=== PATIENT | female | born 1960 | race Caucasian/White ===

== ENCOUNTER → 2017-05-03 13:47 | Outpatient (CLI) | payer OTHER, SELFPAY ==
[2017-05-03 16:07] LABS: Absolute Lymphocyte Count 1.67 X10^3/ul (0.83-4.51); Absolute Neutrophil Count 2.8 X10^3/uL (2.0-7.7); Basophil# 0.03 X10^3/uL; Basophil% 0.5 % (0-1); Eosinophil# 0.18 X10^3/uL; Eosinophils% 3.2 % (0-5); Hematocrit 38.7 % (37-47); Hemoglobin 12.8 g/dl (12.0-15.0); Lymphocyte # 1.67 X10^3/ul (4.0); Lymphocyte % 29.8 % (19-41); Mean Corp Hgb Conc 33.1 g/gl (32-36); Mean Corpuscular Hgb 31.1 pg (27.0-32.0); Mean Corpuscular Volume 93.9 fL (81-99); Mean Platelet Vol. 10.5 fl (6.2-12.0); Monocyte# 0.88 X10^3/uL; Monocyte% 15.7 % (0-10); Neutrophil # 2.84 X10^3/uL (2.7-7.7); Neutrophil % 50.8 % (47-70); Platelet Count 285 K/mm3 (150-450); RBC Distribution Width CV 13.4 % (11.6-14.6); RBC Distribution Width SD 44.4 fl (35.1-43.9); Red Blood Count 4.12 M/mm3 (4.2-5.4); White Blood Count 5.6 K/mm3 (4.4-11.0)
[2017-05-03 16:11] LABS: POSITIVE COUNT NO; POSITIVE DIFFERENTIAL NO; POSITIVE MORPHOLOGY NO
[2017-05-03 17:57] LABS: ALB/GLOB Ratio 1.3 RATIO (0.9-2.4); AST(SGOT) 13 U/L (15-37); Alanine Aminotransfer ALT/SGPT 26 U/L (13-56); Alkaline Phosphatase 77 U/L (45-117); Anion Gap 7 (5-15); BUN 17 mg/dL (7-18); BUN/Creat Ratio 23.5 RATIO (10-20); Calcium,Total 8.7 mg/dL (8.5-10.1); Chloride 104 mmol/L (98-107); Creatinine, Serum 0.72 mg/dL (0.55-1.02); EST Glomerular Filtration Rate 88 mL/min (>60); Est Glom Filt Rate - Afr Amer 107 mL/min (>60); Globulin 3.1 g/dL (2.2-4.2); Glucose 74 mg/dL (74-106); Potassium 4.1 mmol/L (3.5-5.1); Protein, Total 7.1 g/dL (6.4-8.2); Sodium Level 141 mmol/L (136-145)
== END ==
PROVIDERS: Family Medicine; Family Provider Nurse Practitioner Family; PCP Nurse Practitioner Family; Visit Provider Internal Medicine Rheumatology
DX: M06.80 Other specified rheumatoid arthritis, unspecified site (principal); L40.9 Psoriasis, unspecified; M72.0 Palmar fascial fibromatosis [Dupuytren]; I27.0 Primary pulmonary hypertension; Z79.899 Other long term (current) drug therapy
CPT/HCPCS: 36415; 80053; 85025

== ENCOUNTER 2017-05-16 13:00 | Outpatient (RCR) | payer OTHER, SELFPAY ==
--- NOTE | 2017-04-29 13:37 | HP.PTEVAL_ITS ---
Patient's Visit Information AMY NG is a 57 year old F referred to Physical Therapy by Terence Padilla DR.JWUNNI with a diagnosis of S/P PLANTAR FASCIOTOMY W/RESECTION OF HEEL SPUR 03/22/17.. Date of Evaluation: 04/29/17 Physical Therapist: Dorcas Mancilla Cross - Visit Plan Frequency: 2-3x /Week Duration: 4-6 Weeks Plan: *PRECAUTION - PATIENT HAS RA AND PSORIATIC ARTHRITIS* PT 2X'S A WEEK X 4- 6 WEEKS FOR RIGHT LE ROM, STRETCHING AND STRENGTHENING PROGRESSING WEIGHT BEARING EX'S TOLERATED STARTING WITH SEATED EX ON THE BIKE, BAPS, ETC CLOSED CHAIN AND WORKING UP TO SINGLE LEG STANCE THER EX TOLERATED. FOCUS ON BALANCE AND PROPRIOCEPTION OF RIGHT FOOT AND ANKLE TO DECREASE STRESS ON BACK AND LLE FROM YEARS OF COMPENSATION. STRESS GOOD BACK MECHANICS WITH ALL EX'S. MONITOR WHAT PATIENT CALLS SCIATICA SYMPTOMS IN LLE AND REFER TO PCP IF NEEDED. 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 HEAVY LIFTING INVOLVED. RETIRING END OF THIS MONTH. CURRENTLY OFF WORK AND HAS BEEN SINCE MAR 23 2017 (DATE OF SURGERY). DOES NOT PLAN TO GO BACK. Disability: NO. Present symptoms: PAIN RIGHT MEDIAL HEEL. LEFT SCIATICA. NUMBNESS BOTTOM OF FOOT BELOW TOES. Present since: ABOUT A YEAR. Pain Scale: WORST 8/10 LEAST 0/10. Currently: 3/10. Commenced as a result of: NO APPARENT REASON OTHER THAN WORKING 30 YEARS ON CEMENT. Symptoms at onset: SAME. Worse: PROLONGED STANDING, BEARING WEIGHT ON HEEL, WALKING. Better: SITTING AND LYING DOWN. Disturbed sleep: YES. Previous history/Previous treatment: FOOT PAIN OFF ON SINCE HER 20'S. ORTHOTICS, BRACING, INJECTIONS. NO PRIOR SURGERIES UNTIL NOW. NO PT. Gait: JUST GOT OUT OF BOOT OVER THE WEEKEND. NO USING ANY ASSISTIVE DEVICES. Accidents: NO. Unexplained weight loss: NO. Imaging: RIGHT AFTER SURGERY WAS MOST RECENT. PMH: RA, PSORIATIC ARTHRITIS, COPD, HYPOTHYROIDISM, RAYNALDS DZ, PRIMARY PULMONARY HYPERTENSION. H/ O LEFT FOOT PAIN AND BONE SPUR TOO. Recent major surgery: 2015 RIGHT RCR AND TORN BICEP REPAIR. OTHER: PATIENT REPORTS SHE HAS LESS PAIN NOW THAN BEFORE SURGERY BUT SHE HAS NOT BEEN WORKING. PATIENT REPORTS THAT WALKING IN THE BOOT CAUSED HER TO GET SCIATICA AND SHE HAS NEVER HAD THAT BEFORE. - Objective THIS PATIENT AMBULATES INDEP'LY INTO PT WITHOUT ANY ASSISTIVE DEVICES LIMPING ON THE RIGHT LE AVOIDING WEIGHT BEARING ON HER HEEL. Motor deficit: VINH LE STRENGTH 5/5 WITH MMT EXCEPT RIGHT ANKLE PLANTAR FLEXION 4/5, EVERSION 4/5 AND INVERSION 4-/5 IN AVAILABLE ROM. Sensory deficit: DECREASED LIGHT TOUCH RIGHT PLANTAR METATARSAL REGION. ROM deficit: 45 DEG RIGHT ANKLE PLANTAR FLEXION, 12 DEG DORSIFLEX, 48 DEG INVERSION, 8 DEG EVERSION. Palpation: TENDERNESS WITH PALPATION OVER MEDIAL HEEL INCISION BUT INCISION IS HEALING WELL WITHOUT ANY SIGNS OF INFECTION AND SHE ONLY HAS VERY MILD EDEMA LOCALIZED TO THE INCISION REGION. - Goals Goal 1:: DECREASE C/O RIGHT HEEL PAIN Goal Time Frame: 4-6 Weeks Goal 2:: IMPROVE RIGHT FOOT AND ANKLE FUNCTIONAL ROM Goal Time Frame: 4-6 Weeks Goal 3:: IMPROVE RIGHT FOOT AND ANKLE FUNCTIONAL STRENGTH Goal Time Frame: 4-6 Weeks Goal 4:: IMPROVE STANDING, WALKING AND SLEEP FUNCTION Goal Time Frame: 4-6 Weeks Goal 5:: INDEP HEP Goal Time Frame: 4-6 Weeks - Rehabilitation Potential Rehabilitation Potential: Good - Anticipated Interventions Patient/Client Instruction: Educate patient on: Condition, Plan of Care, Risk Factors, Benefits of Fitness Program For the Purpose of:: To improve self management Therapeutic Exercise to Include: Strength training, Balance training, Agility training, Body mechanics, Flexibilty training, Gait and locomotor training, Passive ROM, Active ROM For the Purpose of:: To improve ability of physical actions for home/community/ work/leisure Thank you for the opportunity to evaluate your patient. For Medicare and Medicare HMO plans, please review the plan of care and approve it. It will need to be FAXED BACK to us at [phone] for Medicare purposes. Please let me know if there are questions or concerns regarding this plan of care. Physician Signature: Date:
--- NOTE | 2017-05-23 11:14 | HP.PTDCNRP_ITS ---
HP - Discharge Summary (1) - Patient Information AMY NG was seen in my office for initial evaluation on 04/29/17. The following Plan of Care was established for this patient: Initial Frequency: 2-3x /Week Initial Duration: 4-6 Weeks - Anticipated Interventions Patient/Client Instruction: Educate patient on: Condition, Plan of Care, Risk Factors, Benefits of Fitness Program For the Purpose of:: To improve self management Therapeutic Exercise to Include: Strength training, Balance training, Agility training, Body mechanics, Flexibilty training, Gait and locomotor training, Passive ROM, Active ROM For the Purpose of:: To improve ability of physical actions for home/community/ work/leisure This patient was last seen in our office . Pertinent comments regarding their Physical therapy will appear below: I RECEIVED A NOTE TODAY STATING PATIENT CALLED AND SAID SHE SAW HER DOCTOR AND SHE DOES NOT NEED TO DO ANYMORE THERAPY. SHE ASKED TO CANCEL THE REST OF HER APPOINTMENTS. I WILL D/C HER CHART AT THIS TIME. At this point I will be discontinuing this patient from physical therapy. I would be happy to see this patient again in the future if found appropriate by the physician. Thank you! Dorcas De La Cruz
== END 2017-05-16 19:00 | disposition home or self-care (01) ==
LOC: PT 13:00
PROVIDERS: Family Provider Nurse Practitioner Family; PCP Nurse Practitioner Family; Visit Provider Podiatrist
DX: Z98.890 Other specified postprocedural states (principal)
CPT/HCPCS: 97110; 97162

== ENCOUNTER → 2017-05-17 13:30 | Outpatient (CLI) | payer OTHER, SELFPAY ==
[2017-05-17 16:24] LABS: T4 Free Direct 1.48 ng/dL (0.76-1.46); Thyroid Stim Hormone (TSH) 0.46 uIU/mL (0.358-3.74)
== END ==
PROVIDERS: Family Provider Nurse Practitioner Family; PCP Nurse Practitioner Family; Visit Provider Nurse Practitioner Family
DX: E03.9 Hypothyroidism, unspecified (principal)
CPT/HCPCS: 36415; 84439; 84443

== ENCOUNTER → 2017-07-26 13:19 | Outpatient (CLI) | payer OTHER, SELFPAY ==
[2017-07-26 16:01] LABS: Absolute Lymphocyte Count 1.91 X10^3/ul (0.83-4.51); Absolute Neutrophil Count 3.3 X10^3/uL (2.0-7.7); Basophil# 0.02 X10^3/uL; Basophil% 0.3 % (0-1); Eosinophil# 0.07 X10^3/uL; Eosinophils% 1.2 % (0-5); Hematocrit 38.7 % (37-47); Hemoglobin 12.5 g/dl (12.0-15.0); Lymphocyte # 1.91 X10^3/ul (4.0); Lymphocyte % 32.3 % (19-41); Mean Corp Hgb Conc 32.3 g/gl (32-36); Mean Corpuscular Hgb 30.9 pg (27.0-32.0); Mean Corpuscular Volume 95.6 fL (81-99); Mean Platelet Vol. 10.1 fl (6.2-12.0); Monocyte# 0.66 X10^3/uL; Monocyte% 11.1 % (0-10); Neutrophil # 3.25 X10^3/uL (2.7-7.7); Neutrophil % 54.9 % (47-70); Platelet Count 316 K/mm3 (150-450); RBC Distribution Width CV 13.9 % (11.6-14.6); RBC Distribution Width SD 48.1 fl (35.1-43.9); Red Blood Count 4.05 M/mm3 (4.2-5.4); White Blood Count 5.9 K/mm3 (4.4-11.0)
[2017-07-26 16:03] LABS: POSITIVE COUNT NO; POSITIVE DIFFERENTIAL NO; POSITIVE MORPHOLOGY NO
[2017-07-26 16:21] LABS: ALB/GLOB Ratio 1.2 RATIO (0.9-2.4); AST(SGOT) 19 U/L (15-37); Alanine Aminotransfer ALT/SGPT 27 U/L (13-56); Albumin, Serum 3.9 g/dL (3.2-5.0); Alkaline Phosphatase 77 U/L (45-117); Anion Gap 9 (5-15); BUN 20 mg/dL (7-18); BUN/Creat Ratio 20.9 RATIO (10-20); Calcium,Total 8.8 mg/dL (8.5-10.1); Chloride 105 mmol/L (98-107); Creatinine, Serum 0.96 mg/dL (0.55-1.02); EST Glomerular Filtration Rate 64 mL/min (>60); Est Glom Filt Rate - Afr Amer 77 mL/min (>60); Globulin 3.3 g/dL (2.2-4.2); Glucose 70 mg/dL (74-106); Potassium 4.1 mmol/L (3.5-5.1); Protein, Total 7.2 g/dL (6.4-8.2); Sodium Level 144 mmol/L (136-145); Thyroid Stim Hormone (TSH) 0.16 uIU/mL (0.358-3.74)
== END ==
PROVIDERS: Family Provider Nurse Practitioner Family; PCP Nurse Practitioner Family; Visit Provider Internal Medicine Rheumatology
DX: E03.9 Hypothyroidism, unspecified (principal); M05.741 Rheumatoid arthritis with rheumatoid factor of right hand without organ or systems involvement; L40.9 Psoriasis, unspecified; M72.0 Palmar fascial fibromatosis [Dupuytren]; I27.0 Primary pulmonary hypertension; Z79.899 Other long term (current) drug therapy
CPT/HCPCS: 36415; 80053; 84443; 85025

== ENCOUNTER → 2017-09-17 12:42 | Outpatient (CLI) | payer OTHER, SELFPAY ==
[2017-09-17 14:23] LABS: Basophil# 0.02 X10^3/uL; Basophil% 0.3 % (0-1); Eosinophil# 0.18 X10^3/uL; Eosinophils% 2.7 % (0-5); Hematocrit 40.2 % (37-47); Hemoglobin 12.9 g/dl (12.0-15.0); Lymphocyte % 20.9 % (19-41); Mean Corp Hgb Conc 32.1 g/gl (32-36); Mean Corpuscular Hgb 30.5 pg (27.0-32.0); Mean Platelet Vol. 9.8 fl (6.2-12.0); Monocyte# 1.06 X10^3/uL; Monocyte% 15.8 % (0-10); Neutrophil # 4.04 X10^3/uL (2.7-7.7); Neutrophil % 60.2 % (47-70); Platelet Count 313 K/mm3 (150-450); RBC Distribution Width CV 13.8 % (11.6-14.6); RBC Distribution Width SD 47.8 fl (35.1-43.9); Red Blood Count 4.23 M/mm3 (4.2-5.4); White Blood Count 6.7 K/mm3 (4.4-11.0)
[2017-09-17 14:30] LABS: POSITIVE COUNT NO; POSITIVE DIFFERENTIAL NO; POSITIVE MORPHOLOGY NO
[2017-09-17 14:38] LABS: ALB/GLOB Ratio 1.1 RATIO (0.9-2.4); AST(SGOT) 17 U/L (15-37); Alanine Aminotransfer ALT/SGPT 24 U/L (13-56); Albumin, Serum 3.9 g/dL (3.2-5.0); Alkaline Phosphatase 69 U/L (45-117); Anion Gap 8 (5-15); BUN 15 mg/dL (7-18); BUN/Creat Ratio 19.8 RATIO (10-20); Calcium,Total 8.5 mg/dL (8.5-10.1); Chloride 105 mmol/L (98-107); Creatinine, Serum 0.76 mg/dL (0.55-1.02); EST Glomerular Filtration Rate 84 mL/min (>60); Est Glom Filt Rate - Afr Amer 101 mL/min (>60); Globulin 3.4 g/dL (2.2-4.2); Glucose 73 mg/dL (74-106); Potassium 3.9 mmol/L (3.5-5.1); Protein, Total 7.3 g/dL (6.4-8.2); Sodium Level 143 mmol/L (136-145)
== END ==
PROVIDERS: Family Provider Nurse Practitioner Family; PCP Nurse Practitioner Family; Visit Provider Internal Medicine Rheumatology
DX: M05.741 Rheumatoid arthritis with rheumatoid factor of right hand without organ or systems involvement (principal); L40.9 Psoriasis, unspecified; M72.0 Palmar fascial fibromatosis [Dupuytren]; I27.0 Primary pulmonary hypertension; Z79.899 Other long term (current) drug therapy
CPT/HCPCS: 36415; 80053; 85025

== ENCOUNTER → 2017-12-12 14:00 | Outpatient (CLI) | payer OTHER, SELFPAY ==
[2017-12-12 15:51] LABS: Absolute Lymphocyte Count 1.56 X10^3/ul (0.83-4.51); Absolute Neutrophil Count 3.9 X10^3/uL (2.0-7.7); Basophil# 0.03 X10^3/uL; Basophil% 0.5 % (0-1); Eosinophil# 0.08 X10^3/uL; Eosinophils% 1.3 % (0-5); Hemoglobin 12.8 g/dl (12.0-15.0); Lymphocyte # 1.56 X10^3/ul (4.0); Lymphocyte % 24.9 % (19-41); Mean Corp Hgb Conc 32.8 g/gl (32-36); Mean Corpuscular Hgb 32.1 pg (27.0-32.0); Mean Corpuscular Volume 97.7 fL (81-99); Mean Platelet Vol. 10.5 fl (6.2-12.0); Monocyte% 11.2 % (0-10); Neutrophil # 3.88 X10^3/uL (2.7-7.7); Neutrophil % 61.9 % (47-70); Platelet Count 275 K/mm3 (150-450); RBC Distribution Width CV 14.6 % (11.6-14.6); RBC Distribution Width SD 50.7 fl (35.1-43.9); Red Blood Count 3.99 M/mm3 (4.2-5.4); White Blood Count 6.3 K/mm3 (4.4-11.0)
[2017-12-12 15:52] LABS: POSITIVE COUNT NO; POSITIVE DIFFERENTIAL NO; POSITIVE MORPHOLOGY NO
[2017-12-12 16:12] LABS: ALB/GLOB Ratio 1.2 RATIO (0.9-2.4); AST(SGOT) 17 U/L (15-37); Alanine Aminotransfer ALT/SGPT 23 U/L (13-56); Alkaline Phosphatase 74 U/L (45-117); Anion Gap 6 (5-15); BUN 12 mg/dL (7-18); BUN/Creat Ratio 14.1 RATIO (10-20); Calcium,Total 8.7 mg/dL (8.5-10.1); Chloride 106 mmol/L (98-107); Cholesterol 190 mg/dL (200); Creatinine, Serum 0.85 mg/dL (0.55-1.02); EST Glomerular Filtration Rate 73 mL/min (>60); Est Glom Filt Rate - Afr Amer 88 mL/min (>60); Globulin 3.2 g/dL (2.2-4.2); Glucose 84 mg/dL (74-106); High Density Lipoprotein 77 mg/dL; Protein, Total 7.2 g/dL (6.4-8.2); Sodium Level 141 mmol/L (136-145); Thyroid Stim Hormone (TSH) 2.81 uIU/mL (0.358-3.74); Triglycerides 62 mg/dL; Very Low Density Lipoprotein 12 mg/dL (5-40)
== END ==
PROVIDERS: Family Provider Nurse Practitioner Family; PCP Nurse Practitioner Family; Referring Provider Nurse Practitioner Family; Visit Provider Nurse Practitioner Family
DX: Z00.00 Encounter for general adult medical examination without abnormal findings (principal); R53.83 Other fatigue; E03.9 Hypothyroidism, unspecified; M05.70 Rheumatoid arthritis with rheumatoid factor of unspecified site without organ or systems involvement; Z79.899 Other long term (current) drug therapy; L40.9 Psoriasis, unspecified; M72.0 Palmar fascial fibromatosis [Dupuytren]; I27.0 Primary pulmonary hypertension
CPT/HCPCS: 36415; 80053; 80061; 84443; 85025

== ENCOUNTER → 2018-03-28 15:36 | Outpatient (CLI) | payer OTHER, SELFPAY ==
--- NOTE | 2018-03-28 15:41 | RAD_ITS ---
STUDY: X-RAY CHEST REASON FOR EXAM: Female, 58 years old. Pulmonary hypertension, COPD TECHNIQUE: PA and lateral views of the chest. COMPARISON: None. FINDINGS: There is hyperinflation of the lungs consistent with chronic obstructive lung disease (COPD). There is no demonstrated pleural abnormality. Normal size heart. Normal mediastinum and mundo. There is prominence of the pulmonary hilar arteries without peripheral pulmonary vascular congestion, suggesting pulmonary hypertension. There is atherosclerosis of the aortic arch. Normal visualized thoracic spine. Normal visualized ribs, clavicles, and shoulders. There is no demonstrated abnormality of the visualized soft tissue structures of the upper abdomen. RAD/Chest PA and Lateral IMPRESSION: 1. No airspace consolidation or pleural effusion. 2. Chronic obstructive airway disease. 3. Prominent central pulmonary arteries compatible with history provided of pulmonary hypertension. Electronically Signed: Tal Lantigua MD at 18:21 EST , Service support ,
[2018-03-28 17:52] LABS: Absolute Lymphocyte Count 1.69 X10^3/ul (0.83-4.51); Absolute Neutrophil Count 4.5 X10^3/uL (2.0-7.7); Basophil# 0.03 X10^3/uL; Basophil% 0.4 % (0-1); Eosinophil# 0.08 X10^3/uL; Eosinophils% 1.1 % (0-5); Hematocrit 42.2 % (37-47); Hemoglobin 13.9 g/dl (12.0-15.0); Lymphocyte # 1.69 X10^3/ul (4.0); Lymphocyte % 23.8 % (19-41); Mean Corp Hgb Conc 32.9 g/gl (32-36); Mean Corpuscular Hgb 32.3 pg (27.0-32.0); Mean Corpuscular Volume 97.9 fL (81-99); Mean Platelet Vol. 10.3 fl (6.2-12.0); Monocyte# 0.77 X10^3/uL; Monocyte% 10.9 % (0-10); Neutrophil # 4.51 X10^3/uL (2.7-7.7); Neutrophil % 63.7 % (47-70); Platelet Count 316 K/mm3 (150-450); RBC Distribution Width CV 14.4 % (11.6-14.6); RBC Distribution Width SD 49.4 fl (35.1-43.9); Red Blood Count 4.31 M/mm3 (4.2-5.4); White Blood Count 7.1 K/mm3 (4.4-11.0)
[2018-03-28 18:17] LABS: ALB/GLOB Ratio 1.3 RATIO (0.9-2.4); AST(SGOT) 23 U/L (15-37); Alanine Aminotransfer ALT/SGPT 36 U/L (13-56); Albumin, Serum 4.4 g/dL (3.2-5.0); Alkaline Phosphatase 81 U/L (45-117); Anion Gap 9 (5-15); BUN 19 mg/dL (7-18); BUN/Creat Ratio 21.6 RATIO (10-20); Calcium,Total 9.4 mg/dL (8.5-10.1); Chloride 103 mmol/L (98-107); Creatinine, Serum 0.88 mg/dL (0.55-1.02); EST Glomerular Filtration Rate 70 mL/min (>60); Est Glom Filt Rate - Afr Amer 85 mL/min (>60); Globulin 3.5 g/dL (2.2-4.2); Glucose 120 mg/dL (74-106); Potassium 3.9 mmol/L (3.5-5.1); Protein, Total 7.9 g/dL (6.4-8.2); Sodium Level 142 mmol/L (136-145)
[2018-03-28 18:21] LABS: POSITIVE COUNT NO; POSITIVE DIFFERENTIAL NO; POSITIVE MORPHOLOGY NO
== END ==
PROVIDERS: Family Provider Nurse Practitioner Family; PCP Nurse Practitioner Family; Referring Provider Internal Medicine Rheumatology; Visit Provider Internal Medicine Rheumatology
DX: R06.02 Shortness of breath (principal); M05.761 Rheumatoid arthritis with rheumatoid factor of right knee without organ or systems involvement; L40.9 Psoriasis, unspecified; M72.0 Palmar fascial fibromatosis [Dupuytren]; I27.0 Primary pulmonary hypertension; Z79.899 Other long term (current) drug therapy
CPT/HCPCS: 36415; 71046; 80053; 85025

== ENCOUNTER → 2018-06-12 10:34 | Outpatient (CLI) | payer OTHER, SELFPAY ==
[2018-06-12 12:12] LABS: Absolute Lymphocyte Count 1.17 X10^3/ul (0.83-4.51); Absolute Neutrophil Count 3.3 X10^3/uL (2.0-7.7); Basophil# 0.02 X10^3/uL; Basophil% 0.4 % (0-1); Eosinophil# 0.07 X10^3/uL; Eosinophils% 1.4 % (0-5); Hematocrit 41.4 % (37-47); Hemoglobin 13.2 g/dl (12.0-15.0); Lymphocyte # 1.17 X10^3/ul (4.0); Lymphocyte % 23.4 % (19-41); Mean Corp Hgb Conc 31.9 g/gl (32-36); Mean Corpuscular Hgb 31.4 pg (27.0-32.0); Mean Corpuscular Volume 98.3 fL (81-99); Mean Platelet Vol. 10.6 fl (6.2-12.0); Monocyte# 0.48 X10^3/uL; Monocyte% 9.6 % (0-10); Neutrophil # 3.26 X10^3/uL (2.7-7.7); Platelet Count 274 K/mm3 (150-450); RBC Distribution Width SD 50.2 fl (35.1-43.9); Red Blood Count 4.21 M/mm3 (4.2-5.4)
[2018-06-12 12:17] LABS: POSITIVE COUNT NO; POSITIVE DIFFERENTIAL NO; POSITIVE MORPHOLOGY NO
[2018-06-12 12:47] LABS: BUN 24 mg/dL (7-18); Glucose 86 mg/dL (74-106)
[2018-06-12 12:48] LABS: ALB/GLOB Ratio 1.4 RATIO (0.9-2.4); AST(SGOT) 19 U/L (15-37); Alanine Aminotransfer ALT/SGPT 27 U/L (13-56); Albumin, Serum 4.2 g/dL (3.2-5.0); Alkaline Phosphatase 75 U/L (45-117); Anion Gap 3 (5-15); Calcium,Total 8.8 mg/dL (8.5-10.1); Chloride 107 mmol/L (98-107); EST Glomerular Filtration Rate 78 mL/min (>60); Est Glom Filt Rate - Afr Amer 95 mL/min (>60); Globulin 2.9 g/dL (2.2-4.2); Potassium 4.3 mmol/L (3.5-5.1); Protein, Total 7.1 g/dL (6.4-8.2); Sodium Level 139 mmol/L (136-145)
[2018-06-12 12:56] LABS: T4 Free Direct 1.41 ng/dL (0.76-1.46); Thyroid Stim Hormone (TSH) 2.17 uIU/mL (0.358-3.74)
== END ==
PROVIDERS: Family Provider Nurse Practitioner Family; PCP Nurse Practitioner Family; Referring Provider Internal Medicine Rheumatology; Visit Provider Internal Medicine Rheumatology
DX: E03.9 Hypothyroidism, unspecified (principal); M05.771 Rheumatoid arthritis with rheumatoid factor of right ankle and foot without organ or systems involvement; L40.9 Psoriasis, unspecified; M72.0 Palmar fascial fibromatosis [Dupuytren]; I27.0 Primary pulmonary hypertension; Z79.899 Other long term (current) drug therapy
CPT/HCPCS: 36415; 80053; 84439; 84443; 85025

== ENCOUNTER → 2018-09-17 09:24 | Outpatient (CLI) | payer OTHER, SELFPAY ==
[2018-09-17 12:44] LABS: Absolute Lymphocyte Count 1.24 X10^3/ul (0.83-4.51); Absolute Neutrophil Count 4.4 X10^3/uL (2.0-7.7); Basophil# 0.05 X10^3/uL; Basophil% 0.7 % (0-1); Eosinophil# 0.12 X10^3/uL; Eosinophils% 1.8 % (0-5); Hematocrit 40.6 % (37-47); Hemoglobin 13.3 g/dl (12.0-15.0); Lymphocyte # 1.24 X10^3/ul (4.0); Lymphocyte % 18.5 % (19-41); Mean Corp Hgb Conc 32.8 g/gl (32-36); Mean Corpuscular Hgb 31.2 pg (27.0-32.0); Mean Corpuscular Volume 95.3 fL (81-99); Mean Platelet Vol. 10.6 fl (6.2-12.0); Monocyte# 0.87 X10^3/uL; Neutrophil # 4.41 X10^3/uL (2.7-7.7); Neutrophil % 65.9 % (47-70); Platelet Count 263 K/mm3 (150-450); RBC Distribution Width CV 14.2 % (11.6-14.6); RBC Distribution Width SD 48.1 fl (35.1-43.9); Red Blood Count 4.26 M/mm3 (4.2-5.4); White Blood Count 6.7 K/mm3 (4.4-11.0)
[2018-09-17 12:52] LABS: ALB/GLOB Ratio 1.4 RATIO (0.9-2.4); AST(SGOT) 19 U/L (15-37); Alanine Aminotransfer ALT/SGPT 24 U/L (13-56); Alkaline Phosphatase 73 U/L (45-117); Anion Gap 5 (5-15); BUN 21 mg/dL (7-18); BUN/Creat Ratio 24.9 RATIO (10-20); Calcium,Total 8.6 mg/dL (8.5-10.1); Chloride 105 mmol/L (98-107); Creatinine, Serum 0.84 mg/dL (0.55-1.02); EST Glomerular Filtration Rate 74 mL/min (>60); Est Glom Filt Rate - Afr Amer 89 mL/min (>60); Globulin 2.9 g/dL (2.2-4.2); Glucose 83 mg/dL (74-106); Potassium 3.8 mmol/L (3.5-5.1); Protein, Total 6.9 g/dL (6.4-8.2); Sodium Level 139 mmol/L (136-145)
[2018-09-17 12:53] LABS: POSITIVE COUNT NO; POSITIVE DIFFERENTIAL NO; POSITIVE MORPHOLOGY NO
== END ==
PROVIDERS: Family Provider Nurse Practitioner Family; PCP Nurse Practitioner Family; Referring Provider Internal Medicine Rheumatology; Visit Provider Internal Medicine Rheumatology
DX: M05.771 Rheumatoid arthritis with rheumatoid factor of right ankle and foot without organ or systems involvement (principal); L40.9 Psoriasis, unspecified; M72.0 Palmar fascial fibromatosis [Dupuytren]; I27.0 Primary pulmonary hypertension; Z79.899 Other long term (current) drug therapy
CPT/HCPCS: 36415; 80053; 85025

== ENCOUNTER → 2018-12-17 | Outpatient (CLI) | payer OTHER, SELFPAY ==
[2018-12-17 12:22] LABS: Absolute Lymphocyte Count 1.69 X10^3/uL (0.83-4.51); Absolute Neutrophil Count 4.9 X10^3/uL (2.0-7.7); Basophil# 0.04 X10^3/uL; Basophil% 0.5 % (0-1); Eosinophil# 0.11 X10^3/uL; Eosinophils% 1.5 % (0-5); Hematocrit 39.7 % (37-47); Hemoglobin 12.7 g/dL (12.0-15.0); Lymphocyte # 1.69 X10^3/ul (4.0); Lymphocyte % 22.4 % (19-41); Mean Corpuscular Hgb 30.9 pg (27.0-32.0); Mean Corpuscular Volume 96.6 fL (81-99); Mean Platelet Vol. 10.5 fl (6.2-12.0); Monocyte# 0.78 X10^3/uL; Monocyte% 10.3 % (0-10); NRBC Flagged by Analyzer 0 % (0-5); Neutrophil # 4.91 X10^3/uL (2.7-7.7); Neutrophil % 64.9 % (47-70); Platelet Count 262 K/mm3 (150-450); RBC Distribution Width CV 13.6 % (11.6-14.6); RBC Distribution Width SD 48.3 fl (35.1-43.9); Red Blood Count 4.11 M/mm3 (4.2-5.4); White Blood Count 7.6 K/mm3 (4.4-11.0)
[2018-12-17 13:21] LABS: ALB/GLOB Ratio 1.4 RATIO (0.9-2.4); AST(SGOT) 17 U/L (15-37); Alanine Aminotransfer ALT/SGPT 23 U/L (13-56); Albumin, Serum 4.2 g/dL (3.2-5.0); Alkaline Phosphatase 69 U/L (45-117); Anion Gap 8 (5-15); BUN 20 mg/dL (7-18); BUN/Creat Ratio 21.7 RATIO (10-20); Calcium,Total 9.2 mg/dL (8.5-10.1); Chloride 105 mmol/L (98-107); Creatinine, Serum 0.92 mg/dL (0.55-1.02); EST Glomerular Filtration Rate 66 mL/min (>60); Est Glom Filt Rate - Afr Amer 80 mL/min (>60); Glucose 94 mg/dL (74-106); Potassium 4.3 mmol/L (3.5-5.1); Protein, Total 7.2 g/dL (6.4-8.2); Sodium Level 141 mmol/L (136-145)
== END | disposition home or self-care (01) ==
LOC: MTLAB 10:45
PROVIDERS: Family Provider Nurse Practitioner Family; PCP Nurse Practitioner Family; Referring Provider Internal Medicine Rheumatology; Visit Provider Internal Medicine Rheumatology
DX: M05.70 Rheumatoid arthritis with rheumatoid factor of unspecified site without organ or systems involvement (principal); L40.9 Psoriasis, unspecified; M72.0 Palmar fascial fibromatosis [Dupuytren]; I27.0 Primary pulmonary hypertension; Z79.899 Other long term (current) drug therapy
CPT/HCPCS: 36415; 80053; 85025

== ENCOUNTER → 2019-02-27 12:13 | Outpatient (CLI) | payer OTHER, SELFPAY ==
[2019-02-10 11:01] VITALS: BMI 25.0
[2019-02-27 14:02] VITALS: PULSE 100; PULSE 101; PULSE 102; PULSE 72; PULSE 73; PULSE 95; PULSE 99; O2SAT 88; O2SAT 90; O2SAT 92; O2SAT 97; O2SAT 98
--- NOTE | 2019-02-27 14:05 | CPS ---
Ear pulse ox probe used for testing. Patient sent home on DASCO O2.
--- NOTE | 2019-02-27 15:53 | PCM.PSN.6M ---
PSN 6 Minute Walk Test - 6 Minute Walk Test 6 Minute Walk Test: 6 Minute Walk Test PSN:6-Minute Walk Test Start: 02/27/19 14:02 Freq: Status: Active Protocol: [id number].[id number] Document 02/27/19 14:02 [facility] (Rec: 02/27/19 14:07 [facility] [id number]) 6 Minute Walk Test Date Performed 02/27/19 Time Performed 12:33 Height 5 ft 4 in Weight: 62.596 kg Weight in Pounds 138.[address]: Jaxon Givens Assistive device used: None Pre-test Oxygen Delivery Method Room Air Pulse Ox (%) 97 Pulse Rate (60-100 beats/min) 73 Dyspnea Joel Scale (0-10) 0 Exertion Joel Scale (6-20) 11 1st minute Oxygen Delivery Method Room Air Pulse Ox (%) 98 Pulse Rate (60-100 beats/min) 95 2nd minute Oxygen Delivery Method Room Air Pulse Ox (%) 92 Pulse Rate (60-100 beats/min) 95 3rd minute Oxygen Delivery Method Room Air Pulse Ox (%) 90 Pulse Rate (60-100 beats/min) 101 H 4th minute Oxygen Flow Rate (L/min) (L/min) 2 Oxygen Delivery Method Nasal Cannula Pulse Ox (%) 88 Pulse Rate (60-100 beats/min) 100 5th minute Oxygen Flow Rate (L/min) (L/min) 3 Oxygen Delivery Method Nasal Cannula Pulse Ox (%) 88 Pulse Rate (60-100 beats/min) 99 6th minute Oxygen Flow Rate (L/min) (L/min) 4 Oxygen Delivery Method Nasal Cannula Pulse Ox (%) 88 Pulse Rate (60-100 beats/min) 102 H Post-test Oxygen Flow Rate (L/min) (L/min) 4 Oxygen Delivery Method Nasal Cannula Pulse Ox (%) 97 Pulse Rate (60-100 beats/min) 72 Dyspnea Joel Scale (0-10) 0 Exertion Joel Scale (6-20) 12 Full Laps Walked 12 Partial Lap, Number of Tiles Walked 16 Total Distance Walked (ft) 724 02/27/19 14:05 [facility] by Giovanna Sandoval Ear pulse ox probe used for testing. Patient sent home on DASCO O2. Initialized on 02/27/19 14:05 - END OF NOTE - Interpretation Interpretation: The patient was noted to be 97% on room air at rest. However, in the fourth minute, patient desaturated to 88% requiring 2 L nasal cannula oxygen. In total, patient required 4 L nasal cannula oxygen to maintain appropriate saturations throughout the walk and traveled 724 feet. These findings are consistent with a respiratory limitation exercise tolerance. - Recommendations Recommendations: The patient requires no supplemental oxygen at rest, but should be using 4 L nasal cannula oxygen with any ambulation.
== END ==
PROVIDERS: Family Provider Nurse Practitioner Family; PCP Nurse Practitioner Family; Referring Provider Internal Medicine Critical Care Medicine; Visit Provider Internal Medicine Critical Care Medicine
DX: I27.20 Pulmonary hypertension, unspecified (principal); M05.79 Rheumatoid arthritis with rheumatoid factor of multiple sites without organ or systems involvement
CPT/HCPCS: 94618

== ENCOUNTER → 2019-03-02 13:15 | Outpatient (CLI) | payer OTHER, SELFPAY ==
[2019-02-10 11:01] VITALS: BMI 25.0
--- NOTE | 2019-03-02 13:17 | CT_ITS ---
STUDY: CT CHEST WITHOUT CONTRAST REASON FOR EXAM: Female, 58 years old. History of rheumatoid lung. Pulmonary hypertension. RADIATION DOSAGE (If Supplied By Facility): CTDIvol = ( 7.04 ) mGy, DLP = ( 254.81 ) mGycm TECHNIQUE: Transaxial imaging was performed without the administration of intravenous contrast material. Individualized dose optimization techniques were used for this CT. COMPARISON: Report of chest x-ray March 28, 2018. FINDINGS: Emphysematous changes. Lungs are hyperinflated. No focal airspace consolidation or pleural effusions. No rheumatoid nodules. No bronchiectasis or honeycombing. No pneumothorax. Scattered groundglass opacities. Biapical pleural thickening. The heart is not enlarged. Coronary artery calcifications. No pericardial effusion. Normal mediastinum. Normal hilar regions. Normal unenhanced pulmonary arteries. Main pulmonary artery is not dilated. Normal aorta arch and descending thoracic aorta. Normal osseous structures. There is no demonstrated abnormality of the visualized upper abdomen. CT/Chest without Contrast IMPRESSION: COPD. Scattered groundglass opacities compatible with mild edema or pneumonitis. Otherwise no significant findings of rheumatoid lung. Coronary artery calcifications. Electronically Signed: Varun Simpson MD at 5:37 EST , Service support ,
--- NOTE | 2019-03-02 13:30 | ECHOCS_ITS ---
Reason For Study: Pulm. HTN Procedure This was a 2D Doppler, Color Flow transthoracic echocardiogram. Myocardial strain analysis was performed in this exam to aid in the assessment of cardiac function. Exam performed in department. Left Ventricle Normal LV size. Left ventricular systolic function is normal. The estimated ejection fraction is 60 %. Normal diastology for age. No regional wall motion abnormalities noted. Right Ventricle Normal RV size. Normal systolic function. Atria Normal left atrium. Normal right atrium. Mitral Valve Normal mitral valve. Tricuspid Valve Normal tricuspid valve. Aortic Valve Normal aortic valve. Trisinus/trileaflet aortic valve. Pulmonic Valve Normal pulmonic valve. Great Vessels Normal aortic root. The pulmonary artery is normal size. Normal inferior vena cava. Pericardium/Pleural No pericardial effusion. MMode/2D Measurements & Calculations LVIDd: 3.7 cm IVSd: 0.67 cm Ao root diam: 3.2 cm LVIDs: 2.3 cm LVPWd: 0.85 cm RVDd: 3.4 cm FS: 37.6 % LAV(MOD-bp): 36.9 ml LA A4 area: 12.4 cm2 LA dimension(2D): 2.6 cm LAV(MOD-bp) Indexed: 22.1 ml/m2 LAV(MOD-sp2): 44.5 ml LAV(MOD-sp4): 27.9 ml RA A4 area: 13.1 cm2 Doppler Measurements & Calculations MV E max andre: 71.4 cm/sec Lat Peak E' Andre: 11.9 cm/sec Med Peak E' Andre: 10.6 cm/sec MV A max andre: 61.6 cm/sec E/E' lat: 6.0 E/E' med: 6.7 MV E/A: 1.2 Ao V2 max: 137.4 cm/sec LV V1 max: 104.5 cm/sec PA V2 max: 93.0 cm/sec Ao max P.6 mmHg LV V1 max P.4 mmHg TR max andre: 252.9 cm/sec TR max P.7 mmHg Interpretation Summary Normal LV size. Left ventricular systolic function is normal. The estimated ejection fraction is 60 %. Normal diastology for age. The global longitudinal strain is normal. The global longitudinal strain = -18.7 % (normal). Ordering Physician: Jaxon Givens Referring Physician: Ulysses Morton Performed By: Radha Partida RDCS
== END ==
PROVIDERS: Family Provider Nurse Practitioner Family; PCP Nurse Practitioner Family; Referring Provider Internal Medicine Critical Care Medicine; Visit Provider Internal Medicine Critical Care Medicine
DX: I27.20 Pulmonary hypertension, unspecified (principal); M05.79 Rheumatoid arthritis with rheumatoid factor of multiple sites without organ or systems involvement
CPT/HCPCS: 71250; 93306; C8929

== ENCOUNTER → 2019-03-10 13:16 | Outpatient (CLI) | payer OTHER, SELFPAY ==
[2019-02-10 11:01] VITALS: BMI 25.0
--- NOTE | 2019-03-16 09:31 | PFT ---
INTRODUCTION: The patient is a 59-year-old female that presents for pulmonary function studies secondary to a diagnosis of pulmonary hypertension. Respiratory therapy reports good patient effort. Bronchodilators were used during testing. INTERPRETATION: Forced expiration spirometry demonstrates the presence of a very severe large airways obstructive ventilatory defect. There was a significant response to aerosolized bronchodilators noted, based upon change in FVC. Spirograms are of fair quality and do not plateau indicating slow emptying of the lungs. Body plethysmography was performed and reveals an elevated RV to 165% of predicted, indicative of underlying air trapping. Diffusing capacity by single breath CO is reduced at 62% of predicted. IMPRESSION: Partially reversible very severe large airways obstructive ventilatory defect with associated air trapping and mild reduction in diffusing capacity.
== END ==
PROVIDERS: Family Provider Nurse Practitioner Family; PCP Nurse Practitioner Family; Referring Provider Internal Medicine Critical Care Medicine; Visit Provider Internal Medicine Critical Care Medicine
DX: I27.20 Pulmonary hypertension, unspecified (principal); M05.79 Rheumatoid arthritis with rheumatoid factor of multiple sites without organ or systems involvement
CPT/HCPCS: 94060; 94726; 94729

== ENCOUNTER → 2019-03-30 10:52 | Outpatient (CLI) | payer OTHER, SELFPAY ==
[2019-02-10 11:01] VITALS: BMI 25.0
[2019-03-30 13:08] LABS: Absolute Lymphocyte Count 1.31 X10^3/uL (0.83-4.51); Absolute Neutrophil Count 2.7 X10^3/uL (2.0-7.7); Basophil# 0.03 X10^3/uL; Basophil% 0.6 % (0-1); Eosinophil# 0.16 X10^3/uL; Eosinophils% 3.2 % (0-5); Hematocrit 39.9 % (37-47); Hemoglobin 12.9 g/dL (12.0-15.0); Lymphocyte # 1.31 X10^3/ul (4.0); Lymphocyte % 26.4 % (19-41); Mean Corp Hgb Conc 32.3 g/dL (32-36); Mean Corpuscular Volume 95.9 fL (81-99); Mean Platelet Vol. 10.3 fl (6.2-12.0); Monocyte% 16.1 % (0-10); NRBC Flagged by Analyzer 0 % (0-5); Neutrophil # 2.66 X10^3/uL (2.7-7.7); Neutrophil % 53.5 % (47-70); Platelet Count 260 K/mm3 (150-450); RBC Distribution Width CV 13.9 % (11.6-14.6); RBC Distribution Width SD 49.2 fl (35.1-43.9); Red Blood Count 4.16 M/mm3 (4.2-5.4)
[2019-03-30 13:52] LABS: ALB/GLOB Ratio 1.2 RATIO (0.9-2.4); AST(SGOT) 25 U/L (15-37); Alanine Aminotransfer ALT/SGPT 28 U/L (13-56); Albumin, Serum 3.9 g/dL (3.2-5.0); Alkaline Phosphatase 71 U/L (45-117); Anion Gap 3 (5-15); BUN 13 mg/dL (7-18); Calcium,Total 9.2 mg/dL (8.5-10.1); Chloride 108 mmol/L (98-107); Cholesterol 201 mg/dL (200); Creatinine, Serum 0.93 mg/dL (0.55-1.02); EST Glomerular Filtration Rate 66 mL/min (>60); Est Glom Filt Rate - Afr Amer 80 mL/min (>60); Globulin 3.2 g/dL (2.2-4.2); Glucose 90 mg/dL (74-106); High Density Lipoprotein 91 mg/dL; Potassium 4.3 mmol/L (3.5-5.1); Protein, Total 7.1 g/dL (6.4-8.2); Sodium Level 142 mmol/L (136-145); Triglycerides 55 mg/dL; Very Low Density Lipoprotein 11 mg/dL (5-40)
== END ==
PROVIDERS: Family Provider Nurse Practitioner Family; PCP Nurse Practitioner Family; Referring Provider Internal Medicine Rheumatology; Visit Provider Internal Medicine Rheumatology
DX: I10 Essential (primary) hypertension (principal); E78.2 Mixed hyperlipidemia; E03.9 Hypothyroidism, unspecified; M05.70 Rheumatoid arthritis with rheumatoid factor of unspecified site without organ or systems involvement; M65.341 Trigger finger, right ring finger; L40.9 Psoriasis, unspecified; M72.0 Palmar fascial fibromatosis [Dupuytren]; I27.0 Primary pulmonary hypertension; I83.813 Varicose veins of bilateral lower extremities with pain; Z79.899 Other long term (current) drug therapy
CPT/HCPCS: 36415; 80053; 80061; 84439; 84443; 85025

== ENCOUNTER → 2019-06-16 08:15 | Outpatient (CLI) | payer OTHER, SELFPAY ==
[2019-04-28 06:22] VITALS: BMI 24.0
[2019-06-16 10:02] LABS: Absolute Lymphocyte Count 1.39 X10^3/uL (0.83-4.51); Absolute Neutrophil Count 2.6 X10^3/uL (2.0-7.7); Basophil# 0.05 X10^3/uL; Eosinophil# 0.22 X10^3/uL; Eosinophils% 4.4 % (0-5); Hematocrit 39.6 % (37-47); Hemoglobin 12.8 g/dL (12.0-15.0); Lymphocyte # 1.39 X10^3/ul (4.0); Mean Corp Hgb Conc 32.3 g/dL (32-36); Mean Corpuscular Hgb 31.7 pg (27.0-32.0); Mean Platelet Vol. 10.2 fl (6.2-12.0); Monocyte# 0.67 X10^3/uL; Monocyte% 13.5 % (0-10); NRBC Flagged by Analyzer 0 % (0-5); Neutrophil # 2.62 X10^3/uL (2.7-7.7); Neutrophil % 52.9 % (47-70); Platelet Count 275 K/mm3 (150-450); RBC Distribution Width CV 14.5 % (11.6-14.6); RBC Distribution Width SD 52.2 fl (35.1-43.9); Red Blood Count 4.04 M/mm3 (4.2-5.4)
[2019-06-16 10:18] LABS: ALB/GLOB Ratio 1.2 RATIO (0.9-2.4); AST(SGOT) 22 U/L (15-37); Alanine Aminotransfer ALT/SGPT 30 U/L (13-56); Albumin, Serum 3.9 g/dL (3.2-5.0); Alkaline Phosphatase 65 U/L (45-117); Anion Gap 5 (5-15); BUN 15 mg/dL (7-18); BUN/Creat Ratio 16.9 RATIO (10-20); Calcium,Total 9.1 mg/dL (8.5-10.1); Chloride 104 mmol/L (98-107); Creatinine, Serum 0.89 mg/dL (0.55-1.02); EST Glomerular Filtration Rate 69 mL/min (>60); Est Glom Filt Rate - Afr Amer 84 mL/min (>60); Globulin 3.2 g/dL (2.2-4.2); Glucose 96 mg/dL (74-106); Potassium 4.1 mmol/L (3.5-5.1); Protein, Total 7.1 g/dL (6.4-8.2); Sodium Level 139 mmol/L (136-145)
== END ==
PROVIDERS: PCP Nurse Practitioner Family; Referring Provider Internal Medicine Rheumatology; Visit Provider Internal Medicine Rheumatology
DX: M05.70 Rheumatoid arthritis with rheumatoid factor of unspecified site without organ or systems involvement (principal); M65.341 Trigger finger, right ring finger; L40.9 Psoriasis, unspecified; M72.0 Palmar fascial fibromatosis [Dupuytren]; I27.0 Primary pulmonary hypertension; I83.813 Varicose veins of bilateral lower extremities with pain; Z79.899 Other long term (current) drug therapy
CPT/HCPCS: 36415; 80053; 85025

== ENCOUNTER → 2019-09-02 | Outpatient (CLI) | payer OTHER, SELFPAY ==
[2019-04-28 06:22] VITALS: BMI 24.0
[2019-09-02 15:47] LABS: Absolute Lymphocyte Count 1.67 X10^3/uL (0.83-4.51); Absolute Neutrophil Count 3.9 X10^3/uL (2.0-7.7); Basophil# 0.05 X10^3/uL; Basophil% 0.8 % (0-1); Eosinophil# 0.09 X10^3/uL; Eosinophils% 1.4 % (0-5); Hematocrit 41.3 % (37-47); Hemoglobin 13.1 g/dL (12.0-15.0); Lymphocyte # 1.67 X10^3/ul (4.0); Lymphocyte % 25.3 % (19-41); Mean Corp Hgb Conc 31.7 g/dL (32-36); Mean Corpuscular Hgb 32.3 pg (27.0-32.0); Mean Corpuscular Volume 101.7 fL (81-99); Mean Platelet Vol. 10.6 fl (6.2-12.0); Monocyte# 0.84 X10^3/uL; Monocyte% 12.7 % (0-10); NRBC Flagged by Analyzer 0 % (0-5); Neutrophil # 3.93 X10^3/uL (2.7-7.7); Neutrophil % 59.5 % (47-70); Platelet Count 326 K/mm3 (150-450); RBC Distribution Width CV 13.4 % (11.6-14.6); RBC Distribution Width SD 49.6 fl (35.1-43.9); Red Blood Count 4.06 M/mm3 (4.2-5.4); White Blood Count 6.6 K/mm3 (4.4-11.0)
[2019-09-02 16:11] LABS: ALB/GLOB Ratio 1.2 RATIO (0.9-2.4); AST(SGOT) 23 U/L (15-37); Alanine Aminotransfer ALT/SGPT 29 U/L (13-56); Albumin, Serum 4.1 g/dL (3.2-5.0); Alkaline Phosphatase 73 U/L (45-117); Anion Gap 6 (5-15); BUN 15 mg/dL (7-18); BUN/Creat Ratio 17.4 RATIO (10-20); Calcium,Total 9.3 mg/dL (8.5-10.1); Chloride 103 mmol/L (98-107); Creatinine, Serum 0.86 mg/dL (0.55-1.02); EST Glomerular Filtration Rate 72 mL/min (>60); Est Glom Filt Rate - Afr Amer 87 mL/min (>60); Globulin 3.3 g/dL (2.2-4.2); Glucose 85 mg/dL (74-106); Potassium 3.9 mmol/L (3.5-5.1); Protein, Total 7.4 g/dL (6.4-8.2); Sodium Level 139 mmol/L (136-145); T4 Free Direct 1.56 ng/dL (0.76-1.46); Thyroid Stim Hormone (TSH) 1.08 uIU/mL (0.358-3.74)
== END | disposition home or self-care (01) ==
LOC: MTLAB 12:38
PROVIDERS: PCP Nurse Practitioner Family; Referring Provider Internal Medicine Rheumatology; Visit Provider Internal Medicine Rheumatology
DX: M65.341 Trigger finger, right ring finger (principal); L40.9 Psoriasis, unspecified; M72.0 Palmar fascial fibromatosis [Dupuytren]; I27.0 Primary pulmonary hypertension; I83.813 Varicose veins of bilateral lower extremities with pain; I73.00 Raynaud's syndrome without gangrene; M05.70 Rheumatoid arthritis with rheumatoid factor of unspecified site without organ or systems involvement; E03.9 Hypothyroidism, unspecified; Z79.899 Other long term (current) drug therapy
CPT/HCPCS: 36415; 80053; 84439; 84443; 85025

== ENCOUNTER → 2019-10-20 | Outpatient (CLI) | payer OTHER, SELFPAY ==
[2019-04-28 06:22] VITALS: BMI 24.0
--- NOTE | 2019-10-20 15:04 | PFTCOMP_ITS ---
COMPLETE PULMONARY FUNCTION TEST INTERPRETATION Brief HPI: Patient is a 59 year old female, currently under the care of myself, who presents to [facility] for complete pulmonary function tests secondary to diagnosis of COPD. Respiratory therapist reports good effort and reproducible results. Interpretation: Forced expiration spirometry shows a severe large airways obstructive ventilatory defect with an FEV1 of 43% predicted. There is no significant bronchodilator response by strict ATS criteria. Spirograms are of good quality and plateau slowly, indicating slowly emptying areas of the lungs. The respiratory flow volume loop shows decreased expiratory flow rates at all lung volumes consistent with airway obstruction. Lung volumes by body plethysmography show an elevated total lung capacity at 5.61 L, 119% predicted. FRC and RV are elevated out of proportion. Lung volume measurements are consistent with hyperinflation and air-trapping. Diffusion capacity by carbon monoxide is at the lower limit of normal at 72% predicted. The airway resistance is elevated. Compared to previous pulmonary function tests from 03/10/2019, there is been a significant improvement in FVC, FEV1 and DLCO by 33%, 37% and 14% respectively. Impression: Irreversible severe large airways obstructive ventilatory defect resulting in air trapping and hyperinflation, but does have improvement compared to 2019.
== END | disposition home or self-care (01) ==
LOC: PSN 10:45
PROVIDERS: PCP Nurse Practitioner Family; Referring Provider Internal Medicine Critical Care Medicine; Visit Provider Internal Medicine Critical Care Medicine
DX: J44.9 Chronic obstructive pulmonary disease, unspecified (principal)
CPT/HCPCS: 94060; 94726; 94729

== ENCOUNTER → 2020-02-12 11:22 | Outpatient (CLI) | payer OTHER, SELFPAY ==
[2019-10-28 05:58] VITALS: BMI 24.0
[2020-02-12 14:54] LABS: Absolute Lymphocyte Count 2.04 X10^3/uL (0.83-4.51); Absolute Neutrophil Count 3.1 X10^3/uL (2.0-7.7); Basophil# 0.05 X10^3/uL; Basophil% 0.8 % (0-1); Eosinophil# 0.12 X10^3/uL; Eosinophils% 1.9 % (0-5); Lymphocyte # 2.04 X10^3/ul (4.0); Mean Corp Hgb Conc 31.7 g/dL (32-36); Mean Corpuscular Hgb 32.3 pg (27.0-32.0); Mean Corpuscular Volume 101.7 fL (81-99); Mean Platelet Vol. 10.5 fl (6.2-12.0); Monocyte# 0.82 X10^3/uL; Monocyte% 13.3 % (0-10); NRBC Flagged by Analyzer 0 % (0-5); Neutrophil # 3.13 X10^3/uL (2.7-7.7); Neutrophil % 50.7 % (47-70); Platelet Count 302 K/mm3 (150-450); RBC Distribution Width CV 14.1 % (11.6-14.6); RBC Distribution Width SD 52.6 fl (35.1-43.9); Red Blood Count 4.03 M/mm3 (4.2-5.4); White Blood Count 6.2 K/mm3 (4.4-11.0)
[2020-02-12 15:04] LABS: ALB/GLOB Ratio 1.2 RATIO (0.9-2.4); AST(SGOT) 20 U/L (15-37); Alanine Aminotransfer ALT/SGPT 26 U/L (13-56); Albumin, Serum 3.8 g/dL (3.2-5.0); Alkaline Phosphatase 75 U/L (45-117); Anion Gap 2 (5-15); BUN 21 mg/dL (7-18); BUN/Creat Ratio 20.4 RATIO (10-20); Calcium,Total 8.9 mg/dL (8.5-10.1); Chloride 106 mmol/L (98-107); Creatinine, Serum 1.03 mg/dL (0.55-1.02); EST Glomerular Filtration Rate 58 mL/min (>60); Est Glom Filt Rate - Afr Amer 70 mL/min (>60); Globulin 3.3 g/dL (2.2-4.2); Glucose 82 mg/dL (74-106); Potassium 3.7 mmol/L (3.5-5.1); Protein, Total 7.1 g/dL (6.4-8.2); Sodium Level 141 mmol/L (136-145)
== END ==
PROVIDERS: PCP Nurse Practitioner Family; Referring Provider Internal Medicine Rheumatology; Visit Provider Internal Medicine Rheumatology
DX: M05.70 Rheumatoid arthritis with rheumatoid factor of unspecified site without organ or systems involvement (principal); M65.341 Trigger finger, right ring finger; L40.9 Psoriasis, unspecified; M72.0 Palmar fascial fibromatosis [Dupuytren]; I27.0 Primary pulmonary hypertension; I83.813 Varicose veins of bilateral lower extremities with pain; Z79.899 Other long term (current) drug therapy
CPT/HCPCS: 36415; 80053; 85025

== ENCOUNTER → 2020-05-02 09:08 | Outpatient (CLI) | payer OTHER, SELFPAY ==
[2019-10-28 05:58] VITALS: BMI 24.0
[2020-04-25 10:41] VITALS: BMI 24.7
[2020-05-02 12:06] LABS: Absolute Lymphocyte Count 1.71 X10^3/uL (0.83-4.51); Absolute Neutrophil Count 4.4 X10^3/uL (2.0-7.7); Basophil# 0.06 X10^3/uL; Basophil% 0.8 % (0-1); Eosinophil# 0.13 X10^3/uL; Eosinophils% 1.8 % (0-5); Hematocrit 37.6 % (37-47); Hemoglobin 12.3 g/dL (12.0-15.0); Lymphocyte # 1.71 X10^3/ul (4.0); Mean Corp Hgb Conc 32.7 g/dL (32-36); Mean Corpuscular Hgb 32.6 pg (27.0-32.0); Mean Corpuscular Volume 99.7 fL (81-99); Mean Platelet Vol. 10.4 fl (6.2-12.0); Monocyte# 0.79 X10^3/uL; Monocyte% 11.1 % (0-10); NRBC Flagged by Analyzer 0 % (0-5); Neutrophil # 4.42 X10^3/uL (2.7-7.7); Platelet Count 299 K/mm3 (150-450); RBC Distribution Width CV 13.5 % (11.6-14.6); RBC Distribution Width SD 49.7 fl (35.1-43.9); Red Blood Count 3.77 M/mm3 (4.2-5.4); White Blood Count 7.1 K/mm3 (4.4-11.0)
[2020-05-02 12:53] LABS: ALB/GLOB Ratio 1.2 RATIO (0.9-2.4); AST(SGOT) 16 U/L (15-37); Alanine Aminotransfer ALT/SGPT 27 U/L (13-56); Albumin, Serum 3.8 g/dL (3.2-5.0); Alkaline Phosphatase 71 U/L (45-117); Anion Gap 7 (5-15); BUN 24 mg/dL (7-18); BUN/Creat Ratio 28.5 RATIO (10-20); Calcium,Total 8.9 mg/dL (8.5-10.1); Chloride 107 mmol/L (98-107); Creatinine, Serum 0.84 mg/dL (0.55-1.02); EST Glomerular Filtration Rate 73 mL/min (>60); Est Glom Filt Rate - Afr Amer 89 mL/min (>60); Globulin 3.2 g/dL (2.2-4.2); Glucose 86 mg/dL (74-106); Potassium 3.9 mmol/L (3.5-5.1); Sodium Level 141 mmol/L (136-145); T4 Free Direct 1.43 ng/dL (0.76-1.46); Thyroid Stim Hormone (TSH) 0.97 uIU/mL (0.358-3.74)
== END ==
PROVIDERS: PCP Nurse Practitioner Family; Referring Provider Internal Medicine Rheumatology; Visit Provider Internal Medicine Rheumatology
DX: E03.9 Hypothyroidism, unspecified (principal); J98.4 Other disorders of lung; I73.00 Raynaud's syndrome without gangrene; M05.70 Rheumatoid arthritis with rheumatoid factor of unspecified site without organ or systems involvement; M65.341 Trigger finger, right ring finger; L40.9 Psoriasis, unspecified; M72.0 Palmar fascial fibromatosis [Dupuytren]; I27.0 Primary pulmonary hypertension; I83.813 Varicose veins of bilateral lower extremities with pain; Z79.899 Other long term (current) drug therapy
CPT/HCPCS: 36415; 80053; 84439; 84443; 85025

== ENCOUNTER → 2020-05-10 13:09 | Outpatient (CLI) | payer OTHER, SELFPAY ==
[2020-04-25 10:41] VITALS: BMI 24.7
--- NOTE | 2020-05-10 13:11 | CT_ITS ---
STUDY: LOW DOSE CT LUNG CANCER SCREENING REASON FOR EXAM: Female, 60 years old. Smoker and gt; 40 pack years quit 2008. 2 PPD X 25 YEARS. COPD RADIATION DOSAGE (If Supplied By Facility): CTDIvol = ( 1.70 ) mGy, DLP = ( 59.55 ) mGycm TECHNIQUE: No contrast was administered. Low dose technique was utilized (average mAS-38 and kVp 120). 1.25 mm axial source images with a slice interval of 1.25-mm were reconstructed in lung windows. 2.5 mm axial source images with a slice interval of 2.5-mm were reconstructed in lung windows. 5.0 mm axial source images with a slice interval of 5.0-mm were reconstructed in soft tissue windows. Nodule measured using lung windows on PACS and/or independent workstation with automated measurement of minimum and maximum diameter. Nodule measurement reported as average diameter rounded to the nearest whole number. Growth is defined as an increase ins size of greater than 1.5 mm. COMPARISON: Comparison is made with prior study dated 03/02/2019. NODULES: Nodule #: Density: Lung location: lobe: cm from pleura Location in series: Series Number: Image: Size - D1 x D2 mm: mm: average diameter Margin: Shape: Calcification: Fat: Temporal comparison: Total lung nodules (excluding granulomas): Emphysema: Stable diffuse emphysematous changes with scarring at the lung apices. There is evidence of a central lobular emphysematous changes in both lungs worse in the upper lobes. Endobronchial lesion: None Aorta: Atherosclerotic plaque formation of the aortic arch. Coronary arteries: Coronary artery calcification. CT/Low Dose CT Lung Screening IMPRESSION: Lung-RADS category 2 - Continue annual screening with LDCT in 12 months. IMPORTANT NOTES FOR USE: ACR Lung-RADS Version 1.0 Assessment Categories Release Date: July 13, 2013 Category: Coded 0-4 bases on nodule(s) with highest degree of suspicion. Negative screen is defined as categories 1 and 2; a positive screen is defined as categories 3 and 4. Category 3 and 4A nodules that are unchanged on interval CT should be coded as category 2, and individuals returned to screening in 12 months. Category 4X: Category 3 or 4 nodules with additional imaging findings that increase the suspicion of lung cancer, such as spiculation, GGN that doubles in size in 1 year, enlarged lymph notes, etc. Category Modifiers: S (significant finding unrelated to lung cancer) and C (prior history of treated lung cancer) may be added to the 0-4 Lung-RADS Electronically Signed: Huy Padilla MD at 15:26 EST , Service support ,
== END ==
PROVIDERS: PCP Nurse Practitioner Family; Referring Provider Nurse Practitioner Acute Care; Visit Provider Nurse Practitioner Acute Care
DX: F17.210 Nicotine dependence, cigarettes, uncomplicated (principal); Z12.2 Encounter for screening for malignant neoplasm of respiratory organs
CPT/HCPCS: 71271

== ENCOUNTER 2020-06-02 14:54 | Outpatient (RCR) | payer OTHER, SELFPAY ==
[2020-04-25 10:41] VITALS: BMI 24.7
[2020-06-03] MEDS: COVID-19 VACC, MRNA(PFIZER)/PF 30 MCG/0.3 ML SYRINGE IM (14:05)
== END 2020-08-23 23:59 ==
LOC: IMMUN 14:54
PROVIDERS: PCP Nurse Practitioner Family; Referring Provider Family Medicine; Visit Provider Family Medicine
DX: Z23 Encounter for immunization (principal)
CPT/HCPCS: 0001A; 91300

== ENCOUNTER → 2020-07-25 14:13 | Outpatient (CLI) | payer OTHER, SELFPAY ==
[2020-04-25 10:41] VITALS: BMI 24.7
[2020-07-25 18:11] LABS: Absolute Lymphocyte Count 1.66 X10^3/uL (0.83-4.51); Absolute Neutrophil Count 5.2 X10^3/uL (2.0-7.7); Basophil# 0.03 X10^3/uL; Basophil% 0.4 % (0-1); Eosinophil# 0.03 X10^3/uL; Eosinophils% 0.4 % (0-5); Hematocrit 38.8 % (37-47); Hemoglobin 12.3 g/dL (12.0-15.0); Lymphocyte # 1.66 X10^3/ul (0.83-4.51); Lymphocyte % 21.6 % (19-41); Mean Corp Hgb Conc 31.7 g/dL (32-36); Mean Corpuscular Hgb 31.5 pg (27.0-32.0); Mean Corpuscular Volume 99.2 fL (81-99); Mean Platelet Vol. 10.5 fl (6.2-12.0); Monocyte# 0.75 X10^3/uL; Monocyte% 9.8 % (0-10); NRBC Flagged by Analyzer 0 % (0-5); Neutrophil # 5.19 X10^3/uL (2.7-7.7); Neutrophil % 67.5 % (47-70); Platelet Count 321 K/mm3 (150-450); RBC Distribution Width CV 13.8 % (11.6-14.6); RBC Distribution Width SD 50.3 fl (35.1-43.9); Red Blood Count 3.91 M/mm3 (4.2-5.4); White Blood Count 7.7 K/mm3 (4.4-11.0)
[2020-07-25 18:29] LABS: ALB/GLOB Ratio 1.1 RATIO (0.9-2.4); AST(SGOT) 19 U/L (15-37); Alanine Aminotransfer ALT/SGPT 29 U/L (13-56); Albumin, Serum 3.8 g/dL (3.2-5.0); Alkaline Phosphatase 68 U/L (45-117); Anion Gap 6 (5-15); BUN 20 mg/dL (7-18); BUN/Creat Ratio 24.3 RATIO (10-20); Calcium,Total 8.8 mg/dL (8.5-10.1); Chloride 107 mmol/L (98-107); Creatinine, Serum 0.82 mg/dL (0.55-1.02); EST Glomerular Filtration Rate 75 mL/min (>60); Est Glom Filt Rate - Afr Amer 91 mL/min (>60); Globulin 3.4 g/dL (2.2-4.2); Glucose 91 mg/dL (74-106); Potassium 4.2 mmol/L (3.5-5.1); Protein, Total 7.2 g/dL (6.4-8.2); Sodium Level 142 mmol/L (136-145)
== END ==
PROVIDERS: PCP Nurse Practitioner Family; Referring Provider Internal Medicine Rheumatology; Visit Provider Internal Medicine Rheumatology
DX: M05.70 Rheumatoid arthritis with rheumatoid factor of unspecified site without organ or systems involvement (principal); M65.341 Trigger finger, right ring finger; L40.9 Psoriasis, unspecified; M72.0 Palmar fascial fibromatosis [Dupuytren]; I27.0 Primary pulmonary hypertension; I83.813 Varicose veins of bilateral lower extremities with pain; Z79.899 Other long term (current) drug therapy
CPT/HCPCS: 36415; 80053; 85025

== ENCOUNTER 2020-10-05 09:10 | Outpatient (RCR) | payer OTHER, SELFPAY ==
[2020-09-02 08:03] VITALS: BMI 25.2
[2020-10-05 10:17] LABS: Absolute Lymphocyte Count 1.63 X10^3/uL (0.83-4.51); Absolute Neutrophil Count 4.5 X10^3/uL (2.0-7.7); Basophil# 0.05 X10^3/uL; Basophil% 0.7 % (0-1); Eosinophil# 0.14 X10^3/uL; Eosinophils% 1.9 % (0-5); Hematocrit 39.7 % (37-47); Lymphocyte # 1.63 X10^3/ul (0.83-4.51); Lymphocyte % 22.5 % (19-41); Mean Corp Hgb Conc 32.7 g/dL (32-36); Mean Corpuscular Hgb 32.7 pg (27.0-32.0); Mean Platelet Vol. 10.2 fl (6.2-12.0); Monocyte# 0.84 X10^3/uL; Monocyte% 11.6 % (0-10); NRBC Flagged by Analyzer 0 % (0-5); Neutrophil # 4.54 X10^3/uL (2.7-7.7); Neutrophil % 62.7 % (47-70); Platelet Count 299 K/mm3 (150-450); RBC Distribution Width CV 13.8 % (11.6-14.6); RBC Distribution Width SD 50.6 fl (35.1-43.9); Red Blood Count 3.97 M/mm3 (4.2-5.4); White Blood Count 7.2 K/mm3 (4.4-11.0)
[2020-10-05 11:00] LABS: ALB/GLOB Ratio 1.3 RATIO (0.9-2.4); AST(SGOT) 18 U/L (15-37); Alanine Aminotransfer ALT/SGPT 24 U/L (13-56); Albumin, Serum 3.9 g/dL (3.2-5.0); Alkaline Phosphatase 69 U/L (45-117); Anion Gap 4 (5-15); BUN 16 mg/dL (7-18); BUN/Creat Ratio 18.5 RATIO (10-20); Calcium,Total 8.6 mg/dL (8.5-10.1); Chloride 108 mmol/L (98-107); Creatinine, Serum 0.86 mg/dL (0.55-1.02); EST Glomerular Filtration Rate 71 mL/min (>60); Est Glom Filt Rate - Afr Amer 86 mL/min (>60); Globulin 3.1 g/dL (2.2-4.2); Glucose 82 mg/dL (74-106); Potassium 4.1 mmol/L (3.5-5.1); Sodium Level 140 mmol/L (136-145); T4 Free Direct 1.32 ng/dL (0.76-1.46); Thyroid Stim Hormone (TSH) 0.81 uIU/mL (0.358-3.74)
== END 2020-10-05 18:00 | disposition home or self-care (01) ==
LOC: MTLAB 09:10
PROVIDERS: PCP Nurse Practitioner Family; Referring Provider Internal Medicine Rheumatology; Visit Provider Internal Medicine Rheumatology
DX: M05.70 Rheumatoid arthritis with rheumatoid factor of unspecified site without organ or systems involvement (principal); M65.341 Trigger finger, right ring finger; L40.9 Psoriasis, unspecified; M72.0 Palmar fascial fibromatosis [Dupuytren]; I27.0 Primary pulmonary hypertension; I83.813 Varicose veins of bilateral lower extremities with pain; Z79.899 Other long term (current) drug therapy
CPT/HCPCS: 36415; 80053; 84439; 84443; 85025

== ENCOUNTER → 2020-12-20 11:00 | Outpatient (CLI) | payer OTHER, SELFPAY | PROVIDERS: PCP Nurse Practitioner Family; Referring Provider Physician Assistant Surgical; Visit Provider Physician Assistant Surgical | DX: Z11.52 Encounter for screening for COVID-19 (principal) | CPT/HCPCS: 87635; U0005; U0003 ==

== ENCOUNTER → 2021-01-02 09:51 | Outpatient (CLI) | payer OTHER, SELFPAY ==
[2021-01-02 12:18] LABS: Absolute Lymphocyte Count 2.02 X10^3/uL (0.83-4.51); Basophil# 0.07 X10^3/uL; Eosinophil# 0.15 X10^3/uL; Eosinophils% 2.1 % (0-5); Hematocrit 40.3 % (37-47); Hemoglobin 13.3 g/dL (12.0-15.0); Lymphocyte # 2.02 X10^3/ul (0.83-4.51); Lymphocyte % 28.9 % (19-41); Mean Corpuscular Hgb 32.8 pg (27.0-32.0); Mean Corpuscular Volume 99.5 fL (81-99); Mean Platelet Vol. 10.2 fl (6.2-12.0); Monocyte# 0.76 X10^3/uL; Monocyte% 10.9 % (0-10); NRBC Flagged by Analyzer 0 % (0-5); Neutrophil # 3.96 X10^3/uL (2.7-7.7); Neutrophil % 56.8 % (47-70); Platelet Count 311 K/mm3 (150-450); RBC Distribution Width CV 13.6 % (11.6-14.6); RBC Distribution Width SD 50.2 fl (35.1-43.9); Red Blood Count 4.05 M/mm3 (4.2-5.4)
[2021-01-02 12:58] LABS: ALB/GLOB Ratio 1.1 RATIO (0.9-2.4); AST(SGOT) 19 U/L (15-37); Alanine Aminotransfer ALT/SGPT 26 U/L (13-56); Albumin, Serum 3.9 g/dL (3.2-5.0); Alkaline Phosphatase 79 U/L (45-117); Anion Gap 11 (5-15); BUN 15 mg/dL (7-18); BUN/Creat Ratio 17.8 RATIO (10-20); Calcium,Total 9.1 mg/dL (8.5-10.1); Chloride 104 mmol/L (98-107); Creatinine, Serum 0.84 mg/dL (0.55-1.02); EST Glomerular Filtration Rate 73 mL/min (>60); Est Glom Filt Rate - Afr Amer 88 mL/min (>60); Globulin 3.6 g/dL (2.2-4.2); Glucose 94 mg/dL (74-106); Potassium 4.2 mmol/L (3.5-5.1); Protein, Total 7.5 g/dL (6.4-8.2); Sodium Level 140 mmol/L (136-145)
== END ==
PROVIDERS: PCP Nurse Practitioner Family; Referring Provider Internal Medicine Rheumatology; Visit Provider Internal Medicine Rheumatology
DX: M05.70 Rheumatoid arthritis with rheumatoid factor of unspecified site without organ or systems involvement (principal); M65.341 Trigger finger, right ring finger; L40.9 Psoriasis, unspecified; M72.0 Palmar fascial fibromatosis [Dupuytren]; I27.0 Primary pulmonary hypertension; I82.813 Embolism and thrombosis of superficial veins of lower extremities, bilateral; Z79.899 Other long term (current) drug therapy
CPT/HCPCS: 36415; 80053; 85025

== ENCOUNTER → 2021-01-04 11:41 | Outpatient (CLI) | payer OTHER, SELFPAY ==
[2021-01-11 19:07] LABS: QNTFERON TB Mitogen Value > 10.00 IU/mL (.); QNTFERON TB Nil Value 0.12 IU/mL (.); QNTFERON TB1+ Ag Value 0.12 IU/mL (.); QNTFERON TB2+ Ag Value 0.12 IU/mL (.)
[2021-01-11 21:11] LABS: QNTIFERON TB Positive Criteria Negative (Negative)
== END ==
PROVIDERS: PCP Nurse Practitioner Family; Referring Provider Internal Medicine Rheumatology; Visit Provider Internal Medicine Rheumatology
DX: M05.70 Rheumatoid arthritis with rheumatoid factor of unspecified site without organ or systems involvement (principal); M65.341 Trigger finger, right ring finger; L40.9 Psoriasis, unspecified; M72.0 Palmar fascial fibromatosis [Dupuytren]; I27.0 Primary pulmonary hypertension; I83.813 Varicose veins of bilateral lower extremities with pain; Z79.899 Other long term (current) drug therapy
CPT/HCPCS: 36415; 86480

== ENCOUNTER → 2021-03-14 11:44 | Outpatient (CLI) | payer OTHER, SELFPAY ==
[2021-03-14 14:59] LABS: Absolute Lymphocyte Count 2.34 X10^3/uL (0.83-4.51); Absolute Neutrophil Count 3.4 X10^3/uL (2.0-7.7); Basophil# 0.06 X10^3/uL; Basophil% 0.9 % (0-1); Eosinophil# 0.14 X10^3/uL; Eosinophils% 2.1 % (0-5); Hematocrit 38.8 % (37-47); Hemoglobin 12.9 g/dL (12.0-15.0); Lymphocyte # 2.34 X10^3/ul (0.83-4.51); Lymphocyte % 34.3 % (19-41); Mean Corp Hgb Conc 33.2 g/dL (32-36); Mean Corpuscular Hgb 33.2 pg (27.0-32.0); Mean Corpuscular Volume 99.7 fL (81-99); Mean Platelet Vol. 10.1 fl (6.2-12.0); Monocyte# 0.86 X10^3/uL; Monocyte% 12.6 % (0-10); NRBC Flagged by Analyzer 0 % (0-5); Neutrophil % 49.8 % (47-70); Platelet Count 317 K/mm3 (150-450); RBC Distribution Width CV 13.7 % (11.6-14.6); RBC Distribution Width SD 49.5 fl (35.1-43.9); Red Blood Count 3.89 M/mm3 (4.2-5.4); White Blood Count 6.8 K/mm3 (4.4-11.0)
[2021-03-14 15:31] LABS: ALB/GLOB Ratio 1.1 RATIO (0.9-2.4); AST(SGOT) 18 U/L (15-37); Alanine Aminotransfer ALT/SGPT 27 U/L (13-56); Albumin, Serum 3.8 g/dL (3.2-5.0); Alkaline Phosphatase 75 U/L (45-117); Anion Gap 7 (5-15); BUN 15 mg/dL (7-18); Calcium,Total 9.1 mg/dL (8.5-10.1); Chloride 103 mmol/L (98-107); Creatinine, Serum 0.79 mg/dL (0.55-1.02); EST Glomerular Filtration Rate 79 mL/min (>60); Est Glom Filt Rate - Afr Amer 95 mL/min (>60); Globulin 3.6 g/dL (2.2-4.2); Glucose 103 mg/dL (74-106); Potassium 4.1 mmol/L (3.5-5.1); Protein, Total 7.4 g/dL (6.4-8.2); Sodium Level 140 mmol/L (136-145)
== END ==
PROVIDERS: PCP Nurse Practitioner Family; Referring Provider Internal Medicine Rheumatology; Visit Provider Internal Medicine Rheumatology
DX: M05.70 Rheumatoid arthritis with rheumatoid factor of unspecified site without organ or systems involvement (principal); Z79.899 Other long term (current) drug therapy; M65.341 Trigger finger, right ring finger; L40.9 Psoriasis, unspecified; M72.0 Palmar fascial fibromatosis [Dupuytren]; I27.0 Primary pulmonary hypertension; I83.813 Varicose veins of bilateral lower extremities with pain
CPT/HCPCS: 36415; 80053; 85025

== ENCOUNTER 2021-04-18 13:24 | Outpatient (CLI) | payer OTHER, SELFPAY ==
--- NOTE | 2021-04-18 13:30 | CT_ITS ---
STUDY: LOW DOSE CT LUNG CANCER SCREENING REASON FOR EXAM: Female, 61 years old. Smoker and gt; 40 pack years RADIATION DOSAGE (If Supplied By Facility): CTDIvol = ( 2.01 ) mGy, DLP = ( 72.23 ) mGycm TECHNIQUE: No contrast was administered. Low dose technique was utilized (average mAS-38 and kVp 120). 1.25 mm axial source images with a slice interval of 1.25-mm were reconstructed in lung windows. 2.5 mm axial source images with a slice interval of 2.5-mm were reconstructed in lung windows. 5.0 mm axial source images with a slice interval of 5.0-mm were reconstructed in soft tissue windows. Nodule measured using lung windows on PACS and/or independent workstation with automated measurement of minimum and maximum diameter. Nodule measurement reported as average diameter rounded to the nearest whole number. Growth is defined as an increase ins size of greater than 1.5 mm. COMPARISON: Comparison is made with prior study dated 05/10/2020. NODULES: No suspicious nodules are seen. Emphysema: Hyperinflation. Stable appearance of the diffuse emphysematous changes and scarring at the lung apices. Stable linear scarring in the anterior aspect of the lingular segment of the left upper lobe. Endobronchial lesion: None Aorta: Atherosclerotic plaque formation of the aortic arch. Coronary arteries: Coronary artery calcification. Heart: Unremarkable Pulmonary artery: Mediastinal nodes: Small benign-appearing mediastinal lymph nodes. Other chest and abdominal findings: CT/Low Dose CT Lung Screening IMPRESSION: Lung-RADS category 2 - Continue annual screening with LDCT in 12 months. IMPORTANT NOTES FOR USE: ACR Lung-RADS Version 1.1 Assessment Categories Release Date: 2018 Category: Coded 0-4 bases on nodule(s) with highest degree of suspicion. Negative screen is defined as categories 1 and 2; a positive screen is defined as categories 3 and 4. Category 3 and 4A nodules that are unchanged on interval CT should be coded as category 2, and individuals returned to screening in 12 months. Category 4X: Category 3 or 4 nodules with additional imaging findings that increase the suspicion of lung cancer, such as spiculation, GGN that doubles in size in 1 year, enlarged lymph notes, etc. Category Modifiers: S (significant finding unrelated to lung cancer) Electronically Signed: Huy Padilla MD at 14:03 EST ,
== END 2021-04-18 23:59 | disposition short-term general hospital (02) ==
LOC: CT 13:25
PROVIDERS: PCP Nurse Practitioner Family; Referring Provider Nurse Practitioner Acute Care; Visit Provider Nurse Practitioner Acute Care
DX: F17.210 Nicotine dependence, cigarettes, uncomplicated (principal)
CPT/HCPCS: 71271

== ENCOUNTER 2021-05-02 13:54 | Outpatient (CLI) | payer OTHER, SELFPAY ==
[2021-05-02 15:14] LABS: Hematocrit 39.1 % (37-47); Hemoglobin 12.7 g/dL (12.0-15.0); Mean Corp Hgb Conc 32.5 g/dL (32-36); Mean Corpuscular Hgb 32.6 pg (27.0-32.0); Mean Corpuscular Volume 100.3 fL (81-99); Mean Platelet Vol. 9.9 fl (6.2-12.0); Platelet Count 285 K/mm3 (150-450); RBC Distribution Width CV 14.4 % (11.6-14.6); RBC Distribution Width SD 53.1 fl (35.1-43.9); White Blood Count 9.6 K/mm3 (4.4-11.0)
[2021-05-02 15:59] LABS: Vitamin B12 > 2000 pg/mL (211-911)
[2021-05-02 16:52] LABS: ALB/GLOB Ratio 1.1 RATIO (0.9-2.4); AST(SGOT) 18 U/L (15-37); Alanine Aminotransfer ALT/SGPT 26 U/L (13-56); Alkaline Phosphatase 74 U/L (45-117); Anion Gap 4 (5-15); BUN 12 mg/dL (7-18); BUN/Creat Ratio 14.4 RATIO (10-20); Calcium,Total 9.4 mg/dL (8.5-10.1); Chloride 106 mmol/L (98-107); Cholesterol 204 mg/dL (200); Creatinine, Serum 0.83 mg/dL (0.55-1.02); EST Glomerular Filtration Rate 74 mL/min (>60); Est Glom Filt Rate - Afr Amer 89 mL/min (>60); Folates, (Folic Acid) > 100.00 ng/mL (3.1-55.4); Globulin 3.5 g/dL (2.2-4.2); Glucose 87 mg/dL (74-106); High Density Lipoprotein 93 mg/dL; Potassium 3.8 mmol/L (3.5-5.1); Protein, Total 7.5 g/dL (6.4-8.2); Sodium Level 140 mmol/L (136-145); T4 Free Direct 1.26 ng/dL (0.76-1.46); Thyroid Stim Hormone (TSH) 1.35 uIU/mL (0.358-3.74); Triglycerides 63 mg/dL; Very Low Density Lipoprotein 13 mg/dL (5-40)
== END 2021-05-02 23:59 | disposition home or self-care (01) ==
LOC: MTLAB 13:56
PROVIDERS: PCP Nurse Practitioner Family; Referring Provider Nurse Practitioner Family; Visit Provider Nurse Practitioner Family
DX: M06.9 Rheumatoid arthritis, unspecified (principal); E53.8 Deficiency of other specified B group vitamins; E03.9 Hypothyroidism, unspecified; E55.9 Vitamin D deficiency, unspecified; I73.00 Raynaud's syndrome without gangrene
CPT/HCPCS: 36415; 80053; 80061; 82306; 82607; 82746; 84439; 84443; 85027

== ENCOUNTER 2021-06-01 10:50 | Outpatient (CLI) | payer OTHER, SELFPAY ==
[2021-06-01 12:20] LABS: Absolute Lymphocyte Count 1.61 X10^3/uL (0.83-4.51); Absolute Neutrophil Count 4.3 X10^3/uL (2.0-7.7); Basophil# 0.05 X10^3/uL; Basophil% 0.7 % (0-1); Eosinophil# 0.11 X10^3/uL; Eosinophils% 1.6 % (0-5); Hematocrit 39.4 % (37-47); Hemoglobin 12.8 g/dL (12.0-15.0); Lymphocyte # 1.61 X10^3/ul (0.83-4.51); Lymphocyte % 23.2 % (19-41); Mean Corp Hgb Conc 32.5 g/dL (32-36); Mean Corpuscular Hgb 32.7 pg (27.0-32.0); Mean Corpuscular Volume 100.8 fL (81-99); Monocyte# 0.84 X10^3/uL; Monocyte% 12.1 % (0-10); NRBC Flagged by Analyzer 0 % (0-5); Neutrophil # 4.26 X10^3/uL (2.7-7.7); Neutrophil % 61.5 % (47-70); Platelet Count 298 K/mm3 (150-450); RBC Distribution Width CV 14.1 % (11.6-14.6); RBC Distribution Width SD 51.7 fl (35.1-43.9); Red Blood Count 3.91 M/mm3 (4.2-5.4); White Blood Count 6.9 K/mm3 (4.4-11.0)
[2021-06-01 12:35] LABS: ALB/GLOB Ratio 1.3 RATIO (0.9-2.4); AST(SGOT) 23 U/L (15-37); Alanine Aminotransfer ALT/SGPT 32 U/L (13-56); Albumin, Serum 4.2 g/dL (3.2-5.0); Alkaline Phosphatase 71 U/L (45-117); Anion Gap 5 (5-15); BUN 18 mg/dL (7-18); BUN/Creat Ratio 21.3 RATIO (10-20); Calcium,Total 8.9 mg/dL (8.5-10.1); Chloride 104 mmol/L (98-107); Creatinine, Serum 0.85 mg/dL (0.55-1.02); EST Glomerular Filtration Rate 73 mL/min (>60); Est Glom Filt Rate - Afr Amer 88 mL/min (>60); Globulin 3.3 g/dL (2.2-4.2); Glucose 103 mg/dL (74-106); Potassium 4.4 mmol/L (3.5-5.1); Protein, Total 7.5 g/dL (6.4-8.2); Sodium Level 138 mmol/L (136-145)
== END 2021-06-01 23:59 | disposition home or self-care (01) ==
LOC: MTLAB 10:52
PROVIDERS: PCP Nurse Practitioner Family; Referring Provider Internal Medicine Rheumatology; Visit Provider Internal Medicine Rheumatology
DX: M05.70 Rheumatoid arthritis with rheumatoid factor of unspecified site without organ or systems involvement (principal); I27.0 Primary pulmonary hypertension; M65.341 Trigger finger, right ring finger; L40.9 Psoriasis, unspecified; M72.0 Palmar fascial fibromatosis [Dupuytren]; I83.813 Varicose veins of bilateral lower extremities with pain; Z79.899 Other long term (current) drug therapy
CPT/HCPCS: 36415; 80053; 85025

== ENCOUNTER → 2021-07-31 | Outpatient (CLI) | payer OTHER, SELFPAY ==
[2021-07-31 10:08] LABS: Absolute Lymphocyte Count 1.01 X10^3/uL (0.83-4.51); Absolute Neutrophil Count 3.2 X10^3/uL (2.0-7.7); Basophil# 0.03 X10^3/uL; Basophil% 0.6 % (0-1); Eosinophils% 1.9 % (0-5); Hematocrit 38.3 % (37-47); Hemoglobin 12.5 g/dL (12.0-15.0); Lymphocyte # 1.01 X10^3/ul (0.83-4.51); Lymphocyte % 19.3 % (19-41); Mean Corp Hgb Conc 32.6 g/dL (32-36); Mean Corpuscular Hgb 32.8 pg (27.0-32.0); Mean Corpuscular Volume 100.5 fL (81-99); Monocyte# 0.86 X10^3/uL; Monocyte% 16.4 % (0-10); NRBC Flagged by Analyzer 0 % (0-5); Neutrophil # 3.22 X10^3/uL (2.7-7.7); Neutrophil % 61.4 % (47-70); Platelet Count 293 K/mm3 (150-450); RBC Distribution Width CV 14.2 % (11.6-14.6); RBC Distribution Width SD 51.8 fl (35.1-43.9); Red Blood Count 3.81 M/mm3 (4.2-5.4); White Blood Count 5.2 K/mm3 (4.4-11.0)
[2021-07-31 11:18] LABS: ALB/GLOB Ratio 1.3 RATIO (0.9-2.4); AST(SGOT) 19 U/L (15-37); Alanine Aminotransfer ALT/SGPT 25 U/L (13-56); Albumin, Serum 3.9 g/dL (3.2-5.0); Alkaline Phosphatase 65 U/L (45-117); Anion Gap 7 (5-15); BUN 18 mg/dL (7-18); BUN/Creat Ratio 22.9 RATIO (10-20); Chloride 105 mmol/L (98-107); Creatinine, Serum 0.78 mg/dL (0.55-1.02); EST Glomerular Filtration Rate 79 mL/min (>60); Est Glom Filt Rate - Afr Amer 96 mL/min (>60); Glucose 99 mg/dL (74-106); Potassium 3.8 mmol/L (3.5-5.1); Protein, Total 6.9 g/dL (6.4-8.2); Sodium Level 139 mmol/L (136-145)
== END | disposition home or self-care (01) ==
LOC: MTLAB 09:04
PROVIDERS: PCP Nurse Practitioner Family; Referring Provider Internal Medicine Rheumatology; Visit Provider Internal Medicine Rheumatology
DX: M05.70 Rheumatoid arthritis with rheumatoid factor of unspecified site without organ or systems involvement (principal); I27.0 Primary pulmonary hypertension; M65.341 Trigger finger, right ring finger; L40.9 Psoriasis, unspecified; M72.0 Palmar fascial fibromatosis [Dupuytren]; I83.813 Varicose veins of bilateral lower extremities with pain; Z79.899 Other long term (current) drug therapy
CPT/HCPCS: 36415; 80053; 85025

== ENCOUNTER 2021-10-18 11:20 | Outpatient (CLI) | payer OTHER, SELFPAY ==
[2021-10-18 14:53] LABS: Absolute Lymphocyte Count 1.55 X10^3/uL (0.83-4.51); Absolute Neutrophil Count 4.5 X10^3/uL (2.0-7.7); Basophil# 0.04 X10^3/uL; Basophil% 0.6 % (0-1); Eosinophil# 0.08 X10^3/uL; Eosinophils% 1.1 % (0-5); Hematocrit 40.3 % (37-47); Hemoglobin 13.5 g/dL (12.0-15.0); Lymphocyte # 1.55 X10^3/ul (0.83-4.51); Lymphocyte % 22.1 % (19-41); Mean Corp Hgb Conc 33.5 g/dL (32-36); Mean Corpuscular Hgb 33.6 pg (27.0-32.0); Mean Corpuscular Volume 100.2 fL (81-99); Mean Platelet Vol. 10.4 fl (6.2-12.0); Monocyte# 0.83 X10^3/uL; Monocyte% 11.8 % (0-10); NRBC Flagged by Analyzer 0 % (0-5); Neutrophil # 4.49 X10^3/uL (2.7-7.7); Neutrophil % 64.1 % (47-70); Platelet Count 302 K/mm3 (150-450); RBC Distribution Width CV 13.9 % (11.6-14.6); RBC Distribution Width SD 51.5 fl (35.1-43.9); Red Blood Count 4.02 M/mm3 (4.2-5.4)
[2021-10-18 15:15] LABS: Vitamin D,25 Hydroxy 42.9 ng/mL
[2021-10-18 15:32] LABS: ALB/GLOB Ratio 1.2 RATIO (0.9-2.4); AST(SGOT) 20 U/L (15-37); Alanine Aminotransfer ALT/SGPT 25 U/L (13-56); Alkaline Phosphatase 71 U/L (45-117); Anion Gap 7 (5-15); BUN 14 mg/dL (7-18); BUN/Creat Ratio 15.4 RATIO (10-20); Calcium,Total 9.1 mg/dL (8.5-10.1); Chloride 104 mmol/L (98-107); Cholesterol 195 mg/dL (200); Creatinine, Serum 0.91 mg/dL (0.55-1.02); EST Glomerular Filtration Rate 67 mL/min (>60); Est Glom Filt Rate - Afr Amer 81 mL/min (>60); Globulin 3.4 g/dL (2.2-4.2); Glucose 97 mg/dL (74-106); High Density Lipoprotein 93 mg/dL; Potassium 3.9 mmol/L (3.5-5.1); Protein, Total 7.4 g/dL (6.4-8.2); Sodium Level 138 mmol/L (136-145); T4 Free Direct 1.43 ng/dL (0.76-1.46); Thyroid Stim Hormone (TSH) 0.35 uIU/mL (0.358-3.74); Triglycerides 76 mg/dL; Very Low Density Lipoprotein 15 mg/dL (5-40)
== END 2021-10-18 23:59 | disposition home or self-care (01) ==
LOC: MTLAB 11:22
PROVIDERS: PCP Nurse Practitioner Family; Referring Provider Internal Medicine Rheumatology; Visit Provider Internal Medicine Rheumatology
DX: M05.79 Rheumatoid arthritis with rheumatoid factor of multiple sites without organ or systems involvement (principal); I27.0 Primary pulmonary hypertension; D63.8 Anemia in other chronic diseases classified elsewhere; E78.2 Mixed hyperlipidemia; E03.9 Hypothyroidism, unspecified; E55.9 Vitamin D deficiency, unspecified; M65.341 Trigger finger, right ring finger; L40.9 Psoriasis, unspecified; M72.0 Palmar fascial fibromatosis [Dupuytren]; I83.813 Varicose veins of bilateral lower extremities with pain; Z79.899 Other long term (current) drug therapy
CPT/HCPCS: 36415; 80053; 80061; 82306; 84439; 84443; 85025

== ENCOUNTER → 2022-01-19 | Outpatient (CLI) | payer OTHER, SELFPAY ==
[2022-01-19 12:42] LABS: Absolute Lymphocyte Count 1.51 X10^3/uL (0.83-4.51); Absolute Neutrophil Count 3.8 X10^3/uL (2.0-7.7); Basophil# 0.06 X10^3/uL; Eosinophil# 0.17 X10^3/uL; Eosinophils% 2.7 % (0-5); Hematocrit 38.9 % (37-47); Hemoglobin 12.8 g/dL (12.0-15.0); Lymphocyte # 1.51 X10^3/ul (0.83-4.51); Lymphocyte % 24.1 % (19-41); Mean Corp Hgb Conc 32.9 g/dL (32-36); Mean Corpuscular Volume 103.5 fL (81-99); Mean Platelet Vol. 10.3 fl (6.2-12.0); Monocyte# 0.71 X10^3/uL; Monocyte% 11.3 % (0-10); NRBC Flagged by Analyzer 0 % (0-5); Neutrophil # 3.79 X10^3/uL (2.7-7.7); Neutrophil % 60.4 % (47-70); Platelet Count 289 K/mm3 (150-450); RBC Distribution Width CV 14.6 % (11.6-14.6); RBC Distribution Width SD 55.8 fl (35.1-43.9); Red Blood Count 3.76 M/mm3 (4.2-5.4); White Blood Count 6.3 K/mm3 (4.4-11.0)
[2022-01-19 13:01] LABS: ALB/GLOB Ratio 1.3 RATIO (0.9-2.4); AST(SGOT) 15 U/L (15-37); Alanine Aminotransfer ALT/SGPT 21 U/L (13-56); Albumin, Serum 3.8 g/dL (3.2-5.0); Alkaline Phosphatase 64 U/L (45-117); Anion Gap 5 (5-15); BUN 11 mg/dL (7-18); BUN/Creat Ratio 13.1 RATIO (10-20); Calcium,Total 8.9 mg/dL (8.5-10.1); Chloride 108 mmol/L (98-107); Creatinine, Serum 0.84 mg/dL (0.55-1.02); EST Glomerular Filtration Rate 73 mL/min (>60); Est Glom Filt Rate - Afr Amer 89 mL/min (>60); Glucose 91 mg/dL (74-106); Potassium 4.3 mmol/L (3.5-5.1); Protein, Total 6.8 g/dL (6.4-8.2); Sodium Level 142 mmol/L (136-145)
== END | disposition home or self-care (01) ==
LOC: MTLAB 09:59
PROVIDERS: PCP Nurse Practitioner Family; Referring Provider Internal Medicine Rheumatology; Visit Provider Internal Medicine Rheumatology
DX: M05.79 Rheumatoid arthritis with rheumatoid factor of multiple sites without organ or systems involvement (principal); I27.0 Primary pulmonary hypertension; M65.341 Trigger finger, right ring finger; L40.9 Psoriasis, unspecified; M72.0 Palmar fascial fibromatosis [Dupuytren]; I83.813 Varicose veins of bilateral lower extremities with pain; Z79.899 Other long term (current) drug therapy
CPT/HCPCS: 36415; 80053; 85025

== ENCOUNTER → 2022-04-20 | Outpatient (CLI) | payer BC, SELFPAY ==
[2022-04-20 12:12] LABS: Absolute Lymphocyte Count 2.05 X10^3/uL (0.83-4.51); Absolute Neutrophil Count 4.2 X10^3/uL (2.0-7.7); Basophil# 0.06 X10^3/uL; Basophil% 0.8 % (0-1); Eosinophil# 0.12 X10^3/uL; Eosinophils% 1.6 % (0-5); Hematocrit 42.4 % (37-47); Hemoglobin 13.5 g/dL (12.0-15.0); Lymphocyte # 2.05 X10^3/ul (0.83-4.51); Lymphocyte % 28.2 % (19-41); Mean Corp Hgb Conc 31.8 g/dL (32-36); Mean Corpuscular Hgb 31.8 pg (27.0-32.0); Mean Corpuscular Volume 99.8 fL (81-99); Mean Platelet Vol. 10.4 fl (6.2-12.0); Monocyte# 0.82 X10^3/uL; Monocyte% 11.3 % (0-10); NRBC Flagged by Analyzer 0 % (0-5); Neutrophil % 57.7 % (47-70); Platelet Count 346 K/mm3 (150-450); RBC Distribution Width CV 13.1 % (11.6-14.6); RBC Distribution Width SD 48.1 fl (35.1-43.9); Red Blood Count 4.25 M/mm3 (4.2-5.4); White Blood Count 7.3 K/mm3 (4.4-11.0)
[2022-04-20 12:26] LABS: Vitamin B12 1462 pg/mL (211-911); Vitamin D,25 Hydroxy 44.2 ng/mL
[2022-04-20 12:35] LABS: ALB/GLOB Ratio 1.1 RATIO (0.9-2.4); AST(SGOT) 17 U/L (15-37); Alanine Aminotransfer ALT/SGPT 23 U/L (13-56); Albumin, Serum 3.9 g/dL (3.2-5.0); Alkaline Phosphatase 69 U/L (45-117); Anion Gap 6 (5-15); BUN 15 mg/dL (7-18); BUN/Creat Ratio 15.3 RATIO (10-20); Calcium,Total 8.8 mg/dL (8.5-10.1); Chloride 105 mmol/L (98-107); Creatinine, Serum 0.98 mg/dL (0.55-1.02); EST Glomerular Filtration Rate 61 mL/min (>60); Est Glom Filt Rate - Afr Amer 74 mL/min (>60); Globulin 3.7 g/dL (2.2-4.2); Glucose 98 mg/dL (74-106); Potassium 3.9 mmol/L (3.5-5.1); Protein, Total 7.6 g/dL (6.4-8.2); Sodium Level 140 mmol/L (136-145); T4 Free Direct 1.33 ng/dL (0.76-1.46); Thyroid Stim Hormone (TSH) 0.77 uIU/mL (0.358-3.74)
[2022-04-21 13:25] LABS: Cholesterol 197 mg/dL (200); High Density Lipoprotein 91 mg/dL; Triglycerides 68 mg/dL; Very Low Density Lipoprotein 14 mg/dL (5-40)
== END | disposition home or self-care (01) ==
LOC: MTLAB 09:48
PROVIDERS: PCP Nurse Practitioner Family; Referring Provider Nurse Practitioner Family; Visit Provider Nurse Practitioner Family
DX: M05.79 Rheumatoid arthritis with rheumatoid factor of multiple sites without organ or systems involvement (principal); J44.9 Chronic obstructive pulmonary disease, unspecified; I27.0 Primary pulmonary hypertension; M65.341 Trigger finger, right ring finger; M72.0 Palmar fascial fibromatosis [Dupuytren]; L40.9 Psoriasis, unspecified; I83.813 Varicose veins of bilateral lower extremities with pain; D63.8 Anemia in other chronic diseases classified elsewhere; E78.2 Mixed hyperlipidemia; I10 Essential (primary) hypertension; E03.9 Hypothyroidism, unspecified; Z79.899 Other long term (current) drug therapy
CPT/HCPCS: 36415; 80053; 80061; 82306; 82607; 84439; 84443; 85025

== ENCOUNTER → 2022-04-23 | Outpatient (CLI) | payer BC, SELFPAY ==
[2022-04-26 16:10] LABS: Red Blood Cell Count Test/G6PD 4.23 x10E6/uL (3.77-5.28)
[2022-04-26 16:31] LABS: G6PD Quant Test 320 (127-427)
== END | disposition home or self-care (01) ==
LOC: MTLAB 11:35
PROVIDERS: PCP Nurse Practitioner Family; Referring Provider Internal Medicine Rheumatology; Visit Provider Internal Medicine Rheumatology
DX: M05.79 Rheumatoid arthritis with rheumatoid factor of multiple sites without organ or systems involvement (principal); I27.0 Primary pulmonary hypertension; M65.341 Trigger finger, right ring finger; L40.9 Psoriasis, unspecified; M72.0 Palmar fascial fibromatosis [Dupuytren]; I83.813 Varicose veins of bilateral lower extremities with pain; Z79.899 Other long term (current) drug therapy
CPT/HCPCS: 36415; 82955

== ENCOUNTER → 2022-04-26 | Outpatient (CLI) | payer BC, SELFPAY ==
[2022-04-29 20:07] LABS: QNTFERON TB Mitogen Value > 10.00 IU/mL (.); QNTFERON TB Nil Value 0.13 IU/mL (.); QNTFERON TB1+ Ag Value 0.12 IU/mL (.); QNTFERON TB2+ Ag Value 0.11 IU/mL (.); Red Blood Cell Count Test/G6PD 4.14 x10E6/uL (3.77-5.28)
[2022-04-30 20:22] LABS: G6PD Quant Test 339 (127-427); QNTIFERON TB Positive Criteria Negative (Negative)
== END | disposition home or self-care (01) ==
LOC: MTLAB 11:44
PROVIDERS: PCP Nurse Practitioner Family; Referring Provider Internal Medicine Rheumatology; Visit Provider Internal Medicine Rheumatology
DX: M05.70 Rheumatoid arthritis with rheumatoid factor of unspecified site without organ or systems involvement (principal); Z79.899 Other long term (current) drug therapy
CPT/HCPCS: 36415; 82955; 86480

== ENCOUNTER → 2022-06-21 | Outpatient (CLI) | payer BC, SELFPAY ==
[2022-06-21 12:26] LABS: Absolute Lymphocyte Count 1.82 X10^3/uL (0.83-4.51); Absolute Neutrophil Count 4.2 X10^3/uL (2.0-7.7); Basophil# 0.07 X10^3/uL; Eosinophil# 0.14 X10^3/uL; Eosinophils% 1.9 % (0-5); Hematocrit 42.3 % (37-47); Hemoglobin 13.6 g/dL (12.0-15.0); Lymphocyte # 1.82 X10^3/ul (0.83-4.51); Lymphocyte % 25.3 % (19-41); Mean Corp Hgb Conc 32.2 g/dL (32-36); Mean Corpuscular Hgb 31.6 pg (27.0-32.0); Mean Corpuscular Volume 98.1 fL (81-99); Mean Platelet Vol. 10.5 fl (6.2-12.0); Monocyte# 0.89 X10^3/uL; Monocyte% 12.4 % (0-10); NRBC Flagged by Analyzer 0 % (0-5); Neutrophil # 4.23 X10^3/uL (2.7-7.7); Platelet Count 273 K/mm3 (150-450); RBC Distribution Width CV 13.3 % (11.6-14.6); RBC Distribution Width SD 48.7 fl (35.1-43.9); Red Blood Count 4.31 M/mm3 (4.2-5.4); White Blood Count 7.2 K/mm3 (4.4-11.0)
[2022-06-21 13:00] LABS: ALB/GLOB Ratio 1.2 RATIO (0.9-2.4); AST(SGOT) 18 U/L (15-37); Alanine Aminotransfer ALT/SGPT 23 U/L (13-56); Albumin, Serum 3.9 g/dL (3.2-5.0); Alkaline Phosphatase 75 U/L (45-117); Anion Gap 6 (5-15); BUN 14 mg/dL (7-18); BUN/Creat Ratio 16.2 RATIO (10-20); Calcium,Total 9.3 mg/dL (8.5-10.1); Chloride 103 mmol/L (98-107); Creatinine, Serum 0.86 mg/dL (0.55-1.02); EST Glomerular Filtration Rate 71 mL/min (>60); Est Glom Filt Rate - Afr Amer 85 mL/min (>60); Globulin 3.3 g/dL (2.2-4.2); Glucose 91 mg/dL (74-106); Protein, Total 7.2 g/dL (6.4-8.2); Sodium Level 138 mmol/L (136-145)
== END | disposition home or self-care (01) ==
LOC: MTLAB 09:39
PROVIDERS: PCP Nurse Practitioner Family; Referring Provider Internal Medicine Rheumatology; Visit Provider Internal Medicine Rheumatology
DX: M05.79 Rheumatoid arthritis with rheumatoid factor of multiple sites without organ or systems involvement (principal); Z79.899 Other long term (current) drug therapy
CPT/HCPCS: 36415; 80053; 85025

== ENCOUNTER → 2022-09-19 | Outpatient (CLI) | payer BC, SELFPAY ==
[2022-09-19 09:47] LABS: Absolute Lymphocyte Count 1.76 X10^3/uL (0.83-4.51); Absolute Neutrophil Count 4.4 X10^3/uL (2.0-7.7); Basophil# 0.07 X10^3/uL; Basophil% 0.9 % (0-1); Eosinophil# 0.14 X10^3/uL; Eosinophils% 1.9 % (0-5); Hematocrit 40.6 % (37-47); Lymphocyte # 1.76 X10^3/ul (0.83-4.51); Lymphocyte % 23.9 % (19-41); Mean Corpuscular Hgb 31.5 pg (27.0-32.0); Mean Corpuscular Volume 98.3 fL (81-99); Mean Platelet Vol. 10.1 fl (6.2-12.0); Monocyte% 13.6 % (0-10); NRBC Flagged by Analyzer 0 % (0-5); Neutrophil # 4.37 X10^3/uL (2.7-7.7); Neutrophil % 59.3 % (47-70); Platelet Count 280 K/mm3 (150-450); RBC Distribution Width CV 13.3 % (11.6-14.6); RBC Distribution Width SD 48.3 fl (35.1-43.9); Red Blood Count 4.13 M/mm3 (4.2-5.4); White Blood Count 7.4 K/mm3 (4.4-11.0)
[2022-09-19 10:15] LABS: ALB/GLOB Ratio 1.1 RATIO (0.9-2.4); AST(SGOT) 16 U/L (15-37); Alanine Aminotransfer ALT/SGPT 20 U/L (13-56); Albumin, Serum 3.7 g/dL (3.2-5.0); Alkaline Phosphatase 73 U/L (45-117); Anion Gap 3 (5-15); BUN 19 mg/dL (7-18); BUN/Creat Ratio 20.7 RATIO (10-20); Calcium,Total 8.7 mg/dL (8.5-10.1); Chloride 108 mmol/L (98-107); Creatinine, Serum 0.92 mg/dL (0.55-1.02); EST Glomerular Filtration Rate 66 mL/min (>60); Est Glom Filt Rate - Afr Amer 80 mL/min (>60); Globulin 3.4 g/dL (2.2-4.2); Glucose 93 mg/dL (74-106); Potassium 4.1 mmol/L (3.5-5.1); Protein, Total 7.1 g/dL (6.4-8.2); Sodium Level 139 mmol/L (136-145)
== END | disposition home or self-care (01) ==
LOC: MTLAB 09:08
PROVIDERS: PCP Nurse Practitioner Family; Referring Provider Internal Medicine Rheumatology; Visit Provider Internal Medicine Rheumatology
DX: M05.70 Rheumatoid arthritis with rheumatoid factor of unspecified site without organ or systems involvement (principal); Z79.899 Other long term (current) drug therapy
CPT/HCPCS: 36415; 80053; 85025

== ENCOUNTER → 2022-11-21 | Outpatient (CLI) | payer BC, SELFPAY ==
[2022-11-21 12:21] LABS: Absolute Lymphocyte Count 1.65 X10^3/uL (0.83-4.51); Absolute Neutrophil Count 4.6 X10^3/uL (2.0-7.7); Basophil# 0.07 X10^3/uL; Eosinophil# 0.13 X10^3/uL; Eosinophils% 1.8 % (0-5); Hematocrit 39.8 % (37-47); Hemoglobin 13.1 g/dL (12.0-15.0); Lymphocyte # 1.65 X10^3/ul (0.83-4.51); Lymphocyte % 22.8 % (19-41); Mean Corp Hgb Conc 32.9 g/dL (32-36); Mean Corpuscular Hgb 33.1 pg (27.0-32.0); Mean Corpuscular Volume 100.5 fL (81-99); Mean Platelet Vol. 10.2 fl (6.2-12.0); Monocyte# 0.73 X10^3/uL; Monocyte% 10.1 % (0-10); NRBC Flagged by Analyzer 0 % (0-5); Neutrophil # 4.64 X10^3/uL (2.7-7.7); Neutrophil % 64.2 % (47-70); Platelet Count 271 K/mm3 (150-450); RBC Distribution Width SD 55.2 fl (35.1-43.9); Red Blood Count 3.96 M/mm3 (4.2-5.4); White Blood Count 7.2 K/mm3 (4.4-11.0)
[2022-11-21 12:46] LABS: Vitamin D,25 Hydroxy 43.1 ng/mL
[2022-11-21 12:53] LABS: ALB/GLOB Ratio 1.2 RATIO (0.9-2.4); AST(SGOT) 21 U/L (15-37); Alanine Aminotransfer ALT/SGPT 22 U/L (13-56); Albumin, Serum 3.7 g/dL (3.2-5.0); Alkaline Phosphatase 77 U/L (45-117); Anion Gap 4 (5-15); BUN 14 mg/dL (7-18); BUN/Creat Ratio 17.1 RATIO (10-20); Calcium,Total 8.8 mg/dL (8.5-10.1); Chloride 106 mmol/L (98-107); Cholesterol 180 mg/dL (200); Creatinine, Serum 0.82 mg/dL (0.55-1.02); EST Glomerular Filtration Rate 75 mL/min (>60); Est Glom Filt Rate - Afr Amer 91 mL/min (>60); Globulin 3.2 g/dL (2.2-4.2); Glucose 89 mg/dL (74-106); High Density Lipoprotein 96 mg/dL; Potassium 4.2 mmol/L (3.5-5.1); Protein, Total 6.9 g/dL (6.4-8.2); Sodium Level 138 mmol/L (136-145); T4 Free Direct 1.27 ng/dL (0.76-1.46); Thyroid Stim Hormone (TSH) 0.85 uIU/mL (0.358-3.74); Triglycerides 41 mg/dL; Very Low Density Lipoprotein 8 mg/dL (5-40)
== END | disposition home or self-care (01) ==
LOC: MTLAB 09:57
PROVIDERS: PCP Nurse Practitioner Family; Referring Provider Internal Medicine Rheumatology; Visit Provider Internal Medicine Rheumatology
DX: M05.79 Rheumatoid arthritis with rheumatoid factor of multiple sites without organ or systems involvement (principal); Z79.899 Other long term (current) drug therapy; D63.8 Anemia in other chronic diseases classified elsewhere; E78.2 Mixed hyperlipidemia; E03.9 Hypothyroidism, unspecified; E55.9 Vitamin D deficiency, unspecified
CPT/HCPCS: 36415; 80053; 80061; 82306; 84439; 84443; 85025

== ENCOUNTER → 2023-02-18 | Outpatient (CLI) | payer BC, SELFPAY ==
[2023-02-18 11:00] LABS: Absolute Lymphocyte Count 1.74 X10^3/uL (0.83-4.51); Absolute Neutrophil Count 4.7 X10^3/uL (2.0-7.7); Basophil# 0.08 X10^3/uL; Eosinophil# 0.14 X10^3/uL; Eosinophils% 1.8 % (0-5); Hematocrit 40.1 % (37-47); Hemoglobin 12.9 g/dL (12.0-15.0); Lymphocyte # 1.74 X10^3/ul (0.83-4.51); Lymphocyte % 22.6 % (19-41); Mean Corp Hgb Conc 32.2 g/dL (32-36); Mean Corpuscular Hgb 33.2 pg (27.0-32.0); Mean Corpuscular Volume 103.1 fL (81-99); Mean Platelet Vol. 10.7 fl (6.2-12.0); Monocyte# 1.05 X10^3/uL; Monocyte% 13.6 % (0-10); NRBC Flagged by Analyzer 0 % (0-5); Neutrophil # 4.67 X10^3/uL (2.7-7.7); Neutrophil % 60.6 % (47-70); Platelet Count 283 K/mm3 (150-450); RBC Distribution Width SD 53.3 fl (35.1-43.9); Red Blood Count 3.89 M/mm3 (4.2-5.4); White Blood Count 7.7 K/mm3 (4.4-11.0)
[2023-02-18 12:09] LABS: ALB/GLOB Ratio 1.2 RATIO (0.9-2.4); AST(SGOT) 19 U/L (15-37); Alanine Aminotransfer ALT/SGPT 24 U/L (13-56); Albumin, Serum 3.9 g/dL (3.2-5.0); Alkaline Phosphatase 76 U/L (45-117); Anion Gap 7 (5-15); BUN 13 mg/dL (7-18); BUN/Creat Ratio 14.5 RATIO (10-20); Calcium,Total 8.7 mg/dL (8.5-10.1); Chloride 104 mmol/L (98-107); EST Glomerular Filtration Rate 68 mL/min (>60); Est Glom Filt Rate - Afr Amer 82 mL/min (>60); Globulin 3.3 g/dL (2.2-4.2); Glucose 98 mg/dL (74-106); Protein, Total 7.2 g/dL (6.4-8.2); Sodium Level 139 mmol/L (136-145)
== END | disposition home or self-care (01) ==
PROVIDERS: PCP Nurse Practitioner Family; Referring Provider Internal Medicine Rheumatology; Visit Provider Internal Medicine Rheumatology
DX: M05.79 Rheumatoid arthritis with rheumatoid factor of multiple sites without organ or systems involvement (principal); M50.30 Other cervical disc degeneration, unspecified cervical region; M65.341 Trigger finger, right ring finger; Z79.899 Other long term (current) drug therapy
CPT/HCPCS: 36415; 80053; 85025

== ENCOUNTER → 2023-05-15 | Outpatient (CLI) | payer BC, SELFPAY ==
[2023-05-15 15:35] LABS: Absolute Lymphocyte Count 1.63 X10^3/uL (0.83-4.51); Absolute Neutrophil Count 3.1 X10^3/uL (2.0-7.7); Basophil# 0.04 X10^3/uL; Basophil% 0.7 % (0-1); Eosinophil# 0.08 X10^3/uL; Eosinophils% 1.3 % (0-5); Hematocrit 39.2 % (37-47); Lymphocyte # 1.63 X10^3/ul (0.83-4.51); Lymphocyte % 26.9 % (19-41); Mean Corp Hgb Conc 33.2 g/dL (32-36); Mean Corpuscular Hgb 33.6 pg (27.0-32.0); Mean Corpuscular Volume 101.3 fL (81-99); Mean Platelet Vol. 10.6 fl (6.2-12.0); Monocyte# 1.16 X10^3/uL; Monocyte% 19.1 % (0-10); NRBC Flagged by Analyzer 0 % (0-5); Neutrophil # 3.14 X10^3/uL (2.7-7.7); Neutrophil % 51.8 % (47-70); Platelet Count 286 K/mm3 (150-450); RBC Distribution Width CV 13.9 % (11.6-14.6); RBC Distribution Width SD 51.5 fl (35.1-43.9); Red Blood Count 3.87 M/mm3 (4.2-5.4); White Blood Count 6.1 K/mm3 (4.4-11.0)
[2023-05-15 16:16] LABS: Vitamin D,25 Hydroxy 33.7 ng/mL
[2023-05-15 16:21] LABS: Microalbumin,Random Urine 7.8 mg/L (NO RANGE EST.); Microalbumin:Creatinine Ratio 14.5 mg/g CRE (<30 mg/g CRE)
[2023-05-15 16:23] LABS: ALB/GLOB Ratio 1.2 RATIO (0.9-2.4); AST(SGOT) 22 U/L (15-37); Alanine Aminotransfer ALT/SGPT 25 U/L (13-56); Alkaline Phosphatase 74 U/L (45-117); Anion Gap 6 (5-15); BUN 15 mg/dL (7-18); BUN/Creat Ratio 17.7 RATIO (10-20); Calcium,Total 9.3 mg/dL (8.5-10.1); Chloride 106 mmol/L (98-107); Cholesterol 197 mg/dL (200); Creatinine, Serum 0.85 mg/dL (0.55-1.02); EST Glomerular Filtration Rate 72 mL/min (>60); Est Glom Filt Rate - Afr Amer 87 mL/min (>60); Globulin 3.4 g/dL (2.2-4.2); Glucose 86 mg/dL (74-106); High Density Lipoprotein 97 mg/dL; Magnesium 2.2 mg/dL (1.6-2.6); Potassium 4.1 mmol/L (3.5-5.1); Protein, Total 7.4 g/dL (6.4-8.2); Sodium Level 139 mmol/L (136-145); T4 Free Direct 1.57 ng/dL (0.76-1.46); Thyroid Stim Hormone (TSH) 0.26 uIU/mL (0.358-3.74); Triglycerides 55 mg/dL; Very Low Density Lipoprotein 11 mg/dL (5-40)
== END | disposition home or self-care (01) ==
PROVIDERS: PCP Nurse Practitioner Family; Referring Provider Internal Medicine Rheumatology; Visit Provider Internal Medicine Rheumatology
DX: M05.70 Rheumatoid arthritis with rheumatoid factor of unspecified site without organ or systems involvement (principal); M50.30 Other cervical disc degeneration, unspecified cervical region; M65.341 Trigger finger, right ring finger; L40.9 Psoriasis, unspecified; M72.0 Palmar fascial fibromatosis [Dupuytren]; I83.813 Varicose veins of bilateral lower extremities with pain; Z79.899 Other long term (current) drug therapy; I10 Essential (primary) hypertension; E78.2 Mixed hyperlipidemia; E55.9 Vitamin D deficiency, unspecified; D63.8 Anemia in other chronic diseases classified elsewhere; E03.9 Hypothyroidism, unspecified
CPT/HCPCS: 36415; 80053; 80061; 82043; 82306; 82570; 83735; 84439; 84443; 85025

== ENCOUNTER → 2023-08-19 | Outpatient (CLI) | payer BC, SELFPAY ==
[2023-08-19 10:32] LABS: Absolute Lymphocyte Count 1.88 X10^3/uL (0.83-4.51); Absolute Neutrophil Count 2.8 X10^3/uL (2.0-7.7); Basophil# 0.06 X10^3/uL; Basophil% 1.1 % (0-1); Eosinophils% 1.8 % (0-5); Hemoglobin 12.9 g/dL (12.0-15.0); Lymphocyte # 1.88 X10^3/ul (0.83-4.51); Lymphocyte % 33.5 % (19-41); Mean Corp Hgb Conc 32.3 g/dL (32-36); Mean Corpuscular Hgb 33.1 pg (27.0-32.0); Mean Corpuscular Volume 102.6 fL (81-99); Mean Platelet Vol. 10.3 fl (6.2-12.0); Monocyte# 0.74 X10^3/uL; Monocyte% 13.2 % (0-10); NRBC Flagged by Analyzer 0 % (0-5); Neutrophil # 2.82 X10^3/uL (2.7-7.7); Neutrophil % 50.2 % (47-70); Platelet Count 269 K/mm3 (150-450); RBC Distribution Width CV 13.9 % (11.6-14.6); RBC Distribution Width SD 52.6 fl (35.1-43.9); White Blood Count 5.6 K/mm3 (4.4-11.0)
[2023-08-19 12:49] LABS: ALB/GLOB Ratio 1.2 RATIO (0.9-2.4); AST(SGOT) 29 U/L (15-37); Alanine Aminotransfer ALT/SGPT 29 U/L (13-56); Albumin, Serum 3.8 g/dL (3.2-5.0); Alkaline Phosphatase 67 U/L (45-117); Anion Gap 4 (5-15); BUN 15 mg/dL (7-18); BUN/Creat Ratio 17.9 RATIO (10-20); Calcium,Total 8.9 mg/dL (8.5-10.1); Chloride 107 mmol/L (98-107); Creatinine, Serum 0.84 mg/dL (0.55-1.02); EST Glomerular Filtration Rate 73 mL/min (>60); Est Glom Filt Rate - Afr Amer 88 mL/min (>60); Globulin 3.2 g/dL (2.2-4.2); Glucose 84 mg/dL (74-106); Potassium 4.1 mmol/L (3.5-5.1); Sodium Level 139 mmol/L (136-145)
== END | disposition home or self-care (01) ==
PROVIDERS: PCP Nurse Practitioner Family; Referring Provider Internal Medicine Rheumatology; Visit Provider Internal Medicine Rheumatology
DX: M05.70 Rheumatoid arthritis with rheumatoid factor of unspecified site without organ or systems involvement (principal); Z79.899 Other long term (current) drug therapy
CPT/HCPCS: 36415; 80053; 85025

== ENCOUNTER → 2023-11-07 | Outpatient (CLI) | payer BC, SELFPAY ==
[2023-11-07 15:08] LABS: Absolute Lymphocyte Count 2.42 X10^3/uL (0.83-4.51); Absolute Neutrophil Count 4.9 X10^3/uL (2.0-7.7); Basophil# 0.06 X10^3/uL; Basophil% 0.7 % (0-1); Eosinophil# 0.11 X10^3/uL; Eosinophils% 1.3 % (0-5); Hematocrit 38.9 % (37-47); Hemoglobin 12.6 g/dL (12.0-15.0); Lymphocyte # 2.42 X10^3/ul (0.83-4.51); Lymphocyte % 29.3 % (19-41); Mean Corp Hgb Conc 32.4 g/dL (32-36); Mean Corpuscular Hgb 33.4 pg (27.0-32.0); Mean Corpuscular Volume 103.2 fL (81-99); Mean Platelet Vol. 10.4 fl (6.2-12.0); Monocyte# 0.77 X10^3/uL; Monocyte% 9.3 % (0-10); NRBC Flagged by Analyzer 0 % (0-5); Neutrophil # 4.88 X10^3/uL (2.7-7.7); Platelet Count 318 K/mm3 (150-450); RBC Distribution Width CV 14.5 % (11.6-14.6); RBC Distribution Width SD 54.8 fl (35.1-43.9); Red Blood Count 3.77 M/mm3 (4.2-5.4); White Blood Count 8.3 K/mm3 (4.4-11.0)
[2023-11-07 15:23] LABS: Vitamin D,25 Hydroxy 37.9 ng/mL
[2023-11-07 15:35] LABS: ALB/GLOB Ratio 1.2 RATIO (0.9-2.4); AST(SGOT) 21 U/L (15-37); Alanine Aminotransfer ALT/SGPT 25 U/L (13-56); Albumin, Serum 4.1 g/dL (3.2-5.0); Alkaline Phosphatase 75 U/L (45-117); Anion Gap 6 (5-15); BUN 10 mg/dL (7-18); BUN/Creat Ratio 12.8 RATIO (10-20); Calcium,Total 9.4 mg/dL (8.5-10.1); Chloride 106 mmol/L (98-107); Cholesterol 169 mg/dL (200); Creatinine, Serum 0.78 mg/dL (0.55-1.02); EST Glomerular Filtration Rate 79 mL/min (>60); Est Glom Filt Rate - Afr Amer 95 mL/min (>60); Globulin 3.3 g/dL (2.2-4.2); Glucose 88 mg/dL (74-106); High Density Lipoprotein 87 mg/dL; Protein, Total 7.4 g/dL (6.4-8.2); Sodium Level 140 mmol/L (136-145); Triglycerides 60 mg/dL; Very Low Density Lipoprotein 12 mg/dL (5-40)
== END | disposition home or self-care (01) ==
PROVIDERS: PCP Nurse Practitioner Family; Referring Provider Internal Medicine Rheumatology; Visit Provider Internal Medicine Rheumatology
DX: M05.70 Rheumatoid arthritis with rheumatoid factor of unspecified site without organ or systems involvement (principal); M65.341 Trigger finger, right ring finger; Z79.899 Other long term (current) drug therapy; I10 Essential (primary) hypertension; E78.2 Mixed hyperlipidemia; E55.9 Vitamin D deficiency, unspecified; E03.9 Hypothyroidism, unspecified; D63.8 Anemia in other chronic diseases classified elsewhere
CPT/HCPCS: 36415; 80053; 80061; 82306; 84439; 84443; 85025

== ENCOUNTER → 2023-12-13 | Outpatient (CLI) | payer BC, SELFPAY ==
--- NOTE | 2023-12-13 12:54 | VDLE_ITS ---
Reason For Study: RLE PAIN RIGHT CFV is compressible, spontaneous, phasic, competent and demonstrates normal augmentation. FV is compressible, spontaneous, phasic, competent and demonstrates normal augmentation. POP V is compressible, spontaneous, phasic, competent and demonstrates normal augmentation. T/P Trunk is compressible. PTV is compressible. RT PerV is compressible. SFJ is competent and measures 0.45 cm. GSV proximal thigh measures 0.40 X 0.37 cm. GSV is competent throughout. SSV proximal calf is competent and measures 0.24 x 0.28 cm. ASV @ SFJ measures 0.24 x 0.28 is competent thruoughout. Procedure This is a venous duplex using B-mode, color flow and spectral Doppler. Exam performed in department. Images # 33, 34, 35 & 36 are GSV. VL/Venous Duplex US, Unilateral Interpretation Summary Deep veins of the right lower extremity are patent and compressible segmentally . There is no evidence of right lower extremity deep vein thrombosis. The right great sapheno us vein appears patent and compressible segmentally. Negative for reflux Ordering Physician: Ulysses Morton Referring Physician: Ulysses Morton Performed By: Diya Wilson, WILNER, RVT
== END | disposition home or self-care (01) ==
LOC: CVS 12:52
PROVIDERS: PCP Nurse Practitioner Family; Referring Provider Nurse Practitioner Family; Visit Provider Nurse Practitioner Family
DX: M79.661 Pain in right lower leg (principal)
CPT/HCPCS: 93971

== ENCOUNTER → 2024-02-03 | Outpatient (CLI) | payer BC, SELFPAY ==
[2024-02-03 15:27] LABS: Absolute Lymphocyte Count 1.97 X10^3/uL (0.83-4.51); Absolute Neutrophil Count 5.2 X10^3/uL (2.0-7.7); Basophil# 0.05 X10^3/uL; Basophil% 0.6 % (0-1); Eosinophil# 0.08 X10^3/uL; Hematocrit 40.8 % (37-47); Hemoglobin 13.1 g/dL (12.0-15.0); Lymphocyte # 1.97 X10^3/ul (0.83-4.51); Lymphocyte % 24.1 % (19-41); Mean Corp Hgb Conc 32.1 g/dL (32-36); Mean Corpuscular Hgb 32.4 pg (27.0-32.0); Mean Platelet Vol. 11.3 fl (6.2-12.0); Monocyte# 0.87 X10^3/uL; Monocyte% 10.6 % (0-10); NRBC Flagged by Analyzer 0 % (0-5); Neutrophil # 5.19 X10^3/uL (2.7-7.7); Neutrophil % 63.5 % (47-70); Platelet Count 248 K/mm3 (150-450); RBC Distribution Width CV 13.3 % (11.6-14.6); RBC Distribution Width SD 49.5 fl (35.1-43.9); Red Blood Count 4.04 M/mm3 (4.2-5.4); White Blood Count 8.2 K/mm3 (4.4-11.0)
[2024-02-03 16:11] LABS: ALB/GLOB Ratio 1.4 RATIO (0.9-2.4); AST(SGOT) 18 U/L (15-37); Alanine Aminotransfer ALT/SGPT 18 U/L (13-56); Albumin, Serum 4.2 g/dL (3.2-5.0); Alkaline Phosphatase 69 U/L (45-117); Anion Gap 7 (5-15); BUN 13 mg/dL (7-18); BUN/Creat Ratio 14.8 RATIO (10-20); Calcium,Total 9.6 mg/dL (8.5-10.1); Chloride 104 mmol/L (98-107); Creatinine, Serum 0.88 mg/dL (0.55-1.02); EST Glomerular Filtration Rate 69 mL/min (>60); Est Glom Filt Rate - Afr Amer 83 mL/min (>60); Globulin 3.1 g/dL (2.2-4.2); Glucose 89 mg/dL (74-106); Potassium 3.6 mmol/L (3.5-5.1); Protein, Total 7.3 g/dL (6.4-8.2); Sodium Level 139 mmol/L (136-145)
== END | disposition home or self-care (01) ==
PROVIDERS: PCP Nurse Practitioner Family; Referring Provider Internal Medicine Rheumatology; Visit Provider Internal Medicine Rheumatology
DX: M05.70 Rheumatoid arthritis with rheumatoid factor of unspecified site without organ or systems involvement (principal); Z79.899 Other long term (current) drug therapy
CPT/HCPCS: 36415; 80053; 85025

== ENCOUNTER → 2024-04-28 | Outpatient (CLI) | payer BC, SELFPAY ==
[2024-04-28 12:29] LABS: Vitamin D,25 Hydroxy 32.8 ng/mL
[2024-04-28 12:36] LABS: Absolute Lymphocyte Count 1.69 X10^3/uL (0.83-4.51); Absolute Neutrophil Count 5.1 X10^3/uL (2.0-7.7); Basophil# 0.04 X10^3/uL; Basophil% 0.5 % (0-1); Eosinophil# 0.08 X10^3/uL; Eosinophils% 1.1 % (0-5); Hematocrit 41.8 % (37-47); Hemoglobin 13.5 g/dL (12.0-15.0); Lymphocyte # 1.69 X10^3/ul (0.83-4.51); Lymphocyte % 22.2 % (19-41); Mean Corp Hgb Conc 32.3 g/dL (32-36); Mean Corpuscular Hgb 32.6 pg (27.0-32.0); Mean Platelet Vol. 10.3 fl (6.2-12.0); Monocyte# 0.72 X10^3/uL; Monocyte% 9.5 % (0-10); NRBC Flagged by Analyzer 0 % (0-5); Neutrophil # 5.06 X10^3/uL (2.7-7.7); Neutrophil % 66.4 % (47-70); Platelet Count 294 K/mm3 (150-450); RBC Distribution Width CV 14.5 % (11.6-14.6); Red Blood Count 4.14 M/mm3 (4.2-5.4); White Blood Count 7.6 K/mm3 (4.4-11.0)
[2024-04-28 13:13] LABS: ALB/GLOB Ratio 1.2 RATIO (0.9-2.4); AST(SGOT) 22 U/L (15-37); Alanine Aminotransfer ALT/SGPT 25 U/L (13-56); Albumin, Serum 4.1 g/dL (3.2-5.0); Alkaline Phosphatase 64 U/L (45-117); Anion Gap 8 (5-15); BUN 14 mg/dL (7-18); BUN/Creat Ratio 14.3 RATIO (10-20); Calcium,Total 9.7 mg/dL (8.5-10.1); Chloride 103 mmol/L (98-107); Cholesterol 209 mg/dL (200); Creatinine, Serum 0.98 mg/dL (0.55-1.02); EST Glomerular Filtration Rate 61 mL/min (>60); Est Glom Filt Rate - Afr Amer 74 mL/min (>60); Globulin 3.3 g/dL (2.2-4.2); Glucose 100 mg/dL (74-106); High Density Lipoprotein 106 mg/dL; Protein, Total 7.4 g/dL (6.4-8.2); Sodium Level 139 mmol/L (136-145); T4 Free Direct 1.27 ng/dL (0.76-1.46); Triglycerides 60 mg/dL; Very Low Density Lipoprotein 12 mg/dL (5-40)
[2024-04-28 15:23] LABS: Microalbumin,Random Urine < 5.0 mg/L (NO RANGE EST.)
== END | disposition home or self-care (01) ==
LOC: MTLAB 10:10
PROVIDERS: PCP Nurse Practitioner Family; Referring Provider Nurse Practitioner Family; Visit Provider Nurse Practitioner Family
DX: M05.70 Rheumatoid arthritis with rheumatoid factor of unspecified site without organ or systems involvement (principal); Z79.899 Other long term (current) drug therapy; E78.2 Mixed hyperlipidemia; I10 Essential (primary) hypertension; D63.8 Anemia in other chronic diseases classified elsewhere; E03.9 Hypothyroidism, unspecified; E55.9 Vitamin D deficiency, unspecified
CPT/HCPCS: 36415; 80053; 80061; 82043; 82306; 82570; 84439; 84443; 85025

== ENCOUNTER → 2024-07-20 | Outpatient (CLI) | payer BC, SELFPAY ==
[2024-07-20 16:11] LABS: Absolute Lymphocyte Count 1.82 X10^3/uL (0.83-4.51); Absolute Neutrophil Count 4.5 X10^3/uL (2.0-7.7); Basophil# 0.06 X10^3/uL; Basophil% 0.8 % (0-1); Eosinophil# 0.08 X10^3/uL; Eosinophils% 1.1 % (0-5); Hematocrit 38.7 % (37-47); Hemoglobin 12.9 g/dL (12.0-15.0); Lymphocyte # 1.82 X10^3/ul (0.83-4.51); Lymphocyte % 25.4 % (19-41); Mean Corp Hgb Conc 33.3 g/dL (32-36); Mean Corpuscular Hgb 33.4 pg (27.0-32.0); Mean Corpuscular Volume 100.3 fL (81-99); Mean Platelet Vol. 10.7 fl (6.2-12.0); Monocyte# 0.73 X10^3/uL; Monocyte% 10.2 % (0-10); NRBC Flagged by Analyzer 0 % (0-5); Neutrophil # 4.46 X10^3/uL (2.7-7.7); Neutrophil % 62.4 % (47-70); Platelet Count 275 K/mm3 (150-450); RBC Distribution Width CV 13.7 % (11.6-14.6); RBC Distribution Width SD 49.8 fl (35.1-43.9); Red Blood Count 3.86 M/mm3 (4.2-5.4); White Blood Count 7.2 K/mm3 (4.4-11.0)
[2024-07-20 16:34] LABS: ALB/GLOB Ratio 1.6 RATIO (0.9-2.4); AST(SGOT) 21 U/L (<=31); Alanine Aminotransfer ALT/SGPT 17 U/L (<=34); Albumin, Serum 4.2 g/dL (3.4-4.8); Alkaline Phosphatase 64 U/L (35-104); Anion Gap 11 (5-15); BUN 15 mg/dL (4-19); Calcium,Total 9.3 mg/dL (7.6-11.0); Carbon Dioxide 26.3 mmol/L (21.0-32.0); Chloride 103 mmol/L (98-108); Creatinine, Serum 0.83 mg/dL (0.70-1.20); EST Glomerular Filtration Rate 79 (>60); Globulin 2.6 g/dL (2.2-4.2); Glucose 95 mg/dL (70-99); Potassium 4.2 mmol/L (3.3-5.1); Protein, Total 6.8 g/dL (5.9-8.4); Sodium Level 140 mmol/L (133-145); Total Bilirubin 0.57 mg/dL (0.00-1.30)
== END | disposition home or self-care (01) ==
LOC: MTLAB 11:04
PROVIDERS: PCP Nurse Practitioner Family; Referring Provider Internal Medicine Rheumatology; Visit Provider Internal Medicine Rheumatology
DX: M05.70 Rheumatoid arthritis with rheumatoid factor of unspecified site without organ or systems involvement (principal); Z79.899 Other long term (current) drug therapy
CPT/HCPCS: 36415; 80053; 85025

== ENCOUNTER → 2024-10-19 | Outpatient (CLI) | payer BC, SELFPAY ==
[2024-10-19 13:21] LABS: Hematocrit 39.6 % (37-47); Hemoglobin 13.2 g/dL (12.0-15.0); Immature Granulocytes Count 0.020 X10^3/uL (0.0-0.0); Mean Corp Hgb Conc 33.3 g/dL (32-36); Mean Corpuscular Volume 99.5 fL (81-99); Mean Platelet Vol. 10.5 fl (6.2-12.0); NRBC Flagged by Analyzer 0 % (0-5); Platelet Count 275 K/mm3 (150-450); RBC Distribution Width CV 13.4 % (11.6-14.6); RBC Distribution Width SD 49.6 fl (35.1-43.9); Red Blood Count 3.98 M/mm3 (4.2-5.4); White Blood Count 7.2 K/mm3 (4.4-11.0)
[2024-10-19 13:30] LABS: Creatinine, Urine (random) 48.50 mg/dL (28.00-217.00); Microalbumin,Random Urine < 12.0 mg/L (<20 mg/L)
[2024-10-19 13:52] LABS: AST(SGOT) 22 U/L (<=31); Alanine Aminotransfer ALT/SGPT 18 U/L (<=34); Albumin, Serum 4.4 g/dL (3.4-4.8); Alkaline Phosphatase 75 U/L (35-104); Anion Gap 13 (5-15); BUN 16 mg/dL (4-19); BUN/Creat Ratio 18.1 RATIO (10-20); Calcium,Total 9.6 mg/dL (7.6-11.0); Carbon Dioxide 25.7 mmol/L (21.0-32.0); Chloride 102 mmol/L (98-108); Cholesterol 197 mg/dL (<=200); Free T3 3.3 pg/mL (2.18-3.98); Globulin 2.7 g/dL (2.2-4.2); Glucose 107 mg/dL (70-99); Low Density Lipoprotein Calc. 93 mg/dL; Potassium 3.8 mmol/L (3.3-5.1); Triglycerides 58 mg/dL; Very Low Density Lipoprotein 12 mg/dL (5-40); Vitamin B12 801 pg/mL (180-914); Vitamin D,25 Hydroxy 49.8 ng/mL (30-100); cholesterol:hdl ratio screen 2.13
[2024-10-19 14:01] LABS: FOLATES,SERUM (FOLIC ACID) > 40.00 ng/mL (4.60-34.80)
[2024-10-19 14:11] LABS: Iron 124 ug/dL (50-170); Iron Binding Capacity,Total 344 ug/dL (250-450); Iron Binding Capacity,Unsat 220 ug/dL (228-428)
--- OUTSIDE RECORDS SUMMARY | 2024-10-19 21:23 | XMS RPT_ITS | CCD ---
Author Organization [facility] Care Team Providers Care Sheet Metal Welder Name Role Phone Lamine Mortno Primary Care Provider [address] [address] [facility] PILOT - LAMINE CASTRO Primary Care Phys ician Selene CAR AUDIO INSTALLER, CAR AUDIO INSTALLER-C Lamine Sofia Primary Care Pr ovider Selene CAR AUDIO INSTALLER, CAR AUDIO INSTALLER-C Lamine Sofia Referring Provi mulugeta Cristhian WADE, CAR AUDIO INSTALLER-C Chiara Attending Provider Dr. Jaxon Givens Attending Provider Selene CAR AUDIO INSTALLER, CAR AUDIO INSTALLER-C Lamine Sofia Primary Care Pr ovider Selene CAR AUDIO INSTALLER, CAR AUDIO INSTALLER-C Lamine Sofia Referring Provi mulugeta Selene CAR AUDIO INSTALLER, CAR AUDIO INSTALLER-C Lamine Sofia Primary Care Pr ovider Selene CAR AUDIO INSTALLER, CAR AUDIO INSTALLER-C Lamine Sofia Referring Provi mulugeta Cristhian WADE, CAR AUDIO INSTALLER-C Chiara Attending Provider Lamine Morton CNP Primary Care Provider Selene CAR AUDIO INSTALLER, CAR AUDIO INSTALLER-C Lamine Sofia Primary Care Pr ovider Selene CAR AUDIO INSTALLER, CAR AUDIO INSTALLER-C Lamine Sofia Referring Provi mulugeta Dr. Jaxon Givens Attending Provider Selene CAR AUDIO INSTALLER, CAR AUDIO INSTALLER-C Lamine Sofia Primary Care Pr ovider Selene CAR AUDIO INSTALLER, CAR AUDIO INSTALLER-C Lamine Sofia Referring Provi mulugeta Dr. Jaxon Givens Attending Provider [phone] Cristhian CAR AUDIO INSTALLER, CAR AUDIO INSTALLER-C Chiara Attending Provider [phone] Selene CAR AUDIO INSTALLER, CAR AUDIO INSTALLER-C Lamine Sofia Primary Care Pr ovider Selene CAR AUDIO INSTALLER, CAR AUDIO INSTALLER-C Lamine Sofia Referring Provi mulugeta Selene CAR AUDIO INSTALLER, CAR AUDIO INSTALLER-C Lamine Sofia Primary Care Pr ovider Selene CAR AUDIO INSTALLER, CAR AUDIO INSTALLER-C Lamine Sofia Referring Provi mulugeta Dr. Jaxon Givens Attending Provider Selene CAR AUDIO INSTALLER, CAR AUDIO INSTALLER-C Lamine Sofia Primary Care Pr ovider Selene CAR AUDIO INSTALLER, CAR AUDIO INSTALLER-C Lamine Sofia Referring Provi mulugeta Cristhian CAR AUDIO INSTALLER, CAR AUDIO INSTALLER-C Chiara Attending Provider Lamine Morton CNP Primary Care Provider STEPHANIE CHÁVEZ, LUIS ENRIQUE Attending Unavailab le [address] [facility] PILOT - CIGAR WRAPPER TENDER AUTOMATIC, LAMINE Moya Primary Care U navailable [address] [facility] PILOT - CIGAR WRAPPER TENDER AUTOMATIC, LAMINE Moya Attending U navailable [address] PATROL PILOT - CIGAR WRAPPER TENDER AUTOMATIC, LAMINE Moya Primary Care U urbano BROWN MD, LUIS ENRIQUE Attending Unavailab le [address] PATROL PILOT - CIGAR WRAPPER TENDER AUTOMATIC, LAMINE Moya Primary Care U navailsilva BROWN MD, LUIS ENRIQUE Attending Unavailab le [address] [facility] PILOT - MATTHEW, LAMINE Moya Primary Care U navailable SELENELAMINE MONTEMAYOR Primary Care Unavailable SELENE, LAMINE Myoa Primary Care Unavailable SELENELAMINE NOBLES Primary Care Unavailable CHRISTA AVILA Referring Unavailable REGINA PARADA Attending Unavailable SELENELAMINE MONTEMAYOR Primary Care Unavailable BEATRICE HUIZAR Attending Unavailable REGINA PARADA Referring Unavailable SELENE, LAMINE Moya Primary Care Unavailable [address] PATROL PILOT - CIGAR WRAPPER TENDER AUTOMATIC, LAMINE Moya Primary Care U urbano BROWN MD, LUIS ENRIQUE Attending Unavailab le Selene CAR AUDIO INSTALLER-C, Lamine Sofia Primary Care Provi mulugeta Selene CAR AUDIO INSTALLER-C, Lamine Sofia Attending Provider Selene CAR AUDIO INSTALLER-C, Lamine Sofia Referring Provider Dee CHÁVEZ, Dr. Moss Other Provider Cristhian CAR AUDIO INSTALLER-C, Chiara Attending Provider Dee CHÁVEZ, Dr. Moss Attending Provider Dee CHÁVEZ, Dr. Moss Referring Provider Selene CAR AUDIO INSTALLER, Lamine Sofia Attending Unav ailable Selene CAR AUDIO INSTALLER, Lamine Sofia Referring Unav ailable Selene CAR AUDIO INSTALLER, Lamine Sofia Primary Care Unav ailable Morrow CAR AUDIO INSTALLER, Chiara Attending Unavailable Chilton CAR AUDIO INSTALLER, Lamine Sofia Referring Unav ailable Chilton CAR AUDIO INSTALLER, Lamine Sofia Primary Care Unav ailable Morrow CAR AUDIO INSTALLER, Chiara Attending Unavailable Chilton CAR AUDIO INSTALLER, Lamine Sofia Referring Unav ailable Chilton CAR AUDIO INSTALLER, Lamine Sofia Primary Care Unav ailable Chilton CAR AUDIO INSTALLER, Lamine Sofia Referring Unav ailable Chilton CAR AUDIO INSTALLER, Lamine Sofia Primary Care Unav ailable Nito Cochran Attending Unavailable Selene CAR AUDIO INSTALLER, Lamine Sofia Primary Care Unav ailable Vellanki, Isa Attending Unavailable Vellanki, Isa Referring Unavailable Vellanki, Isa Consulting Unavailable Selene CAR AUDIO INSTALLER, Lamine Sofia Attending Unav ailable Chilton CAR AUDIO INSTALLER, Lamine Sofia Referring Unav ailable Chilton CAR AUDIO INSTALLER, Lamine Sofia Primary Care Unav ailable Vellanki, Isa Attending Unavailable Chilton CAR AUDIO INSTALLER, Lamine Sofia Primary Care Unav ailable Vellanki, Isa Referring Unavailable Vellanki, Isa Referring Unavailable Selene CAR AUDIO INSTALLER, Lamine Sofia Primary Care Unav ailable Vellanki, Isa Attending Unavailable Selene CAR AUDIO INSTALLER, Lamine Sofia Primary Care Unav ailable Selene CAR AUDIO INSTALLER, Lamine Sofia Consulting Unav ailable Vellanki, Isa Attending Unavailable Vellanki, Isa Referring Unavailable Medications Current Medications Medication Drug Class(es) Dates Sig (Normalized) Sig (Original) 0.4 ml adalimumab 100 mg/ml prefilled syringe (14 sources) Tumor Necrosis Factor Mik Start: 04-14-2019 Humira Pen 40 mg/0.4 mL subcutaneous kit every other week, 0 Refill(s) Start Date: 04/14/19 Status: Ordered Start: 04-14-2019 Humira Pen 40 mg/0.4 mL subcutaneous kit 0 Refill(s) Start Date: 04/14/19 Status: Ordered Start: 03-14-2017 End: 12-08-2021 Adalimumab 40 MG/0.8 ML syri nge kit Discontinued 40 mg SQ Q14D March 14, 2017 1:00am December 08, 2021 9:44am [id number] 200 actuat albuterol 0.09 mg/actuat metered dose inhaler (20 sources) beta2-Adrenergic Agonist Start: 06-04-2023 take 2 puff(s) by inhalation four times daily as needed for wheezing ProAir HFA MDI (90 mcg/inh) inhalation aerosol 2 puff(s), Inhalation, QID, PRN as needed for wheezing, # 3 EA, 1 Refill(s), Pharmacy: [facility], 160.5, cm, 06/04/23 10:36:00 EDT, Height, kg, 06/04/23 10:36:00 EDT, Dosing Weight Start Date: 06/04/23 Status: Ordered Start: 11-09-2021 take 2 puff(s) by in halation four times daily as needed for wheezing ProAir HFA MDI (90 mcg/inh) inhalation aerosol 2 puff(s), Inhalation, QID, PRN as needed for wheezing, # 3 EA, 3 Refill(s), Pharmacy: [facility]), 160, cm, 11/09/21 10:54:00 EDT, Height, kg, 11/09/21 10:54:00 EDT, Dosing Weight Start Date: 11/09/21 Status: Ordered Start: 03-01-2021 take 1 puff(s) by in halation every four hours Albuterol Sulfate Active 2 PUFF INHALATION Q4H 8.5 March 01, 2021 12:41pm Start: 09-08-2019 take 2 puff(s) by in halation four times daily as needed for wheezing ProAir HFA MDI (90 mcg/inh) inhalation aerosol 2 puff(s), Inhalation, QID, PRN as needed for wheezing, # 3 EA, 3 Refill(s), Pharmacy: [facility], 158.5, cm, 09/08/19 11:26:00 EDT, Height, kg, 09/08/19 11:26:00 EDT, Dosing Weight Start Date: 09/08/19 Status: Ordered Start: 09-08-2019 take 2 puff(s) by in halation four times daily as needed for wheezing ProAir HFA MDI (90 mcg/inh) inhalation aerosol 2 puff(s), Inhalation, QID, PRN as needed for wheezing, # 3 EA, 3 Refill(s), Pharmacy: [facility], 158.5, cm, 09/08/19 11:26:00 EDT, Height, kg, 09/08/19 11:26:00 EDT, Dosing Weight Start Date: 09/08/19 Status: Ordered Start: 02-10-2019 End: 03-01-2021 Albuterol Sulfate 90 mcg/act uation HFA aerosol inhaler Active 2 NMA INHALATION Q4H as needed for shortness of breath or wheezing 8.5 March 01, 2021 12:41pm Start: 02-10-2019 End: 03-01-2021 take 1 puff(s) by inhalation every four hours Albuterol Sulfate Active 2 PUFF INHALATION Q4H 8.5 March 01, 2021 11:41am take 2 puff(s) by in halation every four hours as needed for wheezing albuterol HFA 90 mcg/actuation HFA Inhale 2 Puffs as instructed every 4 hours as needed (shortness of breath or wheezing). Active amLODIPine 10 mg oral tablet (16 sources) Dihydropyridine Calcium Channel Mik Start: 05-11-2024 take 7.5 mg by mouth once daily Amlodipine 10 mg tablet Active 7.5 mg PO DAILY May 11, 2024 2:49pm Start: 04-17-2023 End: 05-11-2024 take 1 tablet by mouth once daily Amlodipine 10 mg tablet Discontinued 10 mg PO DAILY April 17, 2023 1:00am May 11, 2024 2:54pm Start: 04-14-2019 amLODIPine 2.5 mg oral tablet Dose : 5 mg = 2 tab(s), Oral, qDay, # 90 tab(s), 0 Refill(s) Start Date: 04/14/19 Status: Ordered Anoro Ellipta 62.5 mcg-25 mcg/inh inhalation powder (6 sources) Start: 11-08-2020 Anoro Ellipta 62.5 mcg-25 mcg/inh inhalation powder 0 Refill(s) Start Date: 11/08/20 Status: Ordered calcium carbonate 1500 mg oral tablet (18 sources) Start: 03-14-2017 take 2 tablets by mouth once daily Calcium Carbonate 600 MG tablet Active 1200 mg PO DAILY March 14, 2017 1:00am Start: 03-14-2017 take 1200 mg by mouth once kenneth ly Calcium Carbonate Active 1200 MG PO DAILY March 14, 2017 12:00am take 1 tablet by jose carlos th once daily calcium carbonate (SUPER CALCIUM) 600 mg calcium (1,500 mg) tab Take 600 mg by mouth once daily. Active certolizumab pegol 200 mg injection (18 sources) Start: 05-31-2022 Cimzia 200 mg subcutaneous kit mg =, Subcutaneous, 0 Refill(s) Start Date: 05/31/22 Status: Ordered Start: 05-31-2022 Cimzia 200 mg subcutaneous kit mg =, Subcutaneous, 0 Refill(s) Start Date: 05/31/22 Status: Ordered Start: 12-08-2021 Certolizumab P egol (Cimzia) 400 mg/2 mL (200 mg/mL x 2) syringe kit Active 200 mg SC every 2 weeks December 08, 2021 12:00am inject 400 mg by sub cutaneous injection every other week certolizumab pegol (CIMZIA) 400 mg/2 mL (200 mg/mL x 2) sub-q syringe kit Inject 400 mg subcutaneously every 2 weeks. Active 12 hr fexofenadine hydrochloride 60 mg / pseudoephedrine hydrochloride 120 mg extended release oral tablet (2 sources) alpha-Adrenergic Agonist, Histamine-1 Receptor Antagonist Start: 05-31-2022 take 1 tablet by mouth every twelve hours Annmarie-D 12 Hour Allergy and Congestion 60 mg-120 mg oral tablet, extended release Dose = 1 tab(s), Oral, q12h, # 60 tab(s), 1 Refill(s), Pharmacy: [facility], Seasonal allergies, 160, cm, 05/31/22 10:52:00 EDT, Height Start Date: 05/31/22 Status: Ordered FLUoxetine 20 mg oral capsule (1 source) Serotonin Reuptake Inhibitor Start: 09-15-2021 End: 12-14-2021 PROzac 20 mg oral capsule Dose : 20 mg = 1 cap(s), Oral, qDay, # 30 cap(s), 2 Refill(s), Pharmacy: [facility], Seasonal allergies, 160.5, cm, 05/11/21 11:37:00 EST, Height, kg, 05/11/21 11:37:00 EST, Dosing Weight Start Date: 09/15/21 Stop Date: 12/14/21 Status: Ordered Fluticasone-Umeclidin -Vilanter (2 sources) Start: 05-27-2024 Fluticasone-Ume clidin-Vilanter (Trelegy Ellipta) 200-62.5-25 mcg blister with device Active 1 NMA INHALATION DAILY 60 May 27, 2024 1:57pm Start: 11-07-2023 End: 05-27-2024 Fdeicnfyacb-Mobohyknk-Exixgr er (Trelegy Ellipta) 200-62.5-25 mcg blister with device Discontinued 1 NMA INHALATION DAILY 60 November 07, 2023 12:00am May 27, 2024 1:57pm fluticasone/umeclidin/vilant er (TRELEGY ELLIPTA INHALATION) (6 sources) fluticasone/umec lidin/vilanter (TRELEGY ELLIPTA INHALATION) Inhale as instructed. Active Folic Acid (20 sources) Start: 023 folic acid qDay, 0 Refill(s) Start Date: 12/04/22 Status: Ordered Start: 03-14-2017 take 2 mg by mouth once daily Folic Acid Active 2 MG PO DAILY@799March 14, 2017 12:00am Start: 10-12-2013 take 2 tablets by mo [facility] once daily Folic Acid 1 MG tablet Active 2 mg PO DAILY@799March 14, 2017 1:00am furosemide 20 mg oral tablet (1 source) Loop Diuretic Start: 05-11-2024 take 1 tablet by mouth once daily as needed Furosemide 20 mg tablet Active 20 mg PO daily as needed May 11, 2024 1:00am leucovorin 15 mg oral tablet (12 sources) Folate Analog Start: 05-11-2024 take 1 tablet by mouth every week Leucovorin Calcium 15 mg tablet Active 15 mg PO EVERY WEEK May 11, 2024 1:00am Start: 12-04-2022 End: 12-06-2022 leucovorin 5 mg oral tablet Dose : 15 mg = 3 tab(s), Oral, q6h, # 120 tab(s), 0 Refill(s) Start Date: 12/04/22 Stop Date: 12/06/22 Status: Ordered Start: 04-14-2019 leucovorin 15 mg oral tablet Dose : 15 mg = 1 tab(s), Oral, qWeek, # 24 tab(s), 0 Refill(s) Start Date: 04/14/19 Status: Ordered levothyroxine sodium 0.088 mg oral tablet (20 sources) l-Thyroxine Start: 05-11-2024 take 1 tablet by mouth once daily Levothyroxine 88 mcg tablet Active 88 ug PO daily May 11, 2024 1:00am Start: 06-04-2023 End: 12-01-2023 Synthroid 88 mcg (0.088 mg) oral tablet Dose : 88 mcg = 1 tab(s), Oral, qDay, # 90 tab(s), 1 Refill(s), Pharmacy: [facility], Hypothyroidism, 160.5, cm, 06/04/23 10:36:00 EDT, Height, kg, 06/04/23 10:36:00 EDT, Dosing Weight Start Date: 06/04/23 Stop Date: 12/01/23 Status: Ordered Start: 05-31-2022 End: 11-27-2022 Synthroid 100 mcg (0.1 mg) o ral tablet Dose : 100 mcg = 1 tab(s), Oral, qDay, # 90 tab(s), 1 Refill(s), Pharmacy: [facility], Hypothyroidism, 160, cm, 05/31/22 10:52:00 EDT, Height, kg, 05/31/22 10:52:00 EDT, Dosing Weight Start Date: 05/31/22 Stop Date: 11/27/22 Status: Ordered Start: 11-08-2020 End: 02-26-2022 Synthroid 100 mcg (0.1 mg) o ral tablet Dose : 100 mcg = 1 tab(s), Oral, qDay, # 90 tab(s), 2 Refill(s), [facility], Hypothyroidism, 160.5, cm, 05/11/21 11:37:00 EST, Height, kg, 05/11/21 11:37:00 EST, Dosing Weight Start Date: 06/01/21 Stop Date: 02/26/22 Status: Ordered Start: 03-14-2017 End: 05-11-2024 take 1 tablet by mouth once daily Levothyroxine 112 MCG tablet Discontinued 112 ug PO DAILY March 14, 2017 1:00am May 11, 2024 2:50pm take 1 tablet by jose carlos th once daily levothyroxine (SYNTHROID) 75 mcg ORAL tablet Take 75 mcg by mouth once daily. 0 Active Comment on above: Take 75 mcg by mouth once daily. Magnesium (18 sources) Start: 03-14-2017 take 250 mg by mouth once daily Magnesium Active 250 MG PO DAILY March 14, 2017 10:49am Start: 03-14-2017 take 1 tablet by jose carlos th once daily Magnesium 250 MG tablet Active 250 mg PO DAILY March 14, 2017 1:00am Start: 03-14-2017 take 250 mg by mouth once anne y Magnesium Active 250 MG PO DAILY March 14, 2017 1:00am Start: 03-14-2017 take 250 mg by mouth once anne y Magnesium Active 250 MG PO DAILY March 14, 2017 12:00am take 1 tablet by jose carlos th once daily Magnesium 250 mg tab Take 250 mg by mouth once daily. Active take 1 tablet by jose carlos th once daily Magnesium 250 mg tab Take 250 mg by mouth once daily. 0 Active methotrexate 2.5 mg oral tablet (20 sources) Folate Analog Metabolic Inhibitor Start: 05-11-2024 Methotrexate Sodium 2.5 mg tablet Active 15 mg PO EVERY WEEK May 11, 2024 1:00am Start: 06-04-2023 methotrexate 2 .5 mg oral tablet Dose : 15 mg = 6 tab(s), Oral, qWeek, # 72 tab(s), 0 Refill(s) Start Date: 06/04/23 Status: Ordered Start: 03-14-2017 End: 06-20-2022 Methotrexate Sodium 2.5 MG t ablet Discontinued 15 mg PO Q7D March 14, 2017 1:00am June 20, 2022 10:18am Start: 03-14-2017 End: 06-20-2022 take 15 mg by mouth every week Methotrexate Sodium Dis continued 15 MG PO Q7D March 14, 2017 12:00am June 20, 2022 9:18am Start: 10-12-2013 End: 10-22-2013 methotrexate 2.5 mg oral tab let Dose : 15 mg = 6 tab(s), Oral, Saturday, # 20 tab(s), 0 Refill(s) Start Date: 10/12/13 Stop Date: 10/22/13 Status: Ordered take 6 tablets by mo [facility] every week Methotrexate Sodium 2.5 mg tablet Indications: Serous otitis media Take 7.5 mg by mouth once each week. Patient states she takes 6 tablets once a week. Active Comment on above: Take 7.5 mg by mouth once each week. Patient states she takes 6 tablets once a week. Misc Medication (6 sources) Start: 12-17-2019 Mis Medication Nyquil or Dayquil, PRN Control symptoms, 0 Refill(s), 63 Start Date: 12/17/19 Status: Ordered Start: 12-17-2019 Mis Medicatio n Nyquil or Dayquil, 0 Refill(s), 63 Start Date: 12/17/19 Status: Ordered naproxen sodium 220 mg oral tablet (18 sources) Nonsteroidal Anti-inflammatory Drug Start: 03-14-2017 take 1 tablet by mouth every twelve hours as needed for pain Naproxen Sodium 220 MG tablet Active 220 mg PO EVERY 12 HOURS NEEDED as needed for Pain March 14, 2017 1:00am take 1 capsule by [facility] every twelve hours as needed naproxen sodium 220 mg cap Take 220 mg b y mouth two times a day as needed (pain). Active [id number]/sod sulf,bicarb,Cl/KCl (GOLYTELY ORAL) (2 sources) [id number]/sod sulf,bicarb,Cl/KCl (GOLYTELY ORAL) Take by mouth. Active perflutren lipid microspheres 1.3 mL in NaCl (PF) 0.9% 10 mL injection (DEFINITY) (1 source) Start: 021 End: 023 perflutren lipid microspheres 1.3 mL in NaCl (PF) 0.9% 10 mL injection (DEFINITY) polyethylene glycol 3350 458774 mg / potassium chloride 2970 mg / sodium bicarbonate 6740 mg / sodium chloride 5860 mg / sodium sulfate 41411 mg powder for oral solution (1 source) Osmotic Laxative Start: End: peg 3350-Electrolytes (GOLYTELY) 236-22.74-6.74 -5.86 gram suspension Indications: History of colonic polyps Take 4,000 mL by mouth one time only for 1 dose. Refer to printed prep instructions from your provider. 4000 mL 0 09/24/2023 09/24/2023 Active predniSONE 10 mg oral tablet (7 sources) Start: take 1 tablet by mouth once daily as needed Prednisone 10 mg tablet Active 10 mg PO daily as needed May 11, 2024 1:00am take one tablet by mouth every day as needed - take for 3-5 days with a flare up Start: 04-14-2019 End: 04-24-2019 predniSONE 10 mg oral tablet Dose : 10 mg = 1 tab(s), Oral, qDay, PRN Control symptoms, # 10 tab(s), 0 Refill(s) Start Date: 04/14/19 Stop Date: 04/24/19 Status: Ordered PreserVision AREDS 2 oral capsule (4 sources) Start: 01-24-2021 take 2 capsules by mouth once daily PreserVision AREDS 2 oral capsule Oral, qDay, 0 Refill(s) Start Date: 01/24/21 Status: Ordered QUEtiapine 25 mg oral tablet (1 source) Atypical Antipsychotic Start: 06-04-2023 End: 08-03-2023 QUEtiapine 25 mg oral tablet Dose : 25 mg = 1 tab(s), Oral, qHS, # 30 tab(s), 1 Refill(s), Pharmacy: [facility], Insomnia secondary to chronic pain, 160.5, cm, 06/04/23 10:36:00 EDT, Height, kg, 06/04/23 10:36:00 EDT, Dosing Weight Start Date: 06/04/23 Stop Date: 08/03/23 Status: Ordered rosuvastatin calcium 5 mg oral tablet (1 source) HMG-CoA Reductase Inhibitor Start: 05-11-2021 End: 02-05-2022 rosuvastatin 5 mg oral tablet Dose : 5 mg = 1 tab(s), Oral, qDay, # 90 tab(s), 2 Refill(s), Pharmacy: [facility], Hyperlipidemia, 160.5, cm, 05/11/21 11:37:00 EST, Height, kg, 05/11/21 11:37:00 EST, Dosing Weight Start Date: 05/11/21 Stop Date: 02/05/22 Status: Ordered 125 ml sodium chloride 9 mg/ml prefilled syringe (1 source) Start: 12-30-2020 End: 03-31-2022 sodium chloride 0.9 % (flush) 10 mL (BD POSIFLUSH) vitamin b12 2.5 mg sublingual tablet (3 sources) Vitamin B12 Start: 12-17-2019 Vitamin B12 2500 mcg sublingual tablet Dose : 2,500 mcg = 1 tab(s), Sublingual, Daily, 0 Refill(s) Start Date: 12/17/19 Status: Ordered Vitamin B12 2500 mcg sublingual tablet (3 sources) Start: 12-17-2019 Vitamin B12 2500 mcg sublingual tablet Dose : 2,500 mcg = 1 tab(s), Sublingual, Daily, 0 Refill(s) Start Date: 12/17/19 Status: Ordered Completed/Discontinued Medications Medication Drug Class(es) Dates Sig (Normalized) Sig (Original) acetaminophen 300 mg / HYDROcodone bitartrate 5 mg oral tablet (11 sources) Opioid Agonist Start: 03-22-2017 End: 04-17-2023 Hydrocodone-Acetami nophen 1 EACH tablet Discontinued 1 {tbl} PO EVERY 6 HOURS NEEDED as needed for Pain March 22, 2017 1:00am April 17, 2023 11:48am Start: 03-22-2017 End: 04-17-2023 take 1 tablet by mouth every six hours as needed Hydrocodone-Acetaminophen Discontinued 1 TABLET PO EVERY 6 HOURS NEEDED March 22, 2017 12:00am April 17, 2023 10:48am azelastine hydrochloride 0.137 mg/actuat metered dose nasal spray (9 sources) Histamine-1 Receptor Antagonist Start: 11-01-2011 End: 09-24-2023 take 2 spray(s) nasal route twice daily azelastine (ASTELIN) 0.1% nasal spray Indications: Serous otitis media Use 2 Sprays in each nostril twice daily. 1 Bottle 6 11/01/2011 09/24/2023 Discontinued (Course of therapy completed) Comment on above: Use 2 Sprays in each nostril twice daily. cetirizine hydrochloride 10 mg oral tablet (4 sources) Histamine-1 Receptor Antagonist Start: 11-08-2020 End: 08-05-2021 cetirizine 10 mg oral tablet Dose : 10 mg = 1 tab(s), Oral, qDay, # 90 tab(s), 2 Refill(s), Pharmacy: [facility], Seasonal allergies, 158.5, cm, 11/08/20 10:27:00 EDT, Height, kg, 11/08/20 10:27:00 EDT, Dosing Weight Start Date: 11/08/20 Stop Date: 08/05/21 Status: Ordered DULoxetine 20 mg delayed release oral capsule (14 sources) Serotonin and Norepinephrine Reuptake Inhibitor Start: 03-01-2021 End: 04-17-2023 Duloxetine 20 mg capsule,delayed release(DR/EC) Discontinued NMA PO March 01, 2021 1:00am April 17, 2023 11:48am Start: 03-01-2021 End: 04-17-2023 Duloxetine Discontinued EACH PO March 01, 2021 12:00am April 17, 2023 10:48am Start: 02-16-2021 Cymbalta 20 mg oral delayed release capsule Dose : 20 mg = 1 cap(s), Oral, qDay, do not crush or chew, # 180 cap(s), 0 Refill(s) Start Date: 02/16/21 Status: Ordered Start: 01-24-2021 Cymbalta 30 mg oral delayed release capsule Dose : 30 mg = 1 cap(s), Oral, qDay, 0 Refill(s) Start Date: 01/24/21 Status: Ordered montelukast 10 mg oral tablet (9 sources) Leukotriene Receptor Antagonist Start: 11-01-2011 End: 09-24-2023 take 1 tablet by mouth once daily at bedtime montelukast (SINGULAIR) 10 mg tablet Indications: Serous otitis media Take 1 tablet by mouth daily at bedtime. Take one(1) tablet daily 30 tablet 5 11/01/2011 09/24/2023 Discontinued (Course of therapy completed) Comment on above: Take 1 tablet by jose carlos th daily at bedtime. Take one(1) tablet daily Tiotropium-Olodate rol (11 sources) Anticholinergic, beta2-Adrenergic Agonist Start: 05-06-2020 End: 09-02-2020 Tiotropium-Olodate rol (Stiolto Respimat) 2.5-2.5 mcg/actuation mist Discontinued 2 INH INHALATION DAILY May 06, 2020 4:23pm September 02, 2020 10:53am Start: 05-06-2020 End: 09-02-2020 Tiotropium-Olodaterol (Stiol to Respimat) 2.5-2.5 mcg/actuation mist Discontinued 2 NMA INHALATION DAILY May 06, 2020 1:00am September 02, 2020 10:53am Start: 05-06-2020 End: 09-02-2020 Tiotropium-Olodaterol (Stiol to Respimat) 2.5-2.5 mcg/actuation mist Discontinued 2 INH INHALATION DAILY May 06, 2020 1:00am September 02, 2020 10:53am Start: 05-06-2020 End: 09-02-2020 Tiotropium-Olodaterol (Stiol to Respimat) 2.5-2.5 mcg/actuation mist Discontinued 2 INH INHALATION DAILY May 06, 2020 12:00am September 02, 2020 9:53am 12 hr ranolazine 500 mg extended release oral tablet (9 sources) Anti-anginal End: 09-24-2023 take 1 tablet by mouth twice daily, then take 1 tablet by mouth every twelve hours ranolazine ER (RANEXA) 500 mg ORAL 12 hr tablet Take 500 mg by mouth twice daily. 0 09/24/2023 Discontinued (Course of therapy completed) Comment on above: Take 500 mg by mouth twice daily. Umeclidinium-Cheikh nterol (20 sources) Anticholinergic, beta2-Adrenergic Agonist Start: 04-17-2023 End: 11-07-2023 Umeclidinium-Vilant vicki (Anoro Ellipta) 62.5-25 mcg/actuation blister with device Discontinued 1 NMA INHALATION Q24H 60 April 17, 2023 12:17pm November 07, 2023 2:42pm Start: 04-17-2023 Umeclidinium-V ilanterol (Anoro Ellipta) 62.5-25 mcg/actuation blister with device Active 1 INH INHALATION Q24H 60 April 17, 2023 11:17am Start: 10-05-2020 End: 04-17-2023 Umeclidinium-Vilanterol (Ano ro Ellipta) 62.5-25 mcg/actuation blister with device Discontinued 1 NMA INHALATION Q24H 3 October 10, 2022 9:42am April 17, 2023 12:17pm Start: 10-05-2020 End: 04-17-2023 Umeclidinium-Vilanterol (Ano ro Ellipta) 62.5-25 mcg/actuation blister with device Discontinued 1 INH INHALATION Q24H 3 December 20, 2021 12:21pm October 10, 2022 8:43am Start: 09-02-2020 End: 10-05-2020 Umeclidinium-Vilanterol (Ano ro Ellipta) 62.5-25 mcg/actuation blister with device Discontinued 1 NMA INHALATION Q24H 60 September 02, 2020 10:56am October 05, 2020 10:46am Start: 09-02-2020 End: 10-05-2020 Umeclidinium-Vilanterol (Ano ro Ellipta) 62.5-25 mcg/actuation blister with device Discontinued 1 INH INHALATION Q24H 60 September 02, 2020 9:56am October 05, 2020 9:46am Start: 09-02-2020 End: 10-05-2020 Umeclidinium-Vilanterol (Ano ro Ellipta) 62.5-25 mcg/actuation blister with device Discontinued 1 INH INHALATION Q24H 60 September 02, 2020 10:56am October 05, 2020 10:46am Start: 09-02-2020 End: 09-02-2020 Umeclidinium-Vilanterol (Ano ro Ellipta) 62.5-25 mcg/actuation blister with device Discontinued 1 NMA INHALATION Q24H September 02, 2020 12:00am September 02, 2020 10:57am Start: 09-02-2020 End: 09-02-2020 Umeclidinium-Vilanterol (Ano ro Ellipta) 62.5-25 mcg/actuation blister with device Discontinued 1 INH INHALATION Q24H September 01, 2020 11:00pm September 02, 2020 9:57am Start: 03-17-2020 End: 05-06-2020 Umeclidinium-Vilanterol (Ano ro Ellipta) 62.5-25 mcg/actuation blister with device Discontinued 1 NMA INHALATION Q24H 60 March 17, 2020 1:35pm May 06, 2020 4:23pm Start: 03-17-2020 End: 05-06-2020 Umeclidinium-Vilanterol (Ano ro Ellipta) 62.5-25 mcg/actuation blister with device Discontinued 1 INH INHALATION Q24H 60 March 17, 2020 12:35pm May 06, 2020 3:23pm Start: 04-28-2019 End: 03-17-2020 Umeclidinium-Vilanterol (Ano ro Ellipta) 62.5-25 mcg/actuation blister with device Discontinued 1 INH INHALATION Q24H 60 April 28, 2019 2:58pm March 17, 2020 1:35pm Start: 04-28-2019 End: 03-17-2020 Umeclidinium-Vilanterol (Ano ro Ellipta) 62.5-25 mcg/actuation blister with device Discontinued 1 NMA INHALATION Q24H 60 April 28, 2019 1:00am March 17, 2020 1:35pm Start: 04-28-2019 End: 03-17-2020 Umeclidinium-Vilanterol (Ano ro Ellipta) 62.5-25 mcg/actuation blister with device Discontinued 1 INH INHALATION Q24H 60 April 28, 2019 1:00am March 17, 2020 1:35pm Start: 04-28-2019 End: 03-17-2020 Umeclidinium-Vilanterol (Ano ro Ellipta) 62.5-25 mcg/actuation blister with device Discontinued 1 INH INHALATION Q24H 60 April 28, 2019 12:00am March 17, 2020 12:35pm End: 12-09-2023 take 1 puff(s) by inhalation once daily umeclidinium-vilanterol (ANORO ELLIPTA) 62.5-25 mcg/actuation inhaler Inhale 1 Puff as instructed once daily. 12/09/2023 Discontinued zolpidem tartrate 10 mg oral tablet (9 sources) gamma-Aminobutyric Acid-ergic Agonist End: 09-24-2023 take 1 tablet by mouth every twenty-four hours as needed zolpidem (AMBIEN) 10 mg ORAL Tab Take 10 mg by mouth at bedtime as needed. 0 09/24/2023 Discontinued (Course of therapy completed) Comment on above: Take 10 mg by mouth at bedtime as needed . Problems Active Problems Problem Classification Problem Date Documented Da te Episodic/Chronic Chronic obstructive pulmonary disease and bronchiectasis (20 sources) Chronic obstructive lung disease; Translations: [Chronic obstructive pulmonary disease, unspecified] Onset: 04-17-2023 09-08-2019 Chronic Coronary atherosclerosis and other heart disease (11 sources) Disorder of cardiovascular system; Translations: [Atherosclerotic heart disease of [place] coronary artery without angina pectoris] 02-09-2019 Chronic Deficiency and other anemia (10 sources) Anemia of chronic disease; Translations: [Anemia in other chronic diseases classified elsewhere] Onset: 12-09-2023 05-11-2021 Chronic Disorders of lipid metabolism (13 sources) Mixed hyperlipidemia; Translations: [Mixed hyperlipidemia] Onset: 12-09-2023 01-23-2021 Chronic Comment on above: Stable. LDL goal is less than 100. Essential hypertension (20 sources) Essential hypertension; Translations: [Hypertensive disorder] Onset: 12-09-2023 01-23-2021 Chronic Comment on above: Stable. Blood pressu re goal is less than 130/80. Patient states her blood pressure runs much lower at home and at her other doctor's appointments. She is not currently on any medication. Heart valve disorders (20 sources) Aortic valve disorder; Translations: [Nonrheumatic aortic valve disorder, unspecified] Onset: 12-09-2023 Chronic Comment on above: Echocardiogram 03/06 18 showed trivial MR. Symptoms are well controlled. 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 In the p ast she was on Nitropaste that she applied to her bilateral forearms, but she has not needed that in a while. She states she just make sure to wear gloves at all times. Other circulatory disease (20 sources) Raynaud's disease; Translations: [Raynaud's syndrome without gangrene] Onset: 12-09-2023 10-12-2013 Chronic Other circulatory disease (1 source) Cardiac finding; Translations: [Other specified symptoms and signs involving the circulatory and respiratory systems] Episodic Other gastrointestinal disorders (17 sources) Chronic constipation; Translations: [Other constipation] Onset: 12-09-2023 02-09-2019 Episodic Other gastrointestinal disorders (2 sources) Dysphagia; Translations: [Dysphagia, unspecified] 09-24-2023 Episodic Other gastrointestinal disorders (1 source) Dysphagia, unspecified; Translations: [Dysphagia, unspecified type] Onset: 12-25-2023 Episodic Other inflammatory condition of skin (18 sources) Psoriasis; Translations: [Psoriasis, unspecified] Onset: 12-09-2023 02-09-2019 Chronic Other lower respiratory disease (20 sources) Dyspnea; Translations: [Shortness of breath] Onset: 12-09-2023 01-23-2021 Episodic Comment on above: Worsened. She is now on oxygen. Follows with Dr. Givens. She recently had a bunch of pulmonary tests completed and she is awaiting those results. Echocardiogram February 2018 showed a normal EF, stress test March 2018 showed no ischemia and a normal EF. 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 Other lower respiratory disease (6 sources) Nodule of lung; Translations: [Solitary pulmonary nodule] 06-20-2022 Episodic Comment on above: 8 mm right hemidiaph ragm Other lower respiratory disease (2 sources) Solitary pulmonary nodule; Translations: [Solitary pulmonary nodule] 06-20-2022 Episodic Other screening for suspected conditions (not mental disorders or infectious disease) (20 sources) Pulmonary function studies abnormal; Translations: [Abnormal results of pulmonary function studies] Onset: 02-06-2023 02-10-2019 Episodic Other upper respiratory disease (17 sources) Seasonal allergy; Translations: [Other seasonal allergic rhinitis] 11-08-2020 Chronic Pulmonary heart disease (20 sources) Primary pulmonary hypertension; Translations: [Pulmonary hypertension] Onset: 12-09-2023 10-12-2013 Chronic Comment on above: Likely type II and t ype III Residual codes; unclassified (6 sources) Persistent insomnia 05-10-2020 Chronic Residual codes; unclassified (1 source) Insomnia co-occurrent and due to medical condition 06-04-2023 Chronic Residual codes; unclassified (11 sources) History of nasal sinus surgery; Translations: [Other specified postprocedural states] 02-09-2019 Episodic Residual codes; unclassified (1 source) Increased body mass index 12-04-2022 Episodic Residual codes; unclassified (6 sources) Persistent insomnia; Translations: [Insomnia, unspecified] Onset: 12-09-2023 12-09-2023 Episodic Respiratory failure; insufficiency; arrest (adult) (20 sources) Chronic hypoxemic respiratory failure; Translations: [Chronic respiratory failure with hypoxia] Onset: 12-09-2023 Chronic Rheumatoid arthritis and related disease (20 sources) Rheumatoid arthritis; Translations: [Rheumatoid arthritis, unspecified] Onset: 02-22-2023 10-12-2013 Chronic Comment on above: No significant inter stitial findings on CT chest Substance-related disorders (18 sources) Cigarette smoker ; Translations: [Nicotine dependence, cigarettes, uncomplicated] Chronic Thyroid disorders (20 sources) Hypothyroidism; Translations: [Hypothyroidism, unspecified] Onset: 12-09-2023 10-12-2013 Chronic Unclassified (6 sources) Patient encounter status 11-08-2020 Unclassified (1 source) Non-smoker 12-04-2022 Unclassified (1 source) History of colonic polyps; Translations: [History of colonic polyps] Onset: 12-25-2023 Varicose veins of lower extremity (7 sources) Varicose veins of lower extremity; Translations: [Varicose veins of bilateral lower extremities with pain] Onset: 12-09-2023 12-09-2023 Episodic Viral infection (6 sources) Herpes simplex 04-14-2019 Episodic Past or Other Problems Problem Classification Problem Date Documented Da te Episodic/Chronic Other connective tissue disease (1 source) Pain in right lower leg; Translations: [Pain in right lower leg] Onset: 01-10-2024 Episodic Results Test Name Value Interpretation Reference Range Facility Absolute lymphocyte countOrd ered By: Isa Price on 07-20-2024 Lymphocytes Auto (Unsp spec) [#/Vol] 1.82 10*3/uL 0.83-4.51 [facility] Absolute neutrophil countOrd ered By: [facility] Dee on 07-20-2024 Neutrophils (Bld) [#/Vol] 4.5 10*3/uL 2.0-7.7 [facility] Anion gap in Serum or Plasma Ordered By: Isaaleyda Price on 07-20-2024 Anion gap [Moles/Vol] 11 mmol/L 5- [facility] Automated lymphocyte count a s percentage of total leukocytesOrdered By: [facility] Dee on 07-20-2024 Lymphocytes/100 WBC Auto (Unsp spec) 25.4 % -41 [facility] BUN/creatinine ratioOrdered By: [facility] on 07-20-2024 Urea nitrogen/Creatinine [Mass ratio] 18.0 mg/mg 10-20 [facility] Basophil percentageOrdered B y: [facility] Dee on 07-20-2024 Basophils/100 WBC (Bld) 0.8 % 0-1 [facility] Bilirubin, totalOrdered By: [facility] Dee on 07-20-2024 Bilirubin [Mass/Vol] 0.57 mg/dL 0.00-1.30 [facility] CBC W/Diff, Automatedon Absolute Lymph 1.82 X10 3/uL Normal 0.83-4.51 [facility] Comment on above: Performed By: #### L 100.0100, L500.4050 ####[facility] [address] [place], [address] Absolute Neut 4.5 X10 3/uL Normal 2.0-7.7 [facility] Comment on above: Performed By: #### L 100.0100, L500.4050 ####[facility] [address] [place], [address] Basophils/100 WBC (Bld) 0.8 % Normal 0-1 [facility] Comment on above: Performed By: #### L 100.0100, L500.4050 ####[facility] [address] [place], [address] Eosinophils/100 WBC (Bld) 1.1 % Normal 0-5 [facility] Comment on above: Performed By: #### L 100.0100, L500.4050 ####[facility] [address] [place], [address] Erythrocyte distribution width (RBC) [Ratio] 13.7 % Normal 11.6-14.6 [facility] Comment on above: Performed By: #### L 100.0100, L500.4050 ####[facility] [address] [place], [address] Hematocrit (Bld) [Volume fraction] 38.7 % Normal 37-47 [facility] Comment on above: Performed By: #### L 100.0100, L500.4050 ####[facility] [address] [place], [address] Hemoglobin (Bld) [Mass/Vol] 12.9 g/dL Normal 12.0-15.0 [facility] Comment on above: Performed By: #### L 100.0100, L500.4050 ####[facility] [address] [place], [address] IG% 0.100 Normal 0.0-0.9 [facility] Comment on above: Result Comment: IG% - Immature Granulocytes (promyelocytes, myelocytes and metamyelocytes) > 1% indicates that a LEFT SHIFT is Present. Performed By: #### L 100.0100, L500.4050 ####[facility] [address] [place], [address] Lymphocytes/100 WBC (Bld) 25.4 % Normal 19-41 [facility] Comment on above: Performed By: #### L 100.0100, L500.4050 ####[facility] [address] [place], [address] MCH (RBC) [Entitic mass] 33.4 pg High 27.0-32.0 [facility] Comment on above: Performed By: #### L 100.0100, [id number] ####[facility] [address] [place], [address] MCHC (RBC) [Mass/Vol] 33.3 g/dL Normal 32-36 [facility] Comment on above: Performed By: #### L 100.0100, L500.4050 ####[facility] [address] [place], [address] MCV (RBC) [Entitic vol] 100.3 fL High 81-99 [facility] Comment on above: Performed By: #### L 100.0100, L500.4050 ####[facility] [address] [place], [address] Monocytes/100 WBC (Bld) 10.2 % High 0-10 [facility] Comment on above: Performed By: #### L 100.0100, [id number] ####[facility] [address] [place], [address] Neutrophils/100 WBC (Bld) 62.4 % Normal 47-70 [facility] Comment on above: Performed By: #### L 100.0100, [id number] ####[facility] [address] [place], [address] Nucleated RBC (Bld) [#/Vol] 0 10*3/uL Normal 0-5 [facility] Comment on above: Performed By: #### L 100.0100, L500.4050 ####[facility] [address] [place], [address] Platelet mean volume (Bld) [Entitic vol] 10.7 fL Normal 6.2-12.0 [facility] Comment on above: Performed By: #### L 100.0100, L500.4050 ####[facility] [address] [place], [address] Platelets (Bld) [#/Vol] 275 10*3/uL Normal 150-450 [facility] Comment on above: Performed By: #### L 100.0100, [id number] ####[facility] [address] [place], [address] RBC (Bld) [#/Vol] 3.86 10*6/uL Low 4.2-5.4 [facility] Comment on above: Performed By: #### L 100.0100, [id number] ####[facility] [address] [place], [address] RDW SD 49.8 fl High 35.1-43.9 [facility] Comment on above: Performed By: #### L 100.0100, [id number] ####[facility] [address] [place], [address] WBC (Bld) [#/Vol] 7.2 10*3/uL Normal 4.4-11.0 [facility] Comment on above: Performed By: #### L 100.0100, [id number] ####[facility] [address] [place], [address] Carbon dioxide, total [Moles /volume] in Central venous bloodOrdered By: Isa Price on 07-20-2024 CO2 [Moles/Vol] 26.3 mmol/L 21.0-32.0 [facility] Chloride assayOrdered By: Drew Price on 07-20-2024 Chloride [Moles/Vol] 103 mmol/L 98-108 [facility] Comprehensive Metabolic Prof ilon 07-20-2024 Albumin [Mass/Vol] 4.2 g/dL Normal 3.4-4.8 [facility] Comment on above: Performed By: #### L 100.0100, L500.4050 ####[facility] [address] [place], [address] Albumin/Globulin [Mass ratio] 1.6 {ratio} Normal 0.9-2.4 [facility] Comment on above: Performed By: #### L 100.0100, [id number] ####[facility] [address] [place], [address] ALK PHOS 64 U/L Normal 35-104 [facility] Comment on above: Performed By: #### L 100.0100, [id number] ####[facility] [address] [place], [address] ALT [Catalytic activity/Vol] 17 U/L Normal <=34 [facility] Comment on above: Performed By: #### L 100.0100, [id number] ####[facility] [address] [place], [address] AST [Catalytic activity/Vol] 21 U/L Normal <=31 [facility] Comment on above: Performed By: #### L 100.0100, [id number] ####[facility] [address] [place], [address] Bilirubin [Mass/Vol] 0.57 mg/dL Normal 0.00-1.30 [facility] Comment on above: Performed By: #### L 100.0100, [id number] ####[facility] [address], [address] BUN/CRE 18.0 RATIO Normal 10-20 [facility] Comment on above: Performed By: #### L 100.0100, [id number] ####[facility] [address] [place], [address] Calcium [Mass/Vol] 9.3 mg/dL Normal 7.6-11.0 [facility] Comment on above: Performed By: #### L 100.0100, [id number] ####[facility] [address] [place], [address] Chloride [Moles/Vol] 103 mmol/L Normal 98-108 [facility] Comment on above: Performed By: #### L 100.0100, [id number] ####[facility] [address] [place], [address] CO2 [Moles/Vol] 26.3 mmol/L Normal 21.0-32.0 [facility] Comment on above: Performed By: #### L 100.0100, [id number] ####[facility] [address] [place], [address] Creatinine [Mass/Vol] 0.83 mg/dL Normal 0.70-1.20 [facility] Comment on above: Performed By: #### L 100.0100, L500.4050 ####[facility] [address] [place], [address] GAP 11 Normal 5-15 [facility] Comment on above: Performed By: #### L 100.0100, [id number] ####[facility] [address], [address] GFR/1.73 sq M.predicted among non-blacks MDRD (S/P/Bld) [Vol rate/Area] 79 mL/min/{1.73_m2} Normal >60 [facility] Comment on above: Result Comment: mL/m in/1.73m2 CKD-EPI Creatinine Equation (2020) Performed By: #### L 100.0100, [id number] ####[facility] [address] [place], [address] Globulin (S) [Mass/Vol] 2.6 g/dL Normal 2.2-4.2 [facility] Comment on above: Performed By: #### L 100.0100, [id number] ####[facility] [address] [place], [address] Glucose [Mass/Vol] 95 mg/dL Normal 70-99 [facility] Comment on above: Performed By: #### L 100.0100, [id number] ####[facility] [address] [place], [address] Potassium [Moles/Vol] 4.2 mmol/L Normal 3.3-5.1 [facility] Comment on above: Performed By: #### L 100.0100, [id number] ####[facility] [address] [place], [address] Sodium [Moles/Vol] 140 mmol/L Normal 133-145 [facility] Comment on above: Performed By: #### L 100.0100, L500.4050 ####[facility] [address] [place], [address] T PROT 6.8 g/dL Normal 5.9-8.4 [facility] Comment on above: Performed By: #### L 100.0100, [id number] ####[facility] [address] [place], [address] Urea nitrogen [Mass/Vol] 15 mg/dL Normal 4-19 [facility] Comment on above: Performed By: #### L 100.0100, L500.4050 ####[facility] [address] [place], [address] Eosinophil percentageOrdered By: Isa Price on 07-20-2024 Eosinophils/100 WBC (Bld) 1.1 % 0-5 [facility] Erythrocyte distribution wid th ratioOrdered By: Isa Price on 07-20-2024 Erythrocyte distribution width (RBC) [Ratio] 13.7 % 11.6-14.6 [facility] Erythrocyte distribution wid th standard deviationOrdered By: Isa Price on 07-20-2024 Erythrocyte distribution width (RBC) [Ratio] 49.8 fl High 35.1-43.9 [facility] Glomerular filtration rate ( GFR) estimation/1.73 sq m using serum, plasma, or whole bOrdered By: Isa Price on 07-20-2024 GFR/1.73 sq M.predicted among non-blacks MDRD (S/P/Bld) [Vol rate/Area] 79 mL/min/{1.73_m2} >60 [facility] Comment on above: mL/min/1.73m2 CKD-EP I Creatinine Equation (2020) Hematocrit Auto (Bld) [Volum e fraction]Ordered By: Isa Price on 07-20-2024 Hematocrit (Bld) [Volume fraction] 38.7 % 37-47 [facility] Hemoglobin measurementOrdere d By: Isa Price on 07-20-2024 Hemoglobin (Bld) [Mass/Vol] 12.9 g/dL 12.0-15.0 [facility] Immature granulocytes/100 WB C Auto (Bld)Ordered By: Isa Price on 07-20-2024 Immature granulocytes/100 WBC (Bld) 0.100 % 0.0-0.9 [facility] Comment on above: IG% - Immature Granu locytes (promyelocytes, myelocytes and metamyelocytes) > 1% indicates that a LEFT SHIFT is Present. Laboratory - Chemistry and C hemistry - challengeOrdered By: Isa Price on 07-20-2024 AST [Catalytic activity/Vol] 21 U/L <32 [facility] MCV (mean corpuscular volume ) determinationOrdered By: Isa Prcie on 07-20-2024 MCV (RBC) [Entitic vol] 100.3 fL High 81-99 [facility] Mean corpuscular hemoglobin (MCH) determinationOrdered By: Isa Price on 07-20-2024 MCH (RBC) [Entitic mass] 33.4 pg High 27.0-32.0 [facility] Mean corpuscular hemoglobin concentration (MCHC) determinationOrdered By: Isa Price on 07-20-2024 MCHC (RBC) [Mass/Vol] 33.3 g/dL 32-36 [facility] Mean platelet volume determi nationOrdered By: Isa Price on 07-20-2024 Platelet mean volume (Bld) [Entitic vol] 10.7 fL 6.2-12.0 [facility] Monocyte percentageOrdered B y: Isa Price on 07-20-2024 Monocytes/100 WBC (Bld) 10.2 % High 0-10 [facility] Neutrophil percentageOrdered By: Isa Price on 07-20-2024 Neutrophils/100 WBC (Bld) 62.4 % 47-70 [facility] Nucleated red blood cell per centageOrdered By: Isa Price on 07-20-2024 Nucleated RBC/100 WBC (Bld) [Ratio] 0 % 0-5 [facility] Platelet countOrdered By: Drwe Price on 07-20-2024 Platelets (Bld) [#/Vol] 275 10*3/uL 150-450 [facility] Potassium measurement (mass/ volume)Ordered By: Isa Price on 07-20-2024 Potassium (Unsp spec) [Mass/Vol] 4.2 mmol/L 3.3-5.1 [facility] RBC Auto (Bld) [#/Vol]Ordere d By: Isa Price on 07-20-2024 RBC (Bld) [#/Vol] 3.86 10*6/uL Low 4.2-5.4 [facility] Serum creatinine measurement (mass/volume)Ordered By: Isa Price on 07-20-2024 Creatinine [Mass/Vol] 0.83 mg/dL 0.70-1.20 [facility] Serum globulin measurementOr dered By: Isa Price on 07-20-2024 Globulin (S) [Mass/Vol] 2.6 g/dL 2.2-4.2 [facility] Serum glucose measurement (m ass/volume)Ordered By: Isa Price on 07-20-2024 Glucose [Mass/Vol] 95 mg/dL 70-99 [facility] Serum or plasma alanine ramírez otransferase (ALT) measurementOrdered By: Isa Price on 07-20-2024 ALT [Catalytic activity/Vol] 17 U/L <35 [facility] Serum or plasma albumin ananya urement (mass/volume)Ordered By: Isa Price on 07-20-2024 Albumin [Mass/Vol] 4.2 g/dL 3.4-4.8 [facility] Serum or plasma albumin/glob ulin mass ratioOrdered By: Isa Price on 07-20-2024 Albumin/Globulin [Mass ratio] 1.6 {ratio} 0.9-2.4 [facility] Serum or plasma alkaline tay sphatase measurementOrdered By: Isa Price on 07-20-2024 ALP [Catalytic activity/Vol] 64 U/L 35-104 [facility] Serum or plasma calcium ananya urement (mass/volume)Ordered By: Isa Price on 07-20-2024 Calcium [Mass/Vol] 9.3 mg/dL 7.6-11.0 [facility] Serum or plasma urea nitroge n measurement (mass/volume)Ordered By: Isa Price on 07-20-2024 Urea nitrogen [Mass/Vol] 15 mg/dL 4-19 [facility] Sodium levelOrdered By: Stephanie Price on 07-20-2024 Sodium [Moles/Vol] 140 mmol/L 133-145 [facility] Total proteinOrdered By: Timur Price on 07-20-2024 Protein [Mass/Vol] 6.8 g/dL 5.9-8.4 [facility] White blood cell (WBC) count Ordered By: Isa Price on 07-20-2024 WBC (Bld) [#/Vol] 7.2 10*3/uL 4.4-11.0 [facility] [employer] Cytology Reporton 2024 [employer] Cytology Report . Pathology Reports Accession: Collected Date/Time: Received Date/Time: Pathologist: [id number] 06/30/2024 09:10 EDT 06/30/2024 18:00 EDT [employer] Cytology Report SPECIMEN: Specimen Description: Liquid Prep Reflex ASCUS Specimen: Cervical/Endocervical Screening or Diagnostic: Screening RELEVANT HISTORY: LMP: 09/15/2013 Post Menopausal: Yes Other clinical information: Hst of Abn Pap; Hst of HPV SPECIMEN ADEQUACY: SATISFACTORY FOR EVALUATION Endocervical/Transformat ional zone component present INTERPRETATION/RESULTS: NEGATIVE FOR INTRAEPITHELIAL LESION OR MALIGNANCY OTHER NON-NEOPLASTIC FINDINGS: Atrophy COMMENT: This Pap Test was successfully processed and evaluated with the assistance of the [employer] ThinPrep Test Imaging System. Verified by Pathology report verified by [facility] Screened by: FREEMAN Electronically signed by Sierra Brandt Sign-Out Date: 07/07/2024 13:18 Performing Lab: [facility], [address] [place] [address] Pathology Dept Disclaimer The Pap test is a screening test for cervical cancer. As evidenced by published data, it is subject to both inherent false negative and false positive results. Your patient's results should be interpreted in context with pertinent clinical history including gynecological examination. Normal [facility] Pulmonary Visit Reporton Pulmonary Visit Report [facility] Pulmonary Medicine of [address] [place] [address] OFFICE VISIT Date of Service: 05/11/24 MR#: [id number] Acct: [id number] Name: AMY NOVOA Rep #: [id number] : 1960 Provider: LEE Morrow Age/Sex: 64/F [place] [facility] [place] [facility] [place] Status: Signed Assessment and Plan Assessment and Plan (1) Stage 4 very severe COPD by GOLD classification: Status: Chronic Plan: Stable, she does not appear to be an exacerbation of COPD today. No need for prednisone or antibiotic. Continue current maintenance medication class but swithcing her to Breztri so that she can use a spacer. She was provided with a sample and a spacer in the office today. No additional testing at this time. Contact the office for any new or worsening symptoms. An acute visit and typically be arranged within 1-2 days. Follow-up in 6 months. (2) Chronic hypoxemic respiratory failure: Status: Chronic Plan: The patient is using and benefiting from oxygen. Continue to utilize to maintain a saturation of 89-92%. Follow-up in 6 months. (3) Methotrexate, mcc, current use: Status: Chronic Plan: Complicates exam, plan, care and prognosis. Plan Details Follow Up: 6 Months ([facility]) HPI 6 M FU Chief Complaint: Response to Trelegy HPI Comments Details: This patient presents to the office today for follow-up of her stage IV COPD complicated by chronic hypoxic respiratory failure, rheumatoid arthritis and long-term use of methotrexate. She is ambulatory. She has not recently been seen in the ED or urgent care for any respiratory illness. She has not required any antibiotics or prednisone for any breathing problems. She is compliant with the use of Trelegy 1 puff daily. She reports rinsing her mouth out after each use. She denies any medication side effect such as sore throat or thrush, but she is hoarse. She is utilizing albuterol at least daily. She continues to experience shortness of breath on exertion. She denies any cough, sputum production or hemoptysis. She has occasional wheezing but denies any chest tightness, chest pain or palpitations. She has not had any fever, chills or body aches. She has not needed supplemental oxygen. She checks her pulse ox regularly. She is walking at [employer] three times a week with a ilda. She maintains complete smoking cessation for more than 30 years. Intake Vital Signs 11/07/23 09:44 05/11/24 08:11 Height 5 ft 3 in 5 ft 3 in Weight: 145 lb BMI 25.7 BP 128/83 H Blood Pressure Location Rt brachial Position Sitting Respiration 18 Pulse 82 Pulse Source Monitor Temp 97.6 F L Temperature Source Temporal Artery Pulse Oximetry (%) 98 Oxygen Delivery Method room air Intake Visit Reasons: 6 M FU Chief Complaint: 6mo f/u Pearl Hand Required: No DME Vendor: [employer] Accompanied by: Self Allergies No Known Allergies Allergy (Verified 05/11/24 13:49) Medications ???Medication ???Instructions ???Recorded ???Confirmed ???Type calcium carbonate 1,200 mg PO DAILY 03/14/17 5 History folic acid 1 mg tablet 2 mg PO DAILY@0800 03/14/17 History magnesium 250 mg tablet 250 mg PO DAILY 03/14/17 05/11/24 History naproxen sodium 220 mg tablet 220 mg PO Q12H PRN PRN Pain 05/11/24 History albuterol sulfate 90 mcg/actuation 2 puff inhalation Q4H PRN 05/11/24 Rx aerosol inhaler shortness of breath or wheezing #8.5 grams certolizumab pegol 400 mg/2 mL 200 mg subcut Q2W 12/08/21 5 History (200 mg/mL x2) subcutaneous syringe kit (Cimzia) fluticasone fur. 200 mcg-umeclid 1 inh inhalation DAILY #60 ea 10/1705/11/24 Rx 62.5 mcg-vilant 25 mcg inhalat.powder (Trelegy Ellipta) amlodipine 10 mg tablet 7.5 mg PO DAILY 05/11/24 05/11/24 History furosemide 20 mg tablet 20 mg PO QDAY PRN 05/11/24 5 History leucovorin calcium 15 mg tablet 15 mg PO QWEEK 05/11/24 05/11/24 H istory levothyroxine 88 mcg tablet 88 mcg PO QDAY 05/11/24 05/11/24 H istory methotrexate sodium 2.5 mg tablet 15 mg PO QWEEK 05/11/24 05/11/24 History prednisone 10 mg tablet 10 mg PO QDAY PRN 05/11/24 5 History PFSH Medical History Skin cancer COPD (chronic obstructive pulmonary disease) Abnormal PFT Shortness of breath Mitral valve regurgitation Chronic constipation Chronic fatigue Psoriasis Cardiovascular disease Raynauds syndrome Hypertension Pulmonary hypertension Seasonal allergies Rheumatoid arthritis Hypothyroidism Surgical History History of tubal ligation History of sinus surgery History of repair of rotator cuff Family His (more content not included)... Normal [facility] Absolute lymphocyte countOrd ered By: Lamine Selene on 04-28-2024 Lymphocytes Auto (Unsp spec) [#/Vol] 1.69 10*3/uL 0.83-4.51 [facility] Absolute neutrophil countOrd ered By: Lamine Selene on 04-28-2024 Neutrophils (Bld) [#/Vol] 5.1 10*3/uL 2.0-7.7 [facility] Albumin to globulin ratioOrd ered By: Lamine Selene on 04-28-2024 Albumin/Globulin [Mass ratio] 1.2 {ratio} 0.9-2.4 [facility] Automated lymphocyte count a s percentage of total leukocytesOrdered By: Lamine Morton on 04-28-2024 Lymphocytes/100 WBC Auto (Unsp spec) 22.2 % 19-41 [facility] Basophil percentageOrdered B y: Lamine Morton on 04-28-2024 Basophils/100 WBC (Bld) 0.5 % 0-1 [facility] Bilirubin, totalOrdered By: Lamine Morton on 04-28-2024 Bilirubin [Mass/Vol] 0.80 mg/dL 0.20-1.00 [facility] Comment on above: For patients on eltr ombopag therapy, use of Dimension [place] TBIL is not recommended. Blood urea nitrogen (BUN)/cr eatinine ratioOrdered By: Lamine Morton on 04-28-2024 Urea nitrogen/Creatinine [Mass ratio] 14.3 mg/mg 10-20 [facility] CBC W/Diff, Automatedon 04-18 Absolute Lymph 1.69 X10 3/uL Normal 0.83-4.51 [facility] Comment on above: Performed By: #### L 500.4050, L506.1000, L502.0250, L501.9520, L500.4100, L100.0100, L506.0400 #### [facility] Laboratory [facility] [address] [place], [place], [id number] Absolute Neut 5.1 X10 3/uL Normal 2.0-7.7 [facility] Comment on above: Performed By: #### L 500.4050, L506.1000, L502.0250, L501.9520, L500.4100, L100.0100, L506.0400 #### [facility] Laboratory [address] [place], [address] Basophils/100 WBC (Bld) 0.5 % Normal 0-1 [facility] Comment on above: Performed By: #### L 500.4050, L506.1000, L502.0250, L501.9520, L500.4100, L100.0100, L506.0400 #### [facility] Laboratory [address] [place], [address] Eosinophils/100 WBC (Bld) 1.1 % Normal 0-5 [facility] Comment on above: Performed By: #### L 500.4050, L506.1000, L502.0250, L501.9520, L500.4100, L100.0100, L506.0400 #### [facility] Laboratory [address] [place], [address] Erythrocyte distribution width (RBC) [Ratio] 14.5 % Normal 11.6-14.6 [facility] Comment on above: Performed By: #### L 500.4050, L506.1000, L502.0250, L501.9520, L500.4100, L100.0100, L506.0400 #### [facility] Laboratory [address] [place], [address] Hematocrit (Bld) [Volume fraction] 41.8 % Normal 37-47 [facility] Comment on above: Performed By: #### L 500.4050, L506.1000, L502.0250, L501.9520, L500.4100, L100.0100, L506.0400 #### [facility] Laboratory [address] [place], [address] Hemoglobin (Bld) [Mass/Vol] 13.5 g/dL Normal 12.0-15.0 [facility] Comment on above: Performed By: #### L 500.4050, L506.1000, L502.0250, L501.9520, L500.4100, L100.0100, L506.0400 #### [facility] Laboratory [address] [place], [address] IG% 0.300 Normal 0.0-0.9 [facility] Comment on above: Result Comment: IG% - Immature Granulocytes (promyelocytes, myelocytes and metamyelocytes) > 1% indicates that a LEFT SHIFT is Present. Performed By: #### L 500.4050, L506.1000, L502.0250, L501.9520, L500.4100, L100.0100, L506.0400 #### [facility] Laboratory [address] [facility] [place], [address] Lymphocytes/100 WBC (Bld) 22.2 % Normal 19-41 [facility] Comment on above: Performed By: #### L 500.4050, L506.1000, L502.0250, L501.9520, L500.4100, L100.0100, L506.0400 #### [facility] Laboratory [address] [facility] [place], [address] MCH (RBC) [Entitic mass] 32.6 pg High 27.0-32.0 [facility] Comment on above: Performed By: #### L 500.4050, L506.1000, L502.0250, L501.9520, L500.4100, L100.0100, L506.0400 #### [facility] Laboratory [address] [place], [address] MCHC (RBC) [Mass/Vol] 32.3 g/dL Normal 32-36 [facility] Comment on above: Performed By: #### L 500.4050, L506.1000, L502.0250, L501.9520, L500.4100, L100.0100, L506.0400 #### [facility] Laboratory [address] [place], [address] MCV (RBC) [Entitic vol] 101.0 fL High 81-99 [facility] Comment on above: Performed By: #### L 500.4050, L506.1000, L502.0250, L501.9520, L500.4100, L100.0100, L506.0400 #### [facility] Laboratory [address] [place], [address] Monocytes/100 WBC (Bld) 9.5 % Normal 0-10 [facility] Comment on above: Performed By: #### L 500.4050, L506.1000, L502.0250, L501.9520, L500.4100, L100.0100, L506.0400 #### [facility] Laboratory [address] [place], [address] Neutrophils/100 WBC (Bld) 66.4 % Normal 47-70 [facility] Comment on above: Performed By: #### L 500.4050, L506.1000, L502.0250, L501.9520, L500.4100, L100.0100, L506.0400 #### [facility] Laboratory [address] [place], [address] Nucleated RBC (Bld) [#/Vol] 0 10*3/uL Normal 0-5 [facility] Comment on above: Performed By: #### L 500.4050, L506.1000, L502.0250, L501.9520, L500.4100, L100.0100, L506.0400 #### [facility] Laboratory [address] [place], [address] Platelet mean volume (Bld) [Entitic vol] 10.3 fL Normal 6.2-12.0 [facility] Comment on above: Performed By: #### L 500.4050, L506.1000, L502.0250, L501.9520, L500.4100, L100.0100, L506.0400 #### [facility] Laboratory [address] [place], [address] Platelets (Bld) [#/Vol] 294 10*3/uL Normal 150-450 [facility] Comment on above: Performed By: #### L 500.4050, L506.1000, L502.0250, L501.9520, L500.4100, L100.0100, L506.0400 #### [facility] Laboratory [address] [place], [address] RBC (Bld) [#/Vol] 4.14 10*6/uL Low 4.2-5.4 [facility] Comment on above: Performed By: #### L 500.4050, L506.1000, L502.0250, L501.9520, L500.4100, L100.0100, L506.0400 #### [facility] Laboratory [address] [place], [address] RDW SD 54.0 fl High 35.1-43.9 [facility] Comment on above: Performed By: #### L 500.4050, L506.1000, L502.0250, L501.9520, L500.4100, L100.0100, L506.0400 #### [facility] Laboratory [address] [place], [address] WBC (Bld) [#/Vol] 7.6 10*3/uL Normal 4.4-11.0 [facility] Comment on above: Performed By: #### L 500.4050, L506.1000, L502.0250, L501.9520, L500.4100, L100.0100, L506.0400 #### [facility] Laboratory [address] [place], [address] Carbon dioxide measurementOr dered By: Lamine Morton on 04-28-2024 CO2 [Moles/Vol] 28.0 mmol/L 21.0-32.0 [facility] Chloride measurementOrdered By: Lamine Morton on 04-28-2024 Chloride [Moles/Vol] 103 mmol/L 98-107 [facility] Comprehensive Metabolic Prof ilon 04-28-2024 Albumin [Mass/Vol] 4.1 g/dL Normal 3.2-5.0 [facility] Comment on above: Order Comment: DR.VE ULLOA ORDERED CBCD,CMP MATTHEW MORTON ORDERED CBC,CMP,LIPID,TSH,VIT.D,T4F,MICROALB Performed By: #### L 500.4050, L506.1000, L502.0250, L501.9520, L500.4100, L100.0100, L506.0400 #### [facility] Laboratory [address] [place], [place], [id number] Albumin/Globulin [Mass ratio] 1.2 {ratio} Normal 0.9-2.4 [facility] Comment on above: Order Comment: DR.VE ULLOA ORDERED CBCD,CMP MATTHEW ROLONKINS ORDERED CBC,CMP,LIPID,TSH,VIT.D,T4F,MICROALB Performed By: #### L 500.4050, L506.1000, L502.0250, L501.9520, L500.4100, L100.0100, L506.0400 #### [facility] Laboratory [address] [place], [place], [phone] 64 U/L Normal 45-117 [facility] Comment on above: Order Comment: DR.VE ULLOA ORDERED CBCD,CMP MATTHEW ROLONKINS ORDERED CBC,CMP,LIPID,TSH,VIT.D,T4F,MICROALB Performed By: #### L 500.4050, L506.1000, L502.0250, L501.9520, L500.4100, L100.0100, L506.0400 #### [facility] Laboratory [address] [place], [place], [phone] ALT [Catalytic activity/Vol] 25 U/L Normal 13-56 [facility] Comment on above: Order Comment: DR.VE ULLOA ORDERED CBCD,CMP [employer] [facility] ORDERED CBC,CMP,LIPID,TSH,VIT.D,T4F,MICROALB Performed By: #### L 500.4050, L506.1000, L502.0250, L501.9520, L500.4100, L100.0100, L506.0400 #### [facility] Laboratory [address] [place], [place], [phone] AST [Catalytic activity/Vol] 22 U/L Normal 15-37 [facility] Comment on above: Order Comment: DR.VE ULLOA ORDERED CBCD,CMP [facility] ORDERED CBC,CMP,LIPID,TSH,VIT.D,T4F,MICROALB Performed By: #### L 500.4050, L506.1000, L502.0250, L501.9520, L500.4100, L100.0100, L506.0400 #### [facility] Laboratory [address] [place], [address] Bilirubin [Mass/Vol] 0.80 mg/dL Normal 0.20-1.00 [facility] Comment on above: Order Comment: DR.VE ULLOA ORDERED CBCD,CMP MATTHEW [facility] ORDERED CBC,CMP,LIPID,TSH,VIT.D,T4F,MICROALB Result Comment: For patients on eltrombopag therapy, use of Dimension [place] TBIL is not recommended. Performed By: #### L 500.4050, L506.1000, L502.0250, L501.9520, L500.4100, L100.0100, L506.0400 #### [facility] Laboratory [address] [place], [place], [phone] BUN/CRE 14.3 RATIO Normal 10-20 [facility] Comment on above: Order Comment: DR.VE ULLOA ORDERED CBCD,CMP [facility] ORDERED CBC,CMP,LIPID,TSH,VIT.D,T4F,MICROALB Performed By: #### L 500.4050, L506.1000, L502.0250, L501.9520, L500.4100, L100.0100, L506.0400 #### [facility] Laboratory [address] [place], [address] CA,Total 9.7 mg/dL Normal 8.5-10.1 [facility] Comment on above: Order Comment: DR.VE ULLOA ORDERED CBCD,CMP [employer] SELENE ORDERED CBC,CMP,LIPID,TSH,VIT.D,T4F,MICROALB Performed By: #### L 500.4050, L506.1000, L502.0250, L501.9520, L500.4100, L100.0100, L506.0400 #### [facility] Laboratory [address] [place], [address] Chloride [Moles/Vol] 103 mmol/L Normal 98-107 [facility] Comment on above: Order Comment: DR.VE ULLOA ORDERED CBCD,CMP [facility] ORDERED CBC,CMP,LIPID,TSH,VIT.D,T4F,MICROALB Performed By: #### L 500.4050, L506.1000, L502.0250, L501.9520, L500.4100, L100.0100, L506.0400 #### [facility] Laboratory [address] [place], [address] CO2 [Moles/Vol] 28.0 mmol/L Normal 21.0-32.0 [facility] Comment on above: Order Comment: DR.VE ULLOA ORDERED CBCD,CMP [facility] ORDERED CBC,CMP,LIPID,TSH,VIT.D,T4F,MICROALB Performed By: #### L 500.4050, L506.1000, L502.0250, L501.9520, L500.4100, L100.0100, L506.0400 #### [facility] Laboratory [address] [place], [address] Creatinine [Mass/Vol] 0.98 mg/dL Normal 0.55-1.02 [facility] Comment on above: Order Comment: DR.VE ULLOA ORDERED CBCD,CMP MATTHEW MORTON ORDERED CBC,CMP,LIPID,TSH,VIT.D,T4F,MICROALB Result Comment: The validity of the calculated GFR GFRAA in patients over 70 years has not been determined. Clinical correlation is essential. Performed By: #### L 500.4050, L506.1000, L502.0250, L501.9520, L500.4100, L100.0100, L506.0400 #### [facility] Laboratory [address] [place], [address] EST GFR - AA 74 mL/min Normal >60 [facility] Comment on above: Order Comment: DR.VE ULLOA ORDERED CBCD,CMP MATTHEW MORTON ORDERED CBC,CMP,LIPID,TSH,VIT.D,T4F,MICROALB Result Comment: Afri can Hungarian GFR Calc Performed By: #### L 500.4050, L506.1000, L502.0250, L501.9520, L500.4100, L100.0100, L506.0400 #### [facility] Laboratory [address] [place], [address] GAP 8 Normal 5-15 [facility] Comment on above: Order Comment: DR.VE ULLOA ORDERED CBCD,CMP MATTHEW MORTON ORDERED CBC,CMP,LIPID,TSH,VIT.D,T4F,MICROALB Performed By: #### L 500.4050, L506.1000, L502.0250, L501.9520, L500.4100, L100.0100, L506.0400 #### [facility] Laboratory [address] [place], [address] GFR/1.73 sq M.predicted among non-blacks MDRD (S/P/Bld) [Vol rate/Area] 61 mL/min/{1.73_m2} Normal >60 [facility] Comment on above: Order Comment: DR.VE ULLOA ORDERED CBCD,CMP MATTHEW SELENE ORDERED CBC,CMP,LIPID,TSH,VIT.D,T4F,MICROALB Result Comment: Non- GFR Calc Performed By: #### L 500.4050, L506.1000, L502.0250, L501.9520, L500.4100, L100.0100, L506.0400 #### [facility] Laboratory [address] [place], [address] Globulin (S) [Mass/Vol] 3.3 g/dL Normal 2.2-4.2 [facility] Comment on above: Order Comment: DR.VE ULLOA ORDERED CBCD,CMP MATTHEW ROLONKINS ORDERED CBC,CMP,LIPID,TSH,VIT.D,T4F,MICROALB Performed By: #### L 500.4050, L506.1000, L502.0250, L501.9520, L500.4100, L100.0100, L506.0400 #### [facility] Laboratory [address] [place], [address] Glucose [Mass/Vol] 100 mg/dL Normal 74-106 [facility] Comment on above: Order Comment: DR.VE ULLOA ORDERED CBCD,CMP MATTHEW [facility] ORDERED CBC,CMP,LIPID,TSH,VIT.D,T4F,MICROALB Result Comment: Fast ing Glucose result from 100 to 125 mg/dL suggests IMPAIRED HOMEOSTASIS per A.D.A. criteria. Performed By: #### L 500.4050, L506.1000, L502.0250, L501.9520, L500.4100, L100.0100, L506.0400 #### [facility] [address] [place], [address] Potassium [Moles/Vol] 4.0 mmol/L Normal 3.5-5.1 [facility] Comment on above: Order Comment: DR.VE ULLOA ORDERED CBCD,CMP MATTHEW [facility] ORDERED CBC,CMP,LIPID,TSH,VIT.D,T4F,MICROALB Performed By: #### L 500.4050, L506.1000, L502.0250, L501.9520, L500.4100, L100.0100, L506.0400 #### [facility] [address] [place], [address] Sodium [Moles/Vol] 139 mmol/L Normal 136-145 [facility] Comment on above: Order Comment: DR.VE ULLOA ORDERED CBCD,CMP [facility] ORDERED CBC,CMP,LIPID,TSH,VIT.D,T4F,MICROALB Performed By: #### L 500.4050, L506.1000, L502.0250, L501.9520, L500.4100, L100.0100, L506.0400 #### [facility] [address] [place], [address] T PROT 7.4 g/dL Normal 6.4-8.2 [facility] Comment on above: Order Comment: DR.VE ULLOA ORDERED CBCD,CMP [employer] [facility] ORDERED CBC,CMP,LIPID,TSH,VIT.D,T4F,MICROALB Performed By: #### L 500.4050, L506.1000, L502.0250, L501.9520, L500.4100, L100.0100, L506.0400 #### [facility] [address] [place], [address] Urea nitrogen [Mass/Vol] 14 mg/dL Normal 7-18 [facility] Comment on above: Order Comment: DR.VE ULLOA ORDERED CBCD,CMP [facility] ORDERED CBC,CMP,LIPID,TSH,VIT.D,T4F,MICROALB Performed By: #### L 500.4050, L506.1000, L502.0250, L501.9520, L500.4100, L100.0100, L506.0400 #### [facility] [address] [place], [address] Direct serum free thyroxine (FT4) measurementOrdered By: Lamine Morton on 04-28-2024 Free T4 [Mass/Vol] 1.27 ng/dL 0.76-1.46 [facility] Eosinophil percentageOrdered By: Lamine Morton on 04-28-2024 Eosinophils/100 WBC (Bld) 1.1 % 0-5 [facility] Erythrocyte distribution wid th ratioOrdered By: Lamine Morton on 04-28-2024 Erythrocyte distribution width (RBC) [Ratio] 14.5 % 11.6-14.6 [facility] Erythrocyte distribution wid th standard deviationOrdered By: Lamine Morton on 04-28-2024 Erythrocyte distribution width (RBC) [Ratio] 54.0 fl High 35.1-43.9 [facility] Glomerular filtration rate ( GFR) estimationOrdered By: Lamine Morton on 04-28-2024 GFR/1.73 sq M.predicted among non-blacks MDRD (S/P/Bld) [Vol rate/Area] 61 mL/min/{1.73_m2} >60 [facility] Comment on above: Non- GFR Calc Glucose measurementOrdered B y: Lamine Morton on 04-28-2024 Glucose [Mass/Vol] 100 mg/dL 74-106 [facility] Comment on above: Fasting Glucose resu lt from 100 to 125 mg/dL suggests IMPAIRED HOMEOSTASIS per A.D.A. criteria. Hematocrit Auto (Bld) [Volum e fraction]Ordered By: Lamine Morton on 04-28-2024 Hematocrit (Bld) [Volume fraction] 41.8 % 37-47 [facility] Hemoglobin measurementOrdere d By: Lamine Morton on 04-28-2024 Hemoglobin (Bld) [Mass/Vol] 13.5 g/dL 12.0-15.0 [facility] High density lipoprotein (HD L) measurementOrdered By: Lamine Morton on 04-28-2024 Cholesterol in HDL [Mass/Vol] 106 mg/dL >40 [facility] Comment on above: The drugs N-Acetylcy steine and Metamizole may falsely depress this assay. Reference Range HDL <40 mg/dL Low HDL Cholesterol HDL >or= 60 mg/dL High HDL Cholesterol Immature granulocytes/100 WB C Auto (Bld)Ordered By: Lamine Morton on 04-28-2024 Immature granulocytes/100 WBC (Bld) 0.300 % 0.0-0.9 [facility] Comment on above: IG% - Immature Granu locytes (promyelocytes, myelocytes and metamyelocytes) > 1% indicates that a LEFT SHIFT is Present. Laboratory - Chemistry and C hemistry - challengeOrdered By: Lamine Morton on 04-28-2024 AST [Catalytic activity/Vol] 22 U/L 15-37 [facility] Lipid Profileon 04-28-2024 Cholesterol [Mass/Vol] 209 mg/dL High 200 [facility] Comment on above: Order Comment: DR.VE ULLOA ORDERED CBCD,CMP MATTHEW MORTON ORDERED CBC,CMP,LIPID,TSH,VIT.D,T4F,MICROALB Result Comment: <200 mg/dL Desirable 200-240 mg/dL Borderline >240 mg/dL High Risk Performed By: #### L 500.4050, L506.1000, L502.0250, L501.9520, L500.4100, L100.0100, L506.0400 #### [facility] Laboratory [address] [place], [address] Cholesterol in HDL [Mass/Vol] 106 mg/dL Normal [facility] Comment on above: Order Comment: DR.VE ULLOA ORDERED CBCD,CMP [employer] [facility] ORDERED CBC,CMP,LIPID,TSH,VIT.D,T4F,MICROALB Result Comment: The drugs N-Acetylcysteine and Metamizole may falsely depress this assay. Reference Range HDL <40 mg/dL Low HDL Cholesterol HDL >or= 60 mg/dL High HDL Cholesterol Performed By: #### L 500.4050, L506.1000, L502.0250, L501.9520, L500.4100, L100.0100, L506.0400 #### [facility] [address] [place], [address] Cholesterol in LDL [Mass/Vol] 91 mg/dL Normal 0-130 [facility] Comment on above: Order Comment: DR.VE ULLOA ORDERED CBCD,CMP [employer] SELENE ORDERED CBC,CMP,LIPID,TSH,VIT.D,T4F,MICROALB Performed By: #### L 500.4050, L506.1000, L502.0250, L501.9520, L500.4100, L100.0100, L506.0400 #### [facility] Laboratory [address] [place], [address] Cholesterol in VLDL [Mass/Vol] 12 mg/dL Normal 5-40 [facility] Comment on above: Order Comment: DR.VE ULLOA ORDERED CBCD,CMP MATTHEW ROLONKINS ORDERED CBC,CMP,LIPID,TSH,VIT.D,T4F,MICROALB Performed By: #### L 500.4050, L506.1000, L502.0250, L501.9520, L500.4100, L100.0100, L506.0400 #### [facility] Laboratory [address] [place], [address] (541) Triglyceride [Mass/Vol] 60 mg/dL Normal [facility] Comment on above: Order Comment: DR.VE ULLOA ORDERED CBCD,CMP MATTHEW MORTON ORDERED CBC,CMP,LIPID,TSH,VIT.D,T4F,MICROALB Result Comment: The drugs N-Acetylcysteine and Metamizole may falsely depress this assay. Serum Triglycerides Reference Interval Normal <150 mg/dL Borderline high 150 - 199 mg/dL High 200 - 499 mg/dL Very High > or = 500 mg/dL Performed By: #### L 500.4050, L506.1000, L502.0250, L501.9520, L500.4100, L100.0100, L506.0400 #### [facility] Laboratory [address] [place], [address] Low density lipoprotein (LDL ) cholesterol measurementOrdered By: Lamine Morton on 04-28-2024 Cholesterol in LDL [Mass/Vol] 91 mg/dL 0-130 [facility] MCV (mean corpuscular volume ) determinationOrdered By: Lamine Morton on 04-28-2024 MCV (RBC) [Entitic vol] 101.0 fL High 81-99 [facility] Mean corpuscular hemoglobin (MCH) determinationOrdered By: Lamine Morton on 04-28-2024 MCH (RBC) [Entitic mass] 32.6 pg High 27.0-32.0 [facility] Mean corpuscular hemoglobin concentration (MCHC) determinationOrdered By: Lamine Morton on 04-28-2024 MCHC (RBC) [Mass/Vol] 32.3 g/dL 32-36 [facility] Mean platelet volume determi nationOrdered By: Lamine Morton on 04-28-2024 Platelet mean volume (Bld) [Entitic vol] 10.3 fL 6.2-12.0 [facility] Microalb:Creat Ratio,Random URon 04-28-2024 Creatinine [Mass/Vol] 62.30 mg/dL Normal NO RAN GE EST. [facility] Comment on above: Performed By: #### L 500.4050, L506.1000, L502.0250, L501.9520, L500.4100, L100.0100, L506.0400 ####[facility] [address] [place], [address] MALB:CRE TNP Normal <30 mg/g CRE [facility] Comment on above: Performed By: #### L 500.4050, L506.1000, L502.0250, L501.9520, L500.4100, L100.0100, L506.0400 ####[facility] [address] [place], [place], [id number] MICROALBUMIN,UR < 5.0 Normal NO RANGE EST. [facility] Comment on above: Performed By: #### L 500.4050, L506.1000, L502.0250, L501.9520, L500.4100, L100.0100, L506.0400 ####[facility] [address] [place], [place], [id number] Monocyte percentageOrdered B y: Lamine Morton on 04-28-2024 Monocytes/100 WBC (Bld) 9.5 % 0-10 [facility] Neutrophil percentageOrdered By: Lamine Morton on 04-28-2024 Neutrophils/100 WBC (Bld) 66.4 % 47-70 [facility] Nucleated red blood cell per centageOrdered By: Lamine Morton on 04-28-2024 Nucleated RBC/100 WBC (Bld) [Ratio] 0 % 0-5 [facility] Platelet countOrdered By: La Nena Morton on 04-28-2024 Platelets (Bld) [#/Vol] 294 10*3/uL 150-450 [facility] Potassium measurementOrdered By: Lamine Morton on 04-28-2024 Potassium [Moles/Vol] 4.0 mmol/L 3.5-5.1 [facility] RBC Auto (Bld) [#/Vol]Ordere d By: Lamine Morton on 04-28-2024 RBC (Bld) [#/Vol] 4.14 10*6/uL Low 4.2-5.4 [facility] Serum anion gap measurementO rdered By: Lamine Morton on 04-28-2024 Anion gap [Moles/Vol] 8 mmol/L 5-15 [facility] Serum globulin measurementOr dered By: Lamine Morton on 04-28-2024 Globulin (S) [Mass/Vol] 3.3 g/dL 2.2-4.2 [facility] Serum or plasma alanine ramírez otransferase (ALT) measurementOrdered By: Lamine Morton on 04-28-2024 ALT [Catalytic activity/Vol] 25 U/L 13-56 [facility] Serum or plasma albumin ananya urement (mass/volume)Ordered By: Lamine Morton on 04-28-2024 Albumin [Mass/Vol] 4.1 g/dL 3.2-5.0 [facility] Serum or plasma alkaline tay sphatase measurementOrdered By: Lamine Morton on 04-28-2024 ALP [Catalytic activity/Vol] 64 U/L 45-117 [facility] Serum or plasma calcium ananya urement (mass/volume)Ordered By: Lamine Morton on 02-11-2025 Calcium [Mass/Vol] 9.7 mg/dL 8.5-10.1 [facility] Serum or plasma cholesterol measurement (mass/volume)Ordered By: Lamine Morton on 04-28-2024 Cholesterol [Mass/Vol] 209 mg/dL High <200 [facility] Comment on above: <200 mg/dL Desirable 200-240 mg/dL Borderline >240 mg/dL High Risk Serum or plasma creatinine m easurement (mass/volume)Ordered By: Lamine Morton on 04-28-2024 Creatinine [Mass/Vol] 0.98 mg/dL 0.55-1.02 [facility] Comment on above: The validity of the calculated GFR & GFRAA in patients over 70 years has not been determined. Clinical correlation is essential. Serum or plasma thyroid stim ulating hormone (TSH) measurement (units/volume)Ordered By: Lamine Morton on 04-28-2024 TSH Qn 4.210 uIU/mL High 0.358-3.740 [facility] Serum or plasma urea nitroge n measurement (mass/volume)Ordered By: Lamine Morton on 04-28-2024 Urea nitrogen [Mass/Vol] 14 mg/dL 7-18 [facility] Sodium levelOrdered By: Brian Morton on 04-28-2024 Sodium [Moles/Vol] 139 mmol/L 136-145 [facility] T4 Free Directon 04-28-2024 T4 FREE DIRECT 1.27 ng/dL Normal 0.76-1.46 [facility] Comment on above: Order Comment: DR.VE ULLOA ORDERED CBCD,CMPCNP [facility] ORDERED CBC,CMP,LIPID,TSH,VIT.D,T4F,MICROALB Performed By: #### L 500.4050, L506.1000, L502.0250, L501.9520, L500.4100, L100.0100, L506.0400 ####[facility] [address] [place], [address] Thyroid Stim Hormone (TSH)on 04-28-2024 TSH 4.210 uIU/mL High 0.358-3.740 [facility] Comment on above: Order Comment: DR.VE ULLOA ORDERED CBCD,CMP [employer] SELENE ORDERED CBC,CMP,LIPID,TSH,VIT.D,T4F,MICROALB Performed By: #### L 500.4050, L506.1000, L502.0250, L501.9520, L500.4100, L100.0100, L506.0400 #### [facility] Laboratory [address] [place], [address] Total proteinOrdered By: Jus Morton on 04-28-2024 Protein [Mass/Vol] 7.4 g/dL 6.4-8.2 [facility] Triglycerides measurementOrd ered By: Lamine Morton on 04-28-2024 Triglyceride [Mass/Vol] 60 mg/dL <199 [facility] Comment on above: The drugs N-Acetylcy steine and Metamizole may falsely depress this assay.Serum Triglycerides Reference Interval Normal <150 mg/dL Borderline high 150 - 199 mg/dL High 200 - 499 mg/dL Very High > or = 500 mg/dL Urine creatinine measurement (mass/volume)Ordered By: Lamine Morton on 04-28-2024 Creatinine (U) [Mass/Vol] 62.30 mg/dL NO RANGE EST. [facility] Very low density lipoprotein (VLDL) cholesterol measurementOrdered By: Lamine Morton on 04-28-2024 Very low density lipoprotein (VLDL) cholesterol measurement 12 mg/dL 5-40 [facility] Vitamin D,25 Hydroxyon 04-28 Vitamin D 25-OH 32.8 ng/mL Normal [facility] Comment on above: Result Comment: Elaina min D 25(OH) Status Range Deficiency <20 ng/mL (50nmol/L) Insufficiency 20 - 30 ng/mL (50 - 75 nmol/L) Sufficiency 30 - 100 ng/mL (75 - 250 nmol/L) Toxicity >100 ng/mL (>250 nmol/L) Performed By: #### L 500.4050, L506.1000, L502.0250, L501.9520, L500.4100, L100.0100, L506.0400 #### [facility] Laboratory [address] [place], [address] White blood cell (WBC) count Ordered By: Lamine Morton on 04-28-2024 WBC (Bld) [#/Vol] 7.6 10*3/uL 4.4-11.0 [facility] CBC W/Diff, Automatedon 01-16 Absolute Lymph 1.97 X10 3/uL Normal 0.83-4.51 [facility] Comment on above: Performed By: #### L 100.0100, L500.4050 #### [facility] Laboratory [address] [place], [address] Absolute Neut 5.2 X10 3/uL Normal 2.0-7.7 [facility] Comment on above: Performed By: #### L 100.0100, L500.4050 #### [facility] Laboratory [address] [place], [address] Basophils/100 WBC (Bld) 0.6 % Normal 0-1 [facility] Comment on above: Performed By: #### L 100.0100, L500.4050 #### [facility] [address] [place], [address] Eosinophils/100 WBC (Bld) 1.0 % Normal 0-5 [facility] Comment on above: Performed By: #### L 100.0100, L500.4050 #### [facility] [address] [place], [address] Erythrocyte distribution width (RBC) [Ratio] 13.3 % Normal 11.6-14.6 [facility] Comment on above: Performed By: #### L 100.0100, L500.4050 #### [facility] [address] [place], [address] Hematocrit (Bld) [Volume fraction] 40.8 % Normal 37-47 [facility] Comment on above: Performed By: #### L 100.0100, L500.4050 #### [facility] [address] [place], [address] Hemoglobin (Bld) [Mass/Vol] 13.1 g/dL Normal 12.0-15.0 [facility] Comment on above: Performed By: #### L 100.0100, L500.4050 #### [facility] [address] [place], [address] IG% 0.200 Normal 0.0-0.9 [facility] Comment on above: Result Comment: IG% - Immature Granulocytes (promyelocytes, myelocytes and metamyelocytes) > 1% indicates that a LEFT SHIFT is Present. Performed By: #### L 100.0100, L500.4050 #### [facility] [address] [place], [address] Lymphocytes/100 WBC (Bld) 24.1 % Normal 19-41 [facility] Comment on above: Performed By: #### L 100.0100, L500.4050 #### [facility] [address] [place], [address] MCH (RBC) [Entitic mass] 32.4 pg High 27.0-32.0 [facility] Comment on above: Performed By: #### L 100.0100, L500.4050 #### [facility] [address] [place], [address] MCHC (RBC) [Mass/Vol] 32.1 g/dL Normal 32-36 [facility] Comment on above: Performed By: #### L 100.0100, L500.4050 #### [facility] [address] [place], [address] MCV (RBC) [Entitic vol] 101.0 fL High 81-99 [facility] Comment on above: Performed By: #### L 100.0100, L500.4050 #### [facility] [address] [place], [address] Monocytes/100 WBC (Bld) 10.6 % High 0-10 [facility] Comment on above: Performed By: #### L 100.0100, L500.4050 #### [facility] [address] [place], [address] Neutrophils/100 WBC (Bld) 63.5 % Normal 47-70 [facility] Comment on above: Performed By: #### L 100.0100, L500.4050 #### [facility] [address] [place], [address] Nucleated RBC (Bld) [#/Vol] 0 10*3/uL Normal 0-5 [facility] Comment on above: Performed By: #### L 100.0100, L500.4050 #### [facility] [address] [place], [address] Platelet mean volume (Bld) [Entitic vol] 11.3 fL Normal 6.2-12.0 [facility] Comment on above: Performed By: #### L 100.0100, L500.4050 #### [facility] [address] [place], [address] Platelets (Bld) [#/Vol] 248 10*3/uL Normal 150-450 [facility] Comment on above: Performed By: #### L 100.0100, L500.4050 #### [facility] [address] [place], [address] RBC (Bld) [#/Vol] 4.04 10*6/uL Low 4.2-5.4 [facility] Comment on above: Performed By: #### L 100.0100, L500.4050 #### [facility] [address] [place], [address] RDW SD 49.5 fl High 35.1-43.9 [facility] Comment on above: Performed By: #### L 100.0100, L500.4050 #### [facility] [address] [place], [address] WBC (Bld) [#/Vol] 8.2 10*3/uL Normal 4.4-11.0 [facility] Comment on above: Performed By: #### L 100.0100, L500.4050 #### [facility] [address] [place], [address] Comprehensive Metabolic Prof scon 02-03-2024 Albumin [Mass/Vol] 4.2 g/dL Normal 3.2-5.0 [facility] Comment on above: Performed By: #### L 100.0100, L500.4050 #### [facility] [address] [place], [address] Albumin/Globulin [Mass ratio] 1.4 {ratio} Normal 0.9-2.4 [facility] Comment on above: Performed By: #### L 100.0100, L500.4050 #### [facility] [address] [place], [address] ALK P 69 U/L Normal 45-117 [facility] Comment on above: Performed By: #### L 100.0100, L500.4050 #### [facility] [address] [place], [address] ALT [Catalytic activity/Vol] 18 U/L Normal 13-56 [facility] Comment on above: Performed By: #### L 100.0100, L500.4050 #### [facility] [address] [place], [address] AST [Catalytic activity/Vol] 18 U/L Normal 15-37 [facility] Comment on above: Performed By: #### L 100.0100, L500.4050 #### [facility] [address] [place], [address] Bilirubin [Mass/Vol] 0.80 mg/dL Normal 0.20-1.00 [facility] Comment on above: Result Comment: For patients on eltrombopag therapy, use of Dimension [place] TBIL is not recommended. Performed By: #### L 100.0100, L500.4050 #### [facility] [address] [place], [address] BUN/CRE 14.8 RATIO Normal 10-20 [facility] Comment on above: Performed By: #### L 100.0100, L500.4050 #### [facility] [address] [place], [address] CA,Total 9.6 mg/dL Normal 8.5-10.1 [facility] Comment on above: Performed By: #### L 100.0100, L500.4050 #### [facility] [address], [address] Chloride [Moles/Vol] 104 mmol/L Normal 98-107 [facility] Comment on above: Performed By: #### L 100.0100, L500.4050 #### [facility] [address] [place], [address] CO2 [Moles/Vol] 28.0 mmol/L Normal 21.0-32.0 [facility] Comment on above: Performed By: #### L 100.0100, L500.4050 #### [facility] [address] [place], [address] Creatinine [Mass/Vol] 0.88 mg/dL Normal 0.55-1.02 [facility] Comment on above: Result Comment: The validity of the calculated GFR GFRAA in patients over 70 years has not been determined. Clinical correlation is essential. Performed By: #### L 100.0100, L500.4050 #### [facility] [address] [place], [address] EST GFR - AA 83 mL/min Normal >60 [facility] Comment on above: Result Comment: Afri can Hungarian GFR Calc Performed By: #### L 100.0100, L500.4050 #### [facility] [address] [place], [address] GAP 7 Normal 5-15 [facility] Comment on above: Performed By: #### L 100.0100, L500.4050 #### [facility] [address] [place], [address] GFR/1.73 sq M.predicted among non-blacks MDRD (S/P/Bld) [Vol rate/Area] 69 mL/min/{1.73_m2} Normal >60 [facility] Comment on above: Result Comment: Non- GFR Calc Performed By: #### L 100.0100, L500.4050 #### [facility] [address] [place], [address] Globulin (S) [Mass/Vol] 3.1 g/dL Normal 2.2-4.2 [facility] Comment on above: Performed By: #### L 100.0100, L500.4050 #### [facility] [address] [place], [address] Glucose [Mass/Vol] 89 mg/dL Normal 74-106 [facility] Comment on above: Performed By: #### L 100.0100, L500.4050 #### [facility] [address] [place], [address] Potassium [Moles/Vol] 3.6 mmol/L Normal 3.5-5.1 [facility] Comment on above: Performed By: #### L 100.0100, L500.4050 #### [facility] [address] [place], [address] Sodium [Moles/Vol] 139 mmol/L Normal 136-145 [facility] Comment on above: Performed By: #### L 100.0100, L500.4050 #### [facility] [address] [place], [address] T PROT 7.3 g/dL Normal 6.4-8.2 [facility] Comment on above: Performed By: #### L 100.0100, L500.4050 #### [facility] [address] [place], [address] Urea nitrogen [Mass/Vol] 13 mg/dL Normal 7-18 [facility] Comment on above: Performed By: #### L 100.0100, L500.4050 #### [facility] [address] [place], [address] ANES POSTPROC EVALon 024 ANES POSTPROC EVAL HNO ID: [id number] Author: TYLER SILVER MD Service: Anesthesiology Author Type: Anesthesiologist Type: Anesthesia Postprocedure Evaluation Filed: 12/25/2023 12:34 Note Text: POST ANESTHESIA EVALUATION NOTE : 1960 Procedure Summary Date: 12/25/23 Room / Location: [facility] Endoscopy Anesthesia Start: 1155 Anesthesia Stop: Procedures: EGD DIAGNOSTIC COLONOSCOPY SCREENING Diagnosis: Dysphagia, unspecified type History of colonic polyps Encounter for screening colonoscopy (Dysphagia) (Screening for colorectal malignant neoplasm) Scheduled Providers: Christa Avila MD; Tyler Silver MD; Beatrice Huizar APRN.ART APPRAISER Responsible Provider: Tyler Silver MD Anesthesia Type: MAC ASA Status: 3 Anesthesia Type: MAC Last Vitals Vitals Value Taken Time BP 110/68 12/25/23 1234 Temp 36.6 12/25/23 1234 Pulse 84 12/25/23 1233 Resp 16 12/25/23 1233 SpO2 100 % 12/25/23 1233 Vitals shown include unfiled device data. Post Anesthesia Patient Status Patient Evaluation: bedside. Anticipated Disposition: phase 2 then home. Neurological Status: aware and responsive. Pulmonary Status: breathing comfortably on room air Airway Control: returned to baseline unsupported. Cardiovascular Status: stable. Pain Management: clinically adequate Postoperative Hydration: acceptable. Intraoperative Events: no significant anesthesia events Post Operative Nausea/Vomiting Status: no significant post operative nausea or vomiting Recommendation: continue current plan of care. Anesthesia Observations No Documentation SIGNATURE: Tyler Silver MD PATIENT NAME: Amy Novoa DATE: December 25, 2023 TIME: 12:34 PM CSN: [id number] Normal [facility] ANES PRE-OPon 12-25-2023 ANES PRE-OP HNO ID: [id number] Author: TYLER SILVER MD Service: Anesthesiology Author Type: Anesthesiologist Type: Anesthesia Preprocedure Evaluation Filed: 12/25/2023 11:53 Note Text: ANESTHESIOLOGY DAY OF SURGERY NOTE : 1960 Procedure Information Date/Time: 12/25/23 1315 Scheduled providers: Christa Avila MD; Tyler Silver MD; Beatrice Huizar APRN.ART APPRAISER Procedures: EGD DIAGNOSTIC COLONOSCOPY SCREENING Location: [facility] Endoscopy Estimated body mass index is 25.33 kg/m? as calculated from the following: Height as of 12/10/23: 160 cm (5' 3). Weight as of 12/10/23: 64.9 kg (143 lb). Most recent hematocrit and potassium results: No results found for this basename: HCT,HEMATOCRIT,K,POTASSI UM Relevant Problems CARDIO (+) Hypertension (+) Mitral valve insufficiency (+) Pulmonary hypertension (HCC) (+) Raynaud's disease (+) Varicose veins of bilateral lower extremities with pain ENDO (+) Hypothyroidism PULMONARY (+) Severe chronic obstructive pulmonary disease (HCC) (+) Shortness of breath Other (+) Rheumatoid arthritis (HCC) I - PHYSICAL EVALUATION AIRWAY Patient intubated: No. Tracheostomy tube not present Mallampati: II. TM distance: >3 FB. Neck ROM: full ROM without neurological symptoms. Mouth opening: adequate. Short neck: no. Thick neck: no Garza present: no Microretrognathia/Micron agthia/Recessed Chin: No DENTAL Dental findings: teeth intact and missing tooth/teeth. Additional exam findings: yes. CARDIOVASCULAR Rhythm: regular Rate: normal PULMONARY Breath sounds clear to auscultation. II - ANESTHESIA PLAN ASA Score: 3 Anesthetic Plan: MAC The patient is not a current smoker. NPO Status: adequate Beta Mik Administration of chronic beta mik medication not planned. Monitoring Plan Monitoring plan: standard ASA. Post Procedure Analgesic Plan Informed Consent Anesthetic risks, benefits, alternatives, personnel and consent discussed: yes. Patient / Responsible Republican agrees to proceed: yes Patient / Surrogate agrees to blood products: blood products not planned DNR status not reviewed with patient and/or family prior to surgery. Significant changes in the patient condition since the History and Physical, not otherwise documented in primary service progress note: no. Potential Anesthesia issues that may suggest increased risk of complications or contraindication to planned procedure: none. Vitals Value Taken Time BP 142/84 12/25/23 1143 Pulse Resp 16 12/25/23 1143 Temp 36.8 ?C (98.2 ?F) 12/25/23 1143 SpO2 99 % 12/25/23 1143 Outpatient Medications as of 12/25/2023 Medication Sig fluticasone/umeclidin/vi lanter (TRELEGY ELLIPTA INHALATION) Inhale as instructed. leucovorin (LEUCOVORIN) 5 mg tablet Take 5 mg by mouth once daily. calcium carbonate (SUPER CALCIUM) 600 mg calcium (1,500 mg) tab Take 600 mg by mouth once daily. folic acid 1 mg tablet Take 2 mg by mouth once daily. Magnesium 250 mg tab Take 250 mg by mouth once daily. certolizumab pegol (CIMZIA) 400 mg/2 mL (200 mg/mL x 2) sub-q syringe kit Inject 400 mg subcutaneously every 2 weeks. amLODIPine (NORVASC) 10 mg tablet Take 10 mg by mouth once daily. Methotrexate Sodium 2.5 mg tablet Take 7.5 mg by mouth once each week. Patient states she takes 6 tablets once a week. levothyroxine (SYNTHROID) 112 mcg tablet Take 112 mcg by mouth once daily. naproxen sodium 220 mg cap Take 220 mg by mouth two times a day as needed (pain). albuterol HFA 90 mcg/actuation HFA Inhale 2 Puffs as instructed every 4 hours as needed (shortness of breath or wheezing). Facility-Administered Medications as of 12/25/2023 Medication Dose Route Frequency lidocaine (PF) 10 mg/mL (1 %) 1-2 mg injection (XYLOCAINE) 0.1-0.2 mL INTRADERMAL PRN lactated ringers iv infusion 30 mL/hr INTRAVENOUS CONTINUOUS I have interviewed and examined the patient. I have reviewed the medical record and/or the pre-anesthesia evaluation, pertinent labs, and test results. This contains updated information obtained within 48 hours of Surgery/Procedure. SIGNATURE: Tyler Silver MD PATIENT NAME: Amy Novoa DATE: December 25, 2023 TIME: 11:52 AM CSN: [id number] Normal [facility] Colonoscopyon 12-25-2023 Colonoscopy [facility] Gastrointestinal Endoscopy Patient Name: Amy Novoa Procedure Date: 12/25/2023 12:09 PM Date of : 1960 Admit Type: Outpatient Age: 63 Room: [facility] Gender: Female Note Status: Finalized Attending MD: Christa Avila MD, [id number] Procedure: Colonoscopy Indications: Screening for colorectal malignant neoplasm Providers: Christa Avila MD Patient Profile: Refer to note in patient chart for documentation of history and physical. Refer to note in patient chart for documentation of history and physical. Last Colonoscopy: more than 10 years ago. Referring Physician: Regina Parada (Referring MD) Medicines: See the Anesthesia note for documentation of the administered medications Complications: No immediate complications. Requesting Provider: Procedure: Pre-Anesthesia Assessment: - Monitored anesthesia care under the supervision of a ART APPRAISER was determined to be medically necessary for this procedure based on review of the patient's medical history, medications, and prior anesthesia history. After I obtained informed consent, the scope was passed under direct vision. Throughout the procedure, the patient's blood pressure, pulse, and oxygen saturations were monitored continuously. The Colonoscope was introduced through the anus and advanced to the cecum, identified by the appendiceal orifice, IC valve and transillumination. The colonoscopy was performed without difficulty. The patient tolerated the procedure well. The quality of the bowel preparation was suboptimal. There was still retained fecal material which required lavage and aspiration to visualize the hammer adequately. This was done, but took some time, however, the hammer were visualized adequately. The appendiceal orifice and the rectum were photographed. The quality of the bowel preparation was adequate to identify polyps greater than 5 mm in size. Scope Withdrawal Time: 0 hours 8 minutes 57 seconds Moderate Sedation: MAC anesthesia was administered by the anesthesia team. Total Procedure Duration: 0 hours 11 minutes 5 seconds Findings: Non-bleeding internal hemorrhoids were found. The perianal and digital rectal examinations were normal. Impression: - Non-bleeding internal hemorrhoids. - No specimens collected. Recommendation: - Discharge patient to home (ambulatory). - Resume previous diet. - Continue present medications. - Repeat colonoscopy in 10 years for screening purposes. - Patient has a contact number available for emergencies. The signs and symptoms of potential delayed complications were discussed with the patient. Return to normal activities tomorrow. Written discharge instructions were provided to the patient. Procedure Code(s): --- Professional --- G0121, Colorectal cancer screening; colonoscopy on individual not meeting criteria for high risk Diagnosis Code(s): --- Professional --- K64.8, Other hemorrhoids Z12.11, Encounter for screening for malignant neoplasm of colon CPT copyright 2020 [employer]. All rights reserved. The codes documented in this report are preliminary and upon desk lieutenant review may be revised to meet current compliance requirements. Attending Participation: I personally performed the entire procedure. Scope In: 12:14:50 PM Scope Out: 12:25:55 PM MD Christa Choudhary MD 12/25/2023 12:28:59 PM This report has been signed electronically by Christa Avila MD Number of Addenda: 0 Note Initiated On: 12/25/2023 12:09 PM Estimated Blood Loss: Estimated blood loss: none. Normal [facility] Colonoscopy Study observatio non 12-25-2023 [facility] Gastrointestinal Endoscopy Patient Name: Amy Novoa Procedure Date: 12/25/2023 12:09 PM Date of : 1960 Admit Type: Outpatient Age: 63 Room: [facility] Gender: Female Note Status: Finalized Attending MD: Christa Avila MD, [id number] Procedure: Colonoscopy Indications: Screening for colorectal malignant neoplasm Providers: Christa Avila MD Patient Profile: Refer to note in patient chart for documentation of history and physical. Refer to note in patient chart for documentation of history and physical. Last Colonoscopy: more than 10 years ago. Referring Physician: Regina Parada (Referring MD) Medicines: See the Anesthesia note for documentation of the administered medications Complications: No immediate complications. Requesting Provider: Procedure: Pre-Anesthesia Assessment: - Monitored anesthesia care under the supervision of a ART APPRAISER was determined to be medically necessary for this procedure based on review of the patient's medical history, medications, and prior anesthesia history. After I obtained informed consent, the scope was passed under direct vision. Throughout the procedure, the patient's blood pressure, pulse, and oxygen saturations were monitored continuously. The Colonoscope was introduced through the anus and advanced to the cecum, identified by the appendiceal orifice, IC valve and transillumination. The colonoscopy was performed without difficulty. The patient tolerated the procedure well. The quality of the bowel preparation was suboptimal. There was still retained fecal material which required lavage and aspiration to visualize the hammer adequately. This was done, but took some time, however, the hammer were visualized adequately. The appendiceal orifice and the rectum were photographed. The quality of the bowel preparation was adequate to identify polyps greater than 5 mm in size. Scope Withdrawal Time: 0 hours 8 minutes 57 seconds Moderate Sedation: MAC anesthesia was administered by the anesthesia team. Total Procedure Duration: 0 hours 11 minutes 5 seconds Findings: Non-bleeding internal hemorrhoids were found. The perianal and digital rectal examinations were normal. Impression: - Non-bleeding internal hemorrhoids. - No specimens collected. Recommendation: - Discharge patient to home (ambulatory). - Resume previous diet. - Continue present medications. - Repeat colonoscopy in 10 years for screening purposes. - Patient has a contact number available for emergencies. The signs and symptoms of potential delayed complications were discussed with the patient. Return to normal activities tomorrow. Written discharge instructions were provided to the patient. Procedure Code(s): --- Professional --- G0121, Colorectal cancer screening; colonoscopy on individual not meeting criteria for high risk Diagnosis Code(s): --- Professional --- K64.8, Other hemorrhoids Z12.11, Encounter for screening for malignant neoplasm of colon CPT copyright 2020 [employer]. All rights reserved. The codes documented in this report are preliminary and upon desk lieutenant review may be revised to meet current compliance requirements. Attending Participation: I personally performed the entire procedure. Scope In: 12:14:50 PM Scope Out: 12:25:55 PM MD Christa Choudhary MD 12/25/2023 12:28:59 PM This report has been signed electronically by Christa Avila MD Number of Addenda: 0 Note Initiated On: 12/25/2023 12:09 PM Estimated Blood Loss: Estimated blood loss: none. PROVATION [facility] Radiology Study observation (narrative) [facility] EGD Study observation Narrat cata 12-25-2023 [facility] Gastrointestinal Endoscopy Patient Name: Amy Novoa Procedure Date: 12/25/2023 11:30 AM Date of : 1960 Admit Type: Outpatient Age: 63 Room: [facility] Gender: Female Note Status: Finalized Attending MD: Christa Avila MD, [id number] Procedure: Upper GI endoscopy Indications: Dysphagia Providers: Christa Avila MD Patient Profile: Refer to note in patient chart for documentation of history and physical. Referring Physician: Regina Parada (Referring MD) Medicines: See the Anesthesia note for documentation of the administered medications Complications: No immediate complications. Requesting Provider: Procedure: Pre-Anesthesia Assessment: - Monitored anesthesia care under the supervision of a ART APPRAISER was determined to be medically necessary for this procedure based on review of the patient's medical history, medications, and prior anesthesia history. After obtaining informed consent, the endoscope was passed under direct vision. Throughout the procedure, the patient's blood pressure, pulse, and oxygen saturations were monitored continuously. The Colonoscope was introduced through the mouth, and advanced to the second part of duodenum. The upper GI endoscopy was accomplished without difficulty. The patient tolerated the procedure well. Moderate Sedation: MAC anesthesia was administered by the anesthesia team. Total Procedure Duration: 0 hours 8 minutes 24 seconds Findings: The first portion of the duodenum, second portion of the duodenum and third portion of the duodenum were normal. Localized mildly erythematous mucosa without bleeding was found in the gastric antrum. Biopsies were taken with a cold forceps for histology/H pylori. Estimated blood loss was minimal. Retained bile noted in stomach, active enterogastric reflux noted of bile A small hiatal hernia was present. Biopsies were taken with a cold forceps for histology of GE junction and mid esophagus. Verification of patient identification for the specimen was done by the nurse. Estimated blood loss was minimal. Impression: - Normal first portion of the duodenum, second portion of the duodenum and third portion of the duodenum. - Erythematous mucosa in the antrum. Biopsied. - Small hiatal hernia. Biopsied at GEJ and mid esophagus. Recommendation: - Discharge patient to home (ambulatory). - Resume previous diet. - Continue present medications. - Await pathology results. - - Follow up with Veronika Parada NP, may be via televisit for discussion of pathology results Procedure Code(s): --- Professional --- 46998, Esophagogastroduodenosco py, flexible, transoral; with biopsy, single or multiple Diagnosis Code(s): --- Professional --- R13.10, Dysphagia, unspecified K44.9, Diaphragmatic hernia without obstruction or gangrene K31.89, Other diseases of stomach and duodenum CPT copyright 2020 [employer]. All rights reserved. The codes documented in this report are preliminary and upon desk lieutenant review may be revised to meet current compliance requirements. Attending Participation: I personally performed the entire procedure. Scope In: 12:01:10 PM Scope Out: 12:09:34 PM MD Christa Choudhary MD 12/25/2023 12:13:49 PM This report has been signed electronically by Christa Avila MD Number of Addenda: 0 Note Initiated On: 12/25/2023 11:30 AM Estimated Blood Loss: Estimated blood loss was minimal. PROVATION [facility] Radiology Study observation (narrative) [facility] SURGICAL PATHOLOGYon 024 ADDENDUM 1: Normal [facility] Comment on above: Order Comment: Speci men Type: TISSUE SPECIMEN Ordering Facility: [facility] Address: [address] [place] [address] Result Comment: H. p ylori immunostain performed on the stomach biopsy (part A) to evaluate the chronic gastritis is negative for organisms. Laboratory Developed Test (LDT) Disclaimer: Performance characteristics of immunohistochemical, immunofluorescent and chromogenic in-situ hybridization tests have been determined by the performing laboratory within [facility]???s [facility] Pathology and Laboratory Medicine Department ([facility], [facility], [facility], [facility], [facility], [facility], or [facility]) in a manner consistent with CLIA requirements. One or more of these tests have not been cleared or approved by the FDA. [facility] is regulated under CLIA as qualified to perform high-complexity testing. These tests are used for clinical purposes. They should not be regarded as investigational or for research. Positive and negative controls stain appropriately. Addendum electronically signed by Matty Caraballo MD on 12/30/2023 at 10:57 AM Performed By: #### S #### [facility] CLIA [id number] [address] [place] [address] STATES OF [place] [facility] CLIA [id number] [address] [place] [address] STATES [place] CASE REPORT Normal [facility] Comment on above: Order Comment: Speci men Type: TISSUE SPECIMEN Ordering Facility: [facility] Address: [address] [place] [address] Result Comment: Surg [facility] Pathology Report Case: [id number] Authorizing Provider: Christa Avila MD Collected: 12/25/2023 12:04 PM Ordering Location: [facility]oscopy Received: 12/25/2023 02:47 PM Pathologist: Matty Caraballo MD Specimens: A) - Stomach, Biopsy B) - Esophagogastric Junction, Biopsy C) - Esophagus, Mid, Biopsy Performed By: #### S #### [facility] IA [id number] [address] [place] [address] STATES OF [place] [facility] CLIA [id number] [address] [place] [address] [place] DIAGNOSIS COMMENT H. pylori immunostai n is pending. Normal [facility] Comment on above: Order Comment: Speci men Type: TISSUE SPECIMEN Ordering Facility: [facility] Address: [address] [place] [address] Performed By: #### S #### [facility] CLIA [id number] [address] [place] [address] STATES OF [place] [facility] CLIA [id number] [address] [place] [address] STATES OF [place] FINAL DIAGNOSIS Normal [facility] Comment on above: Order Comment: Speci men Type: TISSUE SPECIMEN Ordering Facility: [facility] Address: [address] [place] [address] Result Comment: A. S tomach, biopsy: - Antral mucosa with chronic inactive gastritis. - See comment. B. Esophagogastric junction, biopsy: - Squamous mucosa with no significant pathologic changes. C. Mid esophagus, biopsy: - Squamous mucosa with no significant pathologic changes. Performed By: #### S #### [facility] CLIA [id number] [address] [place] [address] LAB CLIA [id number] [address] [place] [address] OF [place] FINAL PERFORMING LAB Normal [facility] Comment on above: Order Comment: Speci men Type: TISSUE SPECIMEN Ordering Facility: [facility] Address: [address] [place] [address] Result Comment: Diag nostic interpretation performed at [facility], [address] [place] [address] CLIA# [id number] Capacitor Tester: Mariya Cooper M.D. Performed By: #### S #### [facility] CLIA [id number] [address] [place] [address] LAB CLIA [id number] [address] [place] [address] OF [facility] GROSS DESCRIPTION Normal [facility] Comment on above: Order Comment: Speci men Type: TISSUE SPECIMEN Ordering Facility: [facility] Address: [address] [place] [address] Result Comment: A. S tomach, Biopsy Received in formalin are two pieces of abbasi, soft tissue aggregating to 0.5 x 0.3 x 0.1 cm. Totally submitted in one cassette. B. Esophagogastric Junction, Biopsy Received in formalin is one piece of abbasi to abbasi-white, soft tissue measuring 0.4 x 0.3 x 0.1 cm. Totally submitted in one cassette. C. Esophagus, Mid, Biopsy Received in formalin are two pieces of abbasi-white, soft tissue aggregating to 0.4 x 0.3 x 0.1 cm. Totally submitted in one cassette. JCDM December 25, 2023 6:16 PM Gross examination performed at [facility], [address] [place] [address] Performed By: #### S #### [facility] CLIA [id number] OF [facility] CLIA [id number] [address] [place] [address] OF [facility] Upper GI endoscopyon 024 Upper GI endoscopy [facility] Gastrointestinal Endoscopy Patient Name: Amy Novoa Procedure Date: 12/25/2023 11:30 AM Date of : 1960 Admit Type: Outpatient Age: 63 Room: [facility] Gender: Female Note Status: Finalized Attending MD: Christa Avila MD, [id number] Procedure: Upper GI endoscopy Indications: Dysphagia Providers: Christa Avila MD Patient Profile: Refer to note in patient chart for documentation of history and physical. Referring Physician: Regina Parada (Referring MD) Medicines: See the Anesthesia note for documentation of the administered medications Complications: No immediate complications. Requesting Provider: Procedure: Pre-Anesthesia Assessment: - Monitored anesthesia care under the supervision of a ART APPRAISER was determined to be medically necessary for this procedure based on review of the patient's medical history, medications, and prior anesthesia history. After obtaining informed consent, the endoscope was passed under direct vision. Throughout the procedure, the patient's blood pressure, pulse, and oxygen saturations were monitored continuously. The Colonoscope was introduced through the mouth, and advanced to the second part of duodenum. The upper GI endoscopy was accomplished without difficulty. The patient tolerated the procedure well. Moderate Sedation: MAC anesthesia was administered by the anesthesia team. Total Procedure Duration: 0 hours 8 minutes 24 seconds Findings: The first portion of the duodenum, second portion of the duodenum and third portion of the duodenum were normal. Localized mildly erythematous mucosa without bleeding was found in the gastric antrum. Biopsies were taken with a cold forceps for histology/H pylori. Estimated blood loss was minimal. Retained bile noted in stomach, active enterogastric reflux noted of bile A small hiatal hernia was present. Biopsies were taken with a cold forceps for histology of GE junction and mid esophagus. Verification of patient identification for the specimen was done by the nurse. Estimated blood loss was minimal. Impression: - Normal first portion of the duodenum, second portion of the duodenum and third portion of the duodenum. - Erythematous mucosa in the antrum. Biopsied. - Small hiatal hernia. Biopsied at GEJ and mid esophagus. Recommendation: - Discharge patient to home (ambulatory). - Resume previous diet. - Continue present medications. - Await pathology results. - - Follow up with Veronika Parada NP, may be via televisit for discussion of pathology results Procedure Code(s): --- Professional --- 13223, Esophagogastroduodenosco py, flexible, transoral; with biopsy, single or multiple Diagnosis Code(s): --- Professional --- R13.10, Dysphagia, unspecified K44.9, Diaphragmatic hernia without obstruction or gangrene K31.89, Other diseases of stomach and duodenum CPT copyright 2020 [employer]. All rights reserved. The codes documented in this report are preliminary and upon desk lieutenant review may be revised to meet current compliance requirements. Attending Participation: I personally performed the entire procedure. Scope In: 12:01:10 PM Scope Out: 12:09:34 PM MD Christa Choudhary MD 12/25/2023 12:13:49 PM This report has been signed electronically by Christa Avila MD Number of Addenda: 0 Note Initiated On: 12/25/2023 11:30 AM Estimated Blood Loss: Estimated blood loss was minimal. Normal [facility] Venous Duplex US, Unilateral on 12-13-2023 Venous Duplex US, Unilateral [facility] [address] [place] [address] Venous Duplex US, Unilateral 12/13/23 1315 MR#: [id number] Acct: [id number] Name: AMY NOVOA Rep #: [id number] : 1960 63 From: Nito Cochran MD Attending Dr: LEE Willoughby Stat us: REG CLI Ordering Dr: Lamine Morton NP, NP-C Date: Location: [facility] Sex: F C Admitted: Reason For Study: RLE PAIN RIGHT CFV is compressible, spontaneous, phasic, competent and demonstrates normal augmentation. FV is compressible, spontaneous, phasic, competent and demonstrates normal augmentation. POP V is compressible, spontaneous, phasic, competent and demonstrates normal augmentation. T/P Trunk is compressible. PTV is compressible. RT PerV is compressible. SFJ is competent and measures 0.45 cm. GSV proximal thigh measures 0.40 X 0.37 cm. GSV is competent throughout. SSV proximal calf is competent and measures 0.24 x 0.28 cm. ASV @ SFJ measures 0.24 x 0.28 is competent thruoughout. Procedure This is a venous duplex using B-mode, color flow and spectral Doppler. Exam performed in department. Images # 33, 34, 35 36 are GSV. VL/Venous Duplex US, Unilateral Interpretation Summary Deep veins of the right lower extremity are patent and compressible segmentally. There is no evidence of right lower extremity deep vein thrombosis. The right great saphenous vein appears patent and compressible segmentally. Negative for reflux Ordering Physician: Lamine Morton Referring Physician: Lamine Morton Performed By: Diya Wilson, WILNER, RVT 12/18/23 1055 Date Nito Cochran MD CC: CAR AUDIO INSTALLER-C Lamine Morton Date Dictated: 12/13/23 1315 Date Transcribed: 12/18/23 1055 Grain Unloader: Signed Normal [facility] No Panel Informationon 12-09 Formerly [facility] [address] [place] [address] Test Date: 2023-12-10 Pat Name: AMY NOVOA Department: Room: Gender: Female Ems Manager: : 1960 Requested By: Order Number: [id number] Reading MD: Patti Gutierrez MD Interpretive Statements Medications and Allergies were reviewed for possible drug interactions per policy. No contraindications or sensitivities were noted. Meds taken: Trelegy 4 hours before testing. 4 puffs Albuterol (360 mcg) delivered by MDI via holding chamber. HR pre = 83 /min, HR post = 83 /min. Current ATS/ERS acceptability and repeatability standards for spirometry met. Start of test and EOFE criteria met. Current ATS/ERS acceptability and repeatability standards for DLCO met with 2 acceptable maneuvers. IMPRESSION: Spirometry indicates severe obstruction. Negative bronchodilator response. The diffusing capacity (uncorrected for hemoglobin) is reduced. Electronically Signed On 12-10-2023 15:05:25 EDT by Patti Gutierrez MD ID: [id number] Name: AMY NOVOA Race: White Ht: 63.00 in Wt: 143.00 lbs Age: 63 Gender: Female : 1960 Dx: COPD_ Smoking Hx: Non-smoker Doctor: Test Date: 12/10/2023 Site: Tech: Andreia Frias PRE-BRONCH POST-BRONCH Pre LLN Pred ULN %Pred Post %Pred %Chg SPIROMETRY FVC (L) 2.55 2.00 2.78 3.58 91 2.64 95 3 FEV1 (L) 0.83 1.57 2.20 2.80 37 0.90 41 3 FEV1/FVC 0.33 0.67 0.80 0.90 40 0.34 42 4 PEF L/s (L/sec) 2.56 4.26 5.92 7.58 43 2.62 44 2 FEF50 (L/sec) 0.23 1.56 3.17 4.78 7 0.29 9 21 FIF50 (L/sec) 1.80 2.70 49 FEF50/FIF50 0.13 90-100 0.11 -18 FIVC (L) 2.45 2.42 -1 VRR96-28 (L/sec) 0.21 1.02 2.07 3.50 10 0.25 11 17 Time (sec) 15.30 15.45 1 FET PEF (sec) 0.06 0.09 54 ELVIA (L) 0.03 0.07 162 Vol Extrap % (%) 1 3 152 LUNG DIFFUSION DLCOunc (ml/min/mmHg) 14.05 14.63 20.80 26.97 67 VA (L) 4.17 3.80 4.90 6.00 85 DLunc/VA (ml/min/mmHg/L) 3.37 3.11 4.43 5.75 76 BHT (sec) 12.16 IVC (L) 2.42 Comments: Medications and Allergies were reviewed for possible drug interactions per policy. No contraindications or sensitivities were noted. Meds taken: Trelegy 4 hours before testing. 4 puffs Albuterol (360 mcg) delivered by MDI via holding chamber. HR pre = 83 /min, HR post = 83 /min. Current ATS/ERS acceptability and repeatability standards for spirometry met. Start of test and EOFE criteria met. Current ATS/ERS acceptability and repeatability standards for DLCO met with 2 acceptable maneuvers. PULMONARY FUNCTION LAB [facility] SPIROMETRY - BASELINE AND PO [facility] 12-10-2023 DLCO (ml/min/mmHg) 14.05 ml/min/mmHg [facility] DLCO LLN (ml/min/mmHg) 14.63 ml/min/mmHg [facility] DLCO PREDICTED (ml/min/mmHg) 20.80 ml/min/mmHg [facility] DLCO ULN (ml/min/mmHg) 26.97 ml/min/mmHg [facility] DLCO/VA (ml/min/mmHg/L) 3.37 ml/min/mmHg /L [facility] DLCO/VA PREDICTED (ml/min/mmHg/L) 4.43 ml/min/mmHg /L [facility] DLCOcor PREDICTED (ml/min/mmHg) 20.80 ml/min/mmHg [facility] ERV PREDICTED (L) 0.93 L/S [facility] FEF25% POST (L/S) 0.68 L/S [facility] FEF25% PRE (L/S) 0.62 L[facility] JJP50-31% LLN (L/S) 1.02 L/S [facility] MFI55-02% POST (L/S) 0.25 L/S [place] MBK44-82% PRE (L/S) 0.21 L/S [facility] YEH17-62% PREDICTED (L/S) 2.07 L/S [facility] FEF75% LLN (L/S) 0.21 L/S [facility] FEF75% POST (L/S) 0.13 L/S [facility] FEF75% PRE (L/S0 0.12 L/S [facility] FEF75% PREDICTED (L/S) 0.55 L/S [facility] FEF75% ULN (L/S) 1.34 L/S [facility] FET POST (S) 15.45 S [facility] FET PRE (S) 15.30 S [facility] FEV1 LLN (L) 1.57 L [facility] FEV1 PRE (L) 0.83 L [facility] FEV1 PREDICTED (L) 2.20 L [facility] FEV1 ULN (L) 2.80 L [facility] FEV1/FVC LLN (%) 67 % [facility] FEV1/FVC POST (%) 34 % [facility] FEV1/FVC PRE (%) 33 % [facility] FEV1/FVC PREDICTED (%) 80 % [facility] FEV1_POST (L) 0.90 L [facility] FVC LLN (L) 2.00 L [facility] FVC POST (L) 2.64 L [facility] FVC PRE (L) 2.55 L [facility] FVC PREDICTED (L) 2.78 L [facility] FVC ULN (L) 3.58 L [facility] IC PREDICTED (L) 1.85 L/S [facility] PEF LLN (L/S) 4.26 L/S [facility] PEF POST (L/S) 2.62 L/S [facility] PEF PRE (L/S) 2.56 L/S [facility] PEF ULN (L/S) 7.58 L/S [facility] SVC LLN (L) 2.00 L/S [facility] SVC PREDICTED (L) 2.78 L/S [facility] SVC ULN (L) 3.58 L/S [facility] VA (L) 4.17 L [facility] VA PREDICTED (L) 4.90 [facility] HISTORY PHYSICALon HISTORY PHYSICAL HNO ID: [id number] Author: BLANCA SAMS APRN.CNP Service: ? Author Type: Nurse Practitioner Type: H&P Filed: 12/09/2023 12:11 Note Text: [facility] HISTORY AND PHYSICAL EXAMINATION SERVICE DATE: 12/09/2023 SERVICE TIME: 12:09 PM PRIMARY CARE PHYSICIAN: RIVERA Tirado, MATTHEW Assessment Patient has the following medical conditions which may affect yanni-operative course: Hypertension Assessment: controlled on rx Last 14 BP Last 14 Encounter BP Readings: Date: BP: 12/09/2023 122/82 09/24/2023 124/76 06/25/2011 131/73 Mitral valve insufficiency Assessment: Echocardiogram February 2018 showed a normal EF, stress test March 2018 showed no ischemia and a normal EF. 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 Mixed hyperlipidemia Assessment: diet controlled Pulmonary hypertension (HCC) Assessment: following pulmonary, no documentation supporting this found Raynaud's disease Assessment: controlled on rx Severe chronic obstructive pulmonary disease (HCC) Assessment: new PFT's pending for tomorrow, most recent OV requested, pt has oxygen 4L as needed, rarely uses per pt 04/17/2023 Chiara Morrow CNP, [place] [facility] Hypothyroidism Assessment: stable on rx Anemia of chronic disease Assessment: hx, most recent labs requested from PCP Rheumatoid arthritis (HCC) Assessment: MTX, Leucovorin, Cimzia, following Dr. Price in [place] Psoriasis Assessment: controlled on rx Seasonal affective disorder (HCC) Assessment: hx, no current tx Varicose veins of bilateral lower extremities with pain Assessment: PCP currently working up, no surgical intervention Amador Activity Status Index: METS: Climb a flight of stairs or walk up a hill (5.50 METs) DASI Score: 5.5 Patient denies any chest pain or undue shortness of breath with the above physical activity. Clinical Frailty Scale: 3. Well, with treated comorbid disease STOP-Bang Score: Patient over 50 years old Denies snoring loudly Denies feeling tired, fatigued, or sleepy during the daytime Has not been observed to stop breathing or choking/gasping during sleep Denies having high blood pressure BMI less than or equal to 35 kg/m2 Does not have a large neck Non-male patient STOP-Bang Score: 1 [id number] Score: Age: <65 Sex: female CHF history: No Hypertension history: Yes Stroke/TIA/thromboemboli sm history: No Vascular disease history: Yes Diabetes history: No [id number] Score: 3 ARISCAT Score: Age: 51-80 Preoperative SpO2: >=96% Respiratory infection in the last month: No Preoperative anemia: No Surgical incision: peripheral Duration of surgery: <2 hrs Emergency procedure: No ARISCAT Score: 3 ANESTHESIA FINDINGS: Intubation History: No history of difficult intubation Significant Anesthesia Considerations: none Airway History: No history of difficult airway I - PHYSICAL EVALUATION AIRWAY Patient intubated: No. Tracheostomy tube not present Mallampati: I. TM distance: >3 FB. Neck ROM: full ROM without neurological symptoms. Mouth opening: adequate. Short neck: no. Thick neck: no Garza present: no Lip Bite Test: I Microretrognathia/Micron agthia/Recessed Chin: No DENTAL Dental findings: teeth intact. Additional comments: +crowns/back. II - ANESTHESIA PLAN Anesthetic Plan: other Beta Mik Monitoring Plan Post Procedure Analgesic Plan Prepared for Surgery: optimally prepared for surgery, pending [see comment]. PFTs CONSULTS: Patient does not require consults for optimization at this time Planned Anesthetic: other anesthesia choice The Following Tests/Procedures Have Been Initiated: Orders Placed This Encounter fluticasone/umeclidin/vi lanter (TRELEGY ELLIPTA INHALATION) Sig: Inhale as instructed. leucovorin (LEUCOVORIN) 5 mg tablet Sig: Take 5 mg by mouth once daily. REASON FOR VISIT: Amy Novoa is a 63 year old female who is scheduled for * No surgery found * at the request of Dr. Christa Avila for consultation. My final recommendation will be communicated back to the requesting physician by way of shared medical record or letter. Subjective The patient has the following: COVID-19 Immunization Status Covid-19 Vaccine () Next due on 01/28/2024 12/03/2023 Imm Admin: COVID-19 vaccine, age 12+ yr (PFIZER-BIONTECH) 02/12/2023 Imm Admin: COVID-19 vaccine, 2022- season (NOVAVAX) 12/07/2021 Imm Admin: COVID-19 vaccine, age 12+ yr, bivalent (PFIZER-BIONTECH) Only the first 3 history entries have been loaded, but more history exists. CHIEF COMPLAINT: Pre-op exam HPI: Amy Novoa is a 63 year old seen for PAC due to scheduled above surgery because h/o colon polyps/dysphagia. 09/24/2023, Veronika Parada, CIGAR WRAPPER TENDER AUTOMATIC HPI: Amy is a 63 year old female referred for endoscopy. Amy notes due for screening (more content not included)... Normal [facility] CBC W/Diff, Automatedon 08- Absolute Lymph 2.42 X10 3/uL Normal 0.83-4.51 [facility] Comment on above: Order Comment: DR.VE ULLOA ORDERED CBCD,KERRY ORDEREDCMP,LIPID, VITD,TSH,FT4,CBC Performed By: #### L 500.4100, L100.0100, L500.4050, L501.9520, L506.0400, L506.1000 ####[facility] [address] [place], [address] Absolute Neut 4.9 X10 3/uL Normal 2.0-7.7 [facility] Comment on above: Order Comment: DR.VE ULLOA ORDERED CBCD,CMP ORDEREDCMP,LIPID, VITD,TSH,FT4,CBC Performed By: #### L 500.4100, L100.0100, L500.4050, [id number], L506.0400, L506.1000 ####[facility] [address] [place], [address] Basophils/100 WBC (Bld) 0.7 % Normal 0-1 [facility] Comment on above: Order Comment: DR.VE ULLOA ORDERED CBCD,CMP ORDEREDCMP,LIPID, VITD,TSH,FT4,CBC Performed By: #### L 500.4100, L100.0100, L500.4050, [id number], L506.0400, L506.1000 ####[facility] [address] [place], [address] Eosinophils/100 WBC (Bld) 1.3 % Normal 0-5 [facility] Comment on above: Order Comment: DR.VE ULLOA ORDERED CBCD,CMPDR.SELENE ORDEREDCMP,LIPID, VITD,TSH,FT4,CBC Performed By: #### L 500.4100, L100.0100, L500.4050, L501.9520, L506.0400, L506.1000 ####[facility] [address] [place], [address] Erythrocyte distribution width (RBC) [Ratio] 14.5 % Normal 11.6-14.6 [facility] Comment on above: Order Comment: DR.VE ULLOA ORDERED CBCD,CMP ORDEREDCMP,LIPID, VITD,TSH,FT4,CBC Performed By: #### L 500.4100, L100.0100, L500.4050, L501.9520, L506.0400, L506.1000 ####[facility] [address] [place], [address] Hematocrit (Bld) [Volume fraction] 38.9 % Normal 37-47 [facility] Comment on above: Order Comment: DR.VE ULLOA ORDERED CBCD,CMP ORDEREDCMP,LIPID, VITD,TSH,FT4,CBC Performed By: #### L 500.4100, L100.0100, L500.4050, L501.9520, L506.0400, L506.1000 ####[facility] [address] [place], [address] Hemoglobin (Bld) [Mass/Vol] 12.6 g/dL Normal 12.0-15.0 [facility] Comment on above: Order Comment: DR.VE ULLOA ORDERED CBCD,KERRY ORDEREDCMP,LIPID, VITD,TSH,FT4,CBC Performed By: #### L 500.4100, L100.0100, L500.4050, L501.9520, L506.0400, L506.1000 ####[facility] [address] [place], [address] IG% 0.400 Normal 0.0-0.9 [facility] Comment on above: Order Comment: DR.VE ULLOA ORDERED CBCD,CMP ORDEREDCMP,LIPID, VITD,TSH,FT4,CBC Result Comment: IG% - Immature Granulocytes (promyelocytes, myelocytes and metamyelocytes) > 1% indicates that a LEFT SHIFT is Present. Performed By: #### L 500.4100, L100.0100, L500.4050, L501.9520, L506.0400, L506.1000 ####[facility] [address] [place], [address] Lymphocytes/100 WBC (Bld) 29.3 % Normal 19-41 [facility] Comment on above: Order Comment: DR.VE ULLOA ORDERED CBCD,KERRY ORDEREDCMP,LIPID, VITD,TSH,FT4,CBC Performed By: #### L 500.4100, L100.0100, L500.4050, [id number], L506.0400, L506.1000 ####[facility] [address] [place], [address] MCH (RBC) [Entitic mass] 33.4 pg High 27.0-32.0 [facility] Comment on above: Order Comment: DR.VE ULLOA ORDERED CBCD,KERRY ORDEREDCMP,LIPID, VITD,TSH,FT4,CBC Performed By: #### L 500.4100, L100.0100, L500.4050, [id number], L506.0400, L506.1000 ####[facility] [address] [place], [address] MCHC (RBC) [Mass/Vol] 32.4 g/dL Normal 32-36 [facility] Comment on above: Order Comment: DR.VE ULLOA ORDERED CBCD,KERRY ORDEREDCMP,LIPID, VITD,TSH,FT4,CBC Performed By: #### L 500.4100, L100.0100, L500.4050, L501.9520, L506.0400, L506.1000 ####[facility] [address] [place], [address] MCV (RBC) [Entitic vol] 103.2 fL High 81-99 [facility] Comment on above: Order Comment: DR.VE ULLOA ORDERED CBCD,CMP ORDEREDCMP,LIPID, VITD,TSH,FT4,CBC Performed By: #### L 500.4100, L100.0100, L500.4050, L501.9520, L506.0400, L506.1000 ####[facility] [address] [place], [address] Monocytes/100 WBC (Bld) 9.3 % Normal 0-10 [facility] Comment on above: Order Comment: DR.VE ULLOA ORDERED CBCD,KERRY ORDEREDCMP,LIPID, VITD,TSH,FT4,CBC Performed By: #### L 500.4100, L100.0100, L500.4050, L501.9520, L506.0400, L506.1000 ####[facility] [address] [place], [address] Neutrophils/100 WBC (Bld) 59.0 % Normal 47-70 [facility] Comment on above: Order Comment: DR.VE ULLOA ORDERED CBCD,CMP ORDEREDCMP,LIPID, VITD,TSH,FT4,CBC Performed By: #### L 500.4100, L100.0100, L500.4050, L501.9520, L506.0400, L506.1000 ####[facility] [address] [place], [address] Nucleated RBC (Bld) [#/Vol] 0 10*3/uL Normal 0-5 [facility] Comment on above: Order Comment: DR.VE ULLOA ORDERED CBCD,KERRY ORDEREDCMP,LIPID, VITD,TSH,FT4,CBC Performed By: #### L 500.4100, L100.0100, L500.4050, L501.9520, L506.0400, L506.1000 ####[facility] [address] [place], [address] Platelet mean volume (Bld) [Entitic vol] 10.4 fL Normal 6.2-12.0 [facility] Comment on above: Order Comment: DR.VE ULLOA ORDERED CBCD,KERRY ORDEREDCMP,LIPID, VITD,TSH,FT4,CBC Performed By: #### L 500.4100, L100.0100, L500.4050, L501.9520, L506.0400, L506.1000 ####[facility] [address] [place], [address] Platelets (Bld) [#/Vol] 318 10*3/uL Normal 150-450 [facility] Comment on above: Order Comment: DR.VE ULLOA ORDERED CBCD,KERRY ORDEREDCMP,LIPID, VITD,TSH,FT4,CBC Performed By: #### L 500.4100, L100.0100, L500.4050, L501.9520, L506.0400, L506.1000 ####[facility] [address] [place], [address] RBC (Bld) [#/Vol] 3.77 10*6/uL Low 4.2-5.4 [facility] Comment on above: Order Comment: DR.VE ULLOA ORDERED CBCD,CMP ORDEREDCMP,LIPID, VITD,TSH,FT4,CBC Performed By: #### L 500.4100, L100.0100, L500.4050, L501.9520, L506.0400, L506.1000 ####[facility] [address] [place], [address] RDW SD 54.8 fl High 35.1-43.9 [facility] Comment on above: Order Comment: DR.VE ULLOA ORDERED CBCD,CMP ORDEREDCMP,LIPID, VITD,TSH,FT4,CBC Performed By: #### L 500.4100, L100.0100, L500.4050, L501.9520, L506.0400, L506.1000 ####[facility] [address] [place], [address] WBC (Bld) [#/Vol] 8.3 10*3/uL Normal 4.4-11.0 [facility] Comment on above: Order Comment: DR.VE ULLOA ORDERED CBCD,KERRY ORDEREDCMP,LIPID, VITD,TSH,FT4,CBC Performed By: #### L 500.4100, L100.0100, L500.4050, L501.9520, L506.0400, L506.1000 ####[facility] [address] [place], [address] Comprehensive Metabolic Prof scon 11-07-2023 Albumin [Mass/Vol] 4.1 g/dL Normal 3.2-5.0 [facility] Comment on above: Order Comment: DR.VE ULLOA ORDERED CBCD,CMP ORDEREDCMP,LIPID, VITD,TSH,FT4,CBC Performed By: #### L 500.4100, L100.0100, L500.4050, L501.9520, L506.0400, L506.1000 ####[facility] [address], [address] Albumin/Globulin [Mass ratio] 1.2 {ratio} Normal 0.9-2.4 [facility] Comment on above: Order Comment: DR.VE ULLOA ORDERED CBCD,CMPDR.SELENE ORDEREDCMP,LIPID, VITD,TSH,FT4,CBC Performed By: #### L 500.4100, L100.0100, L500.4050, L501.9520, L506.0400, L506.1000 ####[facility] [address] [place], [address] ALK P 75 U/L Normal 45-117 [facility] Comment on above: Order Comment: DR.VE ULLOA ORDERED CBCD,CMPDR.SELENE ORDEREDCMP,LIPID, VITD,TSH,FT4,CBC Performed By: #### L 500.4100, L100.0100, L500.4050, L501.9520, L506.0400, L506.1000 ####[facility] [address], [address] ALT [Catalytic activity/Vol] 25 U/L Normal 13-56 [facility] Comment on above: Order Comment: DR.VE ULLOA ORDERED CBCD,CMPDR.SELENE ORDEREDCMP,LIPID, VITD,TSH,FT4,CBC Performed By: #### L 500.4100, L100.0100, L500.4050, L501.9520, L506.0400, L506.1000 ####[facility] [address] [place], [address] AST [Catalytic activity/Vol] 21 U/L Normal 15-37 [facility] Comment on above: Order Comment: DR.VE ULLOA ORDERED CBCD,CMPDR.SELENE ORDEREDCMP,LIPID, VITD,TSH,FT4,CBC Performed By: #### L 500.4100, L100.0100, L500.4050, L501.9520, L506.0400, L506.1000 ####[facility] [address] [place], [address] Bilirubin [Mass/Vol] 0.80 mg/dL Normal 0.20-1.00 [facility] Comment on above: Order Comment: DR.VE ULLOA ORDERED CBCD,KERRY ORDEREDCMP,LIPID, VITD,TSH,FT4,CBC Result Comment: For patients on eltrombopag therapy, use of Dimension [place] TBIL is not recommended. Performed By: #### L 500.4100, L100.0100, L500.4050, L501.9520, L506.0400, L506.1000 ####[facility] [address] [place], [address] BUN/CRE 12.8 RATIO Normal 10-20 [facility] Comment on above: Order Comment: DR.VE ULLOA ORDERED CBCD,KERRY ORDEREDCMP,LIPID, VITD,TSH,FT4,CBC Performed By: #### L 500.4100, L100.0100, L500.4050, L501.9520, L506.0400, L506.1000 ####[facility] [address] [place], [address] CA,Total 9.4 mg/dL Normal 8.5-10.1 [facility] Comment on above: Order Comment: DR.VE ULLOA ORDERED CBCD,KERRY ORDEREDCMP,LIPID, VITD,TSH,FT4,CBC Performed By: #### L 500.4100, L100.0100, L500.4050, L501.9520, L506.0400, L506.1000 ####[facility] [address] [place], [address] Chloride [Moles/Vol] 106 mmol/L Normal 98-107 [facility] Comment on above: Order Comment: DR.VE ULLOA ORDERED CBCD,CMPDR.SELENE ORDEREDCMP,LIPID, VITD,TSH,FT4,CBC Performed By: #### L 500.4100, L100.0100, L500.4050, L501.9520, L506.0400, L506.1000 ####[facility] [address] [place], [address] CO2 [Moles/Vol] 28.0 mmol/L Normal 21.0-32.0 [facility] Comment on above: Order Comment: DR.VE ULLOA ORDERED CBCD,CMPDRVALDO ORDEREDCMP,LIPID, VITD,TSH,FT4,CBC Performed By: #### L 500.4100, L100.0100, L500.4050, L501.9520, L506.0400, L506.1000 ####[facility] [address] [place], [address] Creatinine [Mass/Vol] 0.78 mg/dL Normal 0.55-1.02 [facility] Comment on above: Order Comment: DR.VE ULLOA ORDERED CBCD,KERRY ORDEREDCMP,LIPID, VITD,TSH,FT4,CBC Result Comment: The validity of the calculated GFR GFRAA in patients over 70 years has not been determined. Clinical correlation is essential. Performed By: #### L 500.4100, L100.0100, L500.4050, L501.9520, L506.0400, L506.1000 ####[facility] [address] [place], [address] EST GFR - AA 95 mL/min Normal >60 [facility] Comment on above: Order Comment: DR.VE ULLOA ORDERED CBCD,CMPDRVALDO ORDEREDCMP,LIPID, VITD,TSH,FT4,CBC Result Comment: Afri can [place] GFR Calc Performed By: #### L 500.4100, L100.0100, L500.4050, L501.9520, L506.0400, L506.1000 ####[facility] [address] [place], [address] GAP 6 Normal 5-15 [facility] Comment on above: Order Comment: DR.VE ULLOA ORDERED CBCD,CMPDRVALDO ORDEREDCMP,LIPID, VITD,TSH,FT4,CBC Performed By: #### L 500.4100, L100.0100, L500.4050, L501.9520, L506.0400, L506.1000 ####[facility] [address] [place], [address] GFR/1.73 sq M.predicted among non-blacks MDRD (S/P/Bld) [Vol rate/Area] 79 mL/min/{1.73_m2} Normal >60 [facility] Comment on above: Order Comment: DR.VE ULLOA ORDERED CBCD,KERRY ORDEREDCMP,LIPID, VITD,TSH,FT4,CBC Result Comment: Non- GFR Calc Performed By: #### L 500.4100, L100.0100, L500.4050, L501.9520, L506.0400, L506.1000 ####[facility] [address] [place], [address] Globulin (S) [Mass/Vol] 3.3 g/dL Normal 2.2-4.2 [facility] Comment on above: Order Comment: DR.VE ULLOA ORDERED CBCD,CMPDRVALDO ORDEREDCMP,LIPID, VITD,TSH,FT4,CBC Performed By: #### L 500.4100, L100.0100, L500.4050, L501.9520, L506.0400, L506.1000 ####[facility] [address] [place], [address] Glucose [Mass/Vol] 88 mg/dL Normal 74-106 [facility] Comment on above: Order Comment: DR.VE ULLOA ORDERED CBCD,CMP ORDEREDCMP,LIPID, VITD,TSH,FT4,CBC Performed By: #### L 500.4100, L100.0100, L500.4050, L501.9520, L506.0400, L506.1000 ####[facility] [address] [place], [address] Potassium [Moles/Vol] 4.0 mmol/L Normal 3.5-5.1 [facility] Comment on above: Order Comment: DR.VE ULLOA ORDERED CBCD,CMPDR.SELENE ORDEREDCMP,LIPID, VITD,TSH,FT4,CBC Performed By: #### L 500.4100, L100.0100, L500.4050, L501.9520, L506.0400, L506.1000 ####[facility] [address] [place], [address] Sodium [Moles/Vol] 140 mmol/L Normal 136-145 [facility] Comment on above: Order Comment: DR.VE ULLOA ORDERED CBCD,CMPDR.SELENE ORDEREDCMP,LIPID, VITD,TSH,FT4,CBC Performed By: #### L 500.4100, L100.0100, L500.4050, L501.9520, L506.0400, L506.1000 ####[facility] [address] [place], [address] T PROT 7.4 g/dL Normal 6.4-8.2 [facility] Comment on above: Order Comment: DR.VE ULLOA ORDERED CBCD,CMPDR.SELENE ORDEREDCMP,LIPID, VITD,TSH,FT4,CBC Performed By: #### L 500.4100, L100.0100, L500.4050, L501.9520, L506.0400, L506.1000 ####[facility] [address] [place], [address] Urea nitrogen [Mass/Vol] 10 mg/dL Normal 7-18 [facility] Comment on above: Order Comment: DR.VE ULLOA ORDERED CBCD,CMPDRVALDO ORDEREDCMP,LIPID, VITD,TSH,FT4,CBC Performed By: #### L 500.4100, L100.0100, L500.4050, L501.9520, L506.0400, L506.1000 ####[facility] [address] [place], [address] Lipid Profileon 11-07-2023 Cholesterol [Mass/Vol] 169 mg/dL Normal 200 [facility] Comment on above: Order Comment: DR.VE ULLOA ORDERED CBCD,CMPDRVALDO ORDEREDCMP,LIPID, VITD,TSH,FT4,CBC Result Comment: <200 mg/dL Desirable 200-240 mg/dL Borderline >240 mg/dL High Risk Performed By: #### L 500.4100, L100.0100, L500.4050, L501.9520, L506.0400, L506.1000 ####[facility] [address] [place], [address] Cholesterol in HDL [Mass/Vol] 87 mg/dL Normal [facility] Comment on above: Order Comment: DR.VE ULLOA ORDERED CBCD,KERRY ORDEREDCMP,LIPID, VITD,TSH,FT4,CBC Result Comment: The drugs N-Acetylcysteine and Metamizole may falsely depress this assay. Reference Range HDL <40 mg/dL Low HDL Cholesterol HDL >or= 60 mg/dL High HDL Cholesterol Performed By: #### L 500.4100, L100.0100, L500.4050, L501.9520, L506.0400, L506.1000 ####[facility] [address] [place], [address] Cholesterol in LDL [Mass/Vol] 70 mg/dL Normal 0-130 [facility] Comment on above: Order Comment: DR.VE ULLOA ORDERED CBCD,KERRY ORDEREDCMP,LIPID, VITD,TSH,FT4,CBC Performed By: #### L 500.4100, L100.0100, L500.4050, L501.9520, L506.0400, L506.1000 ####[facility] [address] [place], [place], [phone] Cholesterol in VLDL [Mass/Vol] 12 mg/dL Normal 5-40 [facility] Comment on above: Order Comment: DR.VE ULLOA ORDERED CBCD,CMPDR.SELENE ORDEREDCMP,LIPID, VITD,TSH,FT4,CBC Performed By: #### L 500.4100, L100.0100, L500.4050, L501.9520, L506.0400, L506.1000 ####[facility] [address] [place], [place], [phone] Triglyceride [Mass/Vol] 60 mg/dL Normal [facility] Comment on above: Order Comment: DR.VE ULLOA ORDERED CBCD,CMPDR.SELENE ORDEREDCMP,LIPID, VITD,TSH,FT4,CBC Result Comment: The drugs N-Acetylcysteine and Metamizole may falsely depress this assay. Serum Triglycerides Reference Interval Normal <150 mg/dL Borderline high 150 - 199 mg/dL High 200 - 499 mg/dL Very High > or = 500 mg/dL Performed By: #### L 500.4100, L100.0100, L500.4050, L501.9520, L506.0400, L506.1000 ####[facility] [address] [facility] [address] [place], [place], [address] Pulmonary Visit Reporton Pulmonary Visit Report [facility] [place] [address] [place], [place] [address] OFFICE VISIT Date of Service: 11/07/23 MR#: [id number] Acct: [id number] Name: AMY NOVOA Rep #: [id number] : 1960 Provider: LEE Morrwo Age/Sex: 63/F [place] [facility] [place] Status: Signed Assessment and Plan Assessment and Plan (1) Stage 4 very severe COPD by GOLD classification: Status: Chronic Plan: Deteriorated. I do not believe she is in an exacerbation of COPD today. No need for prednisone or antibiotic, however escalating therapy. Stop Anoro, start Trelegy. She was provided with 2-week sample of Trelegy. She was instructed to rinse her mouth out after each use. Contact the office for any new or worsening symptoms. An acute visit and typically be arranged within 1-2 days. Follow-up in 6 months. She has been encouraged to contact the office with any difficulties with the new inhaler. She conveys understanding and is agreeable with this plan. (2) Chronic hypoxemic respiratory failure: Status: Chronic Plan: The patient is using and benefiting from oxygen. Continue to utilize to maintain a saturation of 89-92%. Follow-up in 6 months. (3) Methotrexate, superintendent container terminal, current use: Status: Chronic Plan: Complicates exam, plan, care and prognosis. Medications: New mfswgbqexaj-sspfqqloz-pm lanter 200-62.5-25 mcg (Trelegy Ellipta) 1 inh inhalation DAILY 60 ea 6RF Discontinued umeclidinium-vilanterol 62.5-25 mcg/actuation (Anoro Ellipta) Discontinued Reason: Order Changed 1 inh inhalation Q24H 60 ea 11RF J44.9 - Chronic obstructive pulmonary disease, unspecified Plan Details Follow Up: 6 Months ([facility]) HPI 3 M FU Chief Complaint: routine follow up HPI Comments Details: This patient presents to the office today for follow-up of her stage IV COPD complicated by chronic hypoxic respiratory failure, rheumatoid arthritis and long-term use of methotrexate. She is ambulatory. She has not recently been seen in the ED or urgent care for any respiratory illness. She has not required any antibiotics or prednisone for any breathing problems. She continues to experience shortness of breath on exertion, however it has improved. She reports that she joined [employer] and is walking 5 miles per day. She goes to the gym 3 times per week to walk on the treadmill. She denies any cough, sputum production or hemoptysis. She has occasional wheezing but denies any chest tightness, chest pain or palpitations. She has not had any fever, chills or body aches. She does utilize supplemental oxygen. At times she does require up to 4 L/min. She is compliant with the use of Anoro 1 puff daily. She is utilizing albuterol at least daily. She does find it to be helpful in reducing shortness of breath. She maintains complete smoking cessation. If you recall, she quit smoking 30 years ago. Intake Vital Signs 04/17/23 08:51 11/07/23 09:44 Height 5 ft 3 in 5 ft 3 in Weight: 141 lb BMI 25.0 BP 128/81 H Blood Pressure Location Lt brachial Position Sitting Respiration 18 Pulse 86 Pulse Source Monitor Temp 97.4 F L Temperature Source Temporal Artery Pulse Oximetry (%) 99 Oxygen Delivery Method room air Intake Visit Reasons: 3 M FU Chief Complaint: 6mo f/u Pearl Hand Required: No DME Vendor: [employer] Accompanied by: Self Is patient in pain?: No Allergies No Known Allergies Allergy (Verified 11/07/23 14:11) Medications ???Medication ???Instructions ???Recorded ???Confirmed ???Type calcium carbonate 1,200 mg PO DAILY 03/14/17 11/07/23 History folic acid 1 mg tablet 2 mg PO DAILY@0800 03/14/17 11/07/23 History levothyroxine 112 mcg tablet 112 mcg PO DAILY 03/14/17 11/07/23 History magnesium 250 mg tablet 250 mg PO DAILY 03/14/17 11/07/23 History naproxen sodium 220 mg tablet 220 mg PO Q12H PRN PRN Pain 03/14/17 11/07/23 History albuterol sulfate 90 mcg/actuation 2 puff inhalation Q4H PRN 03/01/21 11/07/23 Rx aerosol inhaler shortness of breath or wheezing #8.5 grams certolizumab pegol 400 mg/2 mL 200 mg subcut Q2W 12/08/21 11/07/23 History (200 mg/mL x2) subcutaneous syringe kit (Cimzia) amlodipine 10 mg tablet 10 mg PO DAILY 04/17/23 11/07/23 History fluticasone fur. 200 mcg-umeclid 1 inh inhalation DAILY #60 ea 11/07/23 11/07/23 Rx 62.5 mcg-vilant 25 mcg inhalat.powder (Trelegy Ellipta) Have you fallen in the past year?: No PFSH Medical History Skin cancer COPD (chronic obstructive pulmonary disease) Abnormal PFT Shortness of breath Mitral valve regurgitation Chronic constipation Chronic fatigue Psoriasis Cardiovascular disease Raynauds syndrome Hypertension Pulmonary hypertension Seas (more content not included)... Normal [facility] T4 Free Directon 11-07-2023 T4 FREE DIRECT 1.40 ng/dL Normal 0.76-1.46 [facility] Comment on above: Order Comment: DR.VE ULLOA ORDERED CBCD,CMP ORDEREDCMP,LIPID, VITD,TSH,FT4,CBC Performed By: #### L 500.4100, L100.0100, L500.4050, L501.9520, L506.0400, L506.1000 ####[facility] [address] [place], [address] Thyroid Stim Hormone (TSH)on 11-07-2023 TSH 1.730 uIU/mL Normal 0.358-3.740 [facility] Comment on above: Order Comment: DR.VE ULLOA ORDERED CBCD,CMP ORDEREDCMP,LIPID, VITD,TSH,FT4,CBC Performed By: #### L 500.4100, L100.0100, L500.4050, L501.9520, L506.0400, L506.1000 ####[facility] [address] [place], [address] Vitamin D,25 Hydroxyon 11-06 Vitamin D 25-OH 37.9 ng/mL Normal [facility] Comment on above: Order Comment: DR.VE ULLOA ORDERED CBCD,CMP ORDEREDCMP,LIPID, VITD,TSH,FT4,CBC Result Comment: Elaina min D 25(OH) Status Range Deficiency <20 ng/mL (50nmol/L) Insufficiency 20 - 30 ng/mL (50 - 75 nmol/L) Sufficiency 30 - 100 ng/mL (75 - 250 nmol/L) Toxicity >100 ng/mL (>250 nmol/L) Performed By: #### L 500.4100, L100.0100, L500.4050, L501.9520, L506.0400, L506.1000 ####[facility] [address] [place], [place], [address] MA MAMMOGRAM SCREENING BILAT ERAL W/TOMOon 11-05-2023 MA MAMMOGRAM SCREENING BILATERAL W/LILA ORIGINAL FROM: [facility] [address] [place], [place] [address] PROCEDURE FOR: AMY NOVOA [address] [place] [address] Home: PID#: [id number] Exam#: [id number] : 1960 Age: 63 TO: LUIS ENRIQUE BROWN MD [place] [id number] [address] EXAMINATION: SCREENING DIGITAL BILATERAL MAMMOGRAM WITH TOMOSYNTHESIS, 11/05/2023 1:06 pm TECHNIQUE: Screening mammography of the bilateral breasts was performed with tomosynthesis. 2D standard and 3D tomosynthesis combination imaging performed through both breasts in the MLO and CC projection. Computer aided detection was utilized in the interpretation of this exam. COMPARISON: 10/01/2022, 09/15/2021 HISTORY: Breast cancer screening. FINDINGS: BREAST DENSITY: There are scattered areas of fibroglandular density. There are no significant masses or calcifications. IMPRESSION: No mammographic evidence of malignancy. Continued screening with annual mammograms is recommended. Carlita Stauffer risk calculations, generated with the history provided, report this patient's 10 year risk and lifetime risk for developing breast cancer at 2.2% and 4.9%, respectively. Based on this assessment tool, if the patient's calculated lifetime risk is below 20%, then the patient is considered at average risk for developing breast cancer. If the patient's calculated lifetime risk is at or above 20%, then the patient is considered high risk for developing breast cancer and may be a candidate for supplemental breast MRI screening in addition to annual mammographic screening per the [employer]. BIRADS: BI-RADS: 1: Negative RECALL: 1 year screening RECALL TYPE: mammo LETTER SENT: Normal BI-RADS 1 and 2 Interpreted by: Matt Robles MD Preliminary Report By: Matt Robles MD Electronically signed By Matt Robles MD Dictated Date: 11/05/2023 8:56:12 PM Prelim Date: 11/05/2023 9:00:43 PM Sign Date: 11/05/2023 9:00:43 PM Ordering Provider: LUIS ENRIQUE BROWN copy to: LAMINE MORTON APRN, CNP, ph: [phone], fax: NO FAX Physician'S Aide: ADIN MELARA (R)(M) letter sent: Normal BI-RADS 1 and 2 Mammogram BI-RADS: 1 Negative Normal [facility] ([place]) CNOVon 09-24-2023 CNOV Office Visit (GENSWS ) -------- AMY NOVOA ([id number]) 1960 F Date Time Provider Department 09/24/23 1:00 PM REGINA PARADA During your visit today, we recorded the following information about you: Temperature Pulse Blood pressure Weight 97 degrees 99/minute 124/76 65.1 kg Height 1.6 m Regina Parada APRN.CNP 09/24/2023 1:50 PM Signed HISTORY AND PHYSICAL Amy Gurwinder Novoa : 1960 REFERRING PHYSICIAN: No referring provider defined for this encounter. CHIEF COMPLAINT: Patient presents with: Consult: Colonoscopy consult. HPI: Amy is a 63 year old female referred for endoscopy. Amy notes due for screening colonoscopy. Patient denies any change in bowel habits, weight changes, blood in stools, black tarry stools or abdominal pain. Denies family history of colon issues. Amy notes dysphagia with water. She refers this has been an on going problem her whole life. Open to the idea of upper scope Amy has a history of Stage 4 COPD, she wears 4L home 02 as needed. Amy states she rarely uses her oxygen and when she does it is after activity like walking up stairs. She follows with [facility]- last appt was 03/2023. Pulse ox on RA today was 98%. Denies recent hospitalizations, current SOB, cough, fever Amy has undergone prior endoscopy. Refers it was with Dr. Celaya over 10 years ago at [facility]. She refers he took polyps, unsure of which kind and how many. Current Outpatient Medications Medication Sig calcium carbonate (SUPER CALCIUM) 600 mg calcium (1,500 mg) tab Take 600 mg by mouth once daily. folic acid 1 mg tablet Take 2 mg by mouth once daily. Magnesium 250 mg tab Take 250 mg by mouth once daily. naproxen sodium 220 mg cap Take 220 mg by mouth two times a day as needed (pain). albuterol HFA 90 mcg/actuation HFA Inhale 2 Puffs as instructed every 4 hours as needed (shortness of breath or wheezing). certolizumab pegol (CIMZIA) 400 mg/2 mL (200 mg/mL x 2) sub-q syringe kit Inject 400 mg subcutaneously every 2 weeks. amLODIPine (NORVASC) 10 mg tablet Take 10 mg by mouth once daily. umeclidinium-vilanterol (ANORO ELLIPTA) 62.5-25 mcg/actuation inhaler Inhale 1 Puff as instructed once daily. Methotrexate Sodium 2.5 mg tablet Take 7.5 mg by mouth once each week. Patient states she takes 6 tablets once a week. levothyroxine (SYNTHROID) 112 mcg tablet Take 112 mcg by mouth once daily. montelukast (SINGULAIR) 10 mg tablet Take 1 tablet by mouth daily at bedtime. Take one(1) tablet daily azelastine (ASTELIN) 0.1% nasal spray Use 2 Sprays in each nostril twice daily. zolpidem (AMBIEN) 10 mg ORAL Tab Take 10 mg by mouth at bedtime as needed. ranolazine ER (RANEXA) 500 mg ORAL 12 hr tablet Take 500 mg by mouth twice daily. No current facility-administered medications for this visit. ALLERGIES: Patient has no known allergies. PAST MEDICAL HISTORY Diagnosis Date Abnormal PFT Cardiovascular disease Chronic constipation Chronic fatigue COPD (chronic obstructive pulmonary disease) (HCC) Hypertension Hypothyroidism Mitral valve regurgitation Psoriasis Pulmonary hypertension (HCC) Raynaud disease 03/18/1977 Rheumatoid arthritis, adult ([facility]) 03/18/1998 Seasonal allergies Shortness of breath Skin cancer PAST SURGICAL HISTORY Procedure Laterality Date COLONOSCOPY as of 2023-greater than 10 years, [address] Celaya at [facility] LIGATE FALLOPIAN TUBE ROTATOR CUFF REPAIR SINUS SURGERY PROCEDURE FAMILY HISTORY Problem Relation Age of Onset Thyroid Mother COPD Father Diabetes Father Heart disease Father Hypertension Father Thyroid Sister Social History Tobacco Use Smoking status: Former Packs/day: 1.50 Years: 30.00 Additional pack years: 0.00 Total pack years: 45.00 Types: Cigarettes Quit date: 05/25/2007 Years since quittin.3 Smokeless tobacco: Never Substance Use Topics Alcohol use: Yes Alcohol/week: 3.0 standard drinks of alcohol Types: 3 Glasses of Wine (5oz) per week Comment: Social drinker Drug use: No REVIEW OF SYMPTOMS: The review of systems data was entered by the nurse and reviewed by sc Nursing Notes: Love Goodman RN 09/24/2023 1:16 PM Signed REVIEW OF SYSTEMS: General: The patient denies fatigue, denies weight loss, denies weight gain, denies feeling hot, and denies feelings of cold. Eyes: The patient denies glaucoma, denies eye injury/surgery, wears glasses or contacts. Ear/Nose/Throat: The patient denies allergies, NOTES hayfever, denies ear infections, and denies bloody noses. Cardiovascular: The patient denies chest pain, NOTES heart disease, NOTES high blood pressure,denies cardiac stent, denies prior heart attack, denies irregular heart beat, denies high cholesterol, denies poor circulation, denies heart failure, other c (more content not included)... Normal [facility] CBC W/Diff, Automatedon 06-0 Absolute Lymph 1.88 X10 3/uL Normal 0.83-4.51 [facility] Comment on above: Performed By: #### L 500.4050, L100.0100 ####[facility] [address] [place], [address] Absolute Neut 2.8 X10 3/uL Normal 2.0-7.7 [facility] Comment on above: Performed By: #### L 500.4050, L100.0100 ####[facility] [address] [place], [address] Basophils/100 WBC (Bld) 1.1 % High 0-1 [facility] Comment on above: Performed By: #### L 500.4050, L100.0100 ####[facility] [address] [place], [address] Eosinophils/100 WBC (Bld) 1.8 % Normal 0-5 [facility] Comment on above: Performed By: #### L 500.4050, L100.0100 ####[facility] [address] [place], [address] Erythrocyte distribution width (RBC) [Ratio] 13.9 % Normal 11.6-14.6 [facility] Comment on above: Performed By: #### L 500.4050, L100.0100 ####[facility] [address] [place], [address] Hematocrit (Bld) [Volume fraction] 40.0 % Normal 37-47 [facility] Comment on above: Performed By: #### L 500.4050, L100.0100 ####[facility] [address] [place], [address] Hemoglobin (Bld) [Mass/Vol] 12.9 g/dL Normal 12.0-15.0 [facility] Comment on above: Performed By: #### L 500.4050, L100.0100 ####[facility] [address] [place], [address] IG% 0.200 Normal 0.0-0.9 [facility] Comment on above: Result Comment: IG% - Immature Granulocytes (promyelocytes, myelocytes and metamyelocytes) > 1% indicates that a LEFT SHIFT is Present. Performed By: #### L 500.4050, L100.0100 ####[facility] [address] [place], [address] Lymphocytes/100 WBC (Bld) 33.5 % Normal 19-41 [facility] Comment on above: Performed By: #### L 500.4050, L100.0100 ####[facility] [address] [place], [address] MCH (RBC) [Entitic mass] 33.1 pg High 27.0-32.0 [facility] Comment on above: Performed By: #### L 500.4050, L100.0100 ####[facility] [address] [place], [address] MCHC (RBC) [Mass/Vol] 32.3 g/dL Normal 32-36 [facility] Comment on above: Performed By: #### L 500.4050, L100.0100 ####[facility] [address] [place], [address] MCV (RBC) [Entitic vol] 102.6 fL High 81-99 [facility] Comment on above: Performed By: #### L 500.4050, L100.0100 ####[facility] [address] [place], [address] Monocytes/100 WBC (Bld) 13.2 % High 0-10 [facility] Comment on above: Performed By: #### L 500.4050, L100.0100 ####[facility] [address] [place], [address] Neutrophils/100 WBC (Bld) 50.2 % Normal 47-70 [facility] Comment on above: Performed By: #### L 500.4050, L100.0100 ####[facility] [address] [place], [address] Nucleated RBC (Bld) [#/Vol] 0 10*3/uL Normal 0-5 [facility] Comment on above: Performed By: #### L 500.4050, L100.0100 ####[facility] [address] [place], [address] Platelet mean volume (Bld) [Entitic vol] 10.3 fL Normal 6.2-12.0 [facility] Comment on above: Performed By: #### L 500.4050, L100.0100 ####[facility] [address] [place], [address] Platelets (Bld) [#/Vol] 269 10*3/uL Normal 150-450 [facility] Comment on above: Performed By: #### L 500.4050, L100.0100 ####[facility] [address] [place], [address] RBC (Bld) [#/Vol] 3.90 10*6/uL Low 4.2-5.4 [facility] Comment on above: Performed By: #### L 500.4050, L100.0100 ####[facility] [address] [place], [address] RDW SD 52.6 fl High 35.1-43.9 [facility] Comment on above: Performed By: #### L 500.4050, L100.0100 ####[facility] [address] [place], [address] WBC (Bld) [#/Vol] 5.6 10*3/uL Normal 4.4-11.0 [facility] Comment on above: Performed By: #### L 500.4050, L100.0100 ####[facility] [address] [place], [address] Comprehensive Metabolic Prof ilon 08-19-2023 Albumin [Mass/Vol] 3.8 g/dL Normal 3.2-5.0 [facility] Comment on above: Performed By: #### L [id number], L100.0100 ####[facility] [address] [place], [address] Albumin/Globulin [Mass ratio] 1.2 {ratio} Normal 0.9-2.4 [facility] Comment on above: Performed By: #### L [id number], L100.0100 ####[facility] [address] [place], [address] ALK P 67 U/L Normal 45-117 [facility] Comment on above: Performed By: #### L [id number], L100.0100 ####[facility] [address] [place], [address] ALT [Catalytic activity/Vol] 29 U/L Normal 13-56 [facility] Comment on above: Performed By: #### L [id number], L100.0100 ####[facility] [address] [place], [address] AST [Catalytic activity/Vol] 29 U/L Normal 15-37 [facility] Comment on above: Performed By: #### L [id number], L100.0100 ####[facility] [address] [place], [address] Bilirubin [Mass/Vol] 0.50 mg/dL Normal 0.20-1.00 [facility] Comment on above: Result Comment: For patients on eltrombopag therapy, use of Dimension [place] TBIL is not recommended. Performed By: #### L [id number], L100.0100 ####[facility] [address] [place], [address] BUN/CRE 17.9 RATIO Normal 10-20 [facility] Comment on above: Performed By: #### L [id number], L100.0100 ####[facility] [address] [place], [address] CA,Total 8.9 mg/dL Normal 8.5-10.1 [facility] Comment on above: Performed By: #### L [id number], L100.0100 ####[facility] [address] [place], [address] Chloride [Moles/Vol] 107 mmol/L Normal 98-107 [facility] Comment on above: Performed By: #### L [id number], L100.0100 ####[facility] [address] [place], [address] CO2 [Moles/Vol] 28.0 mmol/L Normal 21.0-32.0 [facility] Comment on above: Performed By: #### L [id number], L100.0100 ####[facility] [address] [place], [address] Creatinine [Mass/Vol] 0.84 mg/dL Normal 0.55-1.02 [facility] Comment on above: Result Comment: The validity of the calculated GFR GFRAA in patients over 70 years has not been determined. Clinical correlation is essential. Performed By: #### L [id number], L100.0100 ####[facility] [address] [place], [address] EST GFR - AA 88 mL/min Normal >60 [facility] Comment on above: Result Comment: Afri can Hungarian GFR Calc Performed By: #### L [id number], L100.0100 ####[facility] [address] [place], [address] GAP 4 Low 5-15 [facility] Comment on above: Performed By: #### L [id number], L100.0100 ####[facility] [address] [place], [address] GFR/1.73 sq M.predicted among non-blacks MDRD (S/P/Bld) [Vol rate/Area] 73 mL/min/{1.73_m2} Normal >60 [facility] Comment on above: Result Comment: Non- GFR Calc Performed By: #### L [id number], L100.0100 ####[facility] [address] [place], [address] Globulin (S) [Mass/Vol] 3.2 g/dL Normal 2.2-4.2 [facility] Comment on above: Performed By: #### L [id number], L100.0100 ####[facility] [address] [place], [address] Glucose [Mass/Vol] 84 mg/dL Normal 74-106 [facility] Comment on above: Performed By: #### L [id number], L100.0100 ####[facility] [address] [place], [address] Potassium [Moles/Vol] 4.1 mmol/L Normal 3.5-5.1 [facility] Comment on above: Performed By: #### L [id number], L100.0100 ####[facility] [address] [place], [address] Sodium [Moles/Vol] 139 mmol/L Normal 136-145 [facility] Comment on above: Performed By: #### L [id number], L100.0100 ####[facility] [address] [place], [address] T PROT 7.0 g/dL Normal 6.4-8.2 [facility] Comment on above: Performed By: #### L [id number], L100.0100 ####[facility] [address] [place], [address] Urea nitrogen [Mass/Vol] 15 mg/dL Normal 7-18 [facility] Comment on above: Performed By: #### L [id number], L100.0100 ####[facility] [address] [place], [address] Absolute lymphocyte countOrd ered By: Isa Price on 05-15-2023 Lymphocytes Auto (Unsp spec) [#/Vol] 1.63 10*3/uL 0.83-4.51 [facility] Automated lymphocyte count a s percentage of total leukocytesOrdered By: Isa Price on 05-15-2023 Lymphocytes/100 WBC Auto (Unsp spec) 26.9 % 19-41 [facility] Basophil percentageOrdered B y: Isa Price on 05-15-2023 Basophils/100 WBC (Bld) 0.7 % 0-1 [facility] Bilirubin [Mass/Vol] 0.70 mg/dL 0.20-1.00 [facility] Comment on above: For patients on eltr ombopag therapy, use of Dimension [place] TBIL is not recommended. Chloride [Moles/Vol] 106 mmol/L 98-107 [facility] Cholesterol [Mass/Vol] 197 mg/dL <200 [facility] Comment on above: <200 mg/dL Desirable 200-240 mg/dL Borderline >240 mg/dL High Risk Eosinophils/100 WBC (Bld) 1.3 % 0-5 [facility] Glucose [Mass/Vol] 86 mg/dL 74-106 [facility] Hemoglobin (Bld) [Mass/Vol] 13.0 g/dL 12.0-15.0 [facility] Monocytes/100 WBC (Bld) 19.1 % 0-10 [facility] Neutrophils (Bld) [#/Vol] 3.1 10*3/uL 2.0-7.7 [facility] Neutrophils/100 WBC (Bld) 51.8 % 47-70 [facility] Potassium [Moles/Vol] 4.1 mmol/L 3.5-5.1 [facility] Protein [Mass/Vol] 7.4 g/dL 6.4-8.2 [facility] Sodium [Moles/Vol] 139 mmol/L 136-145 [facility] Triglyceride [Mass/Vol] 55 mg/dL <199 [facility] Comment on above: The drugs N-Acetylcy steine and Metamizole may falsely depress this assay.Serum Triglycerides Reference Interval Normal <150 mg/dL Borderline high 150 - 199 mg/dL High 200 - 499 mg/dL Very High > or = 500 mg/dL WBC (Bld) [#/Vol] 6.1 10*3/uL 4.4-11.0 [facility] Determination of erythrocyte mean corpuscular volume (MCV)Ordered By: Isa Price on 05-15-2023 MCV (RBC) [Entitic vol] 101.3 fL 81-99 [facility] Erythrocyte distribution wid th ratioOrdered By: [facility] Dee on 05-15-2023 Erythrocyte distribution width (RBC) [Ratio] 13.9 % 11.6-14.6 [facility] Erythrocyte distribution wid th standard deviationOrdered By: [facility]ose[facility] on 05-15-2023 Erythrocyte distribution width (RBC) [Entitic vol] 51.5 fL 35.1-43.9 [facility] Hematocrit Auto (Bld) [Volum e fraction]Ordered By: Isaaleyda Price on 05-15-2023 Hematocrit (Bld) [Volume fraction] 39.2 % 37-47 [facility] Immature granulocytes/100 WB C Auto (Bld)Ordered By: Isaaleyda Price on 05-15-2023 Immature granulocytes/100 WBC (Bld) 0.200 % 0.0-0.9 [facility] Comment on above: IG% - Immature Granu locytes (promyelocytes, myelocytes and metamyelocytes) > 1% indicates that a LEFT SHIFT is Present. Laboratory - Chemistry and C hemistry - challengeOrdered By: [facility] Dee on 05-15-2023 Albumin/Globulin [Mass ratio] 1.2 {ratio} 0.9-2.4 [facility] ALP [Catalytic activity/Vol] 74 U/L 45-117 [facility] ALT [Catalytic activity/Vol] 25 U/L 13-56 [facility] Cholesterol in HDL [Mass/Vol] 97 mg/dL >40 [facility] Comment on above: The drugs N-Acetylcy steine and Metamizole may falsely depress this assay. Reference Range HDL <40 mg/dL Low HDL Cholesterol HDL >or= 60 mg/dL High HDL Cholesterol Cholesterol in LDL [Mass/Vol] 89 mg/dL 0-130 [facility] CO2 [Moles/Vol] 27.0 mmol/L 21.0-32.0 [facility] Globulin (S) [Mass/Vol] 3.4 g/dL 2.2-4.2 [facility] Magnesium [Mass/Vol] 2.2 mg/dL 1.6-2.6 [facility] Urea nitrogen/Creatinine [Mass ratio] 17.7 mg/mg 10-20 [facility] Laboratory - Hematology and Cell countsOrdered By: Isa Price on 05-15-2023 MCH (RBC) [Entitic mass] 33.6 pg 27.0-32.0 [facility] MCHC (RBC) [Mass/Vol] 33.2 g/dL 32-36 [facility] Nucleated RBC/100 WBC (Bld) [Ratio] 0 % 0-5 [facility] Platelet mean volume (Bld) [Entitic vol] 10.6 fL 6.2-12.0 [facility] Platelets (Bld) [#/Vol] 286 10*3/uL 150-450 [facility] No Panel InformationOrdered By: Isa Price on 05-15-2023 Estimated GFR (MDRD) Amer 87 mL/min >60 [facility] Comment on above: GFR Calc Estimated GFR (MDRD) Non-Af Amer 72 mL/min >60 [facility] Comment on above: Non- GFR Calc Urine Microalbumin/Creatinin e Ratio 14.5 mg/g CRE <30 [facility] Vitamin D 25-Hydroxy 33.7 ng/mL [facility] Comment on above: Vitamin D 25(OH) Sta tus Range Deficiency <20 ng/mL (50nmol/L) Insufficiency 20 - 30 ng/mL (50 - 75 nmol/L) Sufficiency 30 - 100 ng/mL (75 - 250 nmol/L) Toxicity >100 ng/mL (>250 nmol/L) VLDL Cholesterol 11 mg/dL 5-40 [facility] RBC Auto (Bld) [#/Vol]Ordere d By: Isa Price on 05-15-2023 RBC (Bld) [#/Vol] 3.87 10*6/uL 4.2-5.4 [facility] [place] Serum or plasma calcium ananya urement (mass/volume)Ordered By: Isa Price on 05-15-2023 Calcium [Mass/Vol] 9.3 mg/dL 8.5-10.1 [facility] Serum or plasma creatinine m easurement (mass/volume)Ordered By: Isa Price on 05-15-2023 Creatinine [Mass/Vol] 0.85 mg/dL 0.55-1.02 [facility] Comment on above: The validity of the calculated GFR & GFRAA in patients over 70 years has not been determined. Clinical correlation is essential. Serum or plasma thyroid stim ulating hormone (TSH) measurement (units/volume)Ordered By: Isa Price on 05-15-2023 TSH Qn 0.26 uIU/mL 0.358-3.74 [facility] Serum or plasma urea nitroge n measurement (mass/volume)Ordered By: Isa Price on 05-15-2023 Urea nitrogen [Mass/Vol] 15 mg/dL 7-18 [facility] Thin prep Papanicolaou smear with manual screeningOrdered By: Isa Price on 05-15-2023 Thin prep Papanicolaou smear with manual screening 4.0 g/dL 3.2-5.0 [facility] Thin prep Papanicolaou smear with manual screening 22 U/L 15-37 [facility] Thin prep Papanicolaou smear with manual screening 6 5-15 [facility] Thin prep Papanicolaou smear with manual screening 7.8 mg/L NO RANGE EST. [facility] Thin prep Papanicolaou smear with manual screening 1.57 ng/dL 0.76-1.46 [facility] Urine creatinine measurement (mass/volume)Ordered By: Isa Price on 05-15-2023 Creatinine (U) [Mass/Vol] 54.00 mg/dL NO RANGE EST. [facility] Absolute lymphocyte countOrd ered By: Isa Price on 02-18-2023 Lymphocytes Auto (Unsp spec) [#/Vol] 1.74 10*3/uL 0.83-4.51 [facility] Basophil percentageOrdered B y: Isa Price on 02-18-2023 Basophils/100 WBC (Bld) 1.0 % 0-1 [facility] Bilirubin [Mass/Vol] 0.80 mg/dL 0.20-1.00 [facility] Comment on above: For patients on eltr ombopag therapy, use of Dimension [place] TBIL is not recommended. Chloride [Moles/Vol] 104 mmol/L 98-107 [facility] Eosinophils/100 WBC (Bld) 1.8 % 0-5 [facility] Glucose [Mass/Vol] 98 mg/dL 74-106 [facility] Neutrophils (Bld) [#/Vol] 4.7 10*3/uL 2.0-7.7 [facility] Neutrophils/100 WBC (Bld) 60.6 % 47-70 [facility] Potassium [Moles/Vol] 4.0 mmol/L 3.5-5.1 [facility] Protein [Mass/Vol] 7.2 g/dL 6.4-8.2 [facility] Sodium [Moles/Vol] 139 mmol/L 136-145 [facility] WBC (Bld) [#/Vol] 7.7 10*3/uL 4.4-11.0 [facility] Blood erythrocytes count (nu mber/volume)Ordered By: Isa Price on 02-18-2023 RBC (Bld) [#/Vol] 3.89 10*6/uL 4.2-5.4 [facility] [place] Blood hemoglobin measurement (mass/volume)Ordered By: Isa Price on 02-18-2023 Hemoglobin (Bld) [Mass/Vol] 12.9 g/dL 12.0-15.0 [facility] Blood lymphocytes/100 leukoc ytesOrdered By: Isa Price on 02-18-2023 Lymphocytes/100 WBC (Bld) 22.6 % 19-41 [facility] Blood monocytes/100 leukocyt esOrdered By: Isa Price on 02-18-2023 Monocytes/100 WBC (Bld) 13.6 % 0-10 [facility] Blood platelet mean volumeOr dered By: Isa Price on 02-18-2023 Platelet mean volume (Bld) [Entitic vol] 10.7 fL 6.2-12.0 [facility] Determination of erythrocyte mean corpuscular volume (MCV)Ordered By: Isa Price on 02-18-2023 MCV (RBC) [Entitic vol] 103.1 fL 81-99 [facility] Hematocrit Auto (Bld) [Volum e fraction]Ordered By: Isa Price on 02-18-2023 Hematocrit (Bld) [Volume fraction] 40.1 % 37-47 [facility] Laboratory - Chemistry and C hemistry - challengeOrdered By: Isaaleyda Price on 02-18-2023 ALP [Catalytic activity/Vol] 76 U/L 45-117 [facility] ALT [Catalytic activity/Vol] 24 U/L 13-56 [facility] CO2 [Moles/Vol] 28.0 mmol/L 21.0-32.0 [facility] Globulin (S) [Mass/Vol] 3.3 g/dL 2.2-4.2 [facility] Urea nitrogen/Creatinine [Mass ratio] 14.5 mg/mg 10-20 [facility] Laboratory - Hematology and Cell countsOrdered By: Isa Price on 02-18-2023 Erythrocyte distribution width (RBC) [Entitic vol] 53.3 fL 35.1-43.9 [facility] Erythrocyte distribution width (RBC) [Ratio] 14.0 % 11.6-14.6 [facility] Immature granulocytes/100 WBC (Bld) 0.400 % 0.0-0.9 [facility] Comment on above: IG% - Immature Granu locytes (promyelocytes, myelocytes and metamyelocytes) > 1% indicates that a LEFT SHIFT is Present. MCH (RBC) [Entitic mass] 33.2 pg 27.0-32.0 [facility] Nucleated RBC/100 WBC (Bld) [Ratio] 0 % 0-5 [facility] MCHC Auto (RBC) [Mass/Vol]Or dered By: Isa Price on 02-18-2023 MCHC (RBC) [Mass/Vol] 32.2 g/dL 32-36 [facility] No Panel InformationOrdered By: Isa Price on 02-18-2023 Estimated GFR (MDRD) Amer 82 mL/min >60 [facility] Comment on above: GFR Calc Estimated GFR (MDRD) Non-Af Amer 68 mL/min >60 [facility] Comment on above: Non- GFR Calc Platelets bldOrdered By: Timur Price on 02-18-2023 Platelets (Bld) [#/Vol] 283 10*3/uL 150-450 [facility] Serum or plasma albumin ananya urement (mass/volume)Ordered By: Isa Price on 02-18-2023 Albumin [Mass/Vol] 3.9 g/dL 3.2-5.0 [facility] Serum or plasma albumin/glob ulin mass ratioOrdered By: Isa Price on 02-18-2023 Albumin/Globulin [Mass ratio] 1.2 {ratio} 0.9-2.4 [facility] Serum or plasma calcium ananya urement (mass/volume)Ordered By: Isa Price on 02-18-2023 Calcium [Mass/Vol] 8.7 mg/dL 8.5-10.1 [facility] Serum or plasma creatinine m easurement (mass/volume)Ordered By: Isa Price on 02-18-2023 Creatinine [Mass/Vol] 0.90 mg/dL 0.55-1.02 [facility] Comment on above: The validity of the calculated GFR & GFRAA in patients over 70 years has not been determined. Clinical correlation is essential. Serum or plasma urea nitroge n measurement (mass/volume)Ordered By: Isa Price on 02-18-2023 Urea nitrogen [Mass/Vol] 13 mg/dL 7-18 [facility] Thin prep Papanicolaou smear with manual screeningOrdered By: Isa Price on 02-18-2023 Thin prep Papanicolaou smear with manual screening 19 U/L 15-37 [facility] Thin prep Papanicolaou smear with manual screening 7 5-15 [facility] [employer] Cyt[facility] Reporton 2022 [employer] Cytology Report . Pathology Reports Accession: Collected Date/Time: Received Date/Time: Pathologist: [id number] 02/06/2023 10:53 EST 02/06/2023 18:00 EST [employer] [facility] Report SPECIMEN: Specimen Description: Liquid Prep Reflex ASCUS Specimen: Cervical/Endocervical Screening or Diagnostic: Screening RELEVANT HISTORY: LMP: 09/15/13 - menopause SPECIMEN ADEQUACY: SATISFACTORY FOR EVALUATION Endocervical/Transformat ional zone component present INTERPRETATION/RESULTS: NEGATIVE FOR INTRAEPITHELIAL LESION OR MALIGNANCY COMMENT: This Pap Test was successfully processed and evaluated with the assistance of the [employer] ThinPrep Test Imaging System. Electronically Signed by Pathology report verified by [facility] Screened by: KK Electronically signed by Lala MEDRANO (ASCP) Sign-Out Date: 02/14/2023 11:19 Performing Lab: [facility], [address] [place] [address] Pathology Dept Disclaimer The Pap test is a screening test for cervical cancer. As evidenced by published data, it is subject to both inherent false negative and false positive results. Your patient's results should be interpreted in context with pertinent clinical history including gynecological examination. Normal [facility] ([place]) Absolute lymphocyte countOrd ered By: Isa Price on 11-21-2022 Lymphocytes Auto (Unsp spec) [#/Vol] 1.65 10*3/uL 0.83-4.51 [facility] Basophil percentageOrdered B y: Isa Price on 11-21-2022 Basophils/100 WBC (Bld) 1.0 % 0-1 [facility] Bilirubin [Mass/Vol] 0.60 mg/dL 0.20-1.00 [facility] Comment on above: For patients on eltr ombopag therapy, use of Dimension [place] TBIL is not recommended. Chloride [Moles/Vol] 106 mmol/L 98-107 [facility] Cholesterol [Mass/Vol] 180 mg/dL <200 [facility] Comment on above: <200 mg/dL Desirable 200-240 mg/dL Borderline >240 mg/dL High Risk Eosinophils/100 WBC (Bld) 1.8 % 0-5 [facility] Glucose [Mass/Vol] 89 mg/dL 74-106 [facility] Neutrophils (Bld) [#/Vol] 4.6 10*3/uL 2.0-7.7 [facility] Neutrophils/100 WBC (Bld) 64.2 % 47-70 [facility] Potassium [Moles/Vol] 4.2 mmol/L 3.5-5.1 [facility] Protein [Mass/Vol] 6.9 g/dL 6.4-8.2 [facility] Sodium [Moles/Vol] 138 mmol/L 136-145 [facility] Triglyceride [Mass/Vol] 41 mg/dL <199 [facility] Comment on above: The drugs N-Acetylcy steine and Metamizole may falsely depress this assay.Serum Triglycerides Reference Interval Normal <150 mg/dL Borderline high 150 - 199 mg/dL High 200 - 499 mg/dL Very High > or = 500 mg/dL WBC (Bld) [#/Vol] 7.2 10*3/uL 4.4-11.0 [facility] Blood erythrocytes count (nu mber/volume)Ordered By: Isa Price on 11-21-2022 RBC (Bld) [#/Vol] 3.96 10*6/uL 4.2-5.4 [facility] [place] Blood hemoglobin measurement (mass/volume)Ordered By: Isa Price on 11-21-2022 Hemoglobin (Bld) [Mass/Vol] 13.1 g/dL 12.0-15.0 [facility] Blood lymphocytes/100 leukoc ytesOrdered By: Isa Price on 11-21-2022 Lymphocytes/100 WBC (Bld) 22.8 % 19-41 [facility] Blood monocytes/100 leukocyt esOrdered By: Isa Price on 11-21-2022 Monocytes/100 WBC (Bld) 10.1 % 0-10 [facility] Blood platelet mean volumeOr dered By: Isa Price on 11-21-2022 Platelet mean volume (Bld) [Entitic vol] 10.2 fL 6.2-12.0 [facility] Determination of erythrocyte mean corpuscular volume (MCV)Ordered By: Isa Price on 11-21-2022 MCV (RBC) [Entitic vol] 100.5 fL 81-99 [facility] Hematocrit Auto (Bld) [Volum e fraction]Ordered By: Isa Price on 11-21-2022 Hematocrit (Bld) [Volume fraction] 39.8 % 37-47 [facility] Laboratory - Chemistry and C hemistry - challengeOrdered By: Isa Price on 11-21-2022 ALP [Catalytic activity/Vol] 77 U/L 45-117 [facility] ALT [Catalytic activity/Vol] 22 U/L 13-56 [facility] CO2 [Moles/Vol] 28.0 mmol/L 21.0-32.0 [facility] Free T4 [Mass/Vol] 1.27 ng/dL 0.76-1.46 [facility] Globulin (S) [Mass/Vol] 3.2 g/dL 2.2-4.2 [facility] Urea nitrogen/Creatinine [Mass ratio] 17.1 mg/mg 10-20 [facility] Laboratory - Hematology and Cell countsOrdered By: Isa Price on 11-21-2022 Erythrocyte distribution width (RBC) [Entitic vol] 55.2 fL 35.1-43.9 [facility] Erythrocyte distribution width (RBC) [Ratio] 15.0 % 11.6-14.6 [facility] Immature granulocytes/100 WBC (Bld) 0.100 % 0.0-0.9 [facility] Comment on above: IG% - Immature Granu locytes (promyelocytes, myelocytes and metamyelocytes) > 1% indicates that a LEFT SHIFT is Present. MCH (RBC) [Entitic mass] 33.1 pg 27.0-32.0 [facility] Nucleated RBC/100 WBC (Bld) [Ratio] 0 % 0-5 [facility] MCHC Auto (RBC) [Mass/Vol]Or dered By: Isa Price on 11-21-2022 MCHC (RBC) [Mass/Vol] 32.9 g/dL 32-36 [facility] No Panel InformationOrdered By: Isa Price on 11-21-2022 Estimated GFR (MDRD) Amer 91 mL/min >60 [facility] Comment on above: GFR Calc Estimated GFR (MDRD) Non-Af Amer 75 mL/min >60 [facility] Comment on above: Non- GFR Calc Thyroid Stimulating Hormone (TSH) 0.85 uIU/mL 0.358-3.74 [facility] Vitamin D 25-Hydroxy 43.1 ng/mL [facility] Comment on above: Vitamin D 25(OH) Sta tus Range Deficiency <20 ng/mL (50nmol/L) Insufficiency 20 - 30 ng/mL (50 - 75 nmol/L) Sufficiency 30 - 100 ng/mL (75 - 250 nmol/L) Toxicity >100 ng/mL (>250 nmol/L) Platelets bldOrdered By: Timur Price on 11-21-2022 Platelets (Bld) [#/Vol] 271 10*3/uL 150-450 [facility] Serum or plasma albumin ananya urement (mass/volume)Ordered By: Isa Price on 11-21-2022 Albumin [Mass/Vol] 3.7 g/dL 3.2-5.0 [facility] Serum or plasma albumin/glob ulin mass ratioOrdered By: Isa Price on 11-21-2022 Albumin/Globulin [Mass ratio] 1.2 {ratio} 0.9-2.4 [facility] Serum or plasma calcium ananya urement (mass/volume)Ordered By: Isa Price on 11-21-2022 Calcium [Mass/Vol] 8.8 mg/dL 8.5-10.1 [facility] Serum or plasma cholesterol in HDL measurement (mass/volume)Ordered By: Isa Price on 11-21-2022 Cholesterol in HDL [Mass/Vol] 96 mg/dL >40 [facility] Comment on above: The drugs N-Acetylcy steine and Metamizole may falsely depress this assay. Reference Range HDL <40 mg/dL Low HDL Cholesterol HDL >or= 60 mg/dL High HDL Cholesterol Serum or plasma cholesterol in VLDL measurement (mass/volume)Ordered By: Isa Price on 11-21-2022 Cholesterol in VLDL [Mass/Vol] 8 mg/dL 5-40 [facility] Serum or plasma creatinine m easurement (mass/volume)Ordered By: Isa Price on 11-21-2022 Creatinine [Mass/Vol] 0.82 mg/dL 0.55-1.02 [facility] Comment on above: The validity of the calculated GFR & GFRAA in patients over 70 years has not been determined. Clinical correlation is essential. Serum or plasma low density lipoprotein (LDL) cholesterol measurement (mass/volume)Ordered By: Isa Price on 11-21-2022 Cholesterol in LDL [Mass/Vol] 76 mg/dL 0-130 [facility] Serum or plasma urea nitroge n measurement (mass/volume)Ordered By: Isa Price on 11-21-2022 Urea nitrogen [Mass/Vol] 14 mg/dL 7-18 [facility] Thin prep Papanicolaou smear with manual screeningOrdered By: Isa Price on 11-21-2022 Thin prep Papanicolaou smear with manual screening 21 U/L 15-37 [facility] Thin prep Papanicolaou smear with manual screening 4 5-15 [facility] Absolute lymphocyte countOrd ered By: Isa Price on 09-19-2022 Lymphocytes Auto (Unsp spec) [#/Vol] 1.76 10*3/uL 0.83-4.51 [facility] Basophil percentageOrdered B y: Isa Price on 09-19-2022 Basophils/100 WBC (Bld) 0.9 % 0-1 [facility] Bilirubin [Mass/Vol] 0.30 mg/dL 0.20-1.00 [facility] Comment on above: For patients on eltr ombopag therapy, use of Dimension [place] TBIL is not recommended. Chloride [Moles/Vol] 108 mmol/L 98-107 [facility] Eosinophils/100 WBC (Bld) 1.9 % 0-5 [facility] Glucose [Mass/Vol] 93 mg/dL 74-106 [facility] Neutrophils (Bld) [#/Vol] 4.4 10*3/uL 2.0-7.7 [facility] Neutrophils/100 WBC (Bld) 59.3 % 47-70 [facility] Potassium [Moles/Vol] 4.1 mmol/L 3.5-5.1 [facility] Protein [Mass/Vol] 7.1 g/dL 6.4-8.2 [facility] Sodium [Moles/Vol] 139 mmol/L 136-145 [facility] WBC (Bld) [#/Vol] 7.4 10*3/uL 4.4-11.0 [facility] Blood erythrocytes count (nu mber/volume)Ordered By: Isa Price on 09-19-2022 RBC (Bld) [#/Vol] 4.13 10*6/uL 4.2-5.4 [facility] [place] Blood hemoglobin measurement (mass/volume)Ordered By: Isa Price on 09-19-2022 Hemoglobin (Bld) [Mass/Vol] 13.0 g/dL 12.0-15.0 [facility] Blood lymphocytes/100 leukoc ytesOrdered By: [facility] on 09-19-2022 Lymphocytes/100 WBC (Bld) 23.9 % 19-41 [facility] Blood monocytes/100 leukocyt esOrdered By: [facility] Dee on 09-19-2022 Monocytes/100 WBC (Bld) 13.6 % 0-10 [facility] Blood platelet mean volumeOr dered By: [facility] Dee on 09-19-2022 Platelet mean volume (Bld) [Entitic vol] 10.1 fL 6.2-12.0 [facility] Determination of erythrocyte mean corpuscular volume (MCV)Ordered By: [facility] Dee on 09-19-2022 MCV (RBC) [Entitic vol] 98.3 fL 81-99 [facility] Hematocrit Auto (Bld) [Volum e fraction]Ordered By: Isa Price on 09-19-2022 Hematocrit (Bld) [Volume fraction] 40.6 % 37-47 [facility] Laboratory - Chemistry and C hemistry - challengeOrdered By: Isa Price on 09-19-2022 ALP [Catalytic activity/Vol] 73 U/L 45-117 [facility] ALT [Catalytic activity/Vol] 20 U/L 13-56 [facility] CO2 [Moles/Vol] 28.0 mmol/L 21.0-32.0 [facility] Globulin (S) [Mass/Vol] 3.4 g/dL 2.2-4.2 [facility] Urea nitrogen/Creatinine [Mass ratio] 20.7 mg/mg 10-20 [facility] Laboratory - Hematology and Cell countsOrdered By: Isaaleyda Price on 09-19-2022 Erythrocyte distribution width (RBC) [Entitic vol] 48.3 fL 35.1-43.9 [facility] Erythrocyte distribution width (RBC) [Ratio] 13.3 % 11.6-14.6 [facility] Immature granulocytes/100 WBC (Bld) 0.400 % 0.0-0.9 [facility] Comment on above: IG% - Immature Granu locytes (promyelocytes, myelocytes and metamyelocytes) > 1% indicates that a LEFT SHIFT is Present. MCH (RBC) [Entitic mass] 31.5 pg 27.0-32.0 [facility] Nucleated RBC/100 WBC (Bld) [Ratio] 0 % 0-5 [facility] MCHC Auto (RBC) [Mass/Vol]Or dered By: Isa Price on 09-19-2022 MCHC (RBC) [Mass/Vol] 32.0 g/dL 32-36 [facility] No Panel InformationOrdered By: Isa Price on 09-19-2022 Estimated GFR (MDRD) Amer 80 mL/min >60 [facility] Comment on above: GFR Calc Estimated GFR (MDRD) Non-Af Amer 66 mL/min >60 [facility] Comment on above: Non- GFR Calc Platelets bldOrdered By: Timur Price on 09-19-2022 Platelets (Bld) [#/Vol] 280 10*3/uL 150-450 [facility] Serum or plasma albumin ananya urement (mass/volume)Ordered By: Isa Price on 09-19-2022 Albumin [Mass/Vol] 3.7 g/dL 3.2-5.0 [facility] Serum or plasma albumin/glob ulin mass ratioOrdered By: Isa Price on 09-19-2022 Albumin/Globulin [Mass ratio] 1.1 {ratio} 0.9-2.4 [facility] Serum or plasma calcium ananya urement (mass/volume)Ordered By: Isa Price on 09-19-2022 Calcium [Mass/Vol] 8.7 mg/dL 8.5-10.1 [facility] Serum or plasma creatinine m easurement (mass/volume)Ordered By: Isa Price on 09-19-2022 Creatinine [Mass/Vol] 0.92 mg/dL 0.55-1.02 [facility] Comment on above: The validity of the calculated GFR & GFRAA in patients over 70 years has not been determined. Clinical correlation is essential. Serum or plasma urea nitroge n measurement (mass/volume)Ordered By: Isa Price on 09-19-2022 Urea nitrogen [Mass/Vol] 19 mg/dL 7-18 [facility] Thin prep Papanicolaou smear with manual screeningOrdered By: Isa Price on 09-19-2022 Thin prep Papanicolaou smear with manual screening 16 U/L 15-37 [facility] Thin prep Papanicolaou smear with manual screening 3 5-15 [facility] Absolute lymphocyte countOrd ered By: Dr. Price on 06-21-2022 Lymphocytes Auto (Unsp spec) [#/Vol] 1.82 10*3/uL 0.83-4.51 [facility] Basophil percentageOrdered B y: Dr. Price on 06-21-2022 Basophils/100 WBC (Bld) 1.0 % 0-1 [facility] Bilirubin [Mass/Vol] 0.60 mg/dL 0.20-1.00 [facility] Comment on above: For patients on eltr ombopag therapy, use of Dimension [place] TBIL is not recommended. Chloride [Moles/Vol] 103 mmol/L 98-107 [facility] Eosinophils/100 WBC (Bld) 1.9 % 0-5 [facility] Glucose [Mass/Vol] 91 mg/dL 74-106 [facility] Neutrophils (Bld) [#/Vol] 4.2 10*3/uL 2.0-7.7 [facility] Neutrophils/100 WBC (Bld) 59.0 % 47-70 [facility] Potassium [Moles/Vol] 4.0 mmol/L 3.5-5.1 [facility] Protein [Mass/Vol] 7.2 g/dL 6.4-8.2 [facility] Sodium [Moles/Vol] 138 mmol/L 136-145 [facility] WBC (Bld) [#/Vol] 7.2 10*3/uL 4.4-11.0 [facility] Blood erythrocytes count (nu mber/volume)Ordered By: Dr. Price on 06-21-2022 RBC (Bld) [#/Vol] 4.31 10*6/uL 4.2-5.4 [facility] [place] Blood hemoglobin measurement (mass/volume)Ordered By: Dr. Price on 06-21-2022 Hemoglobin (Bld) [Mass/Vol] 13.6 g/dL 12.0-15.0 [facility] Blood lymphocytes/100 leukoc ytesOrdered By: Dr. Price on 06-21-2022 Lymphocytes/100 WBC (Bld) 25.3 % 19-41 [facility] Blood monocytes/100 leukocyt esOrdered By: Dr. Price on 06-21-2022 Monocytes/100 WBC (Bld) 12.4 % 0-10 [facility] Blood platelet mean volumeOr dered By: Dr. Price on 06-21-2022 Platelet mean volume (Bld) [Entitic vol] 10.5 fL 6.2-12.0 [facility] Determination of erythrocyte mean corpuscular volume (MCV)Ordered By: Dr. Price on 06-21-2022 MCV (RBC) [Entitic vol] 98.1 fL 81-99 [facility] Hematocrit Auto (Bld) [Volum e fraction]Ordered By: Dr. Price on 06-21-2022 Hematocrit (Bld) [Volume fraction] 42.3 % 37-47 [facility] Laboratory - Chemistry and C hemistry - challengeOrdered By: Dr. Price on 06-21-2022 ALP [Catalytic activity/Vol] 75 U/L 45-117 [facility] ALT [Catalytic activity/Vol] 23 U/L 13-56 [facility] CO2 [Moles/Vol] 29.0 mmol/L 21.0-32.0 [facility] Globulin (S) [Mass/Vol] 3.3 g/dL 2.2-4.2 [facility] Urea nitrogen/Creatinine [Mass ratio] 16.2 mg/mg 10-20 [facility] Laboratory - Hematology and Cell countsOrdered By: Dr. Price on 06-21-2022 Erythrocyte distribution width (RBC) [Entitic vol] 48.7 fL 35.1-43.9 [facility] Erythrocyte distribution width (RBC) [Ratio] 13.3 % 11.6-14.6 [facility] Immature granulocytes/100 WBC (Bld) 0.400 % 0.0-0.9 [facility] Comment on above: IG% - Immature Granu locytes (promyelocytes, myelocytes and metamyelocytes) > 1% indicates that a LEFT SHIFT is Present. MCH (RBC) [Entitic mass] 31.6 pg 27.0-32.0 [facility] Nucleated RBC/100 WBC (Bld) [Ratio] 0 % 0-5 [facility] MCHC Auto (RBC) [Mass/Vol]Or dered By: Dr. Price on 06-21-2022 MCHC (RBC) [Mass/Vol] 32.2 g/dL 32-36 [facility] No Panel InformationOrdered By: Dr. Price on 06-21-2022 Estimated GFR (MDRD) Amer 85 mL/min >60 [facility] Comment on above: GFR Calc Estimated GFR (MDRD) Non-Af Amer 71 mL/min >60 [facility] Comment on above: Non- GFR Calc Platelets bldOrdered By: Dr. Price on 06-21-2022 Platelets (Bld) [#/Vol] 273 10*3/uL 150-450 [facility] Serum or plasma albumin ananya urement (mass/volume)Ordered By: Dr. Price on 06-21-2022 Albumin [Mass/Vol] 3.9 g/dL 3.2-5.0 [facility] Serum or plasma albumin/glob ulin mass ratioOrdered By: Dr. Price on 06-21-2022 Albumin/Globulin [Mass ratio] 1.2 {ratio} 0.9-2.4 [facility] Serum or plasma calcium ananya urement (mass/volume)Ordered By: Dr. Price on 06-21-2022 Calcium [Mass/Vol] 9.3 mg/dL 8.5-10.1 [facility] Serum or plasma creatinine m easurement (mass/volume)Ordered By: Dr. Price on 06-21-2022 Creatinine [Mass/Vol] 0.86 mg/dL 0.55-1.02 [facility] Comment on above: The validity of the calculated GFR & GFRAA in patients over 70 years has not been determined. Clinical correlation is essential. Serum or plasma urea nitroge n measurement (mass/volume)Ordered By: Dr. Price on 06-21-2022 Urea nitrogen [Mass/Vol] 14 mg/dL 7-18 [facility] Thin prep Papanicolaou smear with manual screeningOrdered By: Dr. Price on 06-21-2022 Thin prep Papanicolaou smear with manual screening 18 U/L 15-37 [facility] Thin prep Papanicolaou smear with manual screening 6 5-[address] [facility] CT CHEST IVCONon 04-30-19 Radiology Result ACTIONABLE Abnormal [facility] Blood erythrocytes count (nu mber/volume)Ordered By: Dr. Price on 04-26-2022 RBC (Bld) [#/Vol] 4.14 10*6/uL 3.77-5.28 [facility] [place] Erythrocyte gulgqdr-7-wnjkrf ate dehydrogenase (enzymatic activity/mass)Ordered By: Dr. Price on 04-26-2022 G6PD (RBC) [Catalytic activity/Mass] [phone] [facility] Comment on above: Result Units: U/10E1 2 RBCWhen decreased, G-6-PD, Quant. values are associated withacute hemolytic anemia when deficient individuals areexposed to oxidative stress, such as with certainmedications (e.g., primaquine), infection, or ingestion offava beans. Caution: In patients with acute hemolysis(e.g., abnormally low RBC values), testing for G-6-PD maybe falsely normal because older erythrocytes with a higherenzyme deficiency have been hemolyzed. Young erythrocytesand reticulocytes have normal or near-normal enzymeactivity. Normal values of G-6-PD may be measured forseveral weeks following a hemolytic event.Performed at: [facility] [employer] [id number] Director: John Portillo PhD, Phone: [phone] at: [address] [id number] Director: Jassi Villalobos MD, Phone: [phone] Qualitative QuantiFERON-TB g old in tube testOrdered By: Dr. Price on 04-26-2022 M. tuberculosis tuberculin stim IFN-g Ql (Bld) 0.12 IU/mL . [facility] Thin prep Papanicolaou smear with manual screeningOrdered By: Dr. Price on 04-26-2022 Thin prep Papanicolaou smear with manual screening Comment . [facility] Comment on above: QuantiFERON-TB Gold Plus is a qualitative indirect test forM tuberculosis infection (including disease) and isintended for use in conjunction with risk assessment,radiography, and other medical and diagnostic evaluations.The QuantiFERON-TB Gold Plus result is determined bysubtracting the Nil value from either TB antigen (Ag)value. The Mitogen tube serves as a control for the test. Thin prep Papanicolaou smear with manual screening 0.11 IU/mL . [facility] Thin prep Papanicolaou smear with manual screening 0.13 IU/mL . [facility] Thin prep Papanicolaou smear with manual screening > 10.00 IU/mL . [facility] Thin prep Papanicolaou smear with manual screening Negative Negative [facility] Comment on above: No response to M tub erculosis antigens detected.Infection with M tuberculosis is unlikely, but high riskindividuals should be considered for additional testing(ATS/IDSA/CDC Clinical Practice Guidelines, 2017). Thereference range is an Antigen minus Nil result of <0.35IU/mL.The specimen received for QuantiFERON testing was incubatedby the ordering institution. Specific procedures outlinedin our Directory of Services and in the package insert forthe QuantiFERON Gold (In Tube) test must be followed toenable for proper stimulation of cells for the productionof interferon gamma. Chemiluminescence immunoassaymethodology NITRIC OXIDE, EXHALEDon -0 [facility] [place] Blood erythrocytes count (nu mber/volume)Ordered By: Dr. Price on 04-23-2022 RBC (Bld) [#/Vol] 4.23 10*6/uL 3.77-5.28 [facility] [place] Erythrocyte nzykeim-5-ravvjb ate dehydrogenase (enzymatic activity/mass)Ordered By: Dr. Price on 04-23-2022 G6PD (RBC) [Catalytic activity/Mass] [phone] [facility] Comment on above: Result Units: U/10E1 2 RBCWhen decreased, G-6-PD, Quant. values are associated withacute hemolytic anemia when deficient individuals areexposed to oxidative stress, such as with certainmedications (e.g., primaquine), infection, or ingestion offava beans. Caution: In patients with acute hemolysis(e.g., abnormally low RBC values), testing for G-6-PD maybe falsely normal because older erythrocytes with a higherenzyme deficiency have been hemolyzed. Young erythrocytesand reticulocytes have normal or near-normal enzymeactivity. Normal values of G-6-PD may be measured forseveral weeks following a hemolytic event.Performed at: - [facility] [id number] Director: John Portillo PhD, Phone: [phone] at: - [facility] [id number] Director: Jassi Villalobos MD, Phone: [phone] Absolute lymphocyte countOrd ered By: Lamine Morton on 04-20-2022 Lymphocytes Auto (Unsp spec) [#/Vol] 2.05 10*3/uL 0.83-4.51 [facility] Basophil percentageOrdered B y: Lamine Morton on 04-20-2022 Basophils/100 WBC (Bld) 0.8 % 0-1 [facility] Bilirubin [Mass/Vol] 0.40 mg/dL 0.20-1.00 [facility] Comment on above: For patients on eltr ombopag therapy, use of Dimension [place] TBIL is not recommended. Chloride [Moles/Vol] 105 mmol/L 98-107 [facility] Cholesterol [Mass/Vol] 197 mg/dL <200 [facility] Comment on above: <200 mg/dL Desirable 200-240 mg/dL Borderline >240 mg/dL High Risk Eosinophils/100 WBC (Bld) 1.6 % 0-5 [facility] Glucose [Mass/Vol] 98 mg/dL 74-106 [facility] Neutrophils (Bld) [#/Vol] 4.2 10*3/uL 2.0-7.7 [facility] Neutrophils/100 WBC (Bld) 57.7 % 47-70 [facility] Potassium [Moles/Vol] 3.9 mmol/L 3.5-5.1 [facility] Protein [Mass/Vol] 7.6 g/dL 6.4-8.2 [facility] Sodium [Moles/Vol] 140 mmol/L 136-145 [facility] Triglyceride [Mass/Vol] 68 mg/dL <199 [facility] Comment on above: The drugs N-Acetylcy steine and Metamizole may falsely depress this assay.Serum Triglycerides Reference Interval Normal <150 mg/dL Borderline high 150 - 199 mg/dL High 200 - 499 mg/dL Very High > or = 500 mg/dL WBC (Bld) [#/Vol] 7.3 10*3/uL 4.4-11.0 [facility] Blood erythrocytes count (nu mber/volume)Ordered By: Lamine Morton on 04-20-2022 RBC (Bld) [#/Vol] 4.25 10*6/uL 4.2-5.4 [facility] [place] Blood hemoglobin measurement (mass/volume)Ordered By: Lamine Morton on 04-20-2022 Hemoglobin (Bld) [Mass/Vol] 13.5 g/dL 12.0-15.0 [facility] Blood lymphocytes/100 leukoc ytesOrdered By: Lamine Morton on 04-20-2022 Lymphocytes/100 WBC (Bld) 28.2 % 19-41 [facility] Blood monocytes/100 leukocyt esOrdered By: Lamine Morton on 04-20-2022 Monocytes/100 WBC (Bld) 11.3 % 0-10 [facility] Blood platelet mean volumeOr dered By: Lamine Morton on 04-20-2022 Platelet mean volume (Bld) [Entitic vol] 10.4 fL 6.2-12.0 [facility] Determination of erythrocyte mean corpuscular volume (MCV)Ordered By: Lamine Morton on 04-20-2022 MCV (RBC) [Entitic vol] 99.8 fL 81-99 [facility] Hematocrit Auto (Bld) [Volum e fraction]Ordered By: Lamine Morton on 04-20-2022 Hematocrit (Bld) [Volume fraction] 42.4 % 37-47 [facility] Laboratory - Chemistry and C hemistry - challengeOrdered By: Lamine Morton on 04-20-2022 ALP [Catalytic activity/Vol] 69 U/L 45-117 [facility] ALT [Catalytic activity/Vol] 23 U/L 13-56 [facility] CO2 [Moles/Vol] 29.0 mmol/L 21.0-32.0 [facility] Cobalamin (Vitamin B12) [Mass/Vol] 1462 pg/mL 211-911 [facility] Free T4 [Mass/Vol] 1.33 ng/dL 0.76-1.46 [facility] Globulin (S) [Mass/Vol] 3.7 g/dL 2.2-4.2 [facility] Urea nitrogen/Creatinine [Mass ratio] 15.3 mg/mg 10-20 [facility] Laboratory - Hematology and Cell countsOrdered By: Lamine Morton on 04-20-2022 Erythrocyte distribution width (RBC) [Entitic vol] 48.1 fL 35.1-43.9 [facility] Erythrocyte distribution width (RBC) [Ratio] 13.1 % 11.6-14.6 [facility] Immature granulocytes/100 WBC (Bld) 0.400 % 0.0-0.9 [facility] Comment on above: IG% - Immature Granu locytes (promyelocytes, myelocytes and metamyelocytes) > 1% indicates that a LEFT SHIFT is Present. MCH (RBC) [Entitic mass] 31.8 pg 27.0-32.0 [facility] Nucleated RBC/100 WBC (Bld) [Ratio] 0 % 0-5 [facility] MCHC Auto (RBC) [Mass/Vol]Or dered By: Lamine Morton on 04-20-2022 MCHC (RBC) [Mass/Vol] 31.8 g/dL 32-36 [facility] No Panel InformationOrdered By: Lamine Morton on 04-20-2022 Estimated GFR (MDRD) Amer 74 mL/min >60 [facility] Comment on above: GFR Calc Estimated GFR (MDRD) Non-Af Amer 61 mL/min >60 [facility] Comment on above: Non- GFR Calc Thyroid Stimulating Hormone (TSH) 0.77 uIU/mL 0.358-3.74 [facility] Vitamin D 25-Hydroxy 44.2 ng/mL [facility] Comment on above: Vitamin D 25(OH) Sta tus Range Deficiency <20 ng/mL (50nmol/L) Insufficiency 20 - 30 ng/mL (50 - 75 nmol/L) Sufficiency 30 - 100 ng/mL (75 - 250 nmol/L) Toxicity >100 ng/mL (>250 nmol/L) Platelets bldOrdered By: Jus Morton on 04-20-2022 Platelets (Bld) [#/Vol] 346 10*3/uL 150-450 [facility] Serum or plasma albumin ananya urement (mass/volume)Ordered By: Lamine Morton on 04-20-2022 Albumin [Mass/Vol] 3.9 g/dL 3.2-5.0 [facility] Serum or plasma albumin/glob ulin mass ratioOrdered By: Lamine Morton on 04-20-2022 Albumin/Globulin [Mass ratio] 1.1 {ratio} 0.9-2.4 [facility] Serum or plasma calcium ananya urement (mass/volume)Ordered By: Lamine Morton on 04-20-2022 Calcium [Mass/Vol] 8.8 mg/dL 8.5-10.1 [facility] Serum or plasma cholesterol in HDL measurement (mass/volume)Ordered By: Lamine Morton on 04-20-2022 Cholesterol in HDL [Mass/Vol] 91 mg/dL >40 [facility] Comment on above: The drugs N-Acetylcy steine and Metamizole may falsely depress this assay. Reference Range HDL <40 mg/dL Low HDL Cholesterol HDL >or= 60 mg/dL High HDL Cholesterol Serum or plasma cholesterol in VLDL measurement (mass/volume)Ordered By: Lamine Morton on 04-20-2022 Cholesterol in VLDL [Mass/Vol] 14 mg/dL 5-40 [facility] Serum or plasma creatinine m easurement (mass/volume)Ordered By: Lamine Morton on 04-20-2022 Creatinine [Mass/Vol] 0.98 mg/dL 0.55-1.02 [facility] Comment on above: The validity of the calculated GFR & GFRAA in patients over 70 years has not been determined. Clinical correlation is essential. Serum or plasma low density lipoprotein (LDL) cholesterol measurement (mass/volume)Ordered By: Lamine Morton on 04-20-2022 Cholesterol in LDL [Mass/Vol] 92 mg/dL 0-130 [facility] Serum or plasma urea nitroge n measurement (mass/volume)Ordered By: Lamine Morton on 04-20-2022 Urea nitrogen [Mass/Vol] 15 mg/dL 7-18 [facility] Thin prep Papanicolaou smear with manual screeningOrdered By: Lamine Morton on 04-20-2022 Thin prep Papanicolaou smear with manual screening 17 U/L 15-37 [facility] Thin prep Papanicolaou smear with manual screening 6 5-15 [facility] Absolute lymphocyte countOrd ered By: Dr. Price on 01-19-2022 Lymphocytes Auto (Unsp spec) [#/Vol] 1.51 10*3/uL 0.83-4.51 [facility] Basophil percentageOrdered B y: Dr. Price on 01-19-2022 Basophils/100 WBC (Bld) 1.0 % 0-1 [facility] Bilirubin [Mass/Vol] 0.30 mg/dL 0.20-1.00 [facility] Comment on above: For patients on eltr ombopag therapy, use of Dimension [place] TBIL is not recommended. Chloride [Moles/Vol] 108 mmol/L 98-107 [facility] [facility] Eosinophils/100 WBC (Bld) 2.7 % 0-5 [facility] Glucose [Mass/Vol] 91 mg/dL 74-106 [facility] Neutrophils (Bld) [#/Vol] 3.8 10*3/uL 2.0-7.7 [facility] Neutrophils/100 WBC (Bld) 60.4 % 47-70 [facility] Potassium [Moles/Vol] 4.3 mmol/L 3.5-5.1 [facility] Protein [Mass/Vol] 6.8 g/dL 6.4-8.2 [facility] Sodium [Moles/Vol] 142 mmol/L 136-145 [facility] WBC (Bld) [#/Vol] 6.3 10*3/uL 4.4-11.0 [facility] Blood erythrocytes count (nu mber/volume)Ordered By: Dr. Price on 01-19-2022 RBC (Bld) [#/Vol] 3.76 10*6/uL 4.2-5.4 [facility] [place] Blood hemoglobin measurement (mass/volume)Ordered By: Dr. Price on 01-19-2022 Hemoglobin (Bld) [Mass/Vol] 12.8 g/dL 12.0-15.0 [facility] Blood lymphocytes/100 leukoc ytesOrdered By: Dr. Price on 01-19-2022 Lymphocytes/100 WBC (Bld) 24.1 % 19-41 [facility] Blood monocytes/100 leukocyt esOrdered By: Dr. Price on 01-19-2022 Monocytes/100 WBC (Bld) 11.3 % 0-10 [facility] Blood platelet mean volumeOr dered By: Dr. Price on 01-19-2022 Platelet mean volume (Bld) [Entitic vol] 10.3 fL 6.2-12.0 [facility] Determination of erythrocyte mean corpuscular volume (MCV)Ordered By: Dr. Price on 01-19-2022 MCV (RBC) [Entitic vol] 103.5 fL 81-99 [facility] Hematocrit Auto (Bld) [Volum e fraction]Ordered By: Dr. Price on 01-19-2022 Hematocrit (Bld) [Volume fraction] 38.9 % 37-47 [facility] Laboratory - Chemistry and C hemistry - challengeOrdered By: Dr. Price on 01-19-2022 ALP [Catalytic activity/Vol] 64 U/L 45-117 [facility] ALT [Catalytic activity/Vol] 21 U/L 13-56 [facility] CO2 [Moles/Vol] 29.0 mmol/L 21.0-32.0 [facility] Globulin (S) [Mass/Vol] 3.0 g/dL 2.2-4.2 [facility] Urea nitrogen/Creatinine [Mass ratio] 13.1 mg/mg 10-20 [facility] Laboratory - Hematology and Cell countsOrdered By: Dr. Price on 01-19-2022 Erythrocyte distribution width (RBC) [Entitic vol] 55.8 fL 35.1-43.9 [facility] Erythrocyte distribution width (RBC) [Ratio] 14.6 % 11.6-14.6 [facility] Immature granulocytes/100 WBC (Bld) 0.500 % 0.0-0.9 [facility] Comment on above: IG% - Immature Granu locytes (promyelocytes, myelocytes and metamyelocytes) > 1% indicates that a LEFT SHIFT is Present. MCH (RBC) [Entitic mass] 34.0 pg 27.0-32.0 [facility] Nucleated RBC/100 WBC (Bld) [Ratio] 0 % 0-5 [facility] MCHC Auto (RBC) [Mass/Vol]Or dered By: Dr. Price on 01-19-2022 MCHC (RBC) [Mass/Vol] 32.9 g/dL 32-36 [facility] No Panel InformationOrdered By: Dr. Price on 01-19-2022 Estimated GFR (MDRD) Amer 89 mL/min >60 [facility] Comment on above: GFR Calc Estimated GFR (MDRD) Non-Af Amer 73 mL/min >60 [facility] Comment on above: Non- GFR Calc Platelets bldOrdered By: Dr. Price on 01-19-2022 Platelets (Bld) [#/Vol] 289 10*3/uL 150-450 [facility] Serum or plasma albumin ananya urement (mass/volume)Ordered By: Dr. Price on 01-19-2022 Albumin [Mass/Vol] 3.8 g/dL 3.2-5.0 [facility] Serum or plasma albumin/glob ulin mass ratioOrdered By: Dr. Price on 01-19-2022 Albumin/Globulin [Mass ratio] 1.3 {ratio} 0.9-2.4 [facility] Serum or plasma calcium ananya urement (mass/volume)Ordered By: Dr. Price on 01-19-2022 Calcium [Mass/Vol] 8.9 mg/dL 8.5-10.1 [facility] Serum or plasma creatinine m easurement (mass/volume)Ordered By: Dr. Price on 01-19-2022 Creatinine [Mass/Vol] 0.84 mg/dL 0.55-1.02 [facility] Comment on above: The validity of the calculated GFR & GFRAA in patients over 70 years has not been determined. Clinical correlation is essential. Serum or plasma urea nitroge n measurement (mass/volume)Ordered By: Dr. Price on 01-19-2022 Urea nitrogen [Mass/Vol] 11 mg/dL 7-18 [facility] Thin prep Papanicolaou smear with manual screeningOrdered By: Dr. Price on 01-19-2022 Thin prep Papanicolaou smear with manual screening 15 U/L 15-37 [facility] Thin prep Papanicolaou smear with manual screening 5 5-15 [facility] Absolute lymphocyte counton 10-18-2021 Lymphocytes Auto (Unsp spec) [#/Vol] 1.55 10*3/uL 0.83-4.51 [facility] Work Phone: Basophil percentageon 2021 Basophils/100 WBC (Bld) 0.6 % 0-1 [facility] Work Phone: Bilirubin [Mass/Vol] 0.60 mg/dL 0.20-1.00 [facility] Work Phone: Comment on above: For patients on eltr ombopag therapy, use of Dimension [place] TBIL is not recommended. Chloride [Moles/Vol] 104 mmol/L 98-107 [facility] Work Phone: Cholesterol [Mass/Vol] 195 mg/dL <200 [facility] Work Phone: Comment on above: <200 mg/dL Desirable 200-240 mg/dL Borderline >240 mg/dL High Risk Eosinophils/100 WBC (Bld) 1.1 % 0-5 [facility] Work Phone: Glucose [Mass/Vol] 97 mg/dL 74-106 [facility] Work Phone: Neutrophils (Bld) [#/Vol] 4.5 10*3/uL 2.0-7.7 [facility] Work Phone: Neutrophils/100 WBC (Bld) 64.1 % 47-70 [facility] Work Phone: [phone] Potassium [Moles/Vol] 3.9 mmol/L 3.5-5.1 [facility] Work Phone: [phone] Protein [Mass/Vol] 7.4 g/dL 6.4-8.2 [facility] Work Phone: [phone] Sodium [Moles/Vol] 138 mmol/L 136-145 [facility] Work Phone: [phone] Triglyceride [Mass/Vol] 76 mg/dL <199 [facility] Work Phone: [phone] Comment on above: The drugs N-Acetylcy steine and Metamizole may falsely depress this assay.Serum Triglycerides Reference Interval Normal <150 mg/dL Borderline high 150 - 199 mg/dL High 200 - 499 mg/dL Very High > or = 500 mg/dL WBC (Bld) [#/Vol] 7.0 10*3/uL 4.4-11.0 [facility] Work Phone: [phone] Blood erythrocytes count (nu mber/volume)on 10-18-2021 RBC (Bld) [#/Vol] 4.02 10*6/uL 4.2-5.4 [facility] [place] Work Phone: [phone] Blood hemoglobin measurement (mass/volume)on 10-18-2021 Hemoglobin (Bld) [Mass/Vol] 13.5 g/dL 12.0-15.0 [facility] Work Phone: [phone] Blood lymphocytes/100 leukoc yteson 10-18-2021 Lymphocytes/100 WBC (Bld) 22.1 % 19-41 [facility] Work Phone: [phone] Blood monocytes/100 leukocyt eson 10-18-2021 Monocytes/100 WBC (Bld) 11.8 % 0-10 [facility] Work Phone: [phone] Blood platelet mean volumeon 10-18-2021 Platelet mean volume (Bld) [Entitic vol] 10.4 fL 6.2-12.0 [facility] Work Phone: [phone] Determination of erythrocyte mean corpuscular volume (MCV)on 10-18-2021 MCV (RBC) [Entitic vol] 100.2 fL 81-99 [facility] Work Phone: [phone] Hematocrit Auto (Bld) [Volum e fraction]on 10-18-2021 Hematocrit (Bld) [Volume fraction] 40.3 % 37-47 [facility] Work Phone: [phone] Laboratory - Chemistry and C hemistry - challengeon 10-18-2021 ALP [Catalytic activity/Vol] 71 U/L 45-117 [facility] Work Phone: [phone] ALT [Catalytic activity/Vol] 25 U/L 13-56 [facility] Work Phone: [phone] CO2 [Moles/Vol] 27.0 mmol/L 21.0-32.0 [facility] Work Phone: [phone] Free T4 [Mass/Vol] 1.43 ng/dL 0.76-1.46 [facility] Work Phone: [phone] Globulin (S) [Mass/Vol] 3.4 g/dL 2.2-4.2 [facility] Work Phone: [phone] Urea nitrogen/Creatinine [Mass ratio] 15.4 mg/mg 10-20 [facility] Work Phone: [phone] Laboratory - Hematology and Cell countson 10-18-2021 Erythrocyte distribution width (RBC) [Entitic vol] 51.5 fL 35.1-43.9 [facility] Work Phone: [phone] Erythrocyte distribution width (RBC) [Ratio] 13.9 % 11.6-14.6 [facility] Work Phone: [phone] Immature granulocytes/100 WBC (Bld) 0.300 % 0.0-0.9 [facility] Work Phone: [phone] Comment on above: IG% - Immature Granu locytes (promyelocytes, myelocytes and metamyelocytes) > 1% indicates that a LEFT SHIFT is Present. MCH (RBC) [Entitic mass] 33.6 pg 27.0-32.0 [facility] Work Phone: [phone] Nucleated RBC/100 WBC (Bld) [Ratio] 0 % 0-5 [facility] Work Phone: [phone] MCHC Auto (RBC) [Mass/Vol]on 10-18-2021 MCHC (RBC) [Mass/Vol] 33.5 g/dL 32-36 [facility] Work Phone: No Panel Informationon 10-18 Estimated GFR (MDRD) Amer 81 mL/min >60 [facility] Work Phone: [phone] Comment on above: GFR Calc Estimated GFR (MDRD) Non-Af Amer 67 mL/min >60 [facility] Work Phone: Comment on above: Non- GFR Calc Thyroid Stimulating Hormone (TSH) 0.35 uIU/mL 0.358-3.74 [facility] Work Phone: [phone] Vitamin D 25-Hydroxy 42.9 ng/mL [facility] Work Phone: [phone] Comment on above: Vitamin D 25(OH) Sta tus Range Deficiency <20 ng/mL (50nmol/L) Insufficiency 20 - 30 ng/mL (50 - 75 nmol/L) Sufficiency 30 - 100 ng/mL (75 - 250 nmol/L) Toxicity >100 ng/mL (>250 nmol/L) Platelets bldon 10-18-2021 Platelets (Bld) [#/Vol] 302 10*3/uL 150-450 [facility] Work Phone: [phone] Serum or plasma albumin ananya urement (mass/volume)on 10-18-2021 Albumin [Mass/Vol] 4.0 g/dL 3.2-5.0 [facility] Work Phone: [phone] Serum or plasma albumin/glob ulin mass ratioon 10-18-2021 Albumin/Globulin [Mass ratio] 1.2 {ratio} 0.9-2.4 [facility] Work Phone: [phone] Serum or plasma calcium ananya urement (mass/volume)on 10-18-2021 Calcium [Mass/Vol] 9.1 mg/dL 8.5-10.1 [facility] Work Phone: [phone] Serum or plasma cholesterol in HDL measurement (mass/volume)on 10-18-2021 Cholesterol in HDL [Mass/Vol] 93 mg/dL >40 [facility] Work Phone: Comment on above: The drugs N-Acetylcy steine and Metamizole may falsely depress this assay. Reference Range HDL <40 mg/dL Low HDL Cholesterol HDL >or= 60 mg/dL High HDL Cholesterol Serum or plasma cholesterol in VLDL measurement (mass/volume)on 10-18-2021 Cholesterol in VLDL [Mass/Vol] 15 mg/dL 5-40 [facility] Work Phone: Serum or plasma creatinine m easurement (mass/volume)on 10-18-2021 Creatinine [Mass/Vol] 0.91 mg/dL 0.55-1.02 [facility] Work Phone: Comment on above: The validity of the calculated GFR & GFRAA in patients over 70 years has not been determined. Clinical correlation is essential. Serum or plasma low density lipoprotein (LDL) cholesterol measurement (mass/volume)on 10-18-2021 Cholesterol in LDL [Mass/Vol] 87 mg/dL 0-130 [facility] Work Phone: [phone] Serum or plasma urea nitroge n measurement (mass/volume)on 10-18-2021 Urea nitrogen [Mass/Vol] 14 mg/dL 7-18 [facility] Work Phone: [phone] Thin prep Papanicolaou smear with manual screeningon 10-18-2021 Thin prep Papanicolaou smear with manual screening 20 U/L 15-37 [facility] Work Phone: [phone] Thin prep Papanicolaou smear with manual screening 7 5-15 [facility] Work Phone: [phone] Absolute lymphocyte counton 07-31-2021 Lymphocytes Auto (Unsp spec) [#/Vol] 1.01 10*3/uL 0.83-4.51 [facility] Work Phone: [phone] Basophil percentageon 2021 Basophils/100 WBC (Bld) 0.6 % 0-1 [facility] Work Phone: Bilirubin [Mass/Vol] 0.60 mg/dL 0.20-1.00 [facility] Work Phone: Comment on above: For patients on eltr ombopag therapy, use of Dimension [place] TBIL is not recommended. Chloride [Moles/Vol] 105 mmol/L 98-107 [facility] Work Phone: Eosinophils/100 WBC (Bld) 1.9 % 0-5 [facility] Work Phone: Glucose [Mass/Vol] 99 mg/dL 74-106 [facility] Work Phone: Neutrophils (Bld) [#/Vol] 3.2 10*3/uL 2.0-7.7 [facility] Work Phone: Neutrophils/100 WBC (Bld) 61.4 % 47-70 [facility] Work Phone: Potassium [Moles/Vol] 3.8 mmol/L 3.5-5.1 [facility] Work Phone: Protein [Mass/Vol] 6.9 g/dL 6.4-8.2 [facility] Work Phone: Sodium [Moles/Vol] 139 mmol/L 136-145 [facility] Work Phone: WBC (Bld) [#/Vol] 5.2 10*3/uL 4.4-11.0 [facility] Work Phone: Blood erythrocytes count (nu mber/volume)on 07-31-2021 RBC (Bld) [#/Vol] 3.81 10*6/uL 4.2-5.4 [facility] [place] Work Phone: Blood hemoglobin measurement (mass/volume)on 07-31-2021 Hemoglobin (Bld) [Mass/Vol] 12.5 g/dL 12.0-15.0 [facility] Work Phone: Blood lymphocytes/100 leukoc yteson 07-31-2021 Lymphocytes/100 WBC (Bld) 19.3 % 19-41 [facility] Work Phone: Blood monocytes/100 leukocyt eson 07-31-2021 Monocytes/100 WBC (Bld) 16.4 % 0-10 [facility] Work Phone: Blood platelet mean volumeon 07-31-2021 Platelet mean volume (Bld) [Entitic vol] 10.0 fL 6.2-12.0 [facility] Work Phone: Determination of erythrocyte mean corpuscular volume (MCV)on 07-31-2021 MCV (RBC) [Entitic vol] 100.5 fL 81-99 [facility] Work Phone: Hematocrit Auto (Bld) [Volum e fraction]on 07-31-2021 Hematocrit (Bld) [Volume fraction] 38.3 % 37-47 [facility] Work Phone: Laboratory - Chemistry and C hemistry - challengeon 07-31-2021 ALP [Catalytic activity/Vol] 65 U/L 45-117 [facility] Work Phone: ALT [Catalytic activity/Vol] 25 U/L 13-56 [facility] Work Phone: CO2 [Moles/Vol] 27.0 mmol/L 21.0-32.0 [facility] Work Phone: Globulin (S) [Mass/Vol] 3.0 g/dL 2.2-4.2 [facility] Work Phone: Urea nitrogen/Creatinine [Mass ratio] 22.9 mg/mg 10-20 [facility] Work Phone: Laboratory - Hematology and Cell countson 07-31-2021 Erythrocyte distribution width (RBC) [Entitic vol] 51.8 fL 35.1-43.9 [facility] Work Phone: Erythrocyte distribution width (RBC) [Ratio] 14.2 % 11.6-14.6 [facility] Work Phone: Immature granulocytes/100 WBC (Bld) 0.400 % 0.0-0.9 [facility] Work Phone: Comment on above: IG% - Immature Granu locytes (promyelocytes, myelocytes and metamyelocytes) > 1% indicates that a LEFT SHIFT is Present. MCH (RBC) [Entitic mass] 32.8 pg 27.0-32.0 [facility] Work Phone: Nucleated RBC/100 WBC (Bld) [Ratio] 0 % 0-5 [facility] Work Phone: [phone] MCHC Auto (RBC) [Mass/Vol]on 07-31-2021 MCHC (RBC) [Mass/Vol] 32.6 g/dL 32-36 [facility] Work Phone: No Panel Informationon 07-31 Estimated GFR (MDRD) Amer 96 mL/min >60 [facility] Work Phone: Comment on above: GFR Calc Estimated GFR (MDRD) Non-Af Amer 79 mL/min >60 [facility] Work Phone: [phone] Comment on above: Non- GFR Calc Platelets bldon 07-31-2021 Platelets (Bld) [#/Vol] 293 10*3/uL 150-450 [facility] Work Phone: [phone] Serum or plasma albumin ananya urement (mass/volume)on 07-31-2021 Albumin [Mass/Vol] 3.9 g/dL 3.2-5.0 [facility] Work Phone: [phone] Serum or plasma albumin/glob ulin mass ratioon 07-31-2021 Albumin/Globulin [Mass ratio] 1.3 {ratio} 0.9-2.4 [facility] Work Phone: [phone] Serum or plasma calcium ananya urement (mass/volume)on 07-31-2021 Calcium [Mass/Vol] 9.0 mg/dL 8.5-10.1 [facility] Work Phone: [phone] Serum or plasma creatinine m easurement (mass/volume)on 07-31-2021 Creatinine [Mass/Vol] 0.78 mg/dL 0.55-1.02 [facility] Work Phone: Comment on above: The validity of the calculated GFR & GFRAA in patients over 70 years has not been determined. Clinical correlation is essential. Serum or plasma urea nitroge n measurement (mass/volume)on 07-31-2021 Urea nitrogen [Mass/Vol] 18 mg/dL 7-18 [facility] Work Phone: Thin prep Papanicolaou smear with manual screeningon 07-31-2021 Thin prep Papanicolaou smear with manual screening 19 U/L 15-37 [facility] Work Phone: Thin prep Papanicolaou smear with manual screening 7 5-15 [facility] Work Phone: Absolute lymphocyte counton 06-01-2021 Lymphocytes Auto (Unsp spec) [#/Vol] 1.61 10*3/uL 0.83-4.51 [facility] Work Phone: Basophil percentageon 2021 Basophils/100 WBC (Bld) 0.7 % 0-1 [facility] Work Phone: Bilirubin [Mass/Vol] 0.50 mg/dL 0.20-1.00 [facility] Work Phone: Comment on above: For patients on eltr ombopag therapy, use of Dimension [place] TBIL is not recommended. Chloride [Moles/Vol] 104 mmol/L 98-107 [facility] Work Phone: Eosinophils/100 WBC (Bld) 1.6 % 0-5 [facility] Work Phone: Glucose [Mass/Vol] 103 mg/dL 74-106 [facility] Work Phone: Comment on above: Fasting Glucose resu lt from 100 to 125 mg/dL suggests IMPAIRED HOMEOSTASIS per A.D.A. criteria. Neutrophils (Bld) [#/Vol] 4.3 10*3/uL 2.0-7.7 [facility] Work Phone: Neutrophils/100 WBC (Bld) 61.5 % 47-70 [facility] Work Phone: Potassium [Moles/Vol] 4.4 mmol/L 3.5-5.1 [facility] Work Phone: Protein [Mass/Vol] 7.5 g/dL 6.4-8.2 [facility] Work Phone: Sodium [Moles/Vol] 138 mmol/L 136-145 [facility] Work Phone: WBC (Bld) [#/Vol] 6.9 10*3/uL 4.4-11.0 [facility] Work Phone: Blood erythrocytes count (nu mber/volume)on 06-01-2021 RBC (Bld) [#/Vol] 3.91 10*6/uL 4.2-5.4 [facility] Work Phone: Blood hemoglobin measurement (mass/volume)on 06-01-2021 Hemoglobin (Bld) [Mass/Vol] 12.8 g/dL 12.0-15.0 [facility] Work Phone: Blood lymphocytes/100 leukoc yteson 06-01-2021 Lymphocytes/100 WBC (Bld) 23.2 % 19-41 [facility] Work Phone: Blood monocytes/100 leukocyt eson 06-01-2021 Monocytes/100 WBC (Bld) 12.1 % 0-10 [facility] Work Phone: Blood platelet mean volumeon 06-01-2021 Platelet mean volume (Bld) [Entitic vol] 10.0 fL 6.2-12.0 [facility] Work Phone: Determination of erythrocyte mean corpuscular volume (MCV)on 06-01-2021 MCV (RBC) [Entitic vol] 100.8 fL 81-99 [facility] Work Phone: Hematocrit Auto (Bld) [Volum e fraction]on 06-01-2021 Hematocrit (Bld) [Volume fraction] 39.4 % 37-47 [facility] Work Phone: [phone] Laboratory - Chemistry and C hemistry - challengeon 06-01-2021 ALP [Catalytic activity/Vol] 71 U/L 45-117 [facility] Work Phone: [phone] ALT [Catalytic activity/Vol] 32 U/L 13-56 [facility] Work Phone: [phone] CO2 [Moles/Vol] 29.0 mmol/L 21.0-32.0 [facility] Work Phone: [phone] Globulin (S) [Mass/Vol] 3.3 g/dL 2.2-4.2 [facility] Work Phone: [phone] Urea nitrogen/Creatinine [Mass ratio] 21.3 mg/mg 10-20 [facility] Work Phone: [phone] Laboratory - Hematology and Cell countson 06-01-2021 Erythrocyte distribution width (RBC) [Entitic vol] 51.7 fL 35.1-43.9 [facility] Work Phone: [phone] Erythrocyte distribution width (RBC) [Ratio] 14.1 % 11.6-14.6 [facility] Work Phone: [phone] Immature granulocytes/100 WBC (Bld) 0.900 % 0.0-0.9 [facility] Work Phone: [phone] Comment on above: IG% - Immature Granu locytes (promyelocytes, myelocytes and metamyelocytes) > 1% indicates that a LEFT SHIFT is Present. MCH (RBC) [Entitic mass] 32.7 pg 27.0-32.0 [facility] Work Phone: [phone] Nucleated RBC/100 WBC (Bld) [Ratio] 0 % 0-5 [facility] Work Phone: [phone] MCHC Auto (RBC) [Mass/Vol]on 06-01-2021 MCHC (RBC) [Mass/Vol] 32.5 g/dL 32-36 [facility] Work Phone: [phone] No Panel Informationon 06-01 Estimated GFR (MDRD) Amer 88 mL/min >60 [facility] Work Phone: [phone] Comment on above: GFR Calc Estimated GFR (MDRD) Non-Af Amer 73 mL/min >60 [facility] Work Phone: Comment on above: Non- GFR Calc Platelets bldon 06-01-2021 Platelets (Bld) [#/Vol] 298 10*3/uL 150-450 [facility] Work Phone: [phone] Serum or plasma albumin ananya urement (mass/volume)on 06-01-2021 Albumin [Mass/Vol] 4.2 g/dL 3.2-5.0 [facility] Work Phone: Serum or plasma albumin/glob ulin mass ratioon 06-01-2021 Albumin/Globulin [Mass ratio] 1.3 {ratio} 0.9-2.4 [facility] Work Phone: [phone] Serum or plasma calcium ananya urement (mass/volume)on 06-01-2021 Calcium [Mass/Vol] 8.9 mg/dL 8.5-10.1 [facility] Work Phone: [phone] Serum or plasma creatinine m easurement (mass/volume)on 06-01-2021 Creatinine [Mass/Vol] 0.85 mg/dL 0.55-1.02 [facility] Work Phone: Comment on above: The validity of the calculated GFR & GFRAA in patients over 70 years has not been determined. Clinical correlation is essential. Serum or plasma urea nitroge n measurement (mass/volume)on 06-01-2021 Urea nitrogen [Mass/Vol] 18 mg/dL 7-18 [facility] Work Phone: [phone] Thin prep Papanicolaou smear with manual screeningon 06-01-2021 Thin prep Papanicolaou smear with manual screening 23 U/L 15-37 [facility] Work Phone: [phone] Thin prep Papanicolaou smear with manual screening 5 5-15 [facility] Work Phone: Basophil percentageon 2021 Bilirubin [Mass/Vol] 0.60 mg/dL 0.20-1.00 [facility] Work Phone: Comment on above: For patients on eltr ombopag therapy, use of Dimension [place] TBIL is not recommended. Chloride [Moles/Vol] 106 mmol/L 98-107 [facility] Work Phone: [phone] Cholesterol [Mass/Vol] 204 mg/dL <200 [facility] Work Phone: [phone] Comment on above: <200 mg/dL Desirable 200-240 mg/dL Borderline >240 mg/dL High Risk Glucose [Mass/Vol] 87 mg/dL 74-106 [facility] Work Phone: [phone] Potassium [Moles/Vol] 3.8 mmol/L 3.5-5.1 [facility] Work Phone: [phone] Protein [Mass/Vol] 7.5 g/dL 6.4-8.2 [facility] Work Phone: [phone] Sodium [Moles/Vol] 140 mmol/L 136-145 [facility] Work Phone: [phone] Triglyceride [Mass/Vol] 63 mg/dL [facility] Work Phone: [phone] Comment on above: The drugs N-Acetylcy steine and Metamizole may falsely depress this assay.Serum Triglycerides Reference Interval Normal <150 mg/dL Borderline high 150 - 199 mg/dL High 200 - 499 mg/dL Very High > or = 500 mg/dL WBC (Bld) [#/Vol] 9.6 10*3/uL 4.4-11.0 [facility] Work Phone: [phone] Blood erythrocytes count (nu mber/volume)on 05-02-2021 RBC (Bld) [#/Vol] 3.90 10*6/uL 4.2-5.4 [facility] [place] Work Phone: [phone] Blood hemoglobin measurement (mass/volume)on 05-02-2021 Hemoglobin (Bld) [Mass/Vol] 12.7 g/dL 12.0-15.0 [facility] Work Phone: [phone] Blood platelet mean volumeon 05-02-2021 Platelet mean volume (Bld) [Entitic vol] 9.9 fL 6.2-12.0 [facility] Work Phone: Determination of erythrocyte mean corpuscular volume (MCV)on 05-02-2021 MCV (RBC) [Entitic vol] 100.3 fL 81-99 [facility] Work Phone: Hematocrit Auto (Bld) [Volum e fraction]on 05-02-2021 Hematocrit (Bld) [Volume fraction] 39.1 % 37-47 [facility] Work Phone: Laboratory - Chemistry and C hemistry - challengeon 05-02-2021 ALP [Catalytic activity/Vol] 74 U/L 45-117 [facility] Work Phone: [phone] ALT [Catalytic activity/Vol] 26 U/L 13-56 [facility] Work Phone: [phone] CO2 [Moles/Vol] 30.0 mmol/L 21.0-32.0 [facility] Work Phone: [phone] Free T4 [Mass/Vol] 1.26 ng/dL 0.76-1.46 [facility] Work Phone: [phone] Globulin (S) [Mass/Vol] 3.5 g/dL 2.2-4.2 [facility] Work Phone: [phone] Urea nitrogen/Creatinine [Mass ratio] 14.4 mg/mg 10-20 [facility] Work Phone: [phone] Laboratory - Hematology and Cell countson 05-02-2021 Erythrocyte distribution width (RBC) [Entitic vol] 53.1 fL 35.1-43.9 [facility] Work Phone: Erythrocyte distribution width (RBC) [Ratio] 14.4 % 11.6-14.6 [facility] Work Phone: [phone] MCH (RBC) [Entitic mass] 32.6 pg 27.0-32.0 [facility] Work Phone: MCHC Auto (RBC) [Mass/Vol]on 05-02-2021 MCHC (RBC) [Mass/Vol] 32.5 g/dL 32-36 [facility] Work Phone: No Panel Informationon 05-02 Estimated GFR (MDRD) Amer 89 mL/min >60 [facility] Work Phone: Comment on above: GFR Calc Estimated GFR (MDRD) Non-Af Amer 74 mL/min >60 [facility] Work Phone: Comment on above: Non- GFR Calc Thyroid Stimulating Hormone (TSH) 1.35 uIU/mL 0.358-3.74 [facility] Work Phone: Vitamin B12 Level > 2000 pg/mL [phone] [facility] [place] Work Phone: Vitamin D 25-Hydroxy 32.0 ng/mL [facility] Work Phone: Comment on above: Vitamin D 25(OH) Sta tus Range Deficiency <20 ng/mL (50nmol/L) Insufficiency 20 - 30 ng/mL (50 - 75 nmol/L) Sufficiency 30 - 100 ng/mL (75 - 250 nmol/L) Toxicity >100 ng/mL (>250 nmol/L) Platelets bldon 05-02-2021 Platelets (Bld) [#/Vol] 285 10*3/uL 150-450 [facility] Work Phone: Serum or plasma albumin ananya urement (mass/volume)on 05-02-2021 Albumin [Mass/Vol] 4.0 g/dL 3.2-5.0 [facility] Work Phone: [phone] Serum or plasma albumin/glob ulin mass ratioon 05-02-2021 Albumin/Globulin [Mass ratio] 1.1 {ratio} 0.9-2.4 [facility] Work Phone: [phone] Serum or plasma calcium ananya urement (mass/volume)on 05-02-2021 Calcium [Mass/Vol] 9.4 mg/dL 8.5-10.1 [facility] Work Phone: [phone] Serum or plasma cholesterol in HDL measurement (mass/volume)on 05-02-2021 Cholesterol in HDL [Mass/Vol] 93 mg/dL [facility] Work Phone: Comment on above: The drugs N-Acetylcy steine and Metamizole may falsely depress this assay. Reference Range HDL <40 mg/dL Low HDL Cholesterol HDL >or= 60 mg/dL High HDL Cholesterol Serum or plasma cholesterol in VLDL measurement (mass/volume)on 05-02-2021 Cholesterol in VLDL [Mass/Vol] 13 mg/dL 5-40 [facility] Work Phone: [phone] Serum or plasma creatinine m easurement (mass/volume)on 05-02-2021 Creatinine [Mass/Vol] 0.83 mg/dL 0.55-1.02 [facility] Work Phone: Comment on above: The validity of the calculated GFR & GFRAA in patients over 70 years has not been determined. Clinical correlation is essential. Serum or plasma folate measu rement (mass/volume)on 05-02-2021 Folate [Mass/Vol] ng/mL 3.1-55.4 [facility] Work Phone: [phone] Serum or plasma low density lipoprotein (LDL) cholesterol measurement (mass/volume)on 05-02-2021 Cholesterol in LDL [Mass/Vol] 98 mg/dL 0-130 [facility] Work Phone: [phone] Serum or plasma urea nitroge n measurement (mass/volume)on 05-02-2021 Urea nitrogen [Mass/Vol] 12 mg/dL 7-18 [facility] Work Phone: [phone] Thin prep Papanicolaou smear with manual screeningon 05-02-2021 Thin prep Papanicolaou smear with manual screening 18 U/L 15-37 [facility] Work Phone: [phone] Thin prep Papanicolaou smear with manual screening 4 5-15 [facility] Work Phone: [phone] Absolute lymphocyte counton 03-14-2021 Lymphocytes Auto (Unsp spec) [#/Vol] 2.34 10*3/uL 0.83-4.51 [facility] Work Phone: [phone] Basophil percentageon 2020 Bilirubin [Mass/Vol] 0.50 mg/dL 0.20-1.00 [facility] Work Phone: Comment on above: For patients on eltr ombopag therapy, use of Dimension [place] TBIL is not recommended. Chloride [Moles/Vol] 103 mmol/L 98-107 [facility] Work Phone: Eosinophils/100 WBC (Bld) 2.1 % 0-5 [facility] Work Phone: Glucose [Mass/Vol] 103 mg/dL 74-106 [facility] Work Phone: Comment on above: Fasting Glucose resu lt from 100 to 125 mg/dL suggests IMPAIRED HOMEOSTASIS per A.D.A. criteria.Please note revised GLUCOSE reference range effective 2017. Neutrophils (Bld) [#/Vol] 3.4 10*3/uL 2.0-7.7 [facility] Work Phone: Potassium [Moles/Vol] 4.1 mmol/L 3.5-5.1 [facility] Work Phone: Protein [Mass/Vol] 7.4 g/dL 6.4-8.2 [facility] Work Phone: Sodium [Moles/Vol] 140 mmol/L 136-145 [facility] Work Phone: WBC (Bld) [#/Vol] 6.8 10*3/uL 4.4-11.0 [facility] Work Phone: Blood erythrocytes count (nu mber/volume)on 03-14-2021 RBC (Bld) [#/Vol] 3.89 10*6/uL 4.2-5.4 [facility] [place] Work Phone: Blood hemoglobin measurement (mass/volume)on 03-14-2021 Hemoglobin (Bld) [Mass/Vol] 12.9 g/dL 12.0-15.0 [facility] Work Phone: Blood lymphocytes/100 leukoc yteson 03-14-2021 Lymphocytes/100 WBC (Bld) 34.3 % 19-41 [facility] Work Phone: Blood monocytes/100 leukocyt eson 03-14-2021 Monocytes/100 WBC (Bld) 12.6 % 0-10 [facility] Work Phone: Blood platelet mean volumeon 03-14-2021 Platelet mean volume (Bld) [Entitic vol] 10.1 fL 6.2-12.0 [facility] Work Phone: Determination of erythrocyte mean corpuscular volume (MCV)on 03-14-2021 MCV (RBC) [Entitic vol] 99.7 fL 81-99 [facility] Work Phone: Hematocrit Auto (Bld) [Volum e fraction]on 03-14-2021 Hematocrit (Bld) [Volume fraction] 38.8 % 37-47 [facility] Work Phone: Laboratory - Chemistry and C hemistry - challengeon 03-14-2021 ALP [Catalytic activity/Vol] 75 U/L 45-117 [facility] Work Phone: ALT [Catalytic activity/Vol] 27 U/L 13-56 [facility] Work Phone: CO2 [Moles/Vol] 30.0 mmol/L 21.0-32.0 [facility] Work Phone: Globulin (S) [Mass/Vol] 3.6 g/dL 2.2-4.2 [facility] Work Phone: Urea nitrogen/Creatinine [Mass ratio] 19.0 mg/mg 10-20 [facility] Work Phone: Laboratory - Hematology and Cell countson 03-14-2021 Basophils/100 WBC (Unsp spec) 0.9 % 0-1 [facility] Work Phone: Erythrocyte distribution width (RBC) [Entitic vol] 49.5 fL 35.1-43.9 [facility] Work Phone: Erythrocyte distribution width (RBC) [Ratio] 13.7 % 11.6-14.6 [facility] Work Phone: Immature granulocytes/100 WBC (Bld) 0.300 % 0.0-0.9 [facility] Work Phone: [phone] Comment on above: IG% - Immature Granu locytes (promyelocytes, myelocytes and metamyelocytes) > 1% indicates that a LEFT SHIFT is Present. MCH (RBC) [Entitic mass] 33.2 pg 27.0-32.0 [facility] Work Phone: [phone] Neutrophils/100 WBC (Bld) 49.8 % 47-70 [facility] Work Phone: [phone] Nucleated RBC/100 WBC (Bld) [Ratio] 0 % 0-5 [facility] Work Phone: [phone] MCHC Auto (RBC) [Mass/Vol]on 03-14-2021 MCHC (RBC) [Mass/Vol] 33.2 g/dL 32-36 [facility] Work Phone: No Panel Informationon 03-14 Estimated GFR (MDRD) Amer 95 mL/min >60 [facility] Work Phone: [phone] Comment on above: GFR Calc Estimated GFR (MDRD) Non-Af Amer 79 mL/min >60 [facility] Work Phone: [phone] Comment on above: Non- GFR Calc Platelets bldon 03-14-2021 Platelets (Bld) [#/Vol] 317 10*3/uL 150-450 [facility] Work Phone: [phone] Serum or plasma albumin ananya urement (mass/volume)on 03-14-2021 Albumin [Mass/Vol] 3.8 g/dL 3.2-5.0 [facility] Work Phone: [phone] Serum or plasma albumin/glob ulin mass ratioon 03-14-2021 Albumin/Globulin [Mass ratio] 1.1 {ratio} 0.9-2.4 [facility] Work Phone: [phone] Serum or plasma calcium ananya urement (mass/volume)on 03-14-2021 Calcium [Mass/Vol] 9.1 mg/dL 8.5-10.1 [facility] Work Phone: Serum or plasma creatinine m easurement (mass/volume)on 03-14-2021 Creatinine [Mass/Vol] 0.79 mg/dL 0.55-1.02 [facility] Work Phone: Comment on above: The validity of the calculated GFR & GFRAA in patients over 70 years has not been determined. Clinical correlation is essential. Serum or plasma urea nitroge n measurement (mass/volume)on 03-14-2021 Urea nitrogen [Mass/Vol] 15 mg/dL 7-18 [facility] Work Phone: Thin prep Papanicolaou smear with manual screeningon 03-14-2021 Thin prep Papanicolaou smear with manual screening 18 U/L 15-37 [facility] Work Phone: Thin prep Papanicolaou smear with manual screening 7 5-15 [facility] Work Phone: LABORATORYOrdered By: Anila Peñaloza on 02-14-2021 Basophil, Absolute 0.10 103/mcL Invalid Interpretation Code 0.00 - 0.19 10^3/mcL AO Auto Heme SS Basophils/100 WBC (Bld) 1.0 % Invalid Interpretation Code 0.0 - 2.5 % AO Auto Heme SS Calcium [Mass/Vol] 9.2 mg/dL Invalid Interpretation Code 8.4 - 10.2 mg/dL AO ADM SS Chloride [Moles/Vol] 103 mmol/L Invalid Interpretation Code 98 - 107 mmol/L AO ADM SS CO2 [Moles/Vol] 30 mmol/L Invalid Interpretation Code 23 - 31 mmol/L AO ADM SS Creatinine [Mass/Vol] 0.82 mg/dL Invalid Interpretation Code 0.55 - 1.02 mg/dL AO ADM SS Electrolyte Balance 9.0 mEq/L Invalid Interpretation Code AO ADM SS Eosinophil, Absolute 0.10 103/mcL Invalid Interpretation Code 0.00 - 0.40 10^3/mcL AO Auto Heme SS Eosinophils/100 WBC (Bld) 1.7 % Invalid Interpretation Code 0.0 - 7.0 % AO Auto Heme SS Erythrocyte distribution width (RBC) [Ratio] 13.7 % Invalid Interpretation Code 11.5 - 14.5 % AO Auto Heme SS Glucose [Mass/Vol] 93 mg/dL Invalid Interpretation Code 80 - 115 mg/dL AO ADM SS Hematocrit (Bld) [Volume fraction] 37.9 % Invalid Interpretation Code 37.0 - 47.0 % AO Auto Heme SS Hemoglobin (Bld) [Mass/Vol] 12.8 G/dL Invalid Interpretation Code 12.0 - 16.0 G/dL AO Auto Heme SS INR Coag (PPP) [Relative time] 1.0 {INR} Invalid Interpretation Code 0.9 - 1.2 ratio AO Coag SS Lymphocyte, Absolute 2.10 103/mcL Invalid Interpretation Code 0.77 - 3.85 10^3/mcL AO Auto Heme SS Lymphocytes/100 WBC (Bld) 29.0 % Invalid Interpretation Code 10.0 - 50.0 % AO Auto Heme SS MCH (RBC) [Entitic mass] 32.8 pg Invalid Interpretation Code 27.0 - 31.2 pg AO Auto Heme SS MCHC (RBC) [Mass/Vol] 33.9 G/dL Invalid Interpretation Code 33.0 - 37.0 G/dL AO Auto Heme SS MCV (RBC) [Entitic vol] 96.9 fL Invalid Interpretation Code 80.0 - 94.0 fL AO Auto Heme SS Monocyte, Absolute 0.70 103/mcL Invalid Interpretation Code 0.15 - 1.00 10^3/mcL AO Auto Heme SS Monocytes/100 WBC (Bld) 10.4 % Invalid Interpretation Code 1.7 - 13.0 % AO Auto Heme SS Neutrophil, Absolute 4.20 103/mcL Invalid Interpretation Code 2.85 - 6.16 10^3/mcL AO Auto Heme SS Neutrophils/100 WBC (Bld) 57.9 % Invalid Interpretation Code 37.0 - 80.0 % AO Auto Heme SS Platelet mean volume (Bld) [Entitic vol] 8.6 fL Invalid Interpretation Code 7.4 - 10.4 fL AO Auto Heme SS Platelets (Bld) [#/Vol] 320 103/mcL Invalid Interpretation Code 130 - 400 10^3/mcL AO Auto Heme SS Potassium [Moles/Vol] 5.1 mmol/L Invalid Interpretation Code 3.5 - 5.1 mmol/L AO ADM SS PT Coag (PPP) [Time] 11.8 s Invalid Interpretation Code 9.7 - 14.3 seconds AO Coag SS RBC (Bld) [#/Vol] 3.91 106/mcL Invalid Interpretation Code 4.20 - 5.40 10^6/mcL AO Auto Heme SS Sodium [Moles/Vol] 142 mmol/L Invalid Interpretation Code 136 - 145 mmol/L AO ADM SS Urea nitrogen [Mass/Vol] 15 mg/dL Invalid Interpretation Code 7 - 18 mg/dL AO ADM SS Urea nitrogen/Creatinine [Mass ratio] 18 ratio Invalid Interpretation Code 7 - 27 ratio AO ADM SS WBC (Bld) [#/Vol] 7.20 103/mcL Invalid Interpretation Code 4.60 - 10.80 10^3/mcL AO Auto Heme SS LABORATORYOrdered By: SYSTEM SYSTEM on 02-14-2021 GFR 86 ml/min/1.73sqm Invalid Interpretation Code AO Chemistry S GFR Non- 71 ml/min/1.73sqm Invalid Interpretation Code AO Chemistry S Vital Signs Date Time Vital Sign Value Performing Clinician Facility 05-11-2024 08:11-0500 Body mass index (BMI) [Ratio] 25.7 kg/m2 Lamine Morton [employer] Work Phone: [facility] 05-11-2024 08:11-0500 Body temperature 97.6 [degF] Lamine Morton [employer] Work Phone: [facility] 05-11-2024 08:11-0500 Body weight 65.77 kg Lamine Morton [employer] Work Phone: [facility] 05-11-2024 08:11-0500 Diastolic blood pressure 83 mm[Hg] Lamine Morton [employer] Work Phone: [facility] 05-11-2024 08:11-0500 Heart rate 82 /min Lamine Morton [employer] Work Phone: [facility] 05-11-2024 08:11-0500 Respiratory rate 18 /min Lamine Morton [employer] Work Phone: [facility] 05-11-2024 08:11-0500 SaO2% (BldA) [Mass fraction] 98 % Lamine Morton [employer] Work Phone: [facility] 05-11-2024 08:11-0500 Systolic blood pressure 128 mm[Hg] Lamine Morton [employer] Work Phone: [facility] 12-25-2023 13:14-0400 Diastolic blood pressure 78 mm[Hg] Christa Avila MD Work Phone: [facility] [place] 12-25-2023 13:14-0400 Respiratory rate 16 /min Christa Avila MD Work Phone: [facility] [place] 12-25-2023 13:14-0400 SaO2% (BldA) [Mass fraction] 98 % Christa Avila MD Work Phone: [facility] [place] 12-25-2023 13:14-0400 Systolic blood pressure 142 mm[Hg] Christa Avila MD Work Phone: [facility] [place] 12-25-2023 13:00-0400 Heart rate 74 /min Christa Avila MD Work Phone: [facility] [place] 12-25-2023 12:33-0400 Body temperature 97.3 [degF] Christa Avila MD Work Phone: [facility] [place] 12-10-2023 11:43-0400 Body height 160 cm Pulm Wstr Work Phone: [facility] [place] 12-10-2023 11:43-0400 Body mass index (BMI) [Ratio] 25.33 kg/m2 Pulm Wstr Work Phone: [facility] [place] 12-10-2023 11:43-0400 Body weight 64.86 kg Pulm Wstr Work Phone: [facility] [place] 12-10-2023 11:43-0400 Heart rate 83 /min Pulm Wstr Work Phone: [facility] [place] 12-10-2023 11:43-0400 Respiratory rate 12 /min Pulm Wstr Work Phone: [facility] [place] 12-10-2023 11:43-0400 SaO2% (BldA) [Mass fraction] 97 % Pulm Wstr Work Phone: [facility] [place] 12-09-2023 10:34-0400 Body height 160 cm Pacc 1 Work Phone: [facility] [place] 12-09-2023 10:34-0400 Body mass index (BMI) [Ratio] 25.33 kg/m2 Pacc 1 Work Phone: [facility] [place] 12-09-2023 10:34-0400 Body temperature 97.39 [degF] Pacc 1 Work Phone: [facility] [place] 12-09-2023 10:34-0400 Body weight 64.86 kg Pacc 1 Work Phone: [facility] [place] 12-09-2023 10:34-0400 Diastolic blood pressure 82 mm[Hg] Pacc 1 Work Phone: [facility] [place] 12-09-2023 10:34-0400 Heart rate 84 /min Pacc 1 Work Phone: [facility] [place] 12-09-2023 10:34-0400 Respiratory rate 16 /min Pacc 1 Work Phone: [facility] [place] 12-09-2023 10:34-0400 SaO2% (BldA) [Mass fraction] 99 % Pacc 1 Work Phone: [facility] [place] 12-09-2023 10:34-0400 Systolic blood pressure 122 mm[Hg] Pacc 1 Work Phone: [facility] [place] 09-24-2023 13:11-0400 Body height 160 cm [address]ina [address] [employer] Work Phone: [facility] [place] 09-24-2023 13:11-0400 Body mass index (BMI) [Ratio] 25.44 kg/m2 Regina Terry [address] [employer] Work Phone: [facility] [place] 09-24-2023 13:11-0400 Body temperature 97 [degF] Regina Terry [address] [employer] Work Phone: [facility] [place] 09-24-2023 13:11-0400 Body weight 65.14 kg [address]ina [address] [employer] Work Phone: [facility] [place] 09-24-2023 13:11-0400 Diastolic blood pressure 76 mm[Hg] Regina Terry [address] [employer] Work Phone: [facility] [place] 09-24-2023 13:11-0400 Heart rate 99 /min Regina Terry [address] [employer] Work Phone: [facility] [place] 09-24-2023 13:11-0400 SaO2% (BldA) [Mass fraction] 98 % Regina Terry [address] [employer] Work Phone: [facility] [place] 09-24-2023 13:11-0400 Systolic blood pressure 124 mm[Hg] Regina Terry [address] [employer] Work Phone: [facility] [place] 04-17-2023 08:51-0500 Body height 160.02 cm [employer] Lamine Morton [employer] Work Phone: [facility] 04-17-2023 08:51-0500 Body mass index (BMI) [Ratio] 25 kg/m2 [employer] Lamine Morton [employer] Work Phone: [facility] 04-17-2023 08:51-0500 Body temperature 97.6 [degF] [employer] Lamine Morton [employer] Work Phone: [facility] 04-17-2023 08:51-0500 Body weight 64.12 kg [employer] Lamine Morton [employer] Work Phone: [facility] 04-17-2023 08:51-0500 Diastolic blood pressure 76 mm[Hg] [employer] Lamine Morton [employer] Work Phone: [facility] 04-17-2023 08:51-0500 Heart rate 88 /min [employer] Lamine Morton [employer] Work Phone: [facility] 04-17-2023 08:51-0500 Respiratory rate 16 /min [employer] Lamine Morton [employer] Work Phone: [facility] 04-17-2023 08:51-0500 SaO2% (BldA) [Mass fraction] 93 % [employer] Lamine Bainpkins [employer] Work Phone: [facility] 04-17-2023 08:51-0500 Systolic blood pressure 126 mm[Hg] [employer] Lamine Morton [employer] Work Phone: [facility] 10-10-2022 05:46-0400 Body height 160.02 cm [employer] Lamine Morton [employer] Work Phone: [facility] 10-10-2022 05:46-0400 Body mass index (BMI) [Ratio] 24.7 kg/m2 [employer] Lamine Morton [employer] Work Phone: [facility] 10-10-2022 05:46-0400 Body temperature 97.6 [degF] [employer] Lamine Morton [employer] Work Phone: [facility] 10-10-2022 05:46-0400 Body weight 63.5 kg [employer] Lamine Morton [employer] Work Phone: [facility] 10-10-2022 05:46-0400 Diastolic blood pressure 89 mm[Hg] [employer] Lamine Morton [employer] Work Phone: [facility] 10-10-2022 05:46-0400 Heart rate 84 /min [employer] Lamine Selene [employer] Work Phone: [facility] 10-10-2022 05:46-0400 Respiratory rate 20 /min [employer] Lamine Morton [employer] Work Phone: [facility] 10-10-2022 05:46-0400 SaO2% (BldA) [Mass fraction] 99 % [employer] Lamine Morton [employer] Work Phone: [facility] 10-10-2022 05:46-0400 Systolic blood pressure 130 mm[Hg] [employer] Lamine Morton [employer] Work Phone: [facility] 06-20-2022 07:57-0400 Body height 160.02 cm [employer] Lamine Morton [employer] Work Phone: [facility] 06-20-2022 07:57-0400 Body mass index (BMI) [Ratio] 25.7 kg/m2 [employer] Lamine Bainpkins [employer] Work Phone: [facility] 06-20-2022 07:57-0400 Body temperature 98.4 [degF] [employer] Lamine Bainpkins [employer] Work Phone: [facility] 06-20-2022 07:57-0400 Body weight 65.77 kg [employer] Lamine Bainpkins [employer] Work Phone: [facility] 06-20-2022 07:57-0400 Diastolic blood pressure 76 mm[Hg] [employer] Lamine Bainpkins [employer] Work Phone: [facility] 06-20-2022 07:57-0400 Heart rate 81 /min [employer] Lamine Selene [employer] Work Phone: [facility] 06-20-2022 07:57-0400 Respiratory rate 18 /min [employer] Lamine Bainpkins [employer] Work Phone: [facility] 06-20-2022 07:57-0400 SaO2% (BldA) [Mass fraction] 99 % [employer] Lamine Bainpkins [employer] Work Phone: [facility] 06-20-2022 07:57-0400 Systolic blood pressure 151 mm[Hg] [employer] Lamine Bainpkins [employer] Work Phone: [facility] 04-25-2022 14:23-0500 Body height 160 cm Pulm Wstr Work Phone: [facility] [place] 04-25-2022 14:23-0500 Body weight 66.22 kg Pulm Wstr Work Phone: [facility] [place] 04-25-2022 14:23-0500 Heart rate 98 /min Pulm Wstr Work Phone: [facility] [place] 04-25-2022 14:23-0500 Respiratory rate 12 /min Pulm Wstr Work Phone: [facility] [place] 04-25-2022 14:23-0500 SaO2% (BldA) [Mass fraction] 97 % Pulm Wstr Work Phone: [facility] [place] 04-09-2022 10:20-0500 Body height 160.02 cm CAR AUDIO INSTALLER-C Lamine Morton CAR AUDIO INSTALLER Work Phone: [facility] 04-09-2022 10:15-0500 Body mass index (BMI) [Ratio] 25.8 kg/m2 CAR AUDIO INSTALLER-C Lamine Morton CAR AUDIO INSTALLER Work Phone: [facility] 04-09-2022 10:15-0500 Body temperature 97.5 [degF] CAR AUDIO INSTALLER-C Lamine Morton CAR AUDIO INSTALLER Work Phone: [facility] 04-09-2022 10:15-0500 Body weight 66.22 kg CAR AUDIO INSTALLER-C Lamine Morton CAR AUDIO INSTALLER Work Phone: [facility] 04-09-2022 10:15-0500 Diastolic blood pressure 87 mm[Hg] CAR AUDIO INSTALLER-C Lamine Morton CAR AUDIO INSTALLER Work Phone: [facility] 04-09-2022 10:15-0500 Heart rate 91 /min CAR AUDIO INSTALLER-C Lamine Morton CAR AUDIO INSTALLER Work Phone: [facility] 04-09-2022 10:15-0500 Respiratory rate 16 /min CAR AUDIO INSTALLER-C Lamine Morton CAR AUDIO INSTALLER Work Phone: [facility] 04-09-2022 10:15-0500 SaO2% (BldA) [Mass fraction] 85 % CAR AUDIO INSTALLER-C Lamine Chilton CAR AUDIO INSTALLER Work Phone: [facility] 04-09-2022 10:15-0500 Systolic blood pressure 141 mm[Hg] CAR AUDIO INSTALLER-C Lamine Morton CAR AUDIO INSTALLER Work Phone: [facility] 12-08-2021 09:41-0400 Body height 160.02 cm CAR AUDIO INSTALLER-C Lamine Morton CAR AUDIO INSTALLER Work Phone: [facility] Work Phone: 12-08-2021 09:41-0400 Body mass index (BMI) [Ratio] 25.7 kg/m2 CAR AUDIO INSTALLER-C Lamine Bainpkins CAR AUDIO INSTALLER Work Phone: [facility] Work Phone: 12-08-2021 09:41-0400 Body temperature 98.6 [degF] CAR AUDIO INSTALLER-C Lamine Bainpkins CAR AUDIO INSTALLER Work Phone: [facility] Work Phone: 12-08-2021 09:41-0400 Body weight 65.94 kg CAR AUDIO INSTALLER-C Lamine Bainpkins CAR AUDIO INSTALLER Work Phone: [facility] Work Phone: 12-08-2021 09:41-0400 Diastolic blood pressure 79 mm[Hg] CAR AUDIO INSTALLER-C Lamine Chilton CAR AUDIO INSTALLER Work Phone: [facility] Work Phone: 12-08-2021 09:41-0400 Heart rate 77 /min CAR AUDIO INSTALLER-C Lamine Bainpkins CAR AUDIO INSTALLER Work Phone: [facility] Work Phone: 12-08-2021 09:41-0400 Respiratory rate 16 /min CAR AUDIO INSTALLER-C Lamine Bainpkins CAR AUDIO INSTALLER Work Phone: [facility] Work Phone: 12-08-2021 09:41-0400 SaO2% (BldA) [Mass fraction] 99 % CAR AUDIO INSTALLER-C Lamine Bainpkins CAR AUDIO INSTALLER Work Phone: [facility] Work Phone: 12-08-2021 09:41-0400 Systolic blood pressure 123 mm[Hg] CAR AUDIO INSTALLER-C Lamine Bainpkins CAR AUDIO INSTALLER Work Phone: [facility] Work Phone: 06-06-2021 10:43-0400 Body height 160.02 cm CAR AUDIO INSTALLER-C Lamine Selene CAR AUDIO INSTALLER Work Phone: [facility] Work Phone: 06-06-2021 10:43-0400 Body mass index (BMI) [Ratio] 25.8 kg/m2 CAR AUDIO INSTALLER-C Lamine Morton CAR AUDIO INSTALLER Work Phone: [facility] Work Phone: 06-06-2021 10:43-0400 Body temperature 97.4 [degF] CAR AUDIO INSTALLER-C Lamine Morton CAR AUDIO INSTALLER Work Phone: [facility] Work Phone: 06-06-2021 10:43-0400 Body weight 66.22 kg CAR AUDIO INSTALLER-C Lamine Morton CAR AUDIO INSTALLER Work Phone: [facility] Work Phone: 06-06-2021 10:43-0400 Diastolic blood pressure 91 mm[Hg] CAR AUDIO INSTALLER-C Lamine Morton CAR AUDIO INSTALLER Work Phone: [facility] Work Phone: 06-06-2021 10:43-0400 Heart rate 70 /min CAR AUDIO INSTALLER-C Lamine Morton CAR AUDIO INSTALLER Work Phone: [facility] Work Phone: 06-06-2021 10:43-0400 Respiratory rate 17 /min CAR AUDIO INSTALLER-C Lamine Morton CAR AUDIO INSTALLER Work Phone: [facility] Work Phone: 06-06-2021 10:43-0400 SaO2% (BldA) [Mass fraction] 97 % CAR AUDIO INSTALLER-C Lamine Morton CAR AUDIO INSTALLER Work Phone: [facility] Work Phone: 06-06-2021 10:43-0400 Systolic blood pressure 142 mm[Hg] CAR AUDIO INSTALLER-C Lamine Morton CAR AUDIO INSTALLER Work Phone: [facility] Work Phone: 03-01-2021 07:32-0500 Body temperature 97.3 [degF] CAR AUDIO INSTALLER-C Lamine Morton CAR AUDIO INSTALLER Work Phone: [facility] Work Phone: 03-01-2021 07:32-0500 Body weight 64.41 kg CAR AUDIO INSTALLER-C Lamine Morton CAR AUDIO INSTALLER Work Phone: [facility] Work Phone: 03-01-2021 07:32-0500 Diastolic blood pressure 92 mm[Hg] CAR AUDIO INSTALLER-C Lamine Morton CAR AUDIO INSTALLER Work Phone: [facility] Work Phone: 03-01-2021 07:32-0500 Heart rate 82 /min CAR AUDIO INSTALLER-C Lamine Morton CAR AUDIO INSTALLER Work Phone: [facility] Work Phone: 03-01-2021 07:32-0500 Respiratory rate 18 /min CAR AUDIO INSTALLER-C Lamine Morton CAR AUDIO INSTALLER Work Phone: [facility] Work Phone: 03-01-2021 07:32-0500 SaO2% (BldA) [Mass fraction] 90 % CAR AUDIO INSTALLER-C Lamine Morton CAR AUDIO INSTALLER Work Phone: [facility] Work Phone: 03-01-2021 07:32-0500 Systolic blood pressure 148 mm[Hg] CAR AUDIO INSTALLER-C Lamine Morton CAR AUDIO INSTALLER Work Phone: [facility] Work Phone: 02-16-2021 09:40-0500 diastolic 74 mm[Hg] MARIPOSA SALGUERO MD [facility] 02-16-2021 09:40-0500 Heart rate 80 /min MARIPOSA SALGUERO MD [facility] 02-16-2021 09:40-0500 systolic 128 mm[Hg] MARIPOSA SALGUERO MD [facility] 02-16-2021 09:10-0500 diastolic 78 mm[Hg] MARIPOSA SALGUERO MD [facility] 02-16-2021 09:10-0500 Heart rate 79 /min MARIPOSA SALGUERO MD [facility] 02-16-2021 09:10-0500 Respiratory rate 18 /min MARIPOSA SALGUERO MD [address] [place] [address] 02-16-2021 09:10-0500 systolic 128 mm[Hg] MARIPOSA SALGUERO MD [address] [place] [address] 02-16-2021 08:50-0500 diastolic 81 mm[Hg] MARIPOSA SALGUERO MD [address] [place] [address] 02-16-2021 08:50-0500 Heart rate 78 /min MARIPOSA SALGUERO MD [facility] 02-16-2021 08:50-0500 Respiratory rate 18 /min MARIPOSA SALGUERO MD [facility] 02-16-2021 08:50-0500 systolic 138 mm[Hg] MARIPOSA SALGUERO MD [address] [place] [address] 02-16-2021 08:35-0500 Respiratory rate 18 /min MARIPOSA SALUGERO MD [facility] 02-16-2021 06:32-0500 Body height 160 cm MARIPOSA SALGUERO MD [facility] 02-16-2021 06:32-0500 Body temperature 98.42 [degF] MARIPOSA SALGUERO MD [address] [place] [address] 02-16-2021 06:32-0500 Body weight 64.5 kg MARIPOSA SALGUERO MD [facility] 02-16-2021 06:32-0500 Body weight 25.2 kg/m2 MARIPOSA SALGUERO MD [facility] 09-02-2020 08:03-0400 Body mass index (BMI) [Ratio] 25.2 kg/m2 CAR AUDIO INSTALLER-C Lamine Morton CAR AUDIO INSTALLER Work Phone: [facility] Work Phone: Encounters Encounter Date Encounter Type Care Provider Facility Start: 07-20-2024 End: 07-20-2024 ambulatory Lamine Morton CAR AUDIO INSTALLER-C Work Phone: [facility] Work Phone: Start: 07-20-2024 End: 07-20-[address] Isa Price MD -Labor[facility], [place] Work Phone: Start: 07-20-2024 End: 07-20-2024 ambulatory Isa Price Facility:[facility] Start: 06-30-2024 End: 07-04-[address] [facility] [facility] - CIGAR WRAPPER TENDER AUTOMATIC Facility:A Start: 06-30-2024 End: 07-04-2024 Encounter for gynecological examination (general) (routine) without abnormal findings LUIS ENRIQUE BROWN MD Facility:A Start: 05-11-2024 End: 05-11-2024 Patient encounter procedure Chiara Morrow CAR AUDIO INSTALLER-C -[facility] Work Phone: Start: 05-11-2024 End: 05-11-2024 ambulatory Chiara Morrow CAR AUDIO INSTALLER Facility:[facility] Start: 04-28-2024 End: 04-28-2024 Patient encounter procedure Lamine Morton CAR AUDIO INSTALLER-C -Labor[facility], [place] Work Phone: Start: 04-28-2024 End: 04-28-2024 ambulatory Isa Price Facility:[facility] Start: 02-03-2024 End: 02-03-2024 ambulatory Lamine Morton CAR AUDIO INSTALLER Facility:[facility] Start: 12-30-2023 End: 12-30-2023 Admission to same day surgery center Regina Parada APRTahirCIGAR WRAPPER TENDER AUTOMATIC Work Phone: General Surgery Comment on above: EGD biopsy results Start: 12-30-2023 End: 12-30-2023 E-mail encounter from caregiver Regina Parada APRN.CIGAR WRAPPER TENDER AUTOMATIC Work Phone: General Surgery Start: 12-25-2023 ambulatory [facility] Facility:[facility] Start: 12-25-2023 End: 12-25-2023 Subsequent hospital visit by physician Christa Avila MD Work Phone: [facility] Comment on above: Dysphagia, unspecifi ed type [R13.10] Start: 12-13-2023 ambulatory Lamine Morton CAR AUDIO INSTALLER [place] [place] Start: 12-13-2023 End: 12-13-2023 ambulatory Lamine Morton CAR AUDIO INSTALLER Facility:[facility] Start: 12-10-2023 End: 12-10-2023 ambulatory [facility] Work Phone: [facility] Comment on above: Spirometry Start: 12-10-2023 End: 12-10-2023 Patient encounter procedure [facility] Work Phone: [facility] Start: 12-09-2023 End: 12-11-2023 [place] [id number] Work Phone: Pre Anesthesia Comment on above: Pre-operative examin ation (Primary Dx); Primary hypertension; Rheumatic mitral regurgitation; Mixed hyperlipidemia; Pulmonary hypertension (HCC); Raynaud's disease without gangrene; Severe chronic obstructive pulmonary disease (HCC); Hypothyroidism, unspecified type; Anemia of chronic disease; Rheumatoid arthritis, involving unspecified site, unspecified whether rheumatoid factor present (HCC); Psoriasis; Seasonal affective disorder (HCC); Varicose veins of bilateral lower extremities with pain Start: 12-09-2023 End: 12-09-2023 Preprocedural examination done [facility] Work Phone: [facility] Start: 11-07-2023 End: 11-07-2023 ambulatory Chiara Morrow CAR AUDIO INSTALLER Facility:[facility] Start: 11-07-2023 End: 11-07-2023 ambulatory Lamine Morton CAR AUDIO INSTALLER Facility:[facility] Start: 11-05-2023 End: 11-05-2023 ambulatory LUIS ENRIQUE BROWN MD Facility:B Start: 09-24-2023 End: 09-24-2023 ambulatory REGINA PARADA Facility:[facility] Start: 09-24-2023 End: 09-24-2023 Patient encounter procedure Regina Parada [address] P[facility].CIGAR WR[employer]PER TENDER [employer]OMATIC Work Phone: General Surgery Comment on above: Dysphagia, unspecifi ed type (Primary Dx); History of colonic polyps; Encounter for screening colonoscopy Start: 08-19-2023 ambulatory LUIS ENRIQUE BROWN MD F acility:B Start: 08-19-2023 End: 08-19-2023 ambulatory Isa Price Facility:[facility] Start: 07-02-2023 End: 07-02-[address] [facility] - CIGAR WRAPPER TENDER AUTOMATIC Facility:B Start: 07-02-2023 End: 07-02-2023 Patient encounter procedure [address]INE [address] [facility] PILOT - CIGAR WRAPPER TENDER AUTOMATIC [facility] Start: 05-15-2023 End: 05-15-2023 ambulatory CAR AUDIO INSTALLER-C Lamine Morton CAR AUDIO INSTALLER Work Phone: [facility] Work Phone: Start: 05-15-2023 End: 05-15-2023 Patient encounter procedure CAR AUDIO INSTALLER-Danish Morton CAR AUDIO INSTALLER Work Phone: [facility] Work Phone: Start: 04-22-2023 Orders Only Provider [facility] Comment on above: Chronic obstructive pulmonary disease, unspecified COPD type (HCC) (Primary Dx) Start: 04-17-2023 End: 04-17-2023 Patient encounter procedure CAR AUDIO INSTALLER-C Lamine Morton CAR AUDIO INSTALLER [facility] Work Phone: Start: 02-18-2023 End: 02-18-2023 ambulatory [facility] Work Phone: Start: 02-18-2023 End: 02-18-2023 Patient encounter procedure [facility] Work Phone: Start: 02-06-2023 End: 02-10-2023 ambulatory LUIS ENRIQUE BROWN MD Facility:A Start: 02-06-2023 End: 02-10-2023 Encounter for gynecological examination (general) (routine) without abnormal findings LUIS ENRIQUE BROWN MD Facility:A Start: 11-21-2022 End: 11-21-2022 ambulatory CAR AUDIO INSTALLER-C Lamine Morton CAR AUDIO INSTALLER Work Phone: [facility] Work Phone: Start: 11-21-2022 End: 11-21-2022 Patient encounter procedure CAR AUDIO INSTALLER-C Lamine Morton CAR AUDIO INSTALLER Work Phone: [facility] Work Phone: Start: 10-10-2022 End: 10-10-2022 Patient encounter procedure CAR AUDIO INSTALLER-C Lamine Morton CAR AUDIO INSTALLER [facility] Work Phone: Start: 10-01-2022 End: 10-01-2022 Patient encounter procedure LUIS ENRIQUE BROWN MD [facility] Start: 09-19-2022 End: 09-19-2022 ambulatory CAR AUDIO INSTALLER-C Lamine Morton CAR AUDIO INSTALLER Work Phone: [facility] Work Phone: Start: 09-19-2022 End: 09-19-2022 Patient encounter procedure CAR AUDIO INSTALLER-C Lamine Morton CAR AUDIO INSTALLER Work Phone: [facility] Work Phone: Start: 06-21-2022 End: 06-21-2022 ambulatory CAR AUDIO INSTALLER-C Lamine Morton CAR AUDIO INSTALLER Work Phone: [facility] Work Phone: Start: 06-21-2022 End: 06-21-2022 Patient encounter procedure CAR AUDIO INSTALLER-C Lamine Morton CAR AUDIO INSTALLER Work Phone: [facility] Start: 06-20-2022 End: 06-20-2022 Patient encounter procedure CAR AUDIO INSTALLER-C Lamine Morton CAR AUDIO INSTALLER [facility] Start: 04-26-2022 End: 04-26-2022 ambulatory CAR AUDIO INSTALLER-C Lamine Morton CAR AUDIO INSTALLER Work Phone: [facility] Work Phone: Start: 04-26-2022 End: 04-26-2022 Patient encounter procedure CAR AUDIO INSTALLER-C Lamine Morton CAR AUDIO INSTALLER Work Phone: [facility] Start: 04-25-2022 End: 04-25-2022 ambulatory [facility] Work Phone: [facility] Comment on above: Spirometry Start: 04-25-2022 End: 04-25-2022 Patient encounter procedure [facility] Work Phone: [facility] Start: 04-25-2022 End: 04-25-2022 Subsequent hospital visit by physician [facility] ([facility]-Stat) Work Phone: Cat Scan Start: 04-23-2022 End: 04-23-2022 ambulatory CAR AUDIO INSTALLER-C Lamine Morton CAR AUDIO INSTALLER Work Phone: [facility] Work Phone: Start: 04-23-2022 End: 04-23-2022 Patient encounter procedure CAR AUDIO INSTALLER-Danish Morton CAR AUDIO INSTALLER Work Phone: [facility] Start: 04-20-2022 End: 04-20-2022 Patient encounter procedure CAR AUDIO INSTALLER-C Lamine Morton CAR AUDIO INSTALLER Work Phone: [facility] Start: 04-19-2022 Orders Only [facility] Comment on above: Chronic obstructive pulmonary disease, unspecified COPD type (HCC) (Primary Dx) Start: 04-09-2022 End: 04-09-2022 Patient encounter procedure CAR AUDIO INSTALLER-C Lamine Morton CAR AUDIO INSTALLER [facility] Start: 01-19-2022 End: 01-19-2022 ambulatory CAR AUDIO INSTALLER-C Lamine Morton CAR AUDIO INSTALLER Work Phone: [facility] Work Phone: Start: 01-19-2022 End: 01-19-2022 Patient encounter procedure CAR AUDIO INSTALLER-C Lamine Morton CAR AUDIO INSTALLER Work Phone: [facility] Start: 12-08-2021 End: 12-08-2021 Patient encounter procedure CAR AUDIO INSTALLER-C Lamine Morton CAR AUDIO INSTALLER Work Phone: [facility] Start: 10-18-2021 End: 10-18-2021 Patient encounter procedure CAR AUDIO INSTALLER-C Lamine Morton CAR AUDIO INSTALLER Work Phone: [facility] Start: 09-15-2021 End: 09-15-2021 Patient encounter procedure LUISE NRIQUE BROWN MD [facility] Start: 07-31-2021 End: 07-31-2021 Patient encounter procedure CAR AUDIO INSTALLER-C Lamine Morton CAR AUDIO INSTALLER Work Phone: [facility] Start: 06-06-2021 End: 06-06-2021 Patient encounter procedure CAR AUDIO INSTALLER-C Lamine Morton CAR AUDIO INSTALLER [facility] Start: 06-01-2021 End: 06-01-2021 Patient encounter procedure CAR AUDIO INSTALLER-C Lamine Morton CAR AUDIO INSTALLER [facility] Start: 05-02-2021 End: 05-02-2021 Patient encounter procedure CAR AUDIO INSTALLER-C Lamine Morton CAR AUDIO INSTALLER [facility] Start: 04-18-2021 End: 04-18-2021 Patient encounter procedure CAR AUDIO INSTALLER-C Lamine Morton CAR AUDIO INSTALLER Work Phone: [facility] Start: 03-14-2021 Patient encounter procedure CAR AUDIO INSTALLER-Danish Morton CAR AUDIO INSTALLER Work Phone: [facility] Start: 03-01-2021 End: 03-01-2021 Patient encounter procedure CAR AUDIO INSTALLER-C Lamine Morton CAR AUDIO INSTALLER [facility] Start: 02-16-2021 End: 02-16-2021 SAME DAY STAY MARIPOSA SALGUERO MD [facility] Start: 02-14-2021 End: 02-14-2021 Patient encounter procedure [address] [facility] [facility]-CIGAR WRAPPER TENDER AUTOMATIC [facility] Start: 02-06-2021 End: 02-06-2021 Patient encounter procedure [address] [facility] P[facility]-CIGAR WRAPPER TENDER AUTOMATIC [facility] Start: 12-30-2020 End: 12-30-2020 Orders Only Moe Saavedra MD Work Phone: Cardiology Comment on above: Nonspecific abnormal finding on cardiac evaluation (Primary Dx); Aortic valve disorder Procedures Date Procedure Procedure Detail Performing Clinician Start: 04-28-2024 Measurement of renal function Lamine pedro CAR AUDIO INSTALLER-C Work Phone: Comment on above: GFR Calc Start: 04-28-2024 Microalbuminuria measurement Lamine montemayor CAR AUDIO INSTALLER-C Work Phone: Start: 04-28-2024 Urine microalbumin/creatinine ratio measurement Lamine Morton CAR AUDIO INSTALLER-C Work Phone: Comment on above: Test not performed Start: 04-28-2024 Vitamin D, 25-hydroxy measurement Venkata Morton CAR AUDIO INSTALLER-C Work Phone: Comment on above: Vitamin D 25(OH) Status Range Deficiency <20 ng/mL (50nmol/L) Insufficiency 20 - 30 ng/mL (50 - 75 nmol/L) Sufficiency 30 - 100 ng/mL (75 - 250 nmol/L) Toxicity >100 ng/mL (>250 nmol/L) Start: 12-25-2023 Colonoscopy flx dx w/collj spec when pfrmd Regina Parada [address] [facility].C[employer]AR WR[employer] T[employer] Work Phone: Start: 12-25-2023 Esophagogastroduodenoscopy transoral diagnostic Regina Parada [address].CIGAR WR[employer]PER T[employer]ER [employer]ATIC Work Phone: Start: 12-25-2023 Colonoscopy Christa Avila MD Work Phone: Start: 12-10-2023 Brncdilat rspse spmtry pre&post-brncdilat admn Provider [facility] Start: 04-25-2022 Nitric oxide gas determination Provider [facility] Start: 04-25-2022 Co diffusing capacity Provider [facility] Start: 04-25-2022 Ct thorax w/o contrast material [facility] Prov ider Start: 04-18-2021 CT of chest CAR AUDIO INSTALLER-C Lamine Morton CAR AUDIO INSTALLER Work Phone: Start: 02-06-2021 Cardiovascular stress testing [address] [facility]-CIGAR WR[employer] Comment on above: No evidence of significant inducible isc hemia or prior myocardial infarction. Normal EF 62%. Compared to prior study no significant change. Start: 02-06-[address] [facility]-CIGAR WR[employer] Comment on above: EF 55-60% Start: 03-24-2018 Cardiovascular stress testing [address] [facility] [facility]-[employer] Comment on above: No evidence of significant inducible isc hemia or prior IA. EF 66%. Compared to the prior study there has been no significant interval change. Start: 02-27-[address] [facility] [facility]-[employer] Comment on above: EF 55-60% Start: 03-18-2004 Arthroscopy of shoulder [address] [facility] Start: 03-18-1986 Ligation of fallopian tube [address] [facility] H/O: tubal ligation History of t ubal ligation CAR AUDIO INSTALLER-C Lamine Morton CAR AUDIO INSTALLER Work Phone: History of repair of musculotendinous cuff of shoulder History of repair of rotator cuff CAR AUDIO INSTALLER-C Lamine Morton CAR AUDIO INSTALLER Work Phone: Nasal sinus endoscopy [address] [facility] Plan of Treatment Date Care Activity Detail Author Start: 12-25-2026 Urine microalbumin profile DTa P,Tdap,Td Vaccine (2 - Td or Tdap) [facility] Start: 12-24-2024 Screening for malign ant neoplasm of colon [facility] Start: 01-28-2024 Covid-19 Vaccine ( season) Covid-19 Vaccine () [facility] Start: 12-25-2023 End: 12-25-2023 Patient encounter procedure [facility] Start: 12-10-2023 End: 12-10-2023 ambulatory [facility] Comment on above: Chronic obstructive pulmonary disease, unspecified COPD type (HCC) [J44.9] Start: 11-17-2023 Influenza vaccination Influenza Vacc ine (#1) [facility] Start: 04-18-2023 Patient referral [facility] Work Phone: Start: 04-09-2023 Covid-19 Vaccine () Covid-19 Vaccine () [facility] Start: 03-18-2023 Behavioral Health Screening Behavioral Health Screening [facility] Start: 03-18-2023 Depression Assessment Depression Ass essment [facility] Start: 12-27-2022 Pneumococcal vaccination Pneum ococcal Vaccine (3 of 3 - PCV) [facility] Start: 11-16-2022 Covid-19 Vaccine () Covid-19 Vaccine () [facility] Start: 11-16-2022 Influenza vaccination Influenza Vacc ine (#1) [facility] Start: 03-18-2022 DEPRESSION ASSESSMENT DEPRESSION ASS ESSMENT [facility] Start: 11-16-2021 Influenza vaccination INFLUENZA (#1) [facility] Start: 11-16-2020 Influenza vaccination INFLUENZA (#1) [facility] [place] Start: 2020 RSV Vaccine (1 - 1-d ose 60+ series) RSV Vaccine (1 - 1-dose 60+ series) [facility] Start: 2010 SHINGRIX VACCINE (1 of 2) DAI GRIX VACCINE (1 of 2) [facility] [place] Start: 2005 COLOGUARD (FIT-DNA) COLOGUARD (FIT-D NA) [facility] Start: 2005 Colonoscopy COLONOSCOPY [facility] Start: 2005 COLORECTAL CANCER SCREENING COLORECTAL CANCER SCREENING [facility] Start: [address] COLONOGRAPHY [place] Start: 2005 DIABETES SCREEN DIABETES SCREEN [place] Start: 2005 Diabetes Screening Diabetes Screenin g [facility] Start: 2005 FECAL OCCULT BLOOD FECAL OCCULT BLOO D [facility] [place] Start: 2005 Lipid 1996 panel - S ren or Plasma Lipid Screening [facility] Start: 2005 Lipid panel Lipid Screening [facility] Start: 2005 LIPID SCREEN LIPID SCREEN [facility] Start: 2005 Screening for malign ant neoplasm of colon [facility] Start: 2005 SIGMOIDOSCOPY SIGMOIDOSCOPY [facility] Start: 2000 Mammography [facility] [place] Start: 2000 Screening for malign ant neoplasm of breast Mammogram Screening [facility] [place] Start: 1990 HPV TESTING HPV TESTING [facility] [place] Start: 1990 Screening for malign ant neoplasm of cervix HPV Testing [facility] [place] Start: 1990 Zoledronic acid therapy Alpha- 1 Antitrypsin Deficiency Screening [facility] [place] Start: 1981 PAP TESTING PAP TESTING [facility] [place] Start: 1981 Screening for malign ant neoplasm of cervix Pap Testing [facility] [place] Start: 1979 SHINGRIX VACCINE (1 of 2) DAI GRIX VACCINE (1 of 2) [facility] [place] Start: 1979 Urine microalbumin profile [facility] [place] Start: 1978 Annual PCP Team Forming And Assembling Supervisor cesia Disease Visit Annual PCP Team Chronic Disease Visit [facility] [place] Start: 1978 Anxiety Screening Anxiety Screening [facility] [place] Start: 1978 BP Controlled (<130/80) BP Controlle d (<130/80) [facility] [place] Start: 1978 HEPATITIS C SCREENING HEPATITIS C [facility] Start: 1978 Hepatitis C screening Hepatitis C [facility] Start: 1978 HIV SCREENING HIV SCREENING [facility] Start: 1978 HIV screening HIV Screening [facility] Start: 1972 Adult depression [facility] assessment DEPRESSION SCREENING [facility] Start: 1972 COVID-19 VACCINE (1) COVID-19 VACCIN E (1) [facility] Start: 1971 Screening for malign ant neoplasm of cervix Cervical Cancer Screening [facility] Start: 1966 PNEUMOCOCCAL (1 - PCV) PNEUMOCOCCAL (1 - PCV) [facility] Start: 1966 Pneumococcal vaccination Pneum ococcal Vaccine (1 - PCV) [facility] Start: 1960 COVID-19 VACCINE (#1) COVID-19 VACCI NE (#1) [facility] CT Chest WO contrast [facility] CT Chest WO contrast [facility] End: 12-30-2021 ECG COMPLETE ECG COMPLETE ECG Routine Nonspecific abnormal finding on cardiac evaluation Aortic valve disorder 1 Occurrences starting 12/30/2020 until 12/30/2021 [facility] Comment on above: 1 Occurrences starti ng 12/30/2020 until 12/30/2021 End: 12-30-2021 Echocardiography ECHO Cardiology Routine Nonspecific abnormal finding on cardiac evaluation Aortic valve disorder 1 Occurrences starting 12/30/2020 until 12/30/2021 [facility] Comment on above: 1 Occurrences starti ng 12/30/2020 until 12/30/2021 End: 09-23-2024 EGD DIAGNOSTIC EGD DIAGNOSTIC Endoscopy Routine Dysphagia, unspecified type 1 Occurrences starting 09/24/2023 until 09/23/2024 [facility] Work Phone: Comment on above: 1 Occurrences starti ng 09/24/2023 until 09/23/2024 End: 05-19-2023 LUNG DIFFUSION CAPACITY (DLCO) LUNG DIFFUSION CAPACITY (DLCO) PFT Routine Chronic obstructive pulmonary disease, unspecified COPD type (HCC) 1 Occurrences starting 04/19/2022 until 05/19/2023 [facility] Comment on above: 1 Occurrences starti ng 04/19/2022 until 05/19/2023 LUNG DIFFUSION CAPAC ITY (DLCO) LUNG DIFFUSION CAPACITY (DLCO) PFT Routine Chronic obstructive pulmonary disease, unspecified COPD type (HCC) 04/25/2022 1:42 PM EST [facility] End: 05-21-2024 LUNG DIFFUSION CAPACITY (DLCO) LUNG DIFFUSION CAPACITY (DLCO) PFT Routine Chronic obstructive pulmonary disease, unspecified COPD type (HCC) 1 Occurrences starting 04/22/2023 until 05/21/2024 [facility] Comment on above: 1 Occurrences starti ng 04/22/2023 until 05/21/2024 End: 05-19-2023 LUNG VOLUMES LUNG VOLUMES PFT Routine Chronic obstructive pulmonary disease, unspecified COPD type (HCC) 1 Occurrences starting 04/19/2022 until 05/19/2023 [facility] Comment on above: 1 Occurrences starti ng 04/19/2022 until 05/19/2023 LUNG VOLUMES LUNG VOLUMES PFT Routine Chronic obstructive pulmonary disease, unspecified COPD type (HCC) 04/25/2022 1:42 PM EST [facility] End: 05-21-2024 LUNG VOLUMES LUNG VOLUMES PFT Routine Chronic obstructive pulmonary disease, unspecified COPD type (HCC) 1 Occurrences starting 04/22/2023 until 05/21/2024 [facility] Comment on above: 1 Occurrences starti ng 04/22/2023 until 05/21/2024 End: 05-21-2024 MAXIMAL VOLUNTARY VENTILATION MAXIMAL VOLUNTARY VENTILATION PFT Routine Chronic obstructive pulmonary disease, unspecified COPD type (HCC) 1 Occurrences starting 04/22/2023 until 05/21/2024 [facility] Comment on above: 1 Occurrences starti ng 04/22/2023 until 05/21/2024 Measurement of respi ratory function [facility] Measurement of respi ratory function [facility] End: 05-21-2024 MIPS/MEPS MIPS/MEPS PFT Routine Chronic obstructive pulmonary disease, unspecified COPD type (HCC) 1 Occurrences starting 04/22/2023 until 05/21/2024 [facility] Comment on above: 1 Occurrences starti ng 04/22/2023 until 05/21/2024 End: 05-19-2023 NITRIC OXIDE, EXHALED NITRIC OXIDE, EXHALED PFT Routine Chronic obstructive pulmonary disease, unspecified COPD type (HCC) 1 Occurrences starting 04/19/2022 until 05/19/2023 [facility] Comment on above: 1 Occurrences starti ng 04/19/2022 until 05/19/2023 End: 05-21-2024 NITRIC OXIDE, EXHALED NITRIC OXIDE, EXHALED PFT Routine Chronic obstructive pulmonary disease, unspecified COPD type (HCC) 1 Occurrences starting 04/22/2023 until 05/21/2024 [facility] Comment on above: 1 Occurrences starti ng 04/22/2023 until 05/21/2024 Patient referral [facility] Work Phone: End: 09-23-2024 Screening colonoscopy COLONOSCOPY SCREENING Endoscopy Routine History of colonic polyps Encounter for screening colonoscopy 1 Occurrences starting 09/24/2023 until 09/23/2024 [facility] Comment on above: 1 Occurrences starti ng 09/24/2023 until 09/23/2024 End: 05-19-2023 SPIROMETRY - BASELINE AND POST DILATOR SPIROMETRY - BASELINE AND POST DILATOR PFT Routine Chronic obstructive pulmonary disease, unspecified COPD type (HCC) 1 Occurrences starting 04/19/2022 until 05/19/2023 [facility] Comment on above: 1 Occurrences starti ng 04/19/2022 until 05/19/2023 SPIROMETRY - BASELIN E AND POST DILATOR SPIROMETRY - BASELINE AND POST DILATOR PFT Routine Chronic obstructive pulmonary disease, unspecified COPD type (HCC) 04/25/2022 1:42 PM EST [facility] End: 05-21-2024 SPIROMETRY - BASELINE AND POST DILATOR SPIROMETRY - BASELINE AND POST DILATOR PFT Routine Chronic obstructive pulmonary disease, unspecified COPD type (HCC) 1 Occurrences starting 04/22/2023 until 05/21/2024 [facility] Comment on above: 1 Occurrences starti ng 04/22/2023 until 05/21/2024 SURGICAL PATHOLOGY [facility] Work Phone: Comment on above: Release Upon Orderin g for 1 Occurrences starting 12/25/2023, 1 completed [facility] Immunizations Immunization Date Immunization Notes Care Provider Gayatri brown 03-29-2023 influenza virus vaccine, unspecified formulation Regina Parada [address] [employer] Work Phone: [facility] 12-27-2021 influenza virus vaccine, unspecified formulation Ct (I-Stat) Work Phone: [facility] 06-03-2020 Covid (Pfizer) CAR AUDIO INSTALLER-C Lamine Morton NP Work Phone: [facility] Payers Date Payer Category Payer Self-pay [id number] 2022 Unknown AMANDA PATEL BC BS FEP PPO [id number] 2022-Present [phone] [address] [place] [address] PPO [id number] 2022 Unknown [id number] 2020 Unknown [employer] HMO [id number] 2020-Present HMO [id number] 2016 Unknown [id number] 1960 Unknown [id number] 1960 Unknown [id number] 1960 Unknown [id number] 1960 Unknown [id number] 1960 Unknown [id number] Unknown [id number] Unknown [id number] Unknown [id number] Unknown [id number] Unknown [id number] Unknown [id number] Unknown [id number] Unknown [id number] Unknown [id number] Social History Date Type Detail Facility Start: 11-01-2011 End: 04-17-2023 Tobacco smoking status NHIS Former smoker [facility] Start: 05-24-1977 End: 05-25-2007 History of tobacco use Current smoker [facility] Start: 05-24-1977 End: 05-25-2007 History of tobacco use Cigarette Smoker [facility] Start: 11-01-2011 End: 09-24-2023 Cigarettes smoked current (pack per day) - Reported [facility] Start: 11-01-2011 End: 12-09-2023 Tobacco use and exposure Never used [facility] Start: 11-01-2011 End: 12-10-2023 Alcohol intake Current drinker of alcohol (finding) [facility] Start: 06-25-2011 History SDOH Alcohol Comment Social drinker [facility] Start: 1960 Sex Assigned At Not on file [facility] Exposure to SARS-CoV -2 (event) Unable to assess [facility] Start: 1960 Sex Assigned At Female A [facility] Start: 06-06-2021 End: 04-17-2023 Tobacco smoking status NHIS Unknown if ever smoked [facility] Start: 04-25-2022 End: 09-24-2023 Tobacco use panel [facility] National Score (1-10 0), lower number is lower risk 67 [facility] Start: 08-19-2023 Gender identity Identifies as female gender (finding) [facility] Start: 08-19-2023 Sexual orientation Heterosexual (fin adwoa) [facility] Clinical Notes 02-16-2021 to 05-11-2024 Note Date & Type Note Facility 05-11-2024 Evaluation note Diagnosis Onset Date Resolution Chronic hypoxemic respiratory failure chronic April 1:39pm Methotrexate, superintendent container terminal, current use chronic May 11, 2 025 1:39pm Stage 4 very severe COPD by GOLD classification chronic May 11, 2024 1:39pm [facility] Work Phone: [phone]) 400-276709-25-2024 Telephone encounter Note* Telephone Encounter - Jennifer Castrejon LPN - 12/11/2023 12:42 PM EDT Most recent Echo received from [employer]. Scanned into [facility] through Onbase scanning. Jennifer Castrejon LPN [facility]09-25-2024 Miscellaneous Notes* Telephone Encounter - Jennifer Castrejon LPN - 12/11/2023 12:42 PM EDT Most recent Echo received from [employer]. Scanned into [facility] through Onbase scanning. Jennifer Castrejon LPN * Telephone Encounter - Jennifer Castrejon LPN - 12/09/2023 1:32 PM EDT Received last Pulmonary office visit but was noted on fax cover sheet that patient refused any pulmonary testing and rehab. Office visit scanned into [facility] through Onbase scanning. Jennifer Castrejon LPN * Telephone Encounter - Jennifer Castrejon LPN - 12/09/2023 1:32 PM EDT Received labs. Scanned into [facility] through Onbase scanning. Jennifer Castrejon LPN * Telephone Encounter - Blanca Sams APRN.MATTHEW - 12/09/2023 12:01 PM EDT Can you see if the pt has a recent echo through [facility] as well. Thank you * Telephone Encounter - Jennifer Castrejon LPN - 12/09/2023 11:17 AM EDT Fax request sent to MATTHEW Morton requesting most recent labs Jennifer Castrejon LPN * Telephone Encounter - Jennifer Castrejon LPN - 12/09/2023 11:01 AM EDT Called and left message requesting for last office visit and pulm testing for upcoming surgery. Faxrequest also sent. Jennifer Castrejon LPN documented in [facility] [place]24 NoteHNO ID: [id number] Author: ANDREIA FRIAS RPFT Service: ? Author Type: Respiratory Therapist Type: Progress Notes Filed: 12/10/2023 11:45 Note Text: PULM FUNCTION: Provider: Blanca Sams APRN.[employer] Assisting Tech: PetKristi diazsea, RPGLENYS Spirometry w/BD: 1 [facility] History of Present illness Narrative * Andreia Frias RPFT - 12/10/2023 11:43 AM EDT PULM FUNCTION: Provider: Blanca Sams APRN.[employer] Assisting Tech: Herminio Friasa, RPFT Spirometry w/BD: 1 DLCO: 1 documented in [facility] [place] Telephone encounter Note * Telephone Encounter - Jennifer Castrejon LPN - 12/09/2023 1:32 PM EDT Received last Pulmonary office visit but was noted on fax cover sheet that patient refused any pulmonary testing and rehab. Office visit scanned into [facility] through Onbase scanning. Jennifer Castrejon LPN [facility] [place]09-23-2024 Telephone encounter Note* Telephone Encounter - Jennifer Castrejon LPN - 12/09/2023 1:32 PM EDT Received labs. Scanned into [facility] through Onbase scanning. Jennifer Castrejon LPN [facility] [place]09-23-2024 Telephone encounter Note* Telephone Encounter - Blanca Sams APRN.CNP - 12/09/2023 12:01 PM EDT Can you see if the pt has a recent echo through [facility] as well. Thank you [facility]09-23-2024 Telephone encounter Note* Telephone Encounter - Jennifer Castrejon LPN - 12/09/2023 11:17 AM EDT Fax request sent to MATTHEW Morton requesting most recent labs Jennifer Castrejon LPN [facility] [place]09-23-2024 Telephone encounter Note* Telephone Encounter - Jennifer Castrejon LPN - 12/09/2023 11:01 AM EDT Called and left message requesting for last office visit and pulm testing for upcoming surgery. Faxrequest also sent. Jennifer Castrejon LPN [facility] [place]09-23-2024 Instructions* Patient Instructions* Blanca Sams APRN.MATTHEW - 12/09/2023 10:42 AM EDT Images from the original note were not included. [facility] PATIENT PREOPERATIVE INSTRUCTIONS Christa Avila MD has scheduled you for your procedure at this surgery center: [facility]: [phone] -- [address] [address]. Please read below carefully for your personalized instructions. Dietary Restrictions: - Follow bowel prep instructions: clear liquids need to be stopped 2 hours prior to schedule arrival at facility Medications: Unless instructed differently below, stay on all of your medications until your surgery. If you start any new medications after today's visit, please contact your surgeon. Pre-Surgery Med Instructions Medication Instructions fluticasone/umeclidin/vilanter (TRELEGY ELLIPTA INHALATION) Take the day of surgery with a small sip of water leucovorin (LEUCOVORIN) 5 mg tablet Take the day of surgery with a small sip of water calcium carbonate (SUPER CALCIUM) 600 mg calcium (1,500 mg) tab Stop 7 days before surgery folic acid 1 mg tablet Stop 7 days before surgery Magnesium 250 mg tab Stop 7 days before surgery naproxen sodium 220 mg cap Stop 7 days before surgery albuterol HFA 90 mcg/actuation HFA Take the day of surgery with a small sip of water certolizumab pegol (CIMZIA) 400 mg/2 mL (200 mg/mL x 2) sub-q syringe kit Do not take the day of surgery amLODIPine (NORVASC) 10 mg tablet Take the day of surgery with a small sip of water Methotrexate Sodium 2.5 mg tablet Take the day of surgery with a small sip of water levothyroxine (SYNTHROID) 112 mcg tablet Take the day of surgery with a small sip of water If you start any new medications after today's visit, please contact the surgeon's office. Blood Thinning Medications: - Stop NSAIDS (Ibuprofen, Advil, Aleve, Motrin, Celebrex, Mobic, etc.) 7 days before surgery, as directed by your surgeon. - Stop Aspirin 7 days before surgery, as directed by your surgeon. - Stop Vitamin E, ALL multi-vitamins, herbals and dietary supplements 7 days before surgery. - You may take Tylenol (Acetaminophen) or any of your pain medications that do not contain aspirin or NSAIDS as needed. Important Reminders: - Candy, mints, and tobacco products are NOT permitted the morning of surgery. - Hearing aids, dentures and glasses may be worn the morning of surgery. - NO jewelry, body piercings, makeup, hairpins or contacts are to be worn the day of surgery. If you develop symptoms such as a fever, cold, or flu, or have other changes to your health within TWO DAYS of scheduled surgery or the morning of surgery, please contact the surgery center above. Personal Belongings: -Please have photo ID and insurance cards. -If you do not have a copy of advance directives on file with us, please bring a copy with you on the day of surgery. - Leave ALL valuables and money at home or with family members. For Outpatient Procedures: - YOU MUST HAVE A RESPONSIBLE FIG WASHER TAKE YOU HOME. A COATER CARBON PAPER OR CODING COMPLIANCE AUDITOR CANNOT BE MADE A RESPONSIBLE FIG WASHER. - We recommend that a responsible person stays with you overnight to take care of you. - You cannot stay in a hotel alone after outpatient surgery. You will not be permitted to have yoursurgery, if you do not have someone to take care of you. Arrival Time for Surgery: - The Surgery Center or hospital where you are having surgery will call the afternoon before surgery (or Saturday for Saturday surgery) with a scheduled arrival time. - If you have not heard by 4 pm, please contact the surgery center above. Please be aware that emergency situations arise, which may delay or change your surgical time. If this happens, we will notify you as soon as possible and regret any inconvenience. If you already have an Advance Directive, please fax a copy to [phone] or email to for it to be added to your chart. If you do not have an Advance Directive, you can find the appropriate form and more information at [email or web address]. We recommend that youcomplete the Advance Directive form found on the website and bring it with you the day of your surgery. It can be witnessed and scanned into your chart that day. Blanca Sams APRN.CNP documented in this [facility] [place] History and physical note * Blanca Sams APRN.CNP - 12/09/2023 10:39 AM EDT Images from the original note were not included. [facility] HISTORY AND PHYSICAL EXAMINATION SERVICE DATE: 12/09/2023 SERVICE TIME: 12:09 PM PRIMARY CARE PHYSICIAN: RIVERA Tirado CNP Assessment Patient has the following medical conditions which may affect yanni-operative course: Hypertension Assessment: controlled on rx Last 14 BP Last 14 Encounter BP Readings: Date: BP: 12/09/2023 122/82 09/24/2023 124/76 06/25/2011 131/73 Mitral valve insufficiency Assessment: Echocardiogram February 2018 showed a normal EF, stress test March 2018 showed no ischemia and a normal EF. 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 Mixed hyperlipidemia Assessment: diet controlled Pulmonary hypertension (HCC) Assessment: following pulmonary, no documentation supporting this found Raynaud's disease Assessment: controlled on rx Severe chronic obstructive pulmonary disease (HCC) Assessment: new PFT's pending for tomorrow, most recent OV requested, pt has oxygen 4L as needed, rarely uses per pt 04/17/2023 Chiara Morrow, [employer]IGAR WR[employer]PER [employer], [place] [facility] Hypothyroidism Assessment: stable on rx Anemia of chronic disease Assessment: hx, most recent labs requested from PCP Rheumatoid arthritis ([facility]) Assessment: MTX, Leucovorin, Cimzia, following Dr. Price in [place] Psoriasis Assessment: controlled on rx Seasonal affective disorder (HCC) Assessment: hx, no current tx Varicose veins of bilateral lower extremities with pain Assessment: PCP currently working up, no surgical intervention Amador Activity Status Index: METS: Climb a flight of stairs or walk up a hill (5.50 METs) DASI Score: 5.5 Patient denies any chest pain or undue shortness of breath with the above physical activity. Clinical Frailty Scale: 3. Well, with treated comorbid disease STOP-Bang Score: Patient over 50 years old Denies snoring loudly Denies feeling tired, fatigued, or sleepy during the daytime Has not been observed to stop breathing or choking/gasping during sleep Denies having high blood pressure BMI less than or equal to 35 kg/m^2 Does not have a large neck Non-male patient STOP-Bang Score: 1 [id number] Score: Age: <65 Sex: female CHF history: No Hypertension history: Yes Stroke/TIA/thromboembolism history: No Vascular disease history: Yes Diabetes history: No [id number] Score: 3 ARISCAT Score: Age: 51-80 Preoperative SpO2: >=96% Respiratory infection in the last month: No Preoperative anemia: No Surgical incision: peripheral Duration of surgery: <2 hrs Emergency procedure: No ARISCAT Score: 3 ANESTHESIA FINDINGS: Intubation History: No history of difficult intubation Significant Anesthesia Considerations: none Airway History: No history of difficult airway I - PHYSICAL EVALUATION AIRWAY Patient intubated: No. Tracheostomy tube not present Mallampati: I. TM distance: >3 FB. Neck ROM: full ROM without neurological symptoms. Mouth opening: adequate. Short neck: no. Thick neck: no Garza present: no Lip Bite Test: I Microretrognathia/Micronagthia/Recessed Chin: No DENTAL Dental findings: teeth intact. Additional comments: +crowns/back. II - ANESTHESIA PLAN Anesthetic Plan: other Beta Mik Monitoring Plan Post Procedure Analgesic Plan Prepared for Surgery: optimally prepared for surgery, pending [see comment]. PFTs CONSULTS: Patient does not require consults for optimization at this time Planned Anesthetic: other anesthesia choice The Following Tests/Procedures Have Been Initiated: Orders Placed This Encounter fluticasone/umeclidin/vilanter (TRELEGY ELLIPTA INHALATION) Sig: Inhale as instructed. leucovorin (LEUCOVORIN) 5 mg tablet Sig: Take 5 mg by mouth once daily. REASON FOR VISIT: Amy Novoa is a 63 year old female who is scheduled for * No surgery found * at the request of Dr. Christa Avila for consultation. My final recommendation will be communicated back to the requesting physician by way of shared medical record or letter. Subjective The patient has the following: COVID-19 Immunization Status Covid-19 Vaccine ( season) Next due on 01/28/2024 12/03/2023 Imm Admin: COVID-19 vaccine, age 12+ yr (PFIZER-BIONTECH) 02/12/2023 Imm Admin: COVID-19 vaccine, 2022- season (NOVAVAX) 12/07/2021 Imm Admin: COVID-19 vaccine, age 12+ yr, bivalent (PFIZER-BIONTECH) Only the first 3 history entries have been loaded, but more history exists. CHIEF COMPLAINT: Pre-op exam HPI: Amy Novoa is a 63 year old seen for PAC due to scheduled above surgery because h/o colon polyps/dysphagia. 09/24/2023, Veronika Parada CNP HPI: Amy is a 63 year old female referred for endoscopy. Amy notes due for screening colonoscopy. Patient denies any change in bowel habits, weight changes, blood in stools, black tarry stools or abdominal pain. Denies family history of colon issues. Amy notes dysphagia with water. She refers this has been an on going problem her whole life. Opento the idea of upper scope Amy has a history of Stage 4 COPD, she wears 4L home 02 as needed. Amy states she rarely uses her oxygen and when she does it is after activity like walking up stairs. She follows with [facility]- last appt was 03/2023. Pulse ox on RA today was 98%. Denies recent hospitalizations, current SOB, cough, fever Amy has undergone prior endoscopy. Refers it was with Dr. Celaya over 10 years ago at [facility]. She refers he took polyps, unsure of which kind and how many. REVIEW OF SYSTEMS: General: No weight loss, malaise or fevers. Neurological: No history of TIA's, stroke, INTEGRATION ENGINEER tumor, impaired sensorium, hemiplegia, paraplegia orquadraplegia. No neurological symptoms or problems. Respiratory: +former smoker Positive for: COPD (cont on rx and as needed) and home oxygen. Patient is on 4L liter(s) of home O2. Negative for: asthma, pneumonia within 6 weeks, tobacco use, URI < 2 weeks and obstructive sleepapnea. Cardiovascular: Positive for: hypertension (on rx) and PVD (no revascularization, no symptomatic claudication and no history of amputation) Negative for: anticoagulation therapy, arrhythmia, atrial fibrillation, CAD, chest pain, CHF, congenital heart defect, DVT/PE, hyperlipidemia, recent IA, murmur/valvular heart disease, open heart surgery and valve surgery. GI: No history of GI symptoms or problems. No history of esophageal varices, recent ascites, or ETOH greater than 2 drinks per day. : No history of dysuria, frequency or incontinence, stones or chronic kidney disease. No difficulty urinating, nocturia > 1 time per night or hematuria. ENVIRONMENTAL FIELD SERVICES TECHNICIAN: Negative for abnormal vaginal bleeding, abnormal vaginal discharge. Endocrine: Positive for: hypothyroidism (on rx). Negative for: diabetes mellitus. Hematology: No history of bleeding or clotting disorder. Patient is not taking anti-coagulation or platelet medications. No history of hematological symptoms or problems. Oncology: SCC s/p excision, ear Psych: No history of psychiatric symptoms or problems. Musculoskeletal: Positive for: joint pain and rheumatoid arthritis. Patient's drug abuse program coordinator is Richa. Patient isusing DMARDS for RA. Skin: +psorasis PAST MEDICAL HISTORY Diagnosis Date Abnormal PFT Cardiovascular disease Chronic constipation Chronic fatigue COPD (chronic obstructive pulmonary disease) (HCC) Hypertension Hypothyroidism Mitral valve regurgitation Psoriasis Pulmonary hypertension (HCC) Raynaud disease 03/18/1977 Rheumatoid arthritis, adult (HCC) 03/18/1998 Seasonal allergies Shortness of breath Skin cancer PAST SURGICAL HISTORY Procedure Laterality Date COLONOSCOPY as 2023-greater than 10 years, Dr. Celaya at [facility] LIGATE FALLOPIAN TUBE ROTATOR CUFF REPAIR SINUS SURGERY PROCEDURE FAMILY HISTORY Problem Relation Age of Onset Thyroid Mother COPD Father Diabetes Father Heart disease Father Hypertension Father Thyroid Sister Social History Tobacco Use Smoking status: Former Current packs/day: 0.00 Average packs/day: 1.5 packs/day for 30.0 years (45.0 ttl pk-yrs) Types: Cigarettes Start date: 05/24/1977 Quit date: 05/25/2007 Years since quittin.5 Smokeless tobacco: Never Vaping Use Vaping status: Never Used Substance Use Topics Alcohol use: Yes Alcohol/week: 3.0 standard drinks of alcohol Types: 3 Glasses of Wine (5oz) per week Comment: Social drinker Drug use: No Prior to Admission medications as of 12/09/23 1204 Medication Sig Last Dose Taking fluticasone/umeclidin/vilanter (TRELEGY ELLIPTA INHALATION) Inhale as instructed. Taking Yes leucovorin (LEUCOVORIN) 5 mg tablet Take 5 mg by mouth once daily. Taking Yes calcium carbonate (SUPER CALCIUM) 600 mg calcium (1,500 mg) tab Take 600 mg by mouth once daily. Taking Yes folic acid 1 mg tablet Take 2 mg by mouth once daily. Taking Yes Magnesium 250 mg tab Take 250 mg by mouth once daily. Taking Yes naproxen sodium 220 mg cap Take 220 mg by mouth two times a day as needed (pain). Taking Yes albuterol HFA 90 mcg/actuation HFA Inhale 2 Puffs as instructed every 4 hours as needed (shortness of breath or wheezing). Taking Yes certolizumab pegol (CIMZIA) 400 mg/2 mL (200 mg/mL x 2) sub-q syringe kit Inject 400 mg subcutaneously every 2 weeks. Taking Yes amLODIPine (NORVASC) 10 mg tablet Take 10 mg by mouth once daily. Taking Yes Methotrexate Sodium 2.5 mg tablet Take 7.5 mg by mouth once each week. Patient states she takes 6 tablets once a week. Taking Yes levothyroxine (SYNTHROID) 112 mcg tablet Take 112 mcg by mouth once daily. Taking Yes No medication comments found. ALLERGIES No Known Allergies Objective PHYSICAL EXAM: General: alert and oriented (x3) and healthy appearance. Pertinent negatives noted - not distressed. Skin: normal color, no rash or lesions. HEENT: EOM intact and pupils equal round. Pertinent negatives noted - no carotid bruit. Cardiovascular: regular rate and rhythm, normal S1 and S2, no rub, murmurs, or gallop. Respiratory: normal breath sounds, no wheezes or crackles. No chest wall deformity or tenderness. Abdomen: soft. Pertinent negatives noted - not tender. Extremities: no deformity, no edema or tenderness, no joint swelling or clubbing. Neurological: normal cognition and motor skills. Gait normal. No weakness or sensory deficit. PAIN ASSESSMENT: VITALS: BP 122/82 Pulse 84 Temp (Src) 97.4 (Temporal) Resp 16 Ht 5' 3 (1.60m) Wt 143 lb (64.9kg) SpO2 99% BMI 25.34 kg/(m^2). Diagnostic tests reviewed for today's visit: Lab Value Units Date High Low HB No results within date range. HCT No results within date range. WBC No results within date range. PLT No results within date range. NA No results within date range. K No results within date range. GLUC No results within date range. BUN No results within date range. CREAT No results within date range. PTSEC No results within date range. INR No results within date range. APTT No results within date range. ALT No results within date range. AST No results within date range. TBILI No results within date range. TSH No results within date range. Lab Value Units Date High Low HCGQT No results within date range. UHCG No results within date range. HCG, BODY* No results within date range. Lab Value Units Date High Low ABORHD No results within date range. ABSCREEN No results within date range. No results found for: HBA1C No results found for this or any previous visit (from the past 8760 hour(s)). No results found for this or any previous visit (from the past 55328 hour(s)). Instructions Given to Patient: Instructions located in the after visit summary. Patient given verbal and written preop instructions and voices comprehension and compliance. SIGNATURE: Blanca Sams APRN.CNP PATIENT NAME: Amy Novoa DATE: December 09, 2023 TIME: 10:39 AM PAGER/CONTACT #: [facility] [id number] History and physical note* Blanca Sams APRN.CNP - 12/09/2023 10:39 AM EDT Images from the original note were not included. [facility] HISTORY AND PHYSICAL EXAMINATION SERVICE DATE: 12/09/2023 SERVICE TIME: 12:09 PM PRIMARY CARE PHYSICIAN: RIVERA Tirado, MATTHEW Assessment Patient has the following medical conditions which may affect yanni-operative course: Hypertension Assessment: controlled on rx Last 14 BP Last 14 Encounter BP Readings: Date: BP: 12/09/2023 122/82 09/24/2023 124/76 06/25/2011 131/73 Mitral valve insufficiency Assessment: Echocardiogram February 2018 showed a normal EF, stress test March 2018 showed no ischemia and a normal EF. 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 Mixed hyperlipidemia Assessment: diet controlled Pulmonary hypertension (HCC) Assessment: following pulmonary, no documentation supporting this found Raynaud's disease Assessment: controlled on rx Severe chronic obstructive pulmonary disease (HCC) Assessment: new PFT's pending for tomorrow, most recent OV requested, pt has oxygen 4L as needed, rarely uses per pt 04/17/2023 Chiara Morrow CNP, [place] Hypothyroidism Assessment: stable on rx Anemia of chronic disease Assessment: hx, most recent labs requested from PCP Rheumatoid arthritis (HCC) Assessment: MTX, Leucovorin, Cimzia, following Dr. Price in [place] Psoriasis Assessment: controlled on rx Seasonal affective disorder (HCC) Assessment: hx, no current tx Varicose veins of bilateral lower extremities with pain Assessment: PCP currently working up, no surgical intervention [place] Activity Status Index: METS: Climb a flight of stairs or walk up a hill (5.50 METs) DASI Score: 5.5 Patient denies any chest pain or undue shortness of breath with the above physical activity. Clinical Frailty Scale: 3. Well, with treated comorbid disease STOP-Bang Score: Patient over 50 years old Denies snoring loudly Denies feeling tired, fatigued, or sleepy during the daytime Has not been observed to stop breathing or choking/gasping during sleep Denies having high blood pressure BMI less than or equal to 35 kg/m^2 Does not have a large neck Non-male patient STOP-Bang Score: 1 [id number] Score: Age: <65 Sex: female CHF history: No Hypertension history: Yes Stroke/TIA/thromboembolism history: No Vascular disease history: Yes Diabetes history: No [id number] Score: 3 ARISCAT Score: Age: 51-80 Preoperative SpO2: >=96% Respiratory infection in the last month: No Preoperative anemia: No Surgical incision: peripheral Duration of surgery: <2 hrs Emergency procedure: No ARISCAT Score: 3 ANESTHESIA FINDINGS: Intubation History: No history of difficult intubation Significant Anesthesia Considerations: none Airway History: No history of difficult airway I - PHYSICAL EVALUATION AIRWAY Patient intubated: No. Tracheostomy tube not present Mallampati: I. TM distance: >3 FB. Neck ROM: full ROM without neurological symptoms. Mouth opening: adequate. Short neck: no. Thick neck: no Garza present: no Lip Bite Test: I Microretrognathia/Micronagthia/Recessed Chin: No DENTAL Dental findings: teeth intact. Additional comments: +crowns/back. II - ANESTHESIA PLAN Anesthetic Plan: other Beta Mik Monitoring Plan Post Procedure Analgesic Plan Prepared for Surgery: optimally prepared for surgery, pending [see comment]. PFTs CONSULTS: Patient does not require consults for optimization at this time Planned Anesthetic: other anesthesia choice The Following Tests/Procedures Have Been Initiated: Orders Placed This Encounter fluticasone/umeclidin/vilanter (TRELEGY ELLIPTA INHALATION) Sig: Inhale as instructed. leucovorin (LEUCOVORIN) 5 mg tablet Sig: Take 5 mg by mouth once daily. REASON FOR VISIT: Amy Novoa is a 63 year old female who is scheduled for * No surgery found * at the request of Dr. Christa Avila for consultation. My final recommendation will be communicated back to the requesting physician by way of shared medical record or letter. Subjective The patient has the following: COVID-19 Immunization Status Covid-19 Vaccine ( season) Next due on 01/28/2024 12/03/2023 Imm Admin: COVID-19 vaccine, age 12+ yr (PFIZER-BIONTECH) 02/12/2023 Imm Admin: COVID-19 vaccine, season (NOVAVAX) 12/07/2021 Imm Admin: COVID-19 vaccine, age 12+ yr, bivalent (Telvent Git) Only the first 3 history entries have been loaded, but more history exists. CHIEF COMPLAINT: Pre-op exam HPI: Amy Novoa is a 63 year old seen for PAC due to scheduled above surgery because h/o colon polyps/dysphagia. 09/24/2023, Veronika Parada, [employer] HPI: Amy is a 63 year old female referred for endoscopy. Amy notes due for screening colonoscopy. Patient denies any change in bowel habits, weight changes, blood in stools, black tarry stools or abdominal pain. Denies family history of colon issues. Amy notes dysphagia with water. She refers this has been an on going problem her whole life. Opento the idea of upper scope Amy has a history of Stage 4 COPD, she wears 4L home 02 as needed. Amy states she rarely uses her oxygen and when she does it is after activity like walking up stairs. She follows with [facility]- last appt was 03/2023. Pulse ox on RA today was 98%. Denies recent hospitalizations, current SOB, cough, fever Amy has undergone prior endoscopy. Refers it was with Dr. Celaya over 10 years ago at [facility]. She refers he took polyps, unsure of which kind and how many. REVIEW OF SYSTEMS: General: No weight loss, malaise or fevers. Neurological: No history of TIA's, stroke, INTEGRATION ENGINEER tumor, impaired sensorium, hemiplegia, paraplegia orquadraplegia. No neurological symptoms or problems. Respiratory: +former smoker Positive for: COPD (cont on rx and as needed) and home oxygen. Patient is on 4L liter(s) of home O2. Negative for: asthma, pneumonia within 6 weeks, tobacco use, URI < 2 weeks and obstructive sleepapnea. Cardiovascular: Positive for: hypertension (on rx) and PVD (no revascularization, no symptomatic claudication and no history of amputation) Negative for: anticoagulation therapy, arrhythmia, atrial fibrillation, CAD, chest pain, CHF, congenital heart defect, DVT/PE, hyperlipidemia, recent IA, murmur/valvular heart disease, open heart surgery and valve surgery. GI: No history of GI symptoms or problems. No history of esophageal varices, recent ascites, or ETOH greater than 2 drinks per day. : No history of dysuria, frequency or incontinence, stones or chronic kidney disease. No difficulty urinating, nocturia > 1 time per night or hematuria. ENVIRONMENTAL FIELD SERVICES TECHNICIAN: Negative for abnormal vaginal bleeding, abnormal vaginal discharge. Endocrine: Positive for: hypothyroidism (on rx). Negative for: diabetes mellitus. Hematology: No history of bleeding or clotting disorder. Patient is not taking anti-coagulation or platelet medications. No history of hematological symptoms or problems. Oncology: SCC s/p excision, ear Psych: No history of psychiatric symptoms or problems. Musculoskeletal: Positive for: joint pain and rheumatoid arthritis. Patient's drug abuse program coordinator is Richa. Patient isusing DMARDS for RA. Skin: +psorasis PAST MEDICAL HISTORY Diagnosis Date Abnormal PFT Cardiovascular disease Chronic constipation Chronic fatigue COPD (chronic obstructive pulmonary disease) (HCC) Hypertension Hypothyroidism Mitral valve regurgitation Psoriasis Pulmonary hypertension (HCC) Raynaud disease 03/18/1977 Rheumatoid arthritis, adult (HCC) 03/18/1998 Seasonal allergies Shortness of breath Skin cancer PAST SURGICAL HISTORY Procedure Laterality Date COLONOSCOPY as of 2023-greater than 10 years, [address] Celaya at [facility] LIGATE FALLOPIAN TUBE ROTATOR CUFF REPAIR SINUS SURGERY PROCEDURE FAMILY HISTORY Problem Relation Age of Onset Thyroid Mother COPD Father Diabetes Father Heart disease Father Hypertension Father Thyroid Sister Social History Tobacco Use Smoking status: Former Current packs/day: 0.00 Average packs/day: 1.5 packs/day for 30.0 years (45.0 ttl pk-yrs) Types: Cigarettes Start date: 05/24/1977 Quit date: 05/25/2007 Years since quittin.5 Smokeless tobacco: Never Vaping Use Vaping status: Never Used Substance Use Topics Alcohol use: Yes Alcohol/week: 3.0 standard drinks of alcohol Types: 3 Glasses of Wine (5oz) per week Comment: Social drinker Drug use: No Prior to Admission medications as of 12/09/23 1204 Medication Sig Last Dose Taking fluticasone/umeclidin/vilanter (TRELEGY ELLIPTA INHALATION) Inhale as instructed. Taking Yes leucovorin (LEUCOVORIN) 5 mg tablet Take 5 mg by mouth once daily. Taking Yes calcium carbonate (SUPER CALCIUM) 600 mg calcium (1,500 mg) tab Take 600 mg by mouth once daily. Taking Yes folic acid 1 mg tablet Take 2 mg by mouth once daily. Taking Yes Magnesium 250 mg tab Take 250 mg by mouth once daily. Taking Yes naproxen sodium 220 mg cap Take 220 mg by mouth two times a day as needed (pain). Taking Yes albuterol HFA 90 mcg/actuation HFA Inhale 2 Puffs as instructed every 4 hours as needed (shortness of breath or wheezing). Taking Yes certolizumab pegol (CIMZIA) 400 mg/2 mL (200 mg/mL x 2) sub-q syringe kit Inject 400 mg subcutaneously every 2 weeks. Taking Yes amLODIPine (NORVASC) 10 mg tablet Take 10 mg by mouth once daily. Taking Yes Methotrexate Sodium 2.5 mg tablet Take 7.5 mg by mouth once each week. Patient states she takes 6 tablets once a week. Taking Yes levothyroxine (SYNTHROID) 112 mcg tablet Take 112 mcg by mouth once daily. Taking Yes No medication comments found. ALLERGIES No Known Allergies Objective PHYSICAL EXAM: General: alert and oriented (x3) and healthy appearance. Pertinent negatives noted - not distressed. Skin: normal color, no rash or lesions. HEENT: EOM intact and pupils equal round. Pertinent negatives noted - no carotid bruit. Cardiovascular: regular rate and rhythm, normal S1 and S2, no rub, murmurs, or gallop. Respiratory: normal breath sounds, no wheezes or crackles. No chest wall deformity or tenderness. Abdomen: soft. Pertinent negatives noted - not tender. Extremities: no deformity, no edema or tenderness, no joint swelling or clubbing. Neurological: normal cognition and motor skills. Gait normal. No weakness or sensory deficit. PAIN ASSESSMENT: VITALS: BP 122/82 Pulse 84 Temp (Src) 97.4 (Temporal) Resp 16 Ht 5' 3 (1.60m) Wt 143 lb (64.9kg) SpO2 99% BMI 25.34 kg/(m^2). Diagnostic tests reviewed for today's visit: Lab Value Units Date High Low HB No results within date range. HCT No results within date range. WBC No results within date range. PLT No results within date range. NA No results within date range. K No results within date range. GLUC No results within date range. BUN No results within date range. CREAT No results within date range. PTSEC No results within date range. INR No results within date range. APTT No results within date range. ALT No results within date range. AST No results within date range. TBILI No results within date range. TSH No results within date range. Lab Value Units Date High Low HCGQT No results within date range. UHCG No results within date range. HCG, BODY* No results within date range. Lab Value Units Date High Low ABORHD No results within date range. ABSCREEN No results within date range. No results found for: HBA1C No results found for this or any previous visit (from the past 8760 hour(s)). No results found for this or any previous visit (from the past 40022 hour(s)). Instructions Given to Patient: Instructions located in the after visit summary. Patient given verbal and written preop instructions and voices comprehension and compliance. SIGNATURE: Blanca Sams APRN.CNP PATIENT NAME: Amy Novoa DATE: December 09, 2023 TIME: 10:39 AM PAGER/CONTACT #: [facility] [place] Nurse Note* Lulu Champion RN - 09/24/2023 1:51 PM EDT This Nurse reviewed and provided patient with copy of written instructions. The patient verbalized understanding and was given a number for questions. Lulu Champion RN [facility] [place]07-09-2024 Nurse Note* Lulu Champion RN - 09/24/2023 1:51 PM EDT This Nurse reviewed and provided patient with copy of written instructions. The patient verbalized understanding and was given a number for questions. Lulu Champion RN * Love Goodman RN - 09/24/2023 1:15 PM EDT REVIEW OF SYSTEMS: General: The patient denies fatigue, denies weight loss, denies weight gain, denies feeling hot, and denies feelings of cold. Eyes: The patient denies glaucoma, denies eye injury/surgery, wears glasses or contacts. Ear/Nose/Throat: The patient denies allergies, NOTES hayfever, denies ear infections, and denies bloody noses. Cardiovascular: The patient denies chest pain, NOTES heart disease, NOTES high blood pressure,denies cardiac stent, denies prior heart attack, denies irregular heart beat, denies high cholesterol, denies poor circulation, denies heart failure, other cardiac issues, denies claudication, denies cold feet, denies peripheral arterial stent. Respiratory: The patient denies tuberculosis, denies pneumonia, denies frequent cough, denies pulmonary embolism, denies shortness of breath, and denies coughing up blood. Gastrointestinal: The patient denies difficulty swallowing, denies acid reflux, denies ulcers, denies vomiting, denies jaundice/hepatitis, denies gallbladder problems, denies black or tarry stools, denies hemorrhoids, denies bleeding from rectum, denies diverticulitis, NOTES constipation, denies diarrhea, denies loss of stool control, and denies hernias. Kidney/Bladder: The patient denies kidney stones, denies urine infections, and denies bloody urine. Skin: The patient NOTES a history of skin cancer, denies bleeding/changing moles, and denies a history of skin rash. Neurologic: The patient denies a history of epilepsy/convulsions, denies headaches, denies head/spinal injuries, and denies stroke/TIA. Psychiatric: The patient denies psychiatric medications, denies depression, and denies voices, denies substance abuse. Endocrine: The patient NOTES thyroid disorders, denies diabetes, and denies hormonal problems. Hematologic: The patient denies a history of bruising, denies bleeding, and denies anemia, denies blood clots. Infections: The patient denies a history of measles and mumps, denies rheumatic fever, and denies sexually transmitted diseases. Musculoskeletal: The patient denies back pain/injury, denies back problems, denies sciatica, deniesknee/foot trouble, NOTES arthritis, or denies gout. When was patient's last Mammogram screening? 09/2022 Last Colonoscopy: greater than 10 years Love Goodman RN [facility] [place] Nurse Note* Love Goodman RN - 09/24/2023 1:15 PM EDT REVIEW OF SYSTEMS: General: The patient denies fatigue, denies weight loss, denies weight gain, denies feeling hot, and denies feelings of cold. Eyes: The patient denies glaucoma, denies eye injury/surgery, wears glasses or contacts. Ear/Nose/Throat: The patient denies allergies, NOTES hayfever, denies ear infections, and denies bloody noses. Cardiovascular: The patient denies chest pain, NOTES heart disease, NOTES high blood pressure,denies cardiac stent, denies prior heart attack, denies irregular heart beat, denies high cholesterol, denies poor circulation, denies heart failure, other cardiac issues, denies claudication, denies cold feet, denies peripheral arterial stent. Respiratory: The patient denies tuberculosis, denies pneumonia, denies frequent cough, denies pulmonary embolism, denies shortness of breath, and denies coughing up blood. Gastrointestinal: The patient denies difficulty swallowing, denies acid reflux, denies ulcers, denies vomiting, denies jaundice/hepatitis, denies gallbladder problems, denies black or tarry stools, denies hemorrhoids, denies bleeding from rectum, denies diverticulitis, NOTES constipation, denies diarrhea, denies loss of stool control, and denies hernias. Kidney/Bladder: The patient denies kidney stones, denies urine infections, and denies bloody urine. Skin: The patient NOTES a history of skin cancer, denies bleeding/changing moles, and denies a history of skin rash. Neurologic: The patient denies a history of epilepsy/convulsions, denies headaches, denies head/spinal injuries, and denies stroke/TIA. Psychiatric: The patient denies psychiatric medications, denies depression, and denies voices, denies substance abuse. Endocrine: The patient NOTES thyroid disorders, denies diabetes, and denies hormonal problems. Hematologic: The patient denies a history of bruising, denies bleeding, and denies anemia, denies blood clots. Infections: The patient denies a history of measles and mumps, denies rheumatic fever, and denies sexually transmitted diseases. Musculoskeletal: The patient denies back pain/injury, denies back problems, denies sciatica, deniesknee/foot trouble, NOTES arthritis, or denies gout. When was patient's last Mammogram screening? 09/2022 Last Colonoscopy: greater than 10 years Love Goodman RN [facility] [place]07-09-[facility]24 History of Present illness Narrative* Regina Parada APRN.[employer] - 09/24/2023 1:00 PM EDT HISTORY AND PHYSICAL Amy Novoa : 1960 REFERRING PHYSICIAN: No referring provider defined for this encounter. CHIEF COMPLAINT: Patient presents with: Consult: Colonoscopy consult. HPI: Amy is a 63 year old female referred for endoscopy. Amy notes due for screening colonoscopy. Patient denies any change in bowel habits, weight changes, blood in stools, black tarry stools or abdominal pain. Denies family history of colon issues. Amy notes dysphagia with water. She refers this has been an on going problem her whole life. Opento the idea of upper scope Amy has a history of Stage 4 COPD, she wears 4L home 02 as needed. Amy states she rarely uses her oxygen and when she does it is after activity like walking up stairs. She follows with [facility]- last appt was 03/2023. Pulse ox on RA today was 98%. Denies recent hospitalizations, current SOB, cough, fever Amy has undergone prior endoscopy. Refers it was with Dr. Celaya over 10 years ago at [facility]. She refers he took polyps, unsure of which kind and how many. Current Outpatient Medications Medication Sig calcium carbonate (SUPER CALCIUM) 600 mg calcium (1,500 mg) tab Take 600 mg by mouth once daily. folic acid 1 mg tablet Take 2 mg by mouth once daily. Magnesium 250 mg tab Take 250 mg by mouth once daily. naproxen sodium 220 mg cap Take 220 mg by mouth two times a day as needed (pain). albuterol HFA 90 mcg/actuation HFA Inhale 2 Puffs as instructed every 4 hours as needed (shortness of breath or wheezing). certolizumab pegol (CIMZIA) 400 mg/2 mL (200 mg/mL x 2) sub-q syringe kit Inject 400 mg subcutaneously every 2 weeks. amLODIPine (NORVASC) 10 mg tablet Take 10 mg by mouth once daily. umeclidinium-vilanterol (ANORO ELLIPTA) 62.5-25 mcg/actuation inhaler Inhale 1 Puff as instructed once daily. Methotrexate Sodium 2.5 mg tablet Take 7.5 mg by mouth once each week. Patient states she takes 6 tablets once a week. levothyroxine (SYNTHROID) 112 mcg tablet Take 112 mcg by mouth once daily. montelukast (SINGULAIR) 10 mg tablet Take 1 tablet by mouth daily at bedtime. Take one(1) tablet daily azelastine (ASTELIN) 0.1% nasal spray Use 2 Sprays in each nostril twice daily. zolpidem (AMBIEN) 10 mg ORAL Tab Take 10 mg by mouth at bedtime as needed. ranolazine ER (RANEXA) 500 mg ORAL 12 hr tablet Take 500 mg by mouth twice daily. No current facility-administered medications for this visit. ALLERGIES: Patient has no known allergies. PAST MEDICAL HISTORY Diagnosis Date Abnormal PFT Cardiovascular disease Chronic constipation Chronic fatigue COPD (chronic obstructive pulmonary disease) ([facility]) Hypertension Hypothyroidism Mitral valve regurgitation Psoriasis Pulmonary hypertension ([facility]) Raynaud disease 03/18/1977 Rheumatoid arthritis, adult ([facility]) 03/18/1998 Seasonal allergies Shortness of breath Skin cancer PAST SURGICAL HISTORY Procedure Laterality Date COLONOSCOPY as of 2023-greater than 10 years, Dr. Celaya at [facility] LIGATE FALLOPIAN TUBE ROTATOR CUFF REPAIR SINUS SURGERY PROCEDURE FAMILY HISTORY Problem Relation Age of Onset Thyroid Mother COPD Father Diabetes Father Heart disease Father Hypertension Father Thyroid Sister Social History Tobacco Use Smoking status: Former Packs/day: 1.50 Years: 30.00 Additional pack years: 0.00 Total pack years: 45.00 Types: Cigarettes Quit date: 05/25/2007 Years since quittin.3 Smokeless tobacco: Never Substance Use Topics Alcohol use: Yes Alcohol/week: 3.0 standard drinks of alcohol Types: 3 Glasses of Wine (5oz) per week Comment: Social drinker Drug use: No REVIEW OF SYMPTOMS: The review of systems data was entered by the nurse and reviewed by me Nursing Notes: Love Goodman RN 09/24/2023 1:16 PM Signed REVIEW OF SYSTEMS: General: The patient denies fatigue, denies weight loss, denies weight gain, denies feeling hot, and denies feelings of cold. Eyes: The patient denies glaucoma, denies eye injury/surgery, wears glasses or contacts. Ear/Nose/Throat: The patient denies allergies, NOTES hayfever, denies ear infections, and denies bloody noses. Cardiovascular: The patient denies chest pain, NOTES heart disease, NOTES high blood pressure,denies cardiac stent, denies prior heart attack, denies irregular heart beat, denies high cholesterol, denies poor circulation, denies heart failure, other cardiac issues, denies claudication, denies cold feet, denies peripheral arterial stent. Respiratory: The patient denies tuberculosis, denies pneumonia, denies frequent cough, denies pulmonary embolism, denies shortness of breath, and denies coughing up blood. Gastrointestinal: The patient denies difficulty swallowing, denies acid reflux, denies ulcers, denies vomiting, denies jaundice/hepatitis, denies gallbladder problems, denies black or tarry stools, denies hemorrhoids, denies bleeding from rectum, denies diverticulitis, NOTES constipation, denies diarrhea, denies loss of stool control, and denies hernias. Kidney/Bladder: The patient denies kidney stones, denies urine infections, and denies bloody urine. Skin: The patient NOTES a history of skin cancer, denies bleeding/changing moles, and denies a history of skin rash. Neurologic: The patient denies a history of epilepsy/convulsions, denies headaches, denies head/spinal injuries, and denies stroke/TIA. Psychiatric: The patient denies psychiatric medications, denies depression, and denies voices, denies substance abuse. Endocrine: The patient NOTES thyroid disorders, denies diabetes, and denies hormonal problems. Hematologic: The patient denies a history of bruising, denies bleeding, and denies anemia, denies blood clots. Infections: The patient denies a history of measles and mumps, denies rheumatic fever, and denies sexually transmitted diseases. Musculoskeletal: The patient denies back pain/injury, denies back problems, denies sciatica, deniesknee/foot trouble, NOTES arthritis, or denies gout. When was patient's last Mammogram screening? 09/2022 Last Colonoscopy: greater than 10 years Love Goodman RN PHYSICAL EXAMINATION: General: The patient is 63 year old, female well nourished, well hydrated in no acute distress. Thepatient is oriented to time, place, and person. VITALS: Blood pressure 124/76, pulse 99, temperature 36.1 C (97 F), height 160 cm (5' 3), weight 65.1 kg (143 lb 9.6 oz), SpO2 98%. Body mass index is 25.44 kg/m . HEENT: Normal cephalic, ataumatic, pupils are equally round, sclera are anicteric, mucous membranesare moist, oropharynx is clear. Neck has no masses, asymmetry or lymphadenopathy. Respiratory: Clear to auscultation and percussion. Normal respiratory excursion and pattern. Cardiac: Examination is regular rate and rhythm. Normal S1/S2 Abdominal exam: Soft, nontender, with no palpable masses. No hepatosplenomegaly. No palpable hernias. Extremities: no clubbing, cyanosis or edema. No adenopathy. LABORATORY VALUES: As Noted RADIOLOGIC STUDIES: As Noted Assessment IMPRESSION: personal history of colonic poylps, dysphagia PLAN: I have reviewed my findings with the surgeon. Will plan for upper and lower endoscopy. We discussed the risks and benefits of the planned endoscopy. I have informed the patient that complications can occur including failure to complete the endoscopy and perforation. Amy had the opportunity to ask questions concerning the planned endoscopy. My staff has also explained the procedure to the patient in understandable terms and has given the patient printed material concerning the procedure.Amy freely consents to surgery. I plan to use Golytely bowel preparation I have explained to the patient the difference between IV conscious sedation and MAC anesthesia - and I have offered either, according to the patient's wishes. I have explained that with IV conscioussedation there is no anesthesia provider available and therefore there is a limitation of the amount of IV medications that can be given and that the patient may wake up in the middle of the procedure and/or experience pain/discomfort during the procedure. Further discussion was done and the patient was given the opportunity to ask questions and all questions were answered. Amy chooses MAC anesthesia. Amy was counseled that if there are changes in his/her medical condition, to let the office know if surgery should proceed. If there are changes in patient's medical condition from time of this encounter to the day of the procedure that preclude anesthesia, patient may have procedure cancelled for patient's safety. Diagnoses: (R13.10) Dysphagia, unspecified type (primary encounter diagnosis) (Z86.010) History of colonic polyps (Z12.11) Encounter for screening colonoscopy Portions of this documentation were copied and pasted from previous office visit notes in order to provide a cohesive continuity of the history. The note has been reviewed and edited and updated as necessary. Regina Parada APRN.MATTHEW documented in this encounter[facility] [place] NoteHNO ID: [id number] Author: REGINA PARADA APRN.MATTHEW Service: ? Author Type: Nurse Practitioner Type: Progress Notes Filed: 09/24/2023 13:50 Note Text: HISTORY AND PHYSICAL Amy Novoa : 1960 REFERRING PHYSICIAN: No referring provider defined for this encounter. CHIEF COMPLAINT: Patient presents with: Consult: Colonoscopy consult. HPI: Amy is a 63 year old female referred for endoscopy. Amy notes due for screening colonoscopy. Patient denies any change in bowel habits, weight changes, blood in stools, black tarry stools or abdominal pain. Denies family history of colon issues. Amy notes dysphagia with water. She refers this has been an on going problem her whole life. Open to the idea of upper scope Amy has a history of Stage 4 COPD, she wears 4L home 02 as needed. Amy states she rarely uses her oxygen and when she does it is after activity like walking up stairs. She follows with [facility]- last appt was 03/2023. Pulse ox on RA today was 98%. Denies recent hospitalizations, current SOB, cough, fever Amy has undergone prior endoscopy. Refers it was with Dr. Celaya over 10 years ago at [facility]. She refers he took polyps, unsure of which kind and how many. Current Outpatient Medications Medication Sig calcium carbonate (SUPER CALCIUM) 600 mg calcium (1,500 mg) tab Take 600 mg by mouth once daily. folic acid 1 mg tablet Take 2 mg by mouth once daily. Magnesium 250 mg tab Take 250 mg by mouth once daily. naproxen sodium 220 mg cap Take 220 mg by mouth two times a day as needed (pain). albuterol HFA 90 mcg/actuation HFA Inhale 2 Puffs as instructed every 4 hours as needed (shortness of breath or wheezing). certolizumab pegol (CIMZIA) 400 mg/2 mL (200 mg/mL x 2) sub-q syringe kit Inject 400 mg subcutaneously every 2 weeks. amLODIPine (NORVASC) 10 mg tablet Take 10 mg by mouth once daily. umeclidinium-vilanterol (ANORO ELLIPTA) 62.5-25 mcg/actuation inhaler Inhale 1 Puff as instructed once daily. Methotrexate Sodium 2.5 mg tablet Take 7.5 mg by mouth once each week. Patient states she takes 6 tablets once a week. levothyroxine (SYNTHROID) 112 mcg tablet Take 112 mcg by mouth once daily. montelukast (SINGULAIR) 10 mg tablet Take 1 tablet by mouth daily at bedtime. Take one(1) tablet daily azelastine (ASTELIN) 0.1% nasal spray Use 2 Sprays in each nostril twice daily. zolpidem (AMBIEN) 10 mg ORAL Tab Take 10 mg by mouth at bedtime as needed. ranolazine ER (RANEXA) 500 mg ORAL 12 hr tablet Take 500 mg by mouth twice daily. No current facility-administered medications for this visit. ALLERGIES: Patient has no known allergies. PAST MEDICAL HISTORY Diagnosis Date Abnormal PFT Cardiovascular disease Chronic constipation Chronic fatigue COPD (chronic obstructive pulmonary disease) (HCC) Hypertension Hypothyroidism Mitral valve regurgitation Psoriasis Pulmonary hypertension ([facility]CC) Raynaud disease 03/18/1977 Rheumatoid arthritis, adult (HCC) 03/18/1998 Seasonal allergies Shortness of breath Skin cancer PAST SURGICAL HISTORY Procedure Laterality Date COLONOSCOPY as of 2023-greater than 10 years, Dr. Celaya at [facility] LIGATE FALLOPIAN TUBE ROTATOR CUFF REPAIR SINUS SURGERY PROCEDURE FAMILY HISTORY Problem Relation Age of Onset Thyroid Mother COPD Father Diabetes Father Heart disease Father Hypertension Father Thyroid Sister Social History Tobacco Use Smoking status: Former Packs/day: 1.50 Years: 30.00 Additional pack years: 0.00 Total pack years: 45.00 Types: Cigarettes Quit date: 05/25/2007 Years since quittin.3 Smokeless tobacco: Never Substance Use Topics Alcohol use: Yes Alcohol/week: 3.0 standard drinks of alcohol Types: 3 Glasses of Wine (5oz) per week Comment: Social drinker Drug use: No REVIEW OF SYMPTOMS: The review of systems data was entered by the nurse and reviewed by me Nursing Notes: Love Goodman RN 09/24/2023 1:16 PM Signed REVIEW OF SYSTEMS: General: The patient denies fatigue, denies weight loss, denies weight gain, denies feeling hot, and denies feelings of cold. Eyes: The patient denies glaucoma, denies eye injury/surgery, wears glasses or contacts. Ear/Nose/Throat: The patient denies allergies, NOTES hayfever, denies ear infections, and denies bloody noses. Cardiovascular: The patient denies chest pain, NOTES heart disease, NOTES high blood pressure,denies cardiac stent, denies prior heart attack, denies irregular heart beat, denies high cholesterol, denies poor circulation, denies heart failure, other cardiac issues, denies claudication, denies cold feet, denies peripheral arterial stent. Respiratory: The patient denies tuberculosis, denies pneumonia, denies frequent cough, denies pulmonary embolism, denies shortness of breath, and denies coughing up blood. Gastrointes (more content not included)...[facility]04-16-2024 Note* Exam Date Time Procedure Performing Provider Status 07/02/23 11:45 AM Echocardiogram, Adult - CV Auth (Verified) [facility] 07-17-2023 Note ORIGINAL EXAMINATION: BONE DENSITOMETRY 10/01/2022 2:55 pm TECHNIQUE: A bone density dual x-ray absorptiometry (DEXA) scan was performed of the lumbar spine and left hip on a Stipple system. COMPARISON: DEXA 11/30/2019 HISTORY: ORDERING SYSTEM PROVIDED HISTORY: Reason for Exam: SCREENING Postmenopausal FINDINGS: T Score Left Femoral Neck:-0.7. BMD left Femoral Neck: 0.771 (g/cm2) T Score Left Hip:-0.6. BMD left Hip: 0.873 (g/cm2) T Score Lumbar Spine:-2.0. BMD lumbar Spine: 0.823 (g/cmd2) BMD Change from previous Hip: -0.5% BMD Change from previous Lumbar Spine: -3.3% FRAX score: 10 year probability of fracture Major osteoporotic fracture 9.4 % Hip fracture 0.5 % IMPRESSION: Osteopenia by WHO criteria. I have personally reviewed the images of this examination and agree with the resident's findings and interpretation. Interpreted by: Radha Ng Preliminary Report By: Haris Aguirre Electronically signed By Radha Ng Dictated Date: 10/01/2022 2:57:20 PM Prelim Date: 10/01/2022 4:48:20 PM Sign Date: 10/01/2022 4:48:20 PM Ordering Provider: LUIS ENRIQUE BROWN [place] [id number] Note ORIGINAL EXAMINATION: BONE DENSITOMETRY 10/01/2022 2:55 pm TECHNIQUE: A bone density dual x-ray absorptiometry (DEXA) scan was performed of the lumbar spine and left hip on a Hologic system. COMPARISON: DEXA 11/30/2019 HISTORY: ORDERING SYSTEM PROVIDED HISTORY: Reason for Exam: SCREENING Postmenopausal FINDINGS: T Score Left Femoral Neck:-0.7. BMD left Femoral Neck: 0.771 (g/cm2) T Score Left Hip:-0.6. BMD left Hip: 0.873 (g/cm2) T Score Lumbar Spine:-2.0. BMD lumbar Spine: 0.823 (g/cmd2) BMD Change from previous Hip: -0.5% BMD Change from previous Lumbar Spine: -3.3% FRAX score: 10 year probability of fracture Major osteoporotic fracture 9.4 % Hip fracture 0.5 % IMPRESSION: Osteopenia by WHO criteria. I have personally reviewed the images of this examination and agree with the resident's findings and interpretation. Interpreted by: Radha Ng Preliminary Report By: Haris Aguirre Electronically signed By Radha Ng Dictated Date: 10/01/2022 2:57:20 PM Prelim Date: 10/01/2022 4:48:20 PM Sign Date: 10/01/2022 4:48:20 PM Ordering Provider: [facility]02-08-2023 Procedure note* SHAUN Mike - 04/25/2022 2:24 PM ESTAssociated Order(s): NITRIC OXIDE, EXHALED RESPIRATORY THERAPY ORAL EXHALED NITRIC OXIDE SERVICE DATE: 04/25/2022 SERVICE TIME: 2:24 PM Oral Exhaled Nitric Oxide measurement: 72.0 (ppb) (A) Normal: Adult 5-20 ppb, pediatric (<12 years) 5-15 ppb High Normal / Increased: Adult 20-35 ppb, pediatric (<12 years) 15-25 ppb Moderately raised exhaled Nitric Oxide may indicate underlying inflammation, but note that: Cold and influenza can raise exhaled Nitric Oxide and some patients have higher baseline exhaled Nitric Oxide levels than others. High: Adult >35 ppb, pediatric (<12 years) >25 ppb Indicative of ongoing eosinophilic inflammation. Symptomatic patient likely to respond to steroids. Possible causes (if already on steroids): Poor compliance, recent allergen exposure, steroid dose inadequate, and steroid resistance. Note that not all patients with high exhaled nitric oxide levels display symptoms. Oral Exhaled Nitric Oxide measurement (Previous Encounters) Test Date Oral Exhaled Nitric Oxide (ppb) 04/25/2022 72.0 (A) NAME: SHAUN Mike PATIENT NAME: Amy Novoa DATE: April 25, 2022 TIME: 2:24 PM documented in this encounter[facility] [place] History of Present illness Narrative* SHAUN Mike - 04/25/2022 2:23 PM EST PULM FUNCTION SMARTBLOCK: Provider: Se Ambriz Provider/Proxy Assisting Tech: SHAUN Mike Spirometry w/BD: 1 DLCO: 1 LV - Box: 1 Exhaled Nitric Oxide: 1 documented in this encounterSelect [facility] [place] History of Present illness Narrative* Veronika Yin RT(R) - 04/25/2022 1:00 PM EST Radiology Service Progress Note PATIENT NAME: Amy Novoa DATE OF SERVICE: April 25, 2022 TIME: 2:14 PM PATIENT IDENTITY VERIFICATION COMPLETED USING TWO (2) IDENTIFIERS: Name and Date of confirmedby patient verbally. FALL SCREENING: Has the patient had 2 falls in the last year or 1 fall with injury or currently using an Ambulatory Assistive Device (Walker, Cane, Wheelchair, Crutches, etc.)? No PATIENT GENDER DATA: Female. status: : No status: NO. PATIENT RELEVANT IMPLANT DATA REVIEWED: Yes RADIOLOGY DEPARTMENT: CT; Exam(s) Completed: Chest PERIPHERAL IV DATA: Not applicable SIGNED BY: RT Danielle(Chase) April 25, 2022 2:14 PM documented in this encounterSelect [facility] [place] Hospital Discharge instructions Patient Education 02/16/2021 11:45:25 3- Heart Cath/PCI radial (12/2017) (CUSTOM) HEART CATHETERIZATION/PCI (radial) Discharge Instructions DIET Drink plenty of fluids for the next 48 hours to help your kidneys flush the heart cath dye out of your system ACTIVITY For the next 48 hours: Do not deep bend the wrist Do not lift, push, or pull anything over 5 pounds Do not use the hand/arm to support your weight when rising from a chair or bed Do not drive For the next 7 days: Do not submerse your procedure site in water Do not swim, wash dishes, or take tub baths You may write, eat, type, and shower WOUND CARE Keep a Dressing on your procedure site for the next 24 hours then change to a Band-aid and keep forthe next 3-4 days Change the Band-Aid daily or if it gets wet/soiled AFTER YOU GO HOME, CALL YOUR DOCTOR FOR: Any increase in bruising or tenderness from the procedure site Any redness, pus, or other signs of infection at the site A temperature above 100.5 Severe pain at the site DIAL 911 AND RETURN TO THE HOSPITAL FOR: Any bleeding from the procedure site. The site may be bruised or tender, but it should not be bleeding at any time. If your site begins to bleed, hold firm pressure on it and dial 911 to return to the hospital Any increase in swelling at the procedure site. An increase in swelling could mean the area is bleeding under the skin. Hold firm pressure to the site and dial 911 to return to the hospital Document Released: 2006 Document Revised: 02/18/2013 Document Reviewed: 03/05/2014 Exit[employer] Patient Information 2015 [place]. This information is not intended to replace advicegiven to you by your health care provider. Make sure you discuss any questions you have with your health care provider. 02/16/2021 11:45:25 Right Heart Cath ([id number]) HEART CATHETERIZATION Discharge Instructions ACTIVITIES Do not drive car FOR 48 HOURS No heavy lifting GREATER THAN 5 POUNDS or pushing or straining FOR 2 DAYS Limit bending over for the first 24hrs. BATHING/SHOWERING May tub bathe in 1 week May shower tomorrow WOUND CARE You will go home with a small dressing over your heart cath site. May remove in the morning and then leave open to air. Some degree of bruising and tenderness is normal around the heart cath site. It will take a while for any bruising to completely resolve. Keep your site clean and dry. You need to report the following to your mortgage loan processing clerk: Any draining or oozing from the site Any swelling at the site Any increased pain or tenderness at the site Any signs of infection IMPORTANT! CALL 911 FOR ANY BLEEDING OR SWELLING AT THE PROCEDURE SITE If there is any large amount of bleeding, you or someone else need to apply direct pressure to the site (just like the nurse did in the heart lab after your procedure). It is very important that you hold constant pressure. After 5-10 minutes, release pressure. If bleeding has stopped apply a fresh band-aid and rest quietly for the next hour. If bleeding has not stopped reapply pressure. If bleeding persists-seek medical attention. WATCH FOR SIGNS OF INFECTION (Usually appears 36-48 hours after surgery) A temperature above 100.5 Redness or swelling Increased pain Foul odor or drainage If you have any questions, please call your doctor at the number listed on your follow up instructions. Follow all instructions given to you by your physician Document Released: 2006 Document Revised: 02/18/2013 Document Reviewed: 03/05/2014 Exit[employer] Patient Information 2015 [place]. This information is not intended to replace advicegiven to you by your health care provider. Make sure you discuss any questions you have with your health care provider. 02/16/2021 11:44:00 Moderate Conscious Sedation, Adult, Care After Moderate Conscious Sedation, Adult, Care After These instructions provide you with information about caring for yourself after your procedure. Your health care provider may also give you more specific instructions. Your treatment has been plannedaccording to current medical practices, but problems sometimes occur. Call your health care provider if you have any problems or questions after your procedure. What can I expect after the procedure? After your procedure, it is common: To feel sleepy for several hours. To feel clumsy and have poor balance for several hours. To have poor judgment for several hours. To vomit if you eat too soon. Follow these instructions at home: For at least 24 hours after the procedure: Do not: ?Participate in activities where you could fall or become injured. ?Drive. ?Use heavy machinery. ?Drink alcohol. ?Take sleeping pills or medicines that cause drowsiness. ?Make important decisions or sign legal documents. ?Take care of children on your own. Rest. Eating and drinking Follow the diet recommended by your health care provider. If you vomit: ?Drink water, juice, or soup when you can drink without vomiting. ?Make sure you have little or no nausea before eating solid foods. General instructions Have a responsible adult stay with you until you are awake and alert. Take kaqs-voe-tgkhsmk and prescription medicines only as told by your health care provider. If you smoke, do not smoke without supervision. Keep all follow-up visits as told by your health care provider. This is important. Contact a health care provider if: You keep feeling nauseous or you keep vomiting. You feel light-headed. You develop a rash. You have a fever. Get help right away if: You have trouble breathing. This information is not intended to replace advice given to you by your health care provider. Make sure you discuss any questions you have with your health care provider. Document Released: 12/23/2013 Document Revised: 02/14/2018 Document Reviewed: 06/23/2016 [facility] Patient Education 2020 [facility] [employer] Follow Up Care 02/07/2021 10:21:20 With:MARIPOSA SALGUERO MD Address: [address] [facility] [place] [address]- [phone] When:03/23/2021 10:15:00 Comments:THIS APPOINTMENT WILL BE WITH JANNET DUKES CNP - APPOINTMENT SHEDULED ON 02/21 HAS BEEN CANCELLED [facility] Evaluation + Plan note Future Appointments Appointment Date:02/21/2021 10:30:00 AM Scheduled Provider:MAITE DUKES Location:[facility] Appointment Type:CV OV Appointment Date:05/11/2021 11:20:00 AM Scheduled Provider:LAMINE MORTON APRN, CNP Location:[facility] Appointment Type:PC OV Follow Up Future Scheduled Tests Laboratory* Folate Level 05/11/21 * Thyroid Stimulating Hormone 05/11/21 * Free T4 05/11/21 * Vitamin B12 Level 05/11/21 * Complete Blood Count 05/11/21 * Lipid Profile 05/11/21 * Vitamin D Level 05/11/21 * Complete Metabolic Panel 05/11/[address] [facility] Evaluation + Plan note Future Appointments Appointment Date:02/16/2021 07:30:00 AM Scheduled Provider: Location:Heart Lab Appointment Type:CV Procedure - Heart Lab/Hybrid OR Appointment Date:02/21/2021 10:30:00 AM Scheduled Provider:MAITE DUKES Location[facility] Appointment Type:CV OV Appointment Date:05/11/2021 11:20:00 AM Scheduled Provider:LAMINE MORTON APRN, CNP Location:[facility] Appointment Type:PC OV Follow Up Future Scheduled Tests Laboratory* Folate Level 05/11/21 * Thyroid Stimulating Hormone 05/11/21 * Free T4 05/11/21 * Vitamin B12 Level 05/11/21 * Complete Blood Count 05/11/21 * Lipid Profile 05/11/21 * Vitamin D Level 05/11/21 * Complete Metabolic Panel 05/11/[address] [facility] Evaluation + Plan note Future Appointments Appointment Date:03/23/2021 10:15:00 AM Scheduled Provider:MAITE DUKES Location:[facility] Appointment Type:CV OV Appointment Date:05/11/2021 11:20:00 AM Scheduled Provider:LAMINE MORTON APRN - MATTHEW Location:[facility] Appointment Type:PC OV Follow Up Future Scheduled Tests Laboratory* Folate Level 05/11/21 * Thyroid Stimulating Hormone 05/11/21 * Free T4 05/11/21 * Vitamin B12 Level 05/11/21 * Complete Blood Count 05/11/21 * Lipid Profile 05/11/21 * Vitamin D Level 05/11/21 * Complete Metabolic Panel 05/11/21 [facility] Evaluation + Plan note Future Appointments Appointment Date:11/09/2021 11:20:00 AM Scheduled Provider:LAMINE MORTON APRN - [employer] Location:[facility] Appointment Type:PC OV Follow Up Appointment Date:04/12/2022 10:00:00 AM Scheduled Provider:MAITE DUKES Location:[facility] Appointment Type:CV OV Future Scheduled Tests Laboratory* Thyroid Stimulating Hormone 11/08/21 * Free T4 11/08/21 * Complete Blood Count 11/08/21 * Lipid Profile 11/08/21 * Vitamin D Level 11/08/21 * Complete Metabolic Panel 11/08/[address] [facility] Evaluation + Plan note Future Appointments Appointment Date:12/04/2022 10:40:00 AM Scheduled Provider:LAMINE MORTON APRN - [employer] Location:[facility] Appointment Type:PC OV Follow Up Future Scheduled Tests Laboratory* Thyroid Stimulating Hormone 12/01/22 * Free T4 12/01/22 * Complete Blood Count 12/01/22 * Lipid Profile 12/01/22 * Microalbumin Level Urine 05/12/22 * Vitamin D Level 12/01/22 * Complete Metabolic Panel 12/01/[address] [facility] evaluation + Plan note Future Appointments Appointment Date:12/03/2023 10:40:00 AM Scheduled Provider:LAMINE MORTON APRN, CNP Location:[facility] Appointment Type:PC OV Follow Up Future Scheduled Tests Laboratory* Thyroid Stimulating Hormone 12/05/23 * Thyroid Stimulating Hormone 06/04/23 * Free T4 12/05/23 * Free T4 06/04/23 * Complete Blood Count 12/05/23 * Complete Blood Count 06/04/23 * Lipid Profile 12/05/23 * Lipid Profile 06/04/23 * Albumin/Creatinine Ratio, Random Urine 06/04/23 * Vitamin D Level 12/05/23 * Vitamin D Level 06/04/23 * Complete Metabolic Panel 12/05/23 * Complete Metabolic Panel 06/04/[address] [facility] evaluation note* Diagnosis Nonspecific abnormal finding on cardiac evaluation- Primary Aortic valve disorder Aortic valve disorders [facility] Diagnosis Onset Date Resolution Status Stage 4 very severe COPD by GOLD classification chronic Smoking greater than 40 pack years resolved Chronic hypoxemic respiratory failure chronic Pulmonary hypertension chron ic Rheumatoid arthritis chronic Stage 4 very severe COPD by GOLD classification chronic Smoking greater than 40 pack years resolved [facility] Work Phone: evaluation note* Diagnosis Onset Date Resolution Status Chronic hypoxemic respiratory failure chronic Pulmonary hypertension chron ic Rheumatoid arthritis chronic Stage 4 very severe COPD by GOLD classification chronic Smoking greater than 40 pack years resolved [facility] Work Phone: evaluation note* Diagnosis Onset Date Resolution Status Chronic hypoxemic respiratory failure chronic Stage 4 very severe COPD by GOLD classification [facility] Work Phone: evaluation note* Diagnosis Chronic obstructive pulmonary disease, unspecified COPD type (HCC)- Primary documented in this encounter [facility] note* Diagnosis Chronic obstructive pulmonary disease, unspecified COPD type (HCC) documented in this encounter [facility] note* Diagnosis Chronic obstructive pulmonary disease, unspecified COPD type (HCC) documented in this encounter [facility] note* Diagnosis Chronic obstructive pulmonary disease, unspecified COPD type (HCC) documented in this encounter [facility] note* Diagnosis Onset Date Resolution Status Methotrexate, mcc, current use acute Chronic hypoxemic respiratory failure chronic Pulmonary hypertension chron ic Rheumatoid arthritis chronic Stage 4 very severe COPD by GOLD classification chronic Smoking greater than 40 pack years resolved [facility] Work Phone: evaluation note* Diagnosis Onset Date Resolution Status Methotrexate, superintendent container terminal, current use acute Chronic hypoxemic respiratory failure chronic Pulmonary hypertension chron ic Rheumatoid arthritis chronic Stage 4 very severe COPD by GOLD classification chronic Smoking greater than 40 pack years resolved Lung nodule acute Methotrexate, superintendent container terminal, current use acute Chronic hypoxemic respiratory failure chronic Stage 4 very severe COPD by GOLD classification chronic [facility] Work Phone: evaluation note* Diagnosis Onset Date Resolution Status Lung nodule acute Methotrexate, superintendent container terminal, current use acute Chronic hypoxemic respiratory failure chronic Stage 4 very severe COPD by GOLD classification [facility] Work Phone: evaluation noteNo assessment information available [facility] Work Phone: evaluation note* Diagnosis Chronic obstructive pulmonary disease, unspecified COPD type (HCC)- Primary documented in this encounter [facility] note* Diagnosis Onset Date Resolution Status Chronic hypoxemic respiratory failure chronic Methotrexate, superintendent container terminal, current use chronic Stage 4 very severe COPD by GOLD classification [facility] Work Phone: Evaluation note* Diagnosis Dysphagia, unspecified type- Primary History of colonic polyps Personal history of colonic polyps Encounter for screening colonoscopy Special screening for malignant neoplasms, colon documented in this encounter [facility] note* Diagnosis Pre-operative examination- Primary Preoperative examination, unspecified Primary hypertension Unspecified essential hypertension Rheumatic mitral regurgitation Rheumatic mitral insufficiency Mixed hyperlipidemia Pulmonary hypertension (HCC) Other chronic pulmonary heart diseases Raynaud's disease without gangrene Severe chronic obstructive pulmonary disease (HCC) Chronic airway obstruction, not elsewhere classified Hypothyroidism, unspecified type Anemia of chronic disease Anemia of other chronic disease Rheumatoid arthritis, involving unspecified site, unspecified whether rheumatoid factor present (HCC) Psoriasis Other psoriasis Seasonal affective disorder (HCC) Other specified episodic mood disorder Varicose veins of bilateral lower extremities with pain * Assessment & Plan Note - Blanca Sams APRN.[employer] - 12/09/2023 12:08 PM EDT Associated Problem(s): Varicose veins of bilateral lower extremities with pain Assessment: PCP currently working up, no surgical intervention * Assessment & Plan Note - Blanca Sams APRN.CNP - 12/09/2023 12:06 PM EDT Associated Problem(s): Seasonal affective disorder (HCC) Assessment: hx, no current tx * Assessment & Plan Note - Blanca Sams APRN.CNP - 12/09/2023 12:06 PM EDT Associated Problem(s): Psoriasis Assessment: controlled on rx * Assessment & Plan Note - Blanca Sams APRN.CNP - 12/09/2023 12:06 PM EDT Associated Problem(s): Rheumatoid arthritis (HCC) Assessment: MTX, Leucovorin, Cimzia, following Dr. Price in [place] * Assessment & Plan Note - Blanca Sams APRN.CNP - 12/09/2023 12:05 PM EDT Associated Problem(s): Anemia of chronic disease Assessment: hx, most recent labs requested from PCP * Assessment & Plan Note - Blanca Sams APRN.CNP - 12/09/2023 12:05 PM EDT Associated Problem(s): Hypothyroidism Assessment: stable on rx * Assessment & Plan Note - Blanca Sams APRN.CNP - 12/09/2023 12:04 PM EDT Associated Problem(s): Severe chronic obstructive pulmonary disease (HCC) Images from the original note were not included. Assessment: new PFT's pending for tomorrow, most recent OV requested, pt has oxygen 4L as needed, rarely uses per pt 04/17/2023 Chiara Morrow, MATTHEW, [place] [facility] * Assessment & Plan Note - Blanca Sams APRN.CNP - 12/09/2023 12:02 PM EDT Associated Problem(s): Raynaud's disease Assessment: controlled on rx * Assessment & Plan Note - Blanca Sams APRN.CNP - 12/09/2023 12:02 PM EDT Associated Problem(s): Pulmonary hypertension (HCC) Assessment: following pulmonary, no documentation supporting this found * Assessment & Plan Note - Blanca Sams APRN.CNP - 12/09/2023 11:59 AM EDT Associated Problem(s): Mixed hyperlipidemia Assessment: diet controlled * Assessment & Plan Note - Blanca Sams APRN.CNP - 12/09/2023 11:59 AM EDT Associated Problem(s): Mitral valve insufficiency Assessment: Echocardiogram February 2018 showed a normal EF, stress test March 2018 showed no ischemia and a normal EF. 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 * Assessment & Plan Note - Blanca Sams APRN.CNP - 12/09/2023 11:57 AM EDT Associated Problem(s): Hypertension Assessment: controlled on rx Last 14 BP Last 14 Encounter BP Readings: Date: BP: 12/09/2023 122/82 09/24/2023 124/76 06/25/2011 131/73 [facility] Diagnosis Pre-operative examination- Primary Preoperative examination, unspecified Primary hypertension Unspecified essential hypertension Rheumatic mitral regurgitation Rheumatic mitral insufficiency Mixed hyperlipidemia Pulmonary hypertension (HCC) Other chronic pulmonary heart diseases Raynaud's disease without gangrene Severe chronic obstructive pulmonary disease (HCC) Chronic airway obstruction, not elsewhere classified Hypothyroidism, unspecified type Anemia of chronic disease Anemia of other chronic disease Rheumatoid arthritis, involving unspecified site, unspecified whether rheumatoid factor present (HCC) Psoriasis Other psoriasis Seasonal affective disorder (HCC) Other specified episodic mood disorder Varicose veins of bilateral lower extremities with pain Chronic obstructive pulmonary disease, unspecified COPD type (HCC) documented in this encounter [facility] note* Diagnosis Pre-operative examination- Primary Preoperative examination, unspecified Primary hypertension Unspecified essential hypertension Rheumatic mitral regurgitation Rheumatic mitral insufficiency Mixed hyperlipidemia Pulmonary hypertension (HCC) Other chronic pulmonary heart diseases Raynaud's disease without gangrene Severe chronic obstructive pulmonary disease (HCC) Chronic airway obstruction, not elsewhere classified Hypothyroidism, unspecified type Anemia of chronic disease Anemia of other chronic disease Rheumatoid arthritis, involving unspecified site, unspecified whether rheumatoid factor present (HCC) Psoriasis Other psoriasis Seasonal affective disorder (HCC) Other specified episodic mood disorder Varicose veins of bilateral lower extremities with pain Screening for colon cancer- Primary Special screening for malignant neoplasms, colon Dysphagia, unspecified type History of colonic polyps Personal history of colonic polyps Encounter for screening colonoscopy Special screening for malignant neoplasms, colon documented in this encounter [facility] course Narrative No data available for this section [facility] Hospital Discharge instructions No data available for this section [facility] Progress note No data available for this section [facility] Reason for referral (narrative)* Outpatient Procedure (Routine) Status Reason Specialty Diagnoses / Procedures Referred By Contact Referred To Contact Pending Review Auto-Generated Referral [facility] Diagnoses Nonspecific abnormal finding on cardiac evaluation Aortic valve disorder Procedures ECHO TTE W/DOPPLER, [place] [address] [place] [id number] [facility] [address] [address] * Outpatient Procedure (Routine) Status Reason Specialty Diagnoses / Procedures Referred By Contact Referred To Contact Pending Review Auto-Generate d Referral [facility] [place] Diagnoses Nonspecific abnormal finding on cardiac evaluation Aortic valve disorder Procedures ECG COMPLETE [place]KG [place] [address] [place] [id number] [facility] [address] [address] [facility] for referral (narrative)* Outpatient Procedure (Routine) - Pending Review Specialty Diagnoses / Procedures Referred By Contac t Referred To Contact [facility] Diagnoses Chronic obstructive pulmonary disease, unspecified COPD type (HCC) Procedures LUNG DIFFUSION CAPACITY (DLCO) DIFFUSING CAPACITY [facility], Provider NON-STAFF PROVIDER Respiratory [place] [address] [place] [phone] Referral ID Status Reason Start Date Expiration Date Visits Requested Visits Authorized [id number] Pending Review Auto-Generat ed Referral 04/19/2022 05/19/2023 1 1 * Outpatient Procedure (Routine) - Pending Review Specialty Diagnoses / Procedures Referred By Contac t Referred To Contact [facility] Diagnoses Chronic obstructive pulmonary disease, unspecified COPD type (HCC) Procedures LUNG VOLUMES [facility], Provider NON-STAFF PROVIDER [facility] [place] [address] [place] [phone] Referral ID Status Reason Start Date Expiration Date Visits Requested Visits Authorized [id number] Pending Review Auto-Generat ed Referral 04/19/2022 05/19/2023 1 1 * Outpatient Procedure (Routine) - Pending Review Specialty Diagnoses / Procedures Referred By Contac t Referred To [facility] Diagnoses Chronic obstructive pulmonary disease, unspecified COPD type (HCC) Procedures NITRIC OXIDE, EXHALED NITRIC OXIDE GAS DETERMINATION [facility], Provider NON-STAFF PROVIDER Respiratory [address] [address] Referral ID Status Reason Start Date Expiration Date Visits Requested Visits Authorized [id number] Pending Review Auto-Generat ed Referral 04/19/2022 05/19/2023 1 1 * Outpatient Procedure (Routine) - Pending Review Specialty Diagnoses / Procedures Referred By Contac t Referred To [facility] [place] Diagnoses Chronic obstructive pulmonary disease, unspecified COPD type (HCC) Procedures SPIROMETRY - BASELINE AND POST DILATOR BRNCDILAT RSPSE SPMTRY PRE&POST-BRNCDILAT ADMN [facility], Provider NON-STAFF PROVIDER Respiratory [address] [address] Referral ID Status Reason Start Date Expiration Date Visits Requested Visits Authorized [id number] Pending Review Auto-Generat ed Referral 04/19/2022 05/19/2023 1 1 [facility] for referral (narrative)* Outpatient Procedure (Routine) - Outside PCP Specialty Diagnoses / Procedures Referred By Contac t Referred To [facility] [place] Diagnoses Chronic obstructive pulmonary disease, unspecified COPD type (HCC) Procedures LUNG DIFFUSION CAPACITY (DLCO) DIFFUSING CAPACITY [facility], Provider NON-STAFF PROVIDER Respiratory [address] [address] Referral ID Status Reason Start Date Expiration Date Visits Requested Visits Authorized [id number] Outside PCP Auto-Generat ed Referral 04/22/2023 05/21/2024 1 1 * Outpatient Procedure (Routine) - Outside PCP Specialty Diagnoses / Procedures Referred By Contac t Referred To [facility] [place] Diagnoses Chronic obstructive pulmonary disease, unspecified COPD type (HCC) Procedures MIPS/MEPS UNLISTED PULMONARY SERVICE/PROCEDURE [facility], Provider NON-STAFF PROVIDER [facility] [place] [address] [place] [phone] Referral ID Status Reason Start Date Expiration Date Visits Requested Visits Authorized [id number] Outside PCP Auto-Generat ed Referral 04/22/2023 05/21/2024 1 1 * Outpatient Procedure (Routine) - Outside PCP Specialty Diagnoses / Procedures Referred By Contac t Referred To [facility] [place] Diagnoses Chronic obstructive pulmonary disease, unspecified COPD type (HCC) Procedures LUNG VOLUMES [facility], Provider NON-STAFF PROVIDER [facility] [place] [address] [place] [phone] Referral ID Status Reason Start Date Expiration Date Visits Requested Visits Authorized [id number] Outside PCP Auto-Generat ed Referral 04/22/2023 05/21/2024 1 1 * Outpatient Procedure (Routine) - Outside PCP Specialty Diagnoses / Procedures Referred By Contac t Referred To [facility] [place] Diagnoses Chronic obstructive pulmonary disease, unspecified COPD type (HCC) Procedures MAXIMAL VOLUNTARY VENTILATION MAX BREATHING CAPACITY MAXIMAL VOLUNTARY VENTJ [facility], Provider NON-STAFF PROVIDER [facility] [place] [address] [place] [id number] Referral ID Status Reason Start Date Expiration Date Visits Requested Visits Authorized [id number] Outside PCP Auto-Generat ed Referral 04/22/2023 05/21/2024 1 1 * Outpatient Procedure (Routine) - Outside PCP Specialty Diagnoses / Procedures Referred By Contac t Referred To [facility] [place] Diagnoses Chronic obstructive pulmonary disease, unspecified COPD type (HCC) Procedures NITRIC OXIDE, EXHALED NITRIC OXIDE GAS DETERMINATION [facility], Provider NON-STAFF PROVIDER Res[facility] [place] [address] [place] [phone] Referral ID Status Reason Start Date Expiration Date Visits Requested Visits Authorized [id number] Outside PCP Auto-Generat ed Referral 04/22/2023 05/21/2024 1 1 * Outpatient Procedure (Routine) - Outside PCP Specialty Diagnoses / Procedures Referred By Contac t Referred To [facility] [place] Diagnoses Chronic obstructive pulmonary disease, unspecified COPD type (HCC) Procedures SPIROMETRY - BASELINE AND POST DILATOR BRNCDILAT RSPSE SPMTRY PRE&POST-BRNCDILAT ADMN [facility], Provider NON-STAFF PROVIDER Respiratory [place] [address] [place], [place] [id number] Referral ID Status Reason Start Date Expiration Date Visits Requested Visits Authorized [id number] Outside PCP Auto-Generat ed Referral 04/22/2023 05/21/2024 1 1 [facility] for referral (narrative)* Outpatient Procedure (Routine) - Authorized Specialty Diagnoses / Procedures [facility] Referred To Contact [facility] [place] Diagnoses History of colonic polyps Encounter for screening colonoscopy Procedures COLONOSCOPY SCREENING COLONOSCOPY FLX DX W/COLLJ SPEC WHEN PFRegina Nair APRN.CIGAR WRAPPER TENDER AUTOMATIC [address] [place] [address] [place] [phone] Referral ID Status Reason Start Date Expiration Date Visits Requested Visits Authorized [id number] Authorized Auto-Generat ed Referral 09/24/2023 09/23/2024 1 1 * Outpatient Procedure (Routine) - Authorized Specialty Diagnoses / Procedures Referred By Idalia t Referred To Contact [facility] [place] Diagnoses Dysphagia, unspecified type Procedures EGD DIAGNOSTIC ESOPHAGOGASTRODUODENOSC OPY TRANSORAL DIAGNOSTIC Regina Parada APRN.CIGAR WRAPPER TENDER AUTOMATIC [address] [place] [address] [address] Referral ID Status Reason Start Date Expiration Date Visits Requested Visits Authorized [id number] Authorized Auto-Generat ed Referral 09/24/2023 09/23/2024 1 1 [facility] for referral (narrative)* Outpatient Procedure (Routine) - Closed Specialty Diagnoses / Procedures Referred By Contac t Referred To Contact [facility] [place] Diagnoses History of colonic polyps Encounter for screening colonoscopy Procedures COLONOSCOPY SCREENING COLONOSCOPY FLX DX W/COLLJ SPEC WHEN Regina Vance APRN.CIGAR WRAPPER TENDER AUTOMATIC [address] [place] [address] [facility] [address] [place] [address] Referral ID Status Reason Start Date Expiration Date V isits Requested Visits Authorized [id number] Closed Auto-Generate d Referral 09/24/2023 09/23/2024 1 1 * Outpatient Procedure (Routine) - Closed Specialty Diagnoses / Procedures Referred By Idalia gutierrez Referred To Contact [facility] [place] Diagnoses Dysphagia, unspecified type Procedures EGD DIAGNOSTIC ESOPHAGOGASTRODUODENOSC OPY TRANSORAL DIAGNOSTIC Regina Parada APRN.CIGAR WRAPPER TENDER AUTOMATIC [address] [place] [address] [facility] Disease [address] [address] Referral ID Status Reason Start Date Expiration Date V isits Requested Visits Authorized [id number] Closed Auto-Generate d Referral 09/24/2023 09/23/2024 1 1 [facility] ([facility]ative)No reason for referral information availableWKettering Health Work Phone: Reason for visit Narrative* Outpatient Procedure (Routine) - Closed Specialty Diagnoses / Procedures Referred By Idalia gutierrez Referred To Contact [facility] [place] Diagnoses History of colonic polyps Encounter for screening colonoscopy Procedures COLONOSCOPY SCREENING COLONOSCOPY FLX DX W/COLLJ SPEC WHEN Regina Vance APRN.CIGAR WRAPPER TENDER [employer]OMATIC [address] [place] [address] [address] Referral ID Status Reason Start Date Expiration Date V isits Requested Visits Authorized [id number] Closed Auto-Generate d Referral 09/24/2023 09/23/2024 1 1 [facility] Chief Complaint and Reason for Visit Chief Complaint 6 M FU S/O- ARTHRITIS/PAIN- COPY PCP SMOKER >40PK YRS S/O- ARTHRITIS/PAIN- COPY PCP 3 M FU Reason for Visit Stage 4 very severe COPD by GOLD classification Smoking greater than 40 pack years Chronic hypoxemic respiratory failure Pulmonary hypertension Rheumatoid arthritis Stage 4 very severe COPD by GOLD classification Smoking greater than 40 pack years Chief Complaint SMOKER >40PK YRS S/O- ARTHRITIS/PAIN- COPY PCP 3 M FU STANDING ORDER Reason for Visit Chronic hypoxemic re spiratory failure Pulmonary hypertension Rheumatoid arthritis Stage 4 very severe COPD by GOLD classification Smoking greater than 40 pack years Chief Complaint 6 M FU PAIN- COPY PCP Reason for Visit Chronic hypoxemic re spiratory failure Stage 4 very severe COPD by GOLD classification Chief Complaint PAIN- COPY PCP 4 M FU 2 DRS/ 2 ORDERS Reason for Visit Methotrexate, long t erm, current use Chronic hypoxemic respiratory failure Pulmonary hypertension Rheumatoid arthritis Stage 4 very severe COPD by GOLD classification Smoking greater than 40 pack years Chief Complaint 4 M FU 2 DRS/ 2 ORDERS 3 M FU PAIN- COPY PCP Reason for Visit Methotrexate, long t erm, current use Chronic hypoxemic respiratory failure Pulmonary hypertension Rheumatoid arthritis Stage 4 very severe COPD by GOLD classification Smoking greater than 40 pack years Lung nodule Methotrexate, superintendent container terminal, current use Chronic hypoxemic respiratory failure Stage 4 very severe COPD by GOLD classification Chief Complaint 3 M FU PAIN- COPY PCP Reason for Visit Lung nodule Methotrexate, mcc, current use Chronic hypoxemic respiratory failure Stage 4 very severe COPD by GOLD classification Chief Complaint 3 M FU Reason for Visit Methotrexate, long t erm, current use Chronic hypoxemic respiratory failure Pulmonary hypertension Rheumatoid arthritis Stage 4 very severe COPD by GOLD classification Smoking greater than 40 pack years Chief Complaint STANDING ORDER Chief Complaint STANDING ORDER 6 M FU Reason for Visit Chronic hypoxemic re spiratory failure Methotrexate, superintendent container terminal, current use Stage 4 very severe COPD by GOLD classification Chief Complaint Admit Date 2 DRS/ 2 ORDERS April 28, 2024 10:09am 6 M FU May 11, 2024 1:39pm S/O- PAIN- COPY PCP July 20, 2024 11:03a m Reason for Visit Admit Date Chronic hypoxemic respiratory failure Fe bruary 2024 1:39pm Methotrexate, superintendent container terminal, current use Feb ruary 2024 1:39pm 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 May 11, 2024 1:39pm Family History No Family History Records Found Relationship Condition Age at Onset Recorded Date/T celestina father Chronic obstructive pulmonary disease Unk nown Diabetes mellitus Unknown Cardiac disease Unknown Hypertension Unknown mother Disorder of thyroid Unknown sister Disorder of thyroid Unknown Advance Directives No Advanced Directives Records Found Advance Directive Response Recorded Date/ Time Living Will No March 14 017 10:55am Power of Fleet Director No March 14, 2017 10:55am Advance Directive Response Recorded Date/ Time Living Will No March 14 9:55am Power of Fleet Director No March 14, 2017 9:55am Advance Directive Response Recorded Date/ Time Living Will No March 14 10:55am Do you have a Healthcare Power of Fleet Director? No March 14, 2017 10:55am Summary Purpose Additional Source Comments Source Comments (unrecognize d section and content) In the event this informatio n is protected by the Federal Confidentiality of Alcohol and Drug Abuse Patient Records regulations: The Federal rules restrict any use of the information to criminally investigate or prosecute any alcohol or drug abuse patient.[facility] the event this information is protected by the Federal Confidentiality of Alcohol and Drug Abuse Patient Records regulations: The Federal rules restrict any use of the information to criminally investigate or prosecute any alcohol or drug abuse patient.[facility] the event this information is protected by the Federal Confidentiality of Alcohol and Drug Abuse Patient Records regulations: The Federal rules restrict any use of the information to criminally investigate or prosecute any alcohol or drug abuse patient.[facility]In the event this information is protected by the Federal Confidentiality of Alcohol and Drug Abuse Patient Records regulations: The Federal rules restrict any use of the information to criminally investigate or prosecute any alcohol or drug abuse patient.[facility]onIn the event this information is protected by the Federal Confidentiality of Alcohol and Drug Abuse Patient Records regulations: The Federal rules restrict any use of the information to criminally investigate or prosecute any alcohol or drug abuse patient.[facility]onIn the event this information is protected by the Federal Confidentiality of Alcohol and Drug Abuse Patient Records regulations: The Federal rules restrict any use of the information to criminally investigate or prosecute any alcohol or drug abuse patient.[facility]onIn the event this information is protected by the Federal Confidentiality of Alcohol and Drug Abuse Patient Records regulations: The Federal rules restrict any use of the information to criminally investigate or prosecute any alcohol or drug abuse patient.[facility] the event this information is protected by the Federal Confidentiality of Alcohol and Drug Abuse Patient Records regulations: The Federal rules restrict any use of the information to criminally investigate or prosecute any alcohol or drug abuse patient.[facility]onIn the event this information is protected by the Federal Confidentiality of Alcohol and Drug Abuse Patient Records regulations: The Federal rules restrict any use of the information to criminally investigate or prosecute any alcohol or drug abuse patient.[facility]onIn the event this information is protected by the Federal Confidentiality of Alcohol and Drug Abuse Patient Records regulations: The Federal rules restrict any use of the information to criminally investigate or prosecute any alcohol or drug abuse patient.[facility]onIn the event this information is protected by the Federal Confidentiality of Alcohol and Drug Abuse Patient Records regulations: The Federal rules restrict any use of the information to criminally investigate or prosecute any alcohol or drug abuse patient.[facility]onIn the event this information is protected by the Federal Confidentiality of Alcohol and Drug Abuse Patient Records regulations: The Federal rules restrict any use of the information to criminally investigate or prosecute any alcohol or drug abuse patient.[facility]onIn the event this information is protected by the Federal Confidentiality of Alcohol and Drug Abuse Patient Records regulations: The Federal rules restrict any use of the information to criminally investigate or prosecute any alcohol or drug abuse patient.[facility]onIn the event this information is protected by the Federal Confidentiality of Alcohol and Drug Abuse Patient Records regulations: The Federal rules restrict any use of the information to criminally investigate or prosecute any alcohol or drug abuse patient.[facility]onIn the event this information is protected by the Federal Confidentiality of Alcohol and Drug Abuse Patient Records regulations: The Federal rules restrict any use of the information to criminally investigate or prosecute any alcohol or drug abuse patient.[facility] Goals (unrecognized section and content) Goals may be documented in a n alternate section Care Team (unrecognized sect ion and content) Care Team Personnel Name: Tawana Cedeño Position: Quality Review Member Role: Engineer Name: LAMINE MORTON [address] [employer] - CIGAR WRAPPER TENDER AUTOMATIC Position: P4 Advanced Practice Nurse Med Service: Employed Provider Member Role: Primary Care Physician Address: Address: [address] [place] [address] Care Team Related Persons Name: MARIO NOVOA Name: ARSEN VILLATORO Care Teams (unrecognized sec tion and content) Sheet Metal Welder Relationship Specialty Start Date End Date Lamine Morton, CIGAR WRAPPER TENDER AUTOMATIC [address] [place] [address] PCP - General Family Medicine 05/22/11 Sheet Metal Welder Relationship Specialty Start Date End Date Lamine Morton, CIGAR WRAPPER TENDER AUTOMATIC [address] [phone] PCP - General Family Medicine 05/22/11 Sheet Metal Welder Relationship Specialty Start Date End Date Lamine Morton, CIGAR WRAPPER TENDER AUTOMATIC [address] [place] [address] PCP - General Family Medicine 05/22/11 Sheet Metal Welder Relationship Specialty Start Date End Date Lamine Morton, CIGAR WRAPPER TENDER AUTOMATIC [address] [phone] PCP - General Family Medicine 05/22/11 Team Status: Active Member Role Status Dates Lamine Morton CAR AUDIO INSTALLER, CAR AUDIO INSTALLER-C Family Provider Activ e Lamine Morton CAR AUDIO INSTALLER, CAR AUDIO INSTALLER-C Primary Care Provider Active Team Status: Inactive Member Role Status Dates Lamine Morton CAR AUDIO INSTALLER, CAR AUDIO INSTALLER-C Primary Care Provider, Referring Provider Active Dr. Jaxon Givens MD Attending Provider Active Team Status: Inactive Member Role Status Dates Lamine Morton CAR AUDIO INSTALLER, CAR AUDIO INSTALLER-C Primary Care Provider Active Dr. Isa Price MD Attending Provider, Referring Provider Active Team Status: Inactive Member Role Status Dates Lamine Morton CAR AUDIO INSTALLER, CAR AUDIO INSTALLER-C Primary Care Provider, Attending Provider, Referring Provider Active Dr. Isa Price MD Other Provider Active Team Status: Active Member Role Status Dates Lamine Morton CAR AUDIO INSTALLER, CAR AUDIO INSTALLER-C Primary Care Provider Active Dr. Isa Price MD Attending Provider, Referring Provider Active Team Status: Inactive Member Role Status Dates Lamine Morton CAR AUDIO INSTALLER, CAR AUDIO INSTALLER-C Primary Care Provider, Referring Provider Active Chiara Morrow CAR AUDIO INSTALLER, CAR AUDIO INSTALLER-C Attending Provider Active Sheet Metal Welder Relationship Specialty Start Date End Date Lamine Morton CNP [address] [place] [address] PCP - General Family Medicine 05/22/11 Sheet Metal Welder Relationship Specialty Start Date End Date Lamine Morton CNP [address] [place] [address] PCP - General Family Medicine 05/22/11 Team Status: Inactive Member Role Status Dates Lamine Morton CAR AUDIO INSTALLER, CAR AUDIO INSTALLER-C Primary Care Provider , Other Provider Active Dr. Isa Price MD Attending Provider, Referring Provider Active Sheet Metal Welder Relationship Specialty Start Date End Date Lamine Morton CNP [address] [place] [address] PCP - General Family Medicine 05/22/11 Sheet Metal Welder Relationship Specialty Start Date End Date Lamine Morton CNP [address] [place] [id number] PCP - General Family Medicine 05/22/11 Sheet Metal Welder Relationship Specialty Start Date End Date Lamine Morton CNP [address] [place] [address] PCP - General Family Medicine 05/22/11 Sheet Metal Welder Relationship Specialty Start Date End Date Lamine Morton, MATTHEW [address] [place] [address] PCP - General Family Medicine 05/22/11 Sheet Metal Welder Relationship Specialty Start Date End Date Lamine Morton CNP [address] [place] [address] PCP - General Family Medicine 05/22/11 Sheet Metal Welder Relationship Specialty Start Date End Date Lamine Morton, MATTHEW [address] [place] [address] PCP - General Family Medicine 05/22/11 Team Status: Active Member Role Status Dates Lamine Morton CAR AUDIO INSTALLER, CAR AUDIO INSTALLER-C Primary Care Provider Active Team Status: Inactive Member Role Status Dates Lamine Morton CAR AUDIO INSTALLER, CAR AUDIO INSTALLER-C Primary Care Provider Active Start: April [id number] End: April 28, 2024 Lamine Morton CAR AUDIO INSTALLER, CAR AUDIO INSTALLER-C Attending Provider Active Start: April End: April 28, 2024 Lamine Morton CAR AUDIO INSTALLER, CAR AUDIO INSTALLER-C Referring Provider Active Start: April End: April 28, 2024 Dr. Isa Price MD Other Provider Active St art: April 28, 2024 End: April 28, 2024 Team Status: Inactive Member Role Status Dates Lamine Morton CAR AUDIO INSTALLER, CAR AUDIO INSTALLER-C Primary Care Provider Active Start: May [id number] End: May 11, 2024 Lamine Bismark Selene CAR AUDIO INSTALLER, CAR AUDIO INSTALLER-C Referring Provider Active Start: April End: May 11, 2024 Chiara Morrow NP, CAR AUDIO INSTALLER-C Attending Provider Active Start: May 11, 2024 End: May 11, 2024 Team Status: Inactive Member Role Status Dates Lamine Morton CAR AUDIO INSTALLER, CAR AUDIO INSTALLER-C Primary Care Provider Active Start: July 20, 2024 End: July 20, 2024 Dr. Isa Price MD Attending Provider Active Start: July 20, 2024 End: July 20, 2024 Dr. Isa Price MD Referring Provider Active Start: July 20, 2024 End: July 20, 2024 Reason for Visit (unrecogniz ed section and content) Reason Comments Spirometry Specialty Diagnoses / Procedures Referred By Contac t Referred To [facility] RESPIRATORY [place] Diagnoses Chronic obstructive pulmonary disease, unspecified COPD type (HCC) Procedures NITRIC OXIDE, EXHALED NITRIC OXIDE GAS DETERMINATION [facility], Provider NON-STAFF PROVIDER Respiratory [place] [phone] Referral ID Status Reason Start Date Expiration Date V isits Requested Visits Authorized [id number] Closed Auto-Generate d Referral 04/19/2022 05/19/2023 1 1 Specialty Diagnoses / Procedures Referred By Contac t Referred To [facility]AT[facility] [place] Diagnoses Chronic obstructive pulmonary disease, unspecified COPD type (HCC) Procedures LUNG DIFFUSION CAPACITY (DLCO) DIFFUSING CAPACITY [facility], Provider NON-STAFF PROVIDER Respiratory [address] [address] Referral ID Status Reason Start Date Expiration Date V isits Requested Visits Authorized [id number] Closed Auto-Generate d Referral 04/19/2022 05/19/2023 1 1 Specialty Diagnoses / Procedures Referred By Contac t Referred To [facility]PIRAT[facility] [place] Diagnoses Chronic obstructive pulmonary disease, unspecified COPD type (HCC) Procedures SPIROMETRY - BASELINE AND POST DILATOR BRNCDILAT RSPSE SPMTRY PRE&POST-BRNCDILAT ADMN [facility], Provider NON-STAFF PROVIDER Respiratory [address] [address] Referral ID Status Reason Start Date Expiration Date V isits Requested Visits Authorized [id number] Closed Auto-Generate d Referral 04/19/2022 05/19/2023 1 1 Specialty Diagnoses / Procedures Referred By Contac t Referred To [facility] RESPIRATORY [place] Diagnoses Chronic obstructive pulmonary disease, unspecified COPD type (HCC) Procedures LUNG VOLUMES DIFFUSING CAPACITY PLETHYSMOGRAPHY LUNG VOLUMES W/WO AIRWAY RESIST [facility], Provider NON-STAFF PROVIDER Respiratory [place] [address] [place] [address] Referral ID Status Reason Start Date Expiration Date Visits Requested Visits Authorized [id number] Authorized Auto-Generat ed Referral 04/19/2022 05/19/2023 [address] Specialty Diagnoses / Procedures Referred By Contac t Referred To Contact Radiology / RADIO CT SCAN [facility] Diagnoses CHEST CT WO CONTRAST chronic respiratory failure with hypoxia superintendent container terminal use of antimetabolite agent Procedures CT WO CH 400 Jaxon Givens MD [address] [place] [address] Scan [facility] [address] [place] [address] Referral ID Status Reason Start Date Expiration Date V isits Requested Visits Authorized [id number] Outside PCP 04/25/2022 06/24/2022 1 1 Reason Comments Consult Colonoscopy consult. Reason Comments Consult Referral ID Status Reason Start Date Expiration Date V isits Requested Visits Authorized [id number] Closed Auto-Generate d Referral 04/22/2023 05/21/2024 1 1 Referral ID Status Reason Start Date Expiration Date V isits Requested Visits Authorized [id number] Closed Auto-Generate d Referral 04/22/2023 05/21/2024 1 1 INFORMATION SOURCE (unrecogn ized section and content) DATE CREATED AUTHOR 11/10/2023 [facility]) DATE CREATED AUTHOR AUTHOR'S ORGANIZ ATION 12/10/2023 [facility] DATE CREATED AUTHOR AUTHOR'S ORGANIZ ATION 12/31/2023 [facility] DATE CREATED AUTHOR AUTHOR'S ORGANIZ ATION 07/08/2024 [facility] DATE CREATED AUTHOR AUTHOR'S ORGANIZ ATION 07/26/2024 [facility] FOR RECORDS PERTAINING TO PATIENTS WHO ARE OR HAVE BEEN ENROLLED IN A CHEMICAL DEPENDENCY/SUBSTANCEABUSE PROGRAM, SOME INFORMATION MAY BE OMITTED. This clinical summary was aggregated from multiple sources. Caution should be exercised in using it in the provision of clinical care. This summary normalizes information from multiple sources, and as a consequence, information in this document may materially change the coding, format and clinical context of patient data. In addition, data may be omitted in some cases. CLINICAL DECISIONS SHOULD BE BASED ON THE PRIMARY CLINICAL RECORDS. [facility]. provides no warranty or guarantee of the accuracy or completeness of information in this document.
== END | disposition home or self-care (01) ==
PROVIDERS: PCP Nurse Practitioner Family; Referring Provider Nurse Practitioner Family; Visit Provider Internal Medicine Rheumatology
DX: M05.70 Rheumatoid arthritis with rheumatoid factor of unspecified site without organ or systems involvement (principal); Z79.899 Other long term (current) drug therapy; E03.9 Hypothyroidism, unspecified; E55.9 Vitamin D deficiency, unspecified; E53.8 Deficiency of other specified B group vitamins; D63.8 Anemia in other chronic diseases classified elsewhere; E78.2 Mixed hyperlipidemia; I12.9 Hypertensive chronic kidney disease with stage 1 through stage 4 chronic kidney disease, or unspecified chronic kidney disease; N18.9 Chronic kidney disease, unspecified
CPT/HCPCS: 36415; 80053; 80061; 82043; 82306; 82570; 82607; 82746; 83540; 83550; 84439; 84443; 84481; 85025

== ENCOUNTER → 2024-12-16 | Outpatient (CLI) | payer BC, SELFPAY ==
[2024-12-16 16:09] LABS: AST(SGOT) 19 U/L (<=31); Alanine Aminotransfer ALT/SGPT 14 U/L (<=34); Albumin, Serum 4.1 g/dL (3.4-4.8); Alkaline Phosphatase 74 U/L (35-104); Anion Gap 10 (5-15); BUN 14 mg/dL (4-19); BUN/Creat Ratio 17.0 RATIO (10-20); Calcium,Total 9.2 mg/dL (7.6-11.0); Carbon Dioxide 26.5 mmol/L (21.0-32.0); Chloride 105 mmol/L (98-108); Globulin 2.6 g/dL (2.2-4.2); Glucose 111 mg/dL (70-99); Potassium 4.2 mmol/L (3.3-5.1)
[2024-12-16 16:26] LABS: Hematocrit 36.8 % (37-47); Hemoglobin 12.1 g/dL (12.0-15.0); Immature Granulocytes Count 0.020 X10^3/uL (0.0-0.0); Mean Corp Hgb Conc 32.9 g/dL (32-36); Mean Corpuscular Volume 97.4 fL (81-99); Mean Platelet Vol. 10.3 fl (6.2-12.0); NRBC Flagged by Analyzer 0 % (0-5); Platelet Count 320 K/mm3 (150-450); RBC Distribution Width CV 13.4 % (11.6-14.6); RBC Distribution Width SD 47.6 fl (35.1-43.9); Red Blood Count 3.78 M/mm3 (4.2-5.4); White Blood Count 6.9 K/mm3 (4.4-11.0)
== END | disposition home or self-care (01) ==
LOC: MTLAB 11:11
PROVIDERS: PCP Nurse Practitioner Family; Referring Provider Internal Medicine Rheumatology; Visit Provider Internal Medicine Rheumatology
DX: M05.70 Rheumatoid arthritis with rheumatoid factor of unspecified site without organ or systems involvement (principal); Z79.899 Other long term (current) drug therapy
CPT/HCPCS: 36415; 80053; 85025

== ENCOUNTER → 2025-03-15 | Outpatient (CLI) | payer BC, SELFPAY ==
[2025-03-15 12:09] LABS: Hematocrit 39.5 % (37-47); Hemoglobin 12.9 g/dL (12.0-15.0); Immature Granulocytes Count 0.020 X10^3/uL (0.0-0.0); Mean Corp Hgb Conc 32.7 g/dL (32-36); Mean Corpuscular Volume 99.0 fL (81-99); Mean Platelet Vol. 10.2 fl (6.2-12.0); NRBC Flagged by Analyzer 0 % (0-5); Platelet Count 313 K/mm3 (150-450); RBC Distribution Width CV 14.9 % (11.6-14.6); RBC Distribution Width SD 55.0 fl (35.1-43.9); Red Blood Count 3.99 M/mm3 (4.2-5.4); White Blood Count 6.6 K/mm3 (4.4-11.0)
[2025-03-15 12:35] LABS: AST(SGOT) 25 U/L (<=31); Alanine Aminotransfer ALT/SGPT 23 U/L (<=34); Albumin, Serum 4.4 g/dL (3.4-4.8); Alkaline Phosphatase 75 U/L (35-104); Anion Gap 9 (7-18); BUN 14 mg/dL (4-19); BUN/Creat Ratio 17.4 RATIO (10-20); Calcium,Total 9.4 mg/dL (7.6-11.0); Carbon Dioxide 27.8 mmol/L (20.0-29.0); Chloride 104 mmol/L (96-106); Globulin 2.6 g/dL (2.2-4.2); Glucose 95 mg/dL (70-99); Potassium 4.4 mmol/L (3.5-5.1)
== END | disposition home or self-care (01) ==
LOC: MTLAB 09:44
PROVIDERS: PCP Nurse Practitioner Family; Referring Provider Internal Medicine Rheumatology; Visit Provider Internal Medicine Rheumatology
DX: M05.70 Rheumatoid arthritis with rheumatoid factor of unspecified site without organ or systems involvement (principal); Z79.899 Other long term (current) drug therapy
CPT/HCPCS: 36415; 80053; 85025